=== PATIENT | female | born 2000 | race Caucasian/White ===

== ENCOUNTER 2018-01-02 18:19 | Emergency (ER) | payer MEDICAID, SELFPAY ==
[2018-01-02 18:53] VITALS: BP 123/78; PULSE 80; RESP 18; TEMP 37; O2SAT 98
--- NOTE | 2018-01-02 19:33 | ED.GENADUL ---
Disposition Clinical Impression: Depression, Passive suicidal ideations Disposition: HOME Condition: Good Instructions: Depression (ED), Suicide Prevention for Adults (ED) Additional Instructions: Return immediately for any new or significant worsening of your symptoms these may include further thoughts of harming herself or other concerns. Otherwise follow the safety plan as established by mental health worker. Referrals: Bobby Estrada MD [Primary Care Provider] - (As needed for reassessment) Medical Decision Making - Medical Decision Making Patient presenting to the emergency department for chief complaint of worsening depression with increasing suicidal thoughts. She denies any current self-harm but does have history in the past of overdose and that is what she is thinking about currently doing to harm herself. There is situational changes with recent separation from significant other and loss of job. Patient has no medical complaints at this time and given history and situation along with patient's ongoing depression with multiple admissions and very well-known to [facility] and mental health services I do not feel that labs are needed or warranted at this time. Of notation is patient is presenting with friend and she is laughing and giggling and smiling and appropriately interactive with friend. Again given this interaction I do not feel that there are any endocrine or medical sources for patient's complaint and this is mostly psychiatric in nature so acute mental health band saw marker was contacted for evaluation. After acute mental health evaluation patient reported that she would prefer to go home and was able to contract for safety. Reviewed safety plan with patient and she remains also agreeable to me to contract for safety and to contact mental services as needed or return to the emergency department for new or worsening symptoms otherwise she does state that she is excited to go home and spend time with her niece this weekend. Given patient's overall well appearance and even pleasant interactions with her friend who brought her to the emergency department and patient jaime for safety I feel that this is an appropriate plan the patient does not need admission at this time. Patient clearly states understanding that she may return to the emergency department at any point in time for any worsening suicidal thoughts or depression for reevaluation. After discussion of diagnosis and plan of care with patient patient agreed and stated no further needs, questions, or concerns at this time. History of Present Illness - General Chief complaint: PsychEval Stated complaint: EVAL Time Seen by Provider: 01/02/18 18:33 Source: patient, RN notes reviewed Mode of arrival: ambulatory Limitations: no limitations - History of Present Illness Initial comments: Patient reports 1 month ago her relationship with her significant other began to start to have problems. Then 2 weeks ago she broke off the relationship. Since then the patient has complained of worsening depression. Then she lost her job which worsened her depression now causing increasing thoughts of suicidal ideation. Patient states her plan is to overdose like she is done in the past. Patient denies any self-harm but that she has started having increasing feeling so she is presenting for evaluation and seeking help. She does report some superficial cutting that occurred 2 weeks ago but nothing recent. Patient denies any chest pain, palpitations, syncope, difficulty breathing, fever or chills Patient denies any pain or discomfort at this time Onset/Timin -: month(s) Associated Symptoms: denies other symptoms Treatments Prior to Arrival: none - Related Data Albuterol Sulfate 2.5 mg IH Q4H PRN #1 box 07/20/14 Mupirocin [MUPIROCIN 2%] 1 isa TP TID #22 gm 01/07/17 Triamcinolone 0.1% Lotion [Kenalog 0.1% Lotion] 1 isa TP BID #60 ml 01/07/17 Prazosin HCl 2 mg PO HS #30 tab-cap 05/22/17 [place] Carbonate [[place] Carbonate ER] 300 mg PO BID #60 tab-cap 05/30/17 HydrOXYzine HCL [Atarax] 25 mg PO TID PRN 07/15/17 PARoxetine [Paxil] 10 mg PO DAILY 01/02/18 Allergies Allergy/AdvReac Type Severity Reaction Status Date / Time No Known Allergies Allergy Unverified 01/02/18 18:59 Review of Systems Constitutional: denies: chills, fever ENT: denies: throat pain Respiratory: no symptoms reported Cardiovascular: denies: chest pain, palpitations, syncope Endocrine: no symptoms reported Gastrointestinal: denies: abdominal pain Psychiatric: depression, suicidal thoughts. denies: auditory hallucinations, visual hallucinations, homicidal thoughts Past Medical History - Past Medical History Medical history: no medical history. denies: diabetes eczema Surgical history: non-contributory Psychiatric history: depression - Social History Smoking status: current everyday smoker Alcohol use: none Drug use: none General Exam - General Limitations: no limitations General appearance: alert, in no apparent distress - Head Head exam: Present: atraumatic - Eye Eye exam: Present: normal apperance, PERRL, EOMI. Absent: scleral icterus, conjunctival injection, nystagmus Pupils: Present: normal accommodation - ENT ENT exam: Present: mucous membranes moist - Respiratory Respiratory exam: Present: normal lung sounds bilaterally. Absent: respiratory distress, wheezes, rales, rhonchi, stridor - Cardiovascular Cardiovascular Exam: Present: regular rate, normal rhythm, normal heart sounds. Absent: tachycardia, systolic murmur, diastolic murmur, rubs, clicks - Extremities Exam Extremities exam: Present: normal capillary refill - Neurological Exam Neurological exam: Present: alert, oriented X3. Absent: altered - Psychiatric Psychiatric exam: Present: depressed, suicidal ideation (With plan to overdose on pills), other (Patient giggling and laughing with friend in the room patient is not tearful and appropriately interactive.). Absent: agitated, anxious, flat affect, manic, homicidal ideation - Skin Skin exam: Present: warm, dry. Absent: cyanosis, diaphoretic, pallor, mottled Course Vital Signs - 24 hr 01/02/18 18:53 Temperature 37 C Pulse 80 Respiratory 18 Rate Blood Pressure 123/78 Pulse Oximetry 98
--- NOTE | 2018-01-02 20:58 | PDOC.MHCN ---
Presenting Issue: *How did they arrive here at ER and why did they come: Client arrived at ER today with Suicidal Ideation. Client stated that she had been maintaining well over the past few weeks following a Breakup and Loosing her job, but was now feeling that she could no longer maintain. [employer] Manual Machinist evaluated the client and found that the client could return home with a safety plan, which the client agreed to. Precipitating Factors: *Assessment of Safety SI/HI (address delusions if pertaining to the SI/HI) Yes to S/I, but client has agreed to stay safe over the weekend Disposition: *Behavior: Sarcastic, uplifted *Eye Contact: Poor at beginning of evaluation, however, improved by end of eval to normal *Mood: Docile, but improving/ overwhelmed *Affect: Polite, friendly, pleasant *Appetite: Low *Sleep (trouble falling/staying asleep): Interupted Plan: Client will return home with a safely plan and await contact from her porter sample case on Friday01/05/18 Safety Plan For Ivan Cole agree to return home this night, 01/02/18 to my home where I will remain safe from myself and others until 01/05/18. Upon the arrival of Friday I will have used my coping skills to get me through my events of depression and thoughts of self-harm. I will make every attempt to not cut myself and treat my medications with respect and maturity and take them only as directed by my prescriber. My Safety plan will include the thorough and unwavering care for my Niece Luma, who will undoubtedly keep my hands full and busy so I will not have time to self-harm. I will also be so incredibly tired by the time Luma goes to sleep that I will need a great deal of rest myself. I understand that during the weekend I have the option to call the after-hours emergency/crisis line at [phone] if I need to speak with someone for extra support to get me through the weekend. I also understand that my porter sample case Nanci Heard, will follow up with me on Friday so that I can further discuss the option of Hospitalization or alternative resources.
== END 2018-01-02 21:15 | disposition home or self-care (01) ==
PROVIDERS: Emergency Provider Student in an Organized Health Care Education/Training Program; PCP Pediatrics
DX: F33.8 Other recurrent depressive disorders (principal); R45.851 Suicidal ideations; Z63.9 Problem related to primary support group, unspecified; Z91.5 Personal history of self-harm
CPT/HCPCS: 99281

== ENCOUNTER 2018-01-16 20:27 | Emergency (ER) | payer MEDICAID, SELFPAY ==
[2018-01-16] VITALS (23 sets, daily range): BP systolic 104–139; BP diastolic 56–90; PULSE 54–78; RESP 14–26; TEMP 36.8; O2SAT 95–98
[2018-01-16] MEDS: Normal Saline 1,000 ML 1000 ML IV (21:05)
[2018-01-16 21:08] LABS: Abs Immature Grans 0.03 k/cumm (0.0-0.09); Absolute Basophil Count 0.05 k/cumm (0.0-0.2); Absolute Eosinophil Count 0.21 k/cumm (0.0-0.7); Absolute Lymphocyte Count 1.89 k/cumm (1.2-3.4); Absolute Monocyte Count 0.54 k/cumm (0.11-0.7); Basophils % 0.4; Eosinophils % 1.7; HCT 39.3 % (36.0-46.0); HGB 13.4 g/dL (12.0-15.5); Immature Grans % 0.2; Lymphocytes % 15.6; Mean Corp. HGB Concentration 34.1 g/dL (32.0-36.0); Mean Corpuscular Hemoglobin 28.2 pg (27.0-33.0); Mean Corpuscular Volume 82.7 fL (80-95); Mean Platelet Volume 9.6 fL (8.0-11.0); Monocytes % 4.5; Neutrophils % 77.6; Platelet Count 366 x1000/uL (130-400); RBC 4.75 m/cumm (4.00-5.20); RBC Distribution Width 12.8 % (11.7-14.6); White Blood Cell Count 12.11 k/cumm (4.4-10.8)
--- NOTE | 2018-01-16 21:11 | ED.GENADUL ---
Disposition Clinical Impression: Overdose, Depression, Suicidal behavior Disposition: [facility][NOTE 3] Condition: Good Instructions: Depression (ED) Medical Decision Making - Lab Data Laboratory Tests 01/16/18 21:00 WBC 12.11 H RBC 4.75 Hgb 13.4 Hct 39.3 MCV 82.7 MCH 28.2 MCHC 34.1 RDW 12.8 Plt Count 366 MPV 9.6 Immature Gran % 0.2 Neutrophils % 77.6 Lymphocytes % 15.6 Monocytes % 4.5 Eosinophils % 1.7 Basophils % 0.4 Absolute Neutrophils 9.40 H Absolute Lymphocytes 1.89 Absolute Monocytes 0.54 Absolute Eosinophils 0.21 Absolute Basophils 0.05 - Medical Decision Making This is a 17-year-old female with a past medical history of depression and multiple overdoses who presents for overdose. She took 10 pills of 300 mg lithium and 20 pills of 75 mg Effexor. She vomited roughly 30 minutes after her initial ingestion and noted a significant amount of pills in there. She classically attempts suicidal attempts through this mechanism. Currently she is hemodynamically stable, she has no pain or abnormality or focal neurologic deficit on exam. Affect is slightly flat. I do feel that she would benefit from admission again secondary to her notable attempt to attempt to harm herself. We will have psychiatric services come and evaluate the patient. EKG 20: 36 Rate 63, sinus rhythm, intervals are normal with a QRS of 86, QTC of 420. OR is 150. No ST elevations or depressions. Appropriately inverted T-wave in V1. Duy level is slightly elevated at 1.73. We are giving her her second liter of normal saline. We did discuss the case with poison control, they have no additional recommendations aside for continued monitoring. Renal function is normal at this time. Shows no signs or symptoms consistent with serotonin syndrome or mental status changes secondary to elevated lithium levels. Mental health has been called and will evaluate the patient. 1: [facility] they have agreed to accept the patient. The patient will be transferred via the personal fitness manager to the facility. Repeat lithium levels show that the levels have gone to normal limits. Salicylate and acetaminophen levels are normal. Laboratory electrolytes are normal. Patient does have a very minimal white count which I think is noncontributory and reactive. I feel the patient is safe for transport. History of Present Illness - General Chief complaint: OD/Poison Stated complaint: OVERDOSE/EVAL Time Seen by Provider: 01/16/18 20:31 - History of Present Illness Initial comments: This is a 17-year-old female who presents for suicidal overdose. Patient states that she took 10 pills of 300 mg lithium and 20 pills of 75 mg Effexor at 630, which is roughly 2 hours prior to arrival. The patient was recently seen by myself over a week ago, and was admitted to [facility] for a similar overdose scenario. She was just discharged 1 week ago from there, was actually here last night for suicidal event with her sister. She states that this evening she has been undergoing a lot of family stress, feeling a significant amount of pressure, so she overdosed. She did not tell anyone the medications that she took until she is at [facility] where she went and vomited roughly 30 minutes after her initial ingestion. She does state that there are multiple pills in her vomitus. She then came to the ER for evaluation. Patient states that she does want to kill herself and take her life. She does not regret her decision at this point. She denies any other types of plans for suicide. She denies any other substances that she is taking. Patient denies any chest pain abdominal pain headache vision changes shortness of breath numbness tingling or weakness. She denies any IV illicit drug use. She has no other complaints at this time. She denies any recent past surgical history, pertinent family history, or any other significant medical problems or complaints at this time. - Related Data Albuterol Sulfate 2.5 mg IH Q4H PRN #1 box 07/20/14 Mupirocin [MUPIROCIN 2%] 1 isa TP TID #22 gm 01/07/17 Triamcinolone 0.1% Lotion [Kenalog 0.1% Lotion] 1 isa TP BID #60 ml 01/07/17 Prazosin HCl 2 mg PO HS #30 tab-cap 05/22/17 [place] Carbonate [[place] Carbonate ER] 300 mg PO BID #60 tab-cap 05/30/17 HydrOXYzine HCL [Atarax] 25 mg PO TID PRN 07/15/17 Venlafaxine [Effexor] 75 mg PO DAILY 01/16/18 Allergies Allergy/AdvReac Type Severity Reaction Status Date / Time No Known Allergies Allergy Unverified 01/16/18 20:35 Review of Systems Other: 10 point review of systems was performed, pertinent positives and negatives are noted in the history of present illness. Past Medical History - Past Medical History Medical history: no medical history. denies: diabetes eczema Surgical history: non-contributory - Social History Alcohol use: none Drug use: none General Exam - Other Other exam information: 1.Const: Well-nourished, Well-developed, appearing stated age 2.Eyes: PERRL, no conjunctival injection, and symmetrical lids. 3.ENT: Atraumatic external nose and ears. Moist MM. Neck: Symmetric, trachea midline, No thyromegaly. 4.CVS: +S1/S2, No murmurs or gallops. Peripheral pulses 2+ and equal in all extremities. Brisk capillary refill in all extremities. 5.RESP: Unlabored respiratory effort. Clear to auscultation bilaterally. No wheezes rales or rhonchi 6.GI: Soft, Nontender/Nondistended, No hepatosplenomegaly. No guarding or rebound. 7.MSK: Normocephalic/Atraumatic, Extremities w/o deformity or ttp No cyanosis or clubbing, Normal movement of all extremities 8.Skin: Warm, Dry. No rashes or lesions. 9.Neuro: tablet machine operator II-XII grossly intact. Sensation grossly intact, no focal neurologic deficits. No hyperreflexia. No evidence of serotonin syndrome. No cogwheel rigidity, leadpipe rigidity, 10.Psych: (AAO) x3. Appropriate mood and affect Course Vital Signs - 24 hr 01/16/18 01/16/18 20:34 20:37 Temperature 36.8 C Pulse 66 Respiratory 25 H 16 Rate Blood Pressure 125/77 Pulse Oximetry 96
[2018-01-16 21:24] LABS: PTT Activated 28.4 sec (21.0-31.4); Prothrombin Time 9.6 sec (9.3-10.8)
[2018-01-16 21:29] LABS: Ammonia 25 umol/L (11-32)
--- NOTE | 2018-01-16 21:29 | PDOC.ERCMPRO ---
Care Management Progress Note 01/16/18- Pt reports she took some of her pych meds as she was feeling sad and wanted to . She went to [facility] with her Mom, Dad and siblings and did not report this to them until she had to go outside and vomit.While pt is reporting to she is smiling. explained that a safety plan would be put into place for her as she needs to be medically cleared and Dr. Andersen will be calling in to evaluate. She states she is familiar with the process. This is a holding care plan only. This Care Plan will remain in effect until Care Management comes in for a huddle and distributes a new plan of care. Renejuan j Joe Emergent Care Plan 01/16/2018 1. Suicide Precautions 2. Patient to be in paper clothing 3. No personal belongings in room 4. Finger foods only with metal spoon. Nurse accounted for. 5. No telephone 6. No visitors 7. Supervised Bathroom Privileges 8. Patient to have one on one, licensed sitter, VIVEK, CLOTH COLORER, coin rolling machine operator. 9. May have crayons, paper, and activities (if appropriate) from the Mental Health Activity Cart in ED
--- NOTE | 2018-01-16 21:34 | CMPROGNOTE_ITS ---
Care Management Progress Note 01/16/18- Pt reports she took some of her pych meds as she was feeling sad and wanted to . She went to [facility] with her Mom, Dad and siblings and did not report this to them until she had to go outside and vomit.While pt is reporting to she is smiling. explained that a safety plan would be put into place for her as she needs to be medically cleared and Dr. Andersen will be calling in to evaluate. She states she is familiar with the process. This is a holding care plan only. This Care Plan will remain in effect until Care Management comes in for a huddle and distributes a new plan of care. Renejuan j Joe Emergent Care Plan 01/16/2018 1. Suicide Precautions 2. Patient to be in paper clothing 3. No personal belongings in room 4. Finger foods only with metal spoon. Nurse accounted for. 5. No telephone 6. No visitors 7. Supervised Bathroom Privileges 8. Patient to have one on one, licensed sitter, VIVEK, OR DIRECTOR, sample taker operator. 9. May have crayons, paper, and activities (if appropriate) from the Mental Health Activity Cart in ED
[2018-01-16 21:35] LABS: ALT 20 U/L (12-78); AST 18 U/L (15-37); Albumin 4.2 g/dL (3.4-5.0); Alkaline Phosphatase 111 U/L (46-116); Anion Gap 10.6 mmol/L (3-11); BUN 12 mg/dL (7-18); Bilirubin, Total 0.3 mg/dL (0.2-1.0); CO2 26.4 mmol/L (21.0-32.0); Calcium 9.4 mg/dL (8.5-10.1); Chloride 103 mmol/L (98-107); Glucose 93 mg/dL (70-100); Potassium 3.7 mmol/L (3.5-5.1); Sodium 140 mmol/L (136-145); Total Protein 8.6 g/dL (6.4-8.2)
[2018-01-16 21:41] LABS: TSH 2.46 uIU/mL (0.516-4.13)
[2018-01-16 21:49] LABS: ETHANOL BLOOD < 3.0 mg/dL (<3); Troponin I < 0.02 ng/mL (0.00-0.06)
[2018-01-16 21:55] LABS: Salicylate < 2.8 mg/dL (2.8-20.0)
[2018-01-16 21:57] LABS: Lithium 1.73 mmol/L (0.60-1.20)
[2018-01-16 22:10] LABS: HCG Qual (Serum) Negative
--- NOTE | 2018-01-16 23:42 | ERMH_ITS ---
Presenting issue: [Patient was brought to [facility] ED by family after overdosing on her medications.] *How did they arrive here at ER and why did they come: [Family drover her to the hospital] Precipitating Factors: [Patient was recently discharged from [facility] 01/09/2018 after overdosing on her medications.] *Assessment of Safety SI / HI- (Address delusions if pertaining to the SI/ HI) [Patient lives with her parents and siblings in a very chaotic,stressful environment. She recently lost her cat and her sister recently overdosed and was hospitalized. Patient reports she still has strong S/I and would not be safe if returned to her home.] Disposition: [] *Behavior: [ Patient is polite and cooperative.] *Eye Contact: [Appropriate] *Mood: [Unremarkable] *Affect: [Unremarkable] *Appetite: [Normal] *Sleep (trouble falling/staying asleep): [None.] Plan: (please elaborate and include that physician is consulted with plan and/ or placement): [Patient is seeking and has agreed to voluntary hospitalization. ] Provisional Diagnosis:(only if required by physician): [] AXIS 5 Case Handover: Done with ED nurse (name): [Dr. Andersen] Date & Time [2017 2 am.] Huddle: done with ED staff (for boarding clients): [x] Yes [] No Date/Time [] Referral for Case management: Has phone call for introduction been made [] Yes [] No Referral in EMR: Done and sent? [] Yes [] NO Clinicians Name and title and Signature: [Mauricio Chang [facility]] Make sure that you are photocopying and submitting this to [facility] records dept.to be scanned into chart
[2018-01-17] MEDS: Normal Saline 1,000 ML 1000 ML IV (00:04)
[2018-01-17 01:17] LABS: ALT 17 U/L (12-78); AST 15 U/L (15-37); Albumin 3.5 g/dL (3.4-5.0); Alkaline Phosphatase 90 U/L (46-116); BUN 8 mg/dL (7-18); Bilirubin, Total 0.3 mg/dL (0.2-1.0); Calcium 8.4 mg/dL (8.5-10.1); Chloride 106 mmol/L (98-107); Glucose 81 mg/dL (70-100); Potassium 3.7 mmol/L (3.5-5.1); Sodium 142 mmol/L (136-145); Total Protein 7.3 g/dL (6.4-8.2)
[2018-01-17 01:21] LABS: Bilirubin Negative (Negative); Blood Negative (Negative); Clarity Clear; Glucose Negative (Negative); Ketones Negative (Negative); Leukocyte Esterase Negative (Negative); Nitrite Negative (Negative); Specific Gravity 1.015 (1.005-1.025); Urobilinogen 0.2 EU/dL (Up TO 0.2); pH 7.5 (5-8)
[2018-01-17 01:32] LABS: *AMPHETAMINES SCREEN URINE Negative (Negative); *BARBITURATES SCREEN URINE Negative (Negative); *BENZODIAZEPINES SCREEN URINE Negative (Negative); Cannabinoids THC Negative (Negative); Cocaine Screen,Urine Negative (Negative); METHADONE URINE SCREEN Negative (Negative); OPIATES URINE SCREEN Negative (Negative)
[2018-01-17 01:33] LABS: Tricyclic Antidepressants Negative (Negative)
[2018-01-17 01:45] LABS: Lithium 1.02 mmol/L (0.60-1.20)
[2018-01-17 01:49] LABS: Salicylate < 2.8 mg/dL (2.8-20.0)
[2018-01-17 01:51] LABS: Acetaminophen < 2 ug/mL (10-30)
[2018-01-17 06:38] VITALS: BP 110/56; PULSE 54; RESP 18; TEMP 36.8; O2SAT 95
== END 2018-01-17 07:16 | disposition short-term general hospital (02) ==
PROVIDERS: Emergency Provider Student in an Organized Health Care Education/Training Program; PCP Pediatrics
DX: T43.211A Poisoning by selective serotonin and norepinephrine reuptake inhibitors, accidental (unintentional), initial encounter (principal); T43.592A Poisoning by other antipsychotics and neuroleptics, intentional self-harm, initial encounter; F32.9 Major depressive disorder, single episode, unspecified; T14.91XA Suicide attempt, initial encounter
CPT/HCPCS: 36415; 80053; 80307; 93005; 96360; 96361; 99285; 80178; 80320; 80329; 81003; 82140; 84443; 84484; 84703; 85025; 85610; 85730; 93010; 99284

== ENCOUNTER 2018-02-27 09:33 | Outpatient (CLI) | payer MEDICAID, SELFPAY ==
[2018-02-27 10:31] LABS: Abs Immature Grans 0.01 k/cumm (0.0-0.09); Absolute Basophil Count 0.05 k/cumm (0.0-0.2); Absolute Eosinophil Count 0.34 k/cumm (0.0-0.7); Absolute Lymphocyte Count 1.58 k/cumm (1.2-3.4); Absolute Monocyte Count 0.62 k/cumm (0.11-0.7); Absolute Neutrophil Count 5.61 k/cumm (1.2-6.7); Basophils % 0.6; Eosinophils % 4.1; HCT 38.5 % (36.0-46.0); HGB 13.1 g/dL (12.0-15.5); Immature Grans % 0.1; Lymphocytes % 19.2; Mean Corpuscular Hemoglobin 28.5 pg (27.0-33.0); Mean Corpuscular Volume 83.9 fL (80-95); Mean Platelet Volume 9.8 fL (8.0-11.0); Monocytes % 7.6; Neutrophils % 68.4; Platelet Count 274 x1000/uL (130-400); RBC 4.59 m/cumm (4.00-5.20); RBC Distribution Width 12.6 % (11.7-14.6); White Blood Cell Count 8.21 k/cumm (4.4-10.8)
[2018-02-27 11:35] LABS: Lithium 0.62 mmol/L (0.60-1.20)
[2018-02-27 11:38] LABS: ALT 19 U/L (12-78); AST 17 U/L (15-37); Albumin 4.1 g/dL (3.4-5.0); Alkaline Phosphatase 110 U/L (46-116); Anion Gap 8.2 mmol/L (3-11); BUN 6 mg/dL (7-18); Bilirubin, Total 0.5 mg/dL (0.2-1.0); CO2 26.8 mmol/L (21.0-32.0); Calcium 9.1 mg/dL (8.5-10.1); Chloride 103 mmol/L (98-107); Glucose 90 mg/dL (70-100); Potassium 3.9 mmol/L (3.5-5.1); Sodium 138 mmol/L (136-145); TSH (W/Ref FT4) 3.54 uIU/mL (0.516-4.13); Total Protein 7.5 g/dL (6.4-8.2)
== END 2018-02-27 09:53 ==
PROVIDERS: PCP Pediatrics; Visit Provider Nurse Practitioner Psychiatric/Mental Health
DX: F33.1 Major depressive disorder, recurrent, moderate (principal); Z51.81 Encounter for therapeutic drug level monitoring; Z79.899 Other long term (current) drug therapy
CPT/HCPCS: 36415; 80053; 80178; 84443; 85025

== ENCOUNTER 2018-05-15 20:41 | Emergency (ER) | payer MEDICAID, SELFPAY ==
[2018-05-15] VITALS (14 sets, daily range): BP systolic 107–136; BP diastolic 55–84; PULSE 80–112; RESP 16; TEMP 36.9; O2SAT 97–99
--- NOTE | 2018-05-15 20:24 | W.ED.GENAD ---
Discharge Plan Disposition Patient Disposition: [facility] Condition: Stable Discharge Details Chief Complaint: Suicide-Atempt Clinical Impression: Depression Reason For Visit: VALERY Primary Care Provider: Bobby Estrada ED Provider: Mauricio Prince Home Meds and New Rx's Prescriptions: No Action albuterol sulfate 2.5 MG/3 ML solution for nebulization 2.5 mg Inhalation Q4H PRN Qty: 1 RF: 1 mupirocin 22 GM ointment 1 isa Topical TID Qty: 22 RF: 0 triamcinolone acetonide 60 ML lotion 1 isa Topical BID Qty: 60 RF: 2 prazosin 2 MG capsule 2 mg PO HS Qty: 30 RF: 1 lithium carbonate 300 MG tablet extended release 300 mg PO BID Qty: 60 RF: 1 venlafaxine 75 mg capsule,extended release 24hr 75 mg PO DAILY Qty: 30 RF: 0 venlafaxine 37.5 mg capsule,extended release 24hr 37.5 mg PO DAILY Qty: 30 RF: 0 ranitidine HCl 150 mg capsule 150 mg PO BID Qty: 120 RF: 2 hydroxyzine HCl 25 MG tablet 25 mg PO TID PRN (Reason: Anxiety) RF: 0 Medical Decision Making 17-year-old female presents from home via EMS after revealing to her friend that she had ingested 10 300 mg lithium tablets and 22 mg terazosin tablets at approximately 7 PM. She vomited x1. She states to me that her mood has been personally worse since recent discharge from the [facility]. She is living in her apartment and has a local counseling case manager. She states to nursing staff that she is undergoing gender transformation from female to male and would like to be addressed by the name Ivan. I discussed the patient with care management and interim safety plan was initiated. Patient underwent medical screening examination including laboratory analysis with both acetaminophen, aspirin, lithium levels. Case discussed with poison control. Patient will require monitoring until peak lithium level (2-4hrs): Initial level negative and repeat ordered at 4 hr interval. Liberally hydrated with 2 L fluid bolus. Observed for tremor, nystagmus. No evidence of hyperreflexia. Medically stable for further evaluation by mental health and given unremarkable 4 hr lithium level, stable for transport to inpatient facility.Patient accepted in transfer to [facility], who request ambulance transport secondary to intentional ingestion. Lab Data Lab results reviewed: Yes I reviewed the patient's lab results. Laboratory Results - last 24 hr 05/15/18 05/15/18 05/15/18 20:38 20:38 20:38 WBC 8.71 RBC 4.49 Hgb 12.9 Hct 37.7 MCV 84.0 MCH 28.7 MCHC 34.2 RDW 12.6 Plt Count 301 MPV 9.6 Immature Gran % 0.0 Neutrophils % 68.0 Lymphocytes % 23.2 Monocytes % 6.5 Eosinophils % 1.7 Basophils % 0.6 Absolute Neutrophils 5.92 Absolute Lymphocytes 2.02 Absolute Monocytes 0.57 Absolute Eosinophils 0.15 Absolute Basophils 0.05 Sodium 139 Potassium 3.5 Chloride 103 Carbon Dioxide 25.9 Anion Gap 10.1 BUN 10 Creatinine 0.66 Estimated GFR/1.73 m2 >= 60.00 Glucose 121 H POC Glucose Calcium 9.2 Total Bilirubin 0.2 AST 15 ALT 21 Alkaline Phosphatase 95 Total Protein 7.8 Albumin 4.0 TSH 2.32 Urine Color Urine Clarity Urine pH Ur Specific [place] Urine Protein Urine Ketones Urine Blood Urine Nitrite Urine Bilirubin Urine Urobilinogen Ur Leukocyte Esterase Urine Glucose Salicylates < 2.8 L Acetaminophen < 2 L [place] Ethyl Alcohol < 3.0 05/15/18 05/15/18 05/15/18 20:38 20:41 21:45 WBC RBC Hgb Hct MCV MCH MCHC RDW Plt Count MPV Immature Gran % Neutrophils % Lymphocytes % Monocytes % Eosinophils % Basophils % Absolute Neutrophils Absolute Lymphocytes Absolute Monocytes Absolute Eosinophils Absolute Basophils Sodium Potassium Chloride Carbon Dioxide Anion Gap BUN Creatinine Estimated GFR/1.73 m2 Glucose POC Glucose Cancelled Calcium Total Bilirubin AST ALT Alkaline Phosphatase Total Protein Albumin TSH Urine Color Yellow Urine Clarity Clear Urine pH 7.0 Ur Specific [place] 1.015 Urine Protein Negative Urine Ketones Negative Urine Blood Negative Urine Nitrite Negative Urine Bilirubin Negative Urine Urobilinogen 0.2 Ur Leukocyte Esterase Negative Urine Glucose Negative Salicylates Acetaminophen [place] 1.01 Ethyl Alcohol ECG Data Attestation: I personally reviewed and interpreted this ECG (s) as follows: Prior ECG tracings: available for review Interpretation: Sinus tachycardia, rate 90, QRS is narrow, no ST changes HPI General Mode of arrival: EMS. Date/Time Provider Initiated Documentation: 05/15/18 20:45. Limitations to Documentation: no limitations. Information obtained by: patient and EMS. History of Present Illness described as similar to prior episodes, Patient started experiencing this hour(s) No relieving factors improve symptom(s), No exacerbating factors reported . Patient notes nausea/vomiting. HPI Narrative: Report of speaking on phone to friend and reporting ingestion of 300 mg lithium pills x10, 2 mg terazosin pills x20 at approximately 1900 hrs. vomited x1 Related Data Home Medications Medication Instructions Recorded Confirmed albuterol sulfate 2.5 mg INHALATION Q4H PRN #1 box 07/20/14 04/09/18 mupirocin 1 isa TOPICAL TID #22 gm 01/07/17 04/09/18 triamcinolone acetonide 1 isa TOPICAL BID #60 ml 01/07/17 04/09/18 prazosin 2 mg PO HS #30 tab-cap 05/22/17 04/09/18 lithium carbonate 300 mg PO BID #60 tab-cap 05/30/17 04/09/18 hydroxyzine HCl 25 mg PO TID PRN 07/15/17 04/09/18 venlafaxine ER 37.5 mg 37.5 mg PO DAILY #30 cap 02/04/18 04/09/18 capsule,extended release 24 hr venlafaxine ER 75 mg 75 mg PO DAILY #30 cap 02/04/18 04/09/18 capsule,extended release 24 hr ranitidine 150 mg capsule 150 mg PO BID #120 cap 05/12/18 Previous Rx's Medication Instructions Recorded prazosin 2 mg PO HS #30 tab-cap 05/22/17 lithium carbonate 300 mg PO BID #60 tab-cap 05/30/17 venlafaxine ER 37.5 mg 37.5 mg PO DAILY #30 cap 02/04/18 capsule,extended release 24 hr venlafaxine ER 75 mg 75 mg PO DAILY #30 cap 02/04/18 capsule,extended release 24 hr ranitidine 150 mg capsule 150 mg PO BID #120 cap 05/12/18 Allergies Allergy/AdvReac Type Severity Reaction Status Date / Time No Known Allergies Allergy Unverified 04/09/18 13:38 Review of Systems Review of Systems 6 systems reviewed and otherwise neg [facility] Medical History Depression Eczema Wears glasses Family History Mother Depression Father No problems noted. sibling Depression Grandparent Depression Social History adopted: No Smoking/Tobacco Use Status: Current every day Exam Narrative Exam Narrative: GEN: awake, alert, oriented 3. Pleasant, well groomed, interactive. HEAD: Normocephalic, atraumatic ENT: Mucous membranes moist, oropharynx unremarkable, External ear exam unremarkable EYES: PERRL, EOMI NECK: Full ROM, no SHABBIR, no menigismus CHEST/RESP: Nontender, clear to auscultation bilateral, no wheeze/rhonchi/rales CARDIOVASCULAR: Regular, borderline tachycardia, no murmur, rub charli. 2+ Rad pulse bilateral ABDOMEN: Soft, nontender, no mass. +Bowel sounds EXT: Full ROM, no edema, no rash Neuro: Grossly normal neurologic exam, conversant, interactive. Psych: Speech fluent, thoughts congruent, affect flat
--- NOTE | 2018-05-15 20:42 | NUR.NOTE ---
glucose 118 mg/dL Nursing Note:
[2018-05-15 20:47] LABS: Absolute Basophil Count 0.05 k/cumm (0.0-0.2); Absolute Eosinophil Count 0.15 k/cumm (0.0-0.7); Absolute Lymphocyte Count 2.02 k/cumm (1.2-3.4); Absolute Monocyte Count 0.57 k/cumm (0.11-0.7); Absolute Neutrophil Count 5.92 k/cumm (1.2-6.7); Basophils % 0.6; Eosinophils % 1.7; HCT 37.7 % (36.0-46.0); HGB 12.9 g/dL (12.0-15.5); Lymphocytes % 23.2; Mean Corp. HGB Concentration 34.2 g/dL (32.0-36.0); Mean Corpuscular Hemoglobin 28.7 pg (27.0-33.0); Mean Platelet Volume 9.6 fL (8.0-11.0); Monocytes % 6.5; Platelet Count 301 x1000/uL (130-400); RBC 4.49 m/cumm (4.00-5.20); RBC Distribution Width 12.6 % (11.7-14.6); White Blood Cell Count 8.71 k/cumm (4.4-10.8)
[2018-05-15] MEDS: Normal Saline 1,000 ML 2000 ML IV (20:58)
[2018-05-15 21:12] LABS: ALT 21 U/L (12-78); AST 15 U/L (15-37); Alkaline Phosphatase 95 U/L (46-116); Anion Gap 10.1 mmol/L (3-11); BUN 10 mg/dL (7-18); Bilirubin, Total 0.2 mg/dL (0.2-1.0); CO2 25.9 mmol/L (21.0-32.0); CREATININE 0.66 mg/dL (0.55-1.02); Calcium 9.2 mg/dL (8.5-10.1); Chloride 103 mmol/L (98-107); Glucose 121 mg/dL (70-100); Potassium 3.5 mmol/L (3.5-5.1); Sodium 139 mmol/L (136-145); TSH 2.32 uIU/mL (0.516-4.13); Total Protein 7.8 g/dL (6.4-8.2)
[2018-05-15 21:13] LABS: ETHANOL BLOOD < 3.0 mg/dL (<3)
--- NOTE | 2018-05-15 21:15 | NUR.NOTE ---
pt is happily discussing there favorite TV shows with nurse and seems happy and pleasant. pt also states that they have no plans of harm
[2018-05-15 21:16] LABS: Salicylate < 2.8 mg/dL (2.8-20.0)
[2018-05-15 21:17] LABS: Acetaminophen < 2 ug/mL (10-30)
[2018-05-15 21:30] LABS: Lithium 1.01 mmol/L (0.60-1.20)
[2018-05-15 22:00] LABS: Bilirubin Negative (Negative); Blood Negative (Negative); Clarity Clear; Glucose Negative (Negative); Ketones Negative (Negative); Leukocyte Esterase Negative (Negative); Nitrite Negative (Negative); Specific Gravity 1.015 (1.005-1.025); Urobilinogen 0.2 EU/dL (Up TO 0.2)
[2018-05-15 22:23] LABS: *AMPHETAMINES SCREEN URINE Negative (Negative); *BARBITURATES SCREEN URINE Negative (Negative); *BENZODIAZEPINES SCREEN URINE Negative (Negative); Cannabinoids THC Negative (Negative); Cocaine Screen,Urine Negative (Negative); METHADONE URINE SCREEN Negative (Negative); OPIATES URINE SCREEN Negative (Negative)
[2018-05-15 22:32] LABS: Tricyclic Antidepressants Negative (Negative)
--- NOTE | 2018-05-15 22:52 | NUR.NOTE ---
pt under continuos 1 to 1 patient observation. pt is sitting up in bed continuously attempting to make conversation with observer about TV shows they are watching Nursing Note:
[2018-05-16] MEDS: Normal Saline 1,000 ML 2000 ML IV (00:02)
[2018-05-16 00:26] LABS: Lithium 0.72 mmol/L (0.60-1.20)
[2018-05-16 00:32] LABS: Acetaminophen < 2 ug/mL (10-30)
[2018-05-16 00:47] VITALS: RESP 14
[2018-05-16] MEDS: Normal Saline 1,000 ML 150 ML IV (00:59)
--- NOTE | 2018-05-16 01:36 | NUR.NOTE ---
Nursing Note: [facility] has called and accepted patient. Unable to obtain EMS transport (per [place] request) until 0700, [facility] crew. Bed is secure and not in jeopardy of being given away.
[2018-05-16 06:15] VITALS: BP 121/70; PULSE 71; RESP 14; TEMP 37; O2SAT 97
[2018-05-16 07:00] VITALS: BP 121/70; PULSE 71; RESP 14; TEMP 37; O2SAT 97
== END 2018-05-16 07:11 | disposition short-term general hospital (02) ==
PROVIDERS: Emergency Provider Emergency Medicine; PCP Pediatrics
DX: T56.892A Toxic effect of other metals, intentional self-harm, initial encounter (principal); F32.9 Major depressive disorder, single episode, unspecified; R45.851 Suicidal ideations
CPT/HCPCS: 36415; 80053; 80307; 82947; 93005; 96360; 96361; 99285; 80178; 80320; 80329; 81003; 84443; 85025; 93010; 99284

== ENCOUNTER 2018-09-06 18:56 | Emergency (ER) | payer MEDICAID, SELFPAY ==
--- NOTE | 2018-09-06 19:58 | W.ED.GENAD ---
Discharge Plan Disposition Patient Disposition: HOME Condition: Good Discharge Details Chief Complaint: PsychEval Clinical Impression: Major depression Primary Care Provider: Sudha Jacob ED Provider: Meryl Sanchez Home Meds and New Rx's Prescriptions: No Action venlafaxine 150 mg capsule,extended release 24hr 150 mg PO DAILY RF: 0 albuterol sulfate 2.5 MG/3 ML solution for nebulization 2.5 mg Inhalation Q4H PRN Qty: 1 RF: 1 mupirocin 22 GM ointment 1 isa Topical TID Qty: 22 RF: 0 triamcinolone acetonide 60 ML lotion 1 isa Topical BID Qty: 60 RF: 2 prazosin 2 MG capsule 2 mg PO HS Qty: 30 RF: 1 ranitidine HCl 150 mg capsule 150 mg PO BID Qty: 120 RF: 2 testosterone cypionate 200 mg/mL Kit 100 mg IM ONCE RF: 0 hydroxyzine HCl 25 MG tablet 25 mg PO TID PRN (Reason: Anxiety) RF: 0 Discharge Instructions Additional Instructions: If you have any thoughts of self-harm, please contact your mental health resources or 1 return immediately. If you notice any worsening of your symptoms, or any new symptoms such as vomiting, diarrhea, fever, chills, shortness of breath, chest pain, numbness, weakness, or fainting , please return immediately to the emergency department for reevaluation. Please follow up with your primary care provider as soon as possible for reassessment and reevaluation. As always, it was a pleasure participating in your medical care today. Referrals: Sudha Jacob [Primary Care Provider] - Discharge Data Discharge Date/Time-TO BE ENTERED AT DEPARTURE: 09/06/18 23:57 Medical Decision Making <Meryl Sanchez DO - Last Filed: 09/08/18 09:14> 17-year-old female with history of anxiety and depression who presents for feeling depressed and suicidal for the past few days. She has a previous history of suicide attempts with medication overdose. Her plan at this time would be to cut herself. Vitals within normal limits. Patient appears nontoxic. No acute findings on exam. Patient had initially told other staff members that she had been feeling suicidal at times but not currently suicidal. Patient admits to me that she is currently suicidal. She is medically cleared. Will call behavioral health. 2100 -- discussed with mental health - patient is a [employer] client. Will attempt to reach [employer]ELOPER to evaluate patient. 2139 -- discuss with Valeria from [employer] - she will not be able to come in until 11 PM tonight. 2199 -- case endorsed to Dr. Andersen to follow up with [employer] and final disposition. Medical Records Medical records reviewed: Yes I reviewed the patient's medical records. Lab Data Lab results reviewed: Yes I reviewed the patient's lab results. Laboratory Tests Range/Units 09/06/18 09/06/18 09/06/18 20:09 20:09 20:21 WBC (4.4-10.8) k/cumm 7.67 RBC (4.00-5.20) m/cumm 4.84 Hgb (12.0-15.5) g/dL 13.8 Hct (36.0-46.0) % 40.2 MCV (80-95) fL 83.1 MCH (27.0-33.0) pg 28.5 MCHC (32.0-36.0) g/dL 34.3 RDW (11.7-14.6) % 13.5 Plt Count (130-400) x1000/uL 314 MPV (8.0-11.0) fL 9.1 Immature Gran % 0.1 Neutrophils % 64.2 Lymphocytes % 27.4 Monocytes % 6.4 Eosinophils % 1.4 Basophils % 0.5 Absolute Neutrophils (1.2-6.7) k/cumm 4.92 Absolute Lymphocytes (1.2-3.4) k/cumm 2.10 Absolute Monocytes (0.11-0.7) k/cumm 0.49 Absolute Eosinophils (0.0-0.7) k/cumm 0.11 Absolute Basophils (0.0-0.2) k/cumm 0.04 Sodium (136-145) mmol/L 139 Potassium (3.5-5.1) mmol/L 3.9 Chloride (98-107) mmol/L 102 Carbon Dioxide (21.0-32.0) mmol/L 26.6 Anion Gap (3-11) mmol/L 10.4 BUN (7-18) mg/dL 8 Creatinine (0.55-1.02) mg/dL 0.64 Estimated GFR/1.73 m2 (mL/min/1.73m2) >= 60.00 Glucose (70-100) mg/dL 102 H Calcium (8.5-10.1) mg/dL 9.2 Urine Opiates Screen (Negative) Negative Urine Methadone Screen (Negative) Negative Ur Barbiturates Screen (Negative) Negative Ur Tricyclics Screen (Negative) Negative Ur Amphetamines Screen (Negative) Negative U Benzodiazepines Scrn (Negative) Negative Urine Cocaine Screen (Negative) Negative Ur THC Screen (Negative) Negative Ethyl Alcohol (<3) mg/dL < 3.0 <Bobby Andersen, - Last Filed: 09/06/18 23:52> The case was signed out to me by my colleague Dr. Sanchez for mental health evaluation. Mental health has evaluated the patient and at this time the patient is laughing, giggling, denies any homicidal or suicidal thoughts or plans. She feels safe to go home. Mental health agrees with this, and would like to discharge the patient home. The patient is medically clear. Relying on the plan for mental health I feel that this is appropriate at this time. Patient will be discharged home. She has numerous resources at home for this. I have extensively reviewed the treatment plan and discharge instructions with the patient. I have addressed all patient concerns at this time. The patient was made aware of what symptoms to monitor for that would warrant a return to the emergency department. Discussed the plan with the patient, they demonstrate verbal understanding and agreement with our assessment and plan at this time. HPI <Meryl Sanchez, - Last Filed: 09/08/18 09:14> General Mode of arrival: ambulatory. Date/Time Provider Initiated Documentation: 09/06/18 19:56. Limitations to Documentation: no limitations. Information obtained by: patient. HPI Narrative: Patient is a 17-year-old female with a history of anxiety and depression and 5 previous suicide attempts who presents with feeling depressed and suicidal for the past few days. She has previously overdosed on lithium, most recently in May 2018. She states she does not have that medication anymore and states her plan at this time would be to cut herself with attempt to kill herself. She denies any homicidal ideation. She denies any alcohol or drug use. She denies any auditory or visual hallucinations. Related Data Home Medications Medication Instructions Recorded Confirmed albuterol sulfate 2.5 mg INHALATION Q4H PRN #1 box 07/20/14 09/06/18 mupirocin 1 isa TOPICAL TID #22 gm 01/07/17 09/06/18 triamcinolone acetonide 1 isa TOPICAL BID #60 ml 01/07/17 09/06/18 prazosin 2 mg PO HS #30 tab-cap 05/22/17 09/06/18 hydroxyzine HCl 25 mg PO TID PRN 07/15/17 09/06/18 ranitidine 150 mg capsule 150 mg PO BID #120 cap 05/12/18 09/06/18 venlafaxine ER 150 mg 150 mg PO DAILY 05/28/18 09/06/18 capsule,extended release 24 hr testosterone cypionate 100 mg IM ONCE 09/06/18 09/06/18 Previous Rx's Medication Instructions Recorded prazosin 2 mg PO HS #30 tab-cap 05/22/17 ranitidine 150 mg capsule 150 mg PO BID #120 cap 05/12/18 Allergies Allergy/AdvReac Type Severity Reaction Status Date / Time No Known Allergies Allergy Unverified 09/06/18 20:09 General COLBY: 2 Review of Systems <Meryl Sanchez DO - Last Filed: 09/08/18 09:14> Review of Systems All systems reviewed & are unremarkable except as noted in HPI and below Constitutional Reports as per HPI, Denies chills and Denies fever(s) Eyes Denies blurry vision ENT Denies dizziness, Denies sore throat and Denies throat swelling Cardiovascular Denies chest pain and Denies dyspnea Respiratory Denies cough and Denies dyspnea Gastrointestinal Denies abdominal pain, Denies diarrhea and Denies vomiting Genitourinary Denies hematuria and Denies dysuria Musculoskeletal Denies back pain and Denies numbness Integumentary/Breasts Denies lesions and Denies rash Neurologic Denies dizziness, Denies focal weakness and Denies numbness Psychiatric Denies homicidal ideation and Reports suicidal ideation Allergic/Immunologic Denies throat swelling PFSH <Meryl Sanchez DO - Last Filed: 09/08/18 09:14> Medical History Anxiety (Chronic) Depression Eczema Wears glasses Surgical History No significant past surgical history (Acute) Family History Mother Depression Father No problems noted. sibling Depression Grandparent Depression Social History Smoking/Tobacco Use Status: Current every day Tobacco Type: cigarettes Alcohol Intake: never Drug use: Never Substance use type: does not use Adopted: No Do you feel safe at home: Yes Do you feel safe in your relationship?: Yes Exam <Meryl Sanchez DO - Last Filed: 09/08/18 09:14> Const General: cooperative, healthy appearing and no acute distress HENMT Head: normal to inspection Ears: hearing grossly normal bilaterally and external ears normal General nose exam: external nose normal Face and sinus: normal facial exam Mouth: oral mucosae normal Eyes General: appearance normal, both eyes and all related structures Pupils: PERRL EOM: EOM intact bilaterally Neck Neck: normal visual inspection and No submandibular swelling Lymphatic: no lymphadenopathy noted Chest Chest: normal inspection of the chest and no tenderness Resp Effort & Inspection: normal respiratory effort and able to speak in complete sentences Auscultation: clear to auscultation bilaterally Cardio Rate: regular rate Rhythm: regular rhythm GI Inspection: normal to inspection Palpation: soft, not firm, not rigid and nontender Auscultation: normal bowel sounds Skin General skin exam: no rashes or lesions noted Neuro General: alert, awake and oriented x3 Cognition: normal cognition Speech: speech normal Motor: muscle tone normal throughout Sensory Exam: no sensory deficits noted Extrem General: normal to inspection, full ROM and no edema Psych Appearance: grossly normal Mental Status: mental status grossly normal Speech and Movement: speech and movement normal Affect: normal affect
--- NOTE | 2018-09-06 20:06 | NUR.NOTE ---
pt states that she has been having some family troubles and i have thought about suicide once or twice pt denies currently having a plan and states that she does not want to harm herself at the moment
[2018-09-06 20:07] VITALS: BP 130/82; PULSE 82; RESP 16; TEMP 36.7; O2SAT 98
[2018-09-06 20:16] LABS: Abs Immature Grans 0.01 k/cumm (0.0-0.09); Absolute Basophil Count 0.04 k/cumm (0.0-0.2); Absolute Eosinophil Count 0.11 k/cumm (0.0-0.7); Absolute Monocyte Count 0.49 k/cumm (0.11-0.7); Absolute Neutrophil Count 4.92 k/cumm (1.2-6.7); Basophils % 0.5; Eosinophils % 1.4; HCT 40.2 % (36.0-46.0); HGB 13.8 g/dL (12.0-15.5); Immature Grans % 0.1; Lymphocytes % 27.4; Mean Corp. HGB Concentration 34.3 g/dL (32.0-36.0); Mean Corpuscular Hemoglobin 28.5 pg (27.0-33.0); Mean Corpuscular Volume 83.1 fL (80-95); Mean Platelet Volume 9.1 fL (8.0-11.0); Monocytes % 6.4; Neutrophils % 64.2; Platelet Count 314 x1000/uL (130-400); RBC 4.84 m/cumm (4.00-5.20); RBC Distribution Width 13.5 % (11.7-14.6); White Blood Cell Count 7.67 k/cumm (4.4-10.8)
[2018-09-06 20:31] LABS: Anion Gap 10.4 mmol/L (3-11); BUN 8 mg/dL (7-18); CO2 26.6 mmol/L (21.0-32.0); CREATININE 0.64 mg/dL (0.55-1.02); Calcium 9.2 mg/dL (8.5-10.1); Chloride 102 mmol/L (98-107); Glucose 102 mg/dL (70-100); Potassium 3.9 mmol/L (3.5-5.1); Sodium 139 mmol/L (136-145)
[2018-09-06 20:52] LABS: ETHANOL BLOOD < 3.0 mg/dL (<3)
[2018-09-06 21:05] LABS: *AMPHETAMINES SCREEN URINE Negative (Negative); *BARBITURATES SCREEN URINE Negative (Negative); *BENZODIAZEPINES SCREEN URINE Negative (Negative); Cannabinoids THC Negative (Negative); Cocaine Screen,Urine Negative (Negative); METHADONE URINE SCREEN Negative (Negative); OPIATES URINE SCREEN Negative (Negative); Tricyclic Antidepressants Negative (Negative)
--- NOTE | 2018-09-07 11:46 | PDOC.MHCN ---
Date of service: 09/06/18 Time of Service: 12:03 Mental Health Crisis Note Presenting Issue How did you arrive at the ED and why did you come: Patient's friend drives her to the ER due to depression and intermittent suicidal ideation. Precipitating Factors Patient reports having had vague thoughts of suicide earlier but denies intent or plan. She is upset with her mom and this was a precipitant to the suicidal thoughts. Patient states she is no longer suicidal, is tired and would like to go home and go to bed. She does have a history of engaging in cutting behaviors but reports having last cut approximately two months ago. Disposition BEHAVIOR: Cooperative. EYE CONTACT: Good. MOOD: Described as depressed and frustrated with the on-going difficulties with her parents. AFFECT: Normal. APPETITE: Good. SLEEP(trouble falling/staying asleep: Good. Plan Patient is returning home on a safety plan. She will follow-up with her case finishing machine adjuster in the morning. She knows how to contact [facility] emergency services and agrees to call as needed. Signature Clinician's Name/Title: Valeria Palacios BA, [facility] [employer]
--- NOTE | 2018-09-07 11:57 | PDOC.MHCN_ITS ---
Date of service: 09/06/18 Time of Service: 12:03 Mental Health Crisis Note Presenting Issue How did you arrive at the ED and why did you come: Patient's friend drives her to the ER due to depression and intermittent suicidal ideation. Precipitating Factors Patient reports having had vague thoughts of suicide earlier but denies intent or plan. She is upset with her mom and this was a precipitant to the suicidal thoughts. Patient states she is no longer suicidal, is tired and would like to go home and go to bed. She does have a history of engaging in cutting behaviors but reports having last cut approximately two months ago. Disposition BEHAVIOR: Cooperative. EYE CONTACT: Good. MOOD: Described as depressed and frustrated with the on-going difficulties with her parents. AFFECT: Normal. APPETITE: Good. SLEEP(trouble falling/staying asleep: Good. Plan Patient is returning home on a safety plan. She will follow-up with her casework specialist in the morning. She knows how to contact [facility] emergency services and agrees to call as needed. Signature Clinician's Name/Title: Valeria Palacios BA, [facility] [employer] Teacher
== END 2018-09-06 23:57 | disposition home or self-care (01) ==
PROVIDERS: Emergency Provider Physician Assistant; PCP Nurse Practitioner Family
DX: F41.8 Other specified anxiety disorders (principal); R45.851 Suicidal ideations
CPT/HCPCS: 36415; 80048; 80307; 99285; 80320; 85025; 99284

== ENCOUNTER 2019-11-02 20:29 | Observation (INO) | payer MEDICAID, SELFPAY ==
[2019-11-02 20:34] VITALS: BP 136/76; PULSE 104; RESP 16; TEMP 37; O2SAT 97
--- NOTE | 2019-11-02 20:54 | W.ED.GENAD ---
Discharge Plan Disposition Patient Disposition: OTHER Condition: Serious Discharge Details Chief Complaint: PsychEval Clinical Impression: Depression with suicidal ideation Primary Care Provider: Sudha Jacob ED Provider: Luis Adams Home Meds and New Rx's Prescriptions: No Action venlafaxine 150 mg capsule,extended release 24hr 150 mg PO DAILY RF: 0 albuterol sulfate 2.5 MG/3 ML solution for nebulization 2.5 mg Inhalation Q4H PRN Qty: 1 RF: 1 mupirocin 22 GM ointment 1 isa Topical TID Qty: 22 RF: 0 triamcinolone acetonide 60 ML lotion 1 isa Topical BID Qty: 60 RF: 2 prazosin 2 MG capsule 2 mg PO HS Qty: 30 RF: 1 ranitidine HCl 150 mg capsule 150 mg PO BID Qty: 120 RF: 2 testosterone cypionate 200 mg/mL Kit 100 mg IM ONCE RF: 0 hydroxyzine HCl 25 MG tablet 25 mg PO TID PRN (Reason: Anxiety) RF: 0 Medical Decision Making 18-year-old transgender female who identifies as a male presents with increasing suicidal ideation and depression. Patient is medically cleared by me. Will obtain routine laboratory values for likely psychiatric placement. Call has been placed to [facility] human services and to our care management team. CPSO initiated as well. Safety plan initiated. I spoke with mental health who then subsequently evaluated the patient. Plan is to find a voluntary placement for the patient. Given placement will not happen this late in the evening, will obtain COVID swab now and attempt to admit to our facility for observation and placement. I spoke with Dr. Mueller, who was agreeable with admission. Medical Records Medical records reviewed: Yes I reviewed the patient's medical records. Lab Data Lab results reviewed: Yes I reviewed the patient's lab results. Lab results narrative: Laboratory Tests Range/Units 11/02/19 11/02/19 11/02/19 21:00 21:00 21:00 WBC (4.4-10.8) k/cumm 9.60 RBC (4.00-5.20) m/cumm 5.62 H Hgb (12.0-15.5) g/dL 16.5 H Hct (36.0-46.0) % 46.4 H MCV (80-95) fL 82.6 MCH (27.0-33.0) pg 29.4 MCHC (32.0-36.0) g/dL 35.6 RDW (11.7-14.6) % 13.0 Plt Count (130-400) x1000/uL 332 MPV (8.0-11.0) fL 9.5 Immature Gran % % 0.2 Neutrophils % 67.9 Lymphocytes % 23.0 Monocytes % 7.8 Eosinophils % 0.8 Basophils % 0.3 Absolute Neutrophils (1.2-6.7) k/cumm 6.51 Absolute Lymphocytes (1.2-3.4) k/cumm 2.21 Absolute Monocytes (0.11-0.7) k/cumm 0.75 H Absolute Eosinophils (0.0-0.7) k/cumm 0.08 Absolute Basophils (0.0-0.2) k/cumm 0.03 Sodium (136-145) mmol/L 139 Potassium (3.5-5.1) mmol/L 3.6 Chloride (98-107) mmol/L 105 Carbon Dioxide (21.0-32.0) mmol/L 25.5 Anion Gap (3-11) mmol/L 8.5 BUN (7-18) mg/dL 8 Creatinine (0.55-1.02) mg/dL 1.10 H Estimated GFR/1.73 m2 (mL/min/1.73m2) >= 60.00 Glucose (74-106) mg/dL 117 H Calcium (8.5-10.1) mg/dL 9.1 Total Bilirubin (0.2-1.0) mg/dL 0.6 AST (15-37) U/L 17 ALT (14-59) U/L 27 Alkaline Phosphatase (46-116) U/L 97 Total Protein (6.4-8.2) g/dL 7.6 Albumin (3.4-5.0) g/dL 4.0 TSH (0.36-3.74) uIU/mL 1.79 Ethyl Alcohol (<3) mg/dL < 3.0 HPI General Mode of arrival: ambulatory. Date/Time Provider Initiated Documentation: 11/02/19 20:33. Limitations to Documentation: no limitations. Information obtained by: patient. HPI Narrative: This is a 18-year-old transgender female who identifies as a male. Patient has a history of depression, suicidal ideation, anxiety. Patient reports that he is having a difficult time establishing routine and taking medications in the time of COVID. Patient reports that family is not very supportive which makes life much more challenging. This is been very difficult and in turn causes more stress, anxiety, depression. Patient is now feeling suicidal with a plan to cut wrists or overdose on medications. Patient did do self cutting today to the left wrist. Patient denies recent illness or trauma. Denies alcohol or drug use. Patient believes that he requires inpatient hospitalization Related Data Home Medications Medication Instructions Recorded Confirmed albuterol sulfate 2.5 mg INHALATION Q4H PRN #1 box 07/20/14 11/02/19 mupirocin 1 isa TOPICAL TID #22 gm 01/07/17 11/02/19 triamcinolone acetonide 1 isa TOPICAL BID #60 ml 01/07/17 11/02/19 prazosin 2 mg PO HS #30 tab-cap 05/22/17 11/02/19 hydroxyzine HCl 25 mg PO TID PRN 07/15/17 11/02/19 ranitidine HCl 150 mg capsule 150 mg PO BID #120 cap 05/12/18 11/02/19 venlafaxine 150 mg 150 mg PO DAILY 05/28/18 11/02/19 capsule,extended release 24 hr testosterone cypionate 100 mg IM ONCE 09/06/18 11/02/19 Previous Rx's Medication Instructions Recorded prazosin 2 mg PO HS #30 tab-cap 05/22/17 ranitidine HCl 150 mg capsule 150 mg PO BID #120 cap 05/12/18 Allergies Allergy/AdvReac Type Severity Reaction Status Date / Time No Known Allergies Allergy Unverified 11/02/19 20:38 General Stated Complaint: PsychEval COLBY: 2 Review of Systems Constitutional Constitutional: Denies fatigue, Denies fever(s) and Denies headache(s) Eyes Eyes: Denies change in vision ENT Ears, Nose, Mouth, and Throat: Denies headache(s) and Denies sore throat Cardiovascular Cardiovascular: Denies chest pain and Denies dyspnea Respiratory Respiratory: Denies cough and Denies dyspnea Gastrointestinal Gastrointestinal: Denies abdominal pain, Denies nausea and Denies vomiting Genitourinary Genitourinary: Denies dysuria Musculoskeletal Musculoskeletal: Denies back pain Integumentary/Breasts Skin/Breast: Denies rash Neurologic Neurologic: Denies headache(s) Psychiatric Psychiatric: Reports anxiety, Reports depression and Reports suicidal ideation Endocrine Endocrine: Denies fatigue [facility] Medical History Anxiety (Chronic) Depression Eczema Wears glasses Surgical History No significant past surgical history (Acute) Family History Mother Depression Father No problems noted. sibling Depression Grandparent Depression Social History Smoking/Tobacco Use Status: Current every day Tobacco Type: cigarettes Alcohol Intake: current Alcohol Intake frequency: a few times a month Drug use: Occasionally Substance use type: marijuana Adopted: No Do you feel safe at home: Yes Do you feel safe in your relationship?: Yes Exam Const General: cooperative, healthy appearing, comfortable and no acute distress Orientation: alert, awake and oriented x3 HENMT Head: normal to inspection, normocephalic and atraumatic Mouth: moist mucous membranes Eyes Conjunctivae: conjunctivae normal Neck Neck: normal visual inspection, trachea midline and supple Resp Effort & Inspection: normal respiratory effort and able to speak in complete sentences Auscultation: clear to auscultation bilaterally Cardio Rate: regular rate Rhythm: regular rhythm GI Palpation: soft and nontender Back/Spine/Pelvis Back: No back tenderness Skin General skin exam: no rashes or lesions noted Trauma: abrasion (Left volar wrist, superficial) Neuro General: patient alert, patient awake, patient oriented x3, moves all extremities and no focal motor deficits Cranial Nerves: CN's II-XI intact bilaterally Cognition: normal cognition Speech: speech normal Gait: normal gait Motor: muscle tone normal throughout Sensory Exam: no sensory deficits noted Extrem General: normal to inspection (Abrasion noted as above otherwise unremarkable), full ROM and capillary refill normal Psych Appearance: grossly normal Mental Status: mental status grossly normal Course Vital Signs Vital signs: Vital Signs Temperature 37.0 C 11/02/19 20:34 Pulse 104 H 11/02/19 20:34 Respiratory Rate 16 11/02/19 20:34 Blood Pressure 136/76 11/02/19 20:34 Pulse Oximetry 97 11/02/19 20:34 Temperature 37.0 C 11/02/19 20:34 Temperature Source Skin 11/02/19 20:34 Pulse 104 H 11/02/19 20:34 Respiratory Rate 16 11/02/19 20:34 Respiratory Effort Non-Labored 11/02/19 20:39 Blood Pressure 136/76 11/02/19 20:34 Blood Pressure Position Sitting 11/02/19 20:34 Pulse Oximetry 97 11/02/19 20:34 Oxygen Delivery Method Room Air 11/02/19 20:34 Oxygen Flow Rate 0 11/02/19 20:34 Pain Level 0 11/02/19 20:34
[2019-11-02 21:13] LABS: Abs Immature Grans 0.02 k/cumm (0.0-0.09); Absolute Basophil Count 0.03 k/cumm (0.0-0.2); Absolute Eosinophil Count 0.08 k/cumm (0.0-0.7); Absolute Lymphocyte Count 2.21 k/cumm (1.2-3.4); Absolute Monocyte Count 0.75 k/cumm (0.11-0.7); Absolute Neutrophil Count 6.51 k/cumm (1.2-6.7); Basophils % 0.3; Eosinophils % 0.8; HCT 46.4 % (36.0-46.0); HGB 16.5 g/dL (12.0-15.5); Immature Grans % 0.2 %; Mean Corp. HGB Concentration 35.6 g/dL (32.0-36.0); Mean Corpuscular Hemoglobin 29.4 pg (27.0-33.0); Mean Corpuscular Volume 82.6 fL (80-95); Mean Platelet Volume 9.5 fL (8.0-11.0); Monocytes % 7.8; Neutrophils % 67.9; Platelet Count 332 x1000/uL (130-400); RBC 5.62 m/cumm (4.00-5.20)
--- NOTE | 2019-11-02 21:20 | PDOC.CMSAFED ---
- If Service Date Differs Date of service: 11/02/19 Time of Service: 21:21 Care Management Safety Plan Chief Complaint: Hellen, a 18 year old transgender female who identifies as male, presents in the ED for increased suicidal thoughts with plan to cut wrists or overdose on medications. A review of ED provider's note reveals Hellen has been struggling with establishing a routine and taking medication during the pandemic. Hellen has a significant psychiatric history with multiple voluntary hospitalizations for mood stabilization. Hellen receives services through the EFFICIENCY [facility]NALYST program at [facility]. CM will respond to ED to assess patient after patient has been medically cleared and assessed by screener. If screener deems patient meets criteria for psychiatric stabilization, CM will facilitate interdepartmental huddle with [facility] screener for safety planning considerations and meet with patient to review [facility] policy and safety plan, establish individual wishes for treatment and maintain patient rights. IN THE INTERIM, please note safety plan below to guide patient care while awaiting further assessment in the ED. SAFETY PLAN: 1. Will remain on suicide precautions and in paper clothes. 2. Will remain in room under direct supervision of one-on-one staff at all times provided by CPSO, VIVEK, FISCAL ACCOUNTING CLERK rib trim separator. 3. May have paper cups, plates, finger foods as well as a cardboard spoon with which to eat meals. 4. Follow [facility] Management of the Admitted Behavioral Health Patient policy. 5. Comfort bath system only while in the ED. If moved to Med/Surg, patient will be allowed to shower with supervision and at nursing discretion. 6. No personal belongings. 7. No visitors. 8. Activities: None while in the ED. If moved to Med/Surg, patient will be allowed to have television, soft tip markers, paper, and other activities at nursing discretion. 8. No telephone privileges at this time. 9. Due to VOLUNTARY status, if patient wishes to leave [facility], the [facility] trolley worker must be contacted to evaluate patient prior to patient exiting the building. If deemed appropriate for inpatient psychiatric care, safety plan will be established with patient, and care team, to adhere to patient goals, identify restrictions based on behavioral status, address nutrition, and determine allowed personal belongings, tools for hygiene and personal care. As well plan will determine level of activity including ambulation, level of supervision, visitors, and determine privileges based on level of acuity, behaviors and level of engagement by patient.
[2019-11-02 21:30] LABS: ALT 27 U/L (14-59); AST 17 U/L (15-37); Alkaline Phosphatase 97 U/L (46-116); Anion Gap 8.5 mmol/L (3-11); BUN 8 mg/dL (7-18); Bilirubin, Total 0.6 mg/dL (0.2-1.0); CO2 25.5 mmol/L (21.0-32.0); Calcium 9.1 mg/dL (8.5-10.1); Chloride 105 mmol/L (98-107); Glucose 117 mg/dL (74-106); Potassium 3.6 mmol/L (3.5-5.1); Sodium 139 mmol/L (136-145); TSH 1.79 uIU/mL (0.36-3.74); Total Protein 7.6 g/dL (6.4-8.2)
[2019-11-02 21:32] LABS: ETHANOL BLOOD < 3.0 mg/dL (<3)
--- NOTE | 2019-11-02 22:13 | PDOC.MHCN_ITS ---
Date of service: 11/02/19 Time of Service: 22:14 Mental Health Crisis Note Presenting Issue How did you arrive at the ED and why did you come: Patient arrived at the ED via a ride from his brother. Precipitating Factors Patient is a transgendered male (he/him pronouns--chosen name: Ivan). Patient reports feeling suicidal. Patient said he had cut his wrist as an emotional release. He got into an argument with his mother about being transgendered today. He said it has been very difficult to cope at his apartment alone during this pandemic. He is not currently working (laid off due to pandemic) and is struggling to keep himself occupied. Mother is not supportive and a major trigger. Patient spoke to his Assembly Machine Operator at [facility] earlier today about his need to resume his medication regimen. He has been falling behind in his consistency. In order to get support around this, a plan was put into place for daily medication deliveries and a [facility] admission potentially next week. He shared this plan with his mother and that is when they started arguing. His sibling is currently at the CARE Bed and the mother was accusing him of being jealous. The patient does not feel he would be safe at home and would not commit to a discharge safety plan. When asked what his self-harm plan would be, he said his plan would be to overdose on the medication that he has at home. Disposition BEHAVIOR: Appropriate EYE CONTACT: N/A (ZOOM video screening) MOOD: Depressed AFFECT: Flat APPETITE: Reports inconsistency with eating SLEEP(trouble falling/staying asleep: Reports inconsistency with sleeping Plan The patient is voluntary and the plan is to find a psychiatric hospital placement. Hospitals were called. [facility] would like us to send a referral. [facility] may have a bed available tomorrow morning. This screener spoke to DILIA Barton and she agreed [facility]. A COVID-19 test is required. Signature Clinician's Name/Title: Nanci Donato BA ([place]) [facility] [address]
[2019-11-02 22:23] LABS: Bilirubin Negative (Negative); Blood Negative (Negative); Clarity Clear (Clear); Glucose Negative (Negative); Ketones Negative (Negative); Leukocyte Esterase Small (Negative); Nitrite Negative (Negative); Specific Gravity 1.025 (1.005-1.025)
[2019-11-02 22:26] VITALS: BP 126/81; PULSE 72; RESP 16; TEMP 37; O2SAT 100
--- NOTE | 2019-11-02 22:29 | W.PM.HP.N ---
Date of service: 11/02/19 Time of Service: 22:29 Assessment and Plan Assessment and plan (1) Depression with suicidal ideation: Start date: 11/02/19 Status: Acute Assessment and plan: This is a 18-year-old transgender female who prefers to be identified as a male. He has had increased suicidal ideation with superficial cutting of the left wrist but more importantly thoughts of overdosing on medications. He will be admitted for observation and suicide precaution overnight with voluntary inpatient placement for psychiatric care in the morning. I did encourage him to increase oral hydration but no IV fluids will be given and no follow-up labs are indicated for the morning. I offered him nicotine supplement since he smokes daily but this was declined. Urine drug screen was positive for THC only. (2) Pyuria: Start date: 11/02/19 Status: Acute Assessment and plan: Patient has no urinary symptoms but urinalysis was positive for leukocytes and increased WBCs with urine culture performed. This should be followed with treatment only if positive and this may have to be reported to the admitting facility if follow-up needed. History of Present Illness History of Present Illness Chief Complaint: Suicidal ideation Narrative: This is a 18-year-old transgender female who prefers to be identified at the [facility] who reported to the ED with suicidal ideation wanting to overdose on meds. He has had difficulty recently being on a routine with his medications because of the COVID-19 pandemic and increased anxiety with poor family support. He has been a cutter when he was a teenager and had not cut for a year but did use scissors to do several superficial linear abrasions over his left volar wrist which were not bleeding and required no special care. He was evaluated by the ED physician and cleared medically to be placed for voluntary inpatient psychiatric care, the patient feels he needs to be inpatient at this time. Mental health has evaluated him and agrees with voluntary inpatient care. COVID-19 screening was performed and screening labs were essentially normal in the ED except for slightly elevated hematocrit and hemoglobin along with slightly elevated creatinine indicating that he has not been hydrating well. Placement is planned within the next day. He will be on suicide precautions with a sitter evaluating every 15 minutes through the night. Mental health has been consulted in the ED will see him again in the morning. Review of Systems Narrative: 13 point review of systems otherwise unrevealing or stable. The patient is overweight. He is on testosterone and had his weekly dose today. [facility] Medical History Anxiety (Chronic) Depression Eczema Wears glasses Surgical History No significant past surgical history (Acute) Family History Mother Depression Father No problems noted. sibling Depression Grandparent Depression Social History Smoking/Tobacco Use Status: Current every day Tobacco Type: cigarettes Alcohol Intake: current Alcohol Intake frequency: a few times a month Drug use: Occasionally Substance use type: marijuana Adopted: No Do you feel safe at home: Yes Do you feel safe in your relationship?: Yes Meds Home Medications and Allergies Home Medications Medication Instructions Recorded Confirmed Type albuterol sulfate 2.5 mg INHALATION Q4H PRN #1 box 07/20/14 11/02/19 History mupirocin 1 isa TOPICAL TID #22 gm 01/07/17 11/02/19 History triamcinolone acetonide 1 isa TOPICAL BID #60 ml 01/07/17 11/02/19 History prazosin 2 mg PO HS #30 tab-cap 05/22/17 11/02/19 Rx hydroxyzine HCl 25 mg PO TID PRN 07/15/17 11/02/19 History ranitidine HCl 150 mg capsule 150 mg PO BID #120 cap 05/12/18 11/02/19 Rx venlafaxine 150 mg 150 mg PO DAILY 05/28/18 11/02/19 History capsule,extended release 24 hr testosterone cypionate 100 mg IM ONCE 09/06/18 11/02/19 History Allergies Allergy/AdvReac Type Severity Reaction Status Date / Time No Known Allergies Allergy Unverified 11/02/19 20:38 Exam Narrative Exam Narrative: General: Patient appears appropriate for age, moderately obese with flattened affect with good eye contact. He has slowed speech with monotonous tone. He has alert and oriented x3. HEENT: Normocephalic, eyes with pupils fully dilated but equal and reactive to light symmetrically, extraocular movement tachycardia sclera anicteric. Oropharynx with fair dentition and moist oral mucosa. External ears normal. Nose is normal without discharge. Neck: Supple without JVD. Back: Stooped posture with no severe tenderness. Breast: Exam deferred. Lungs: Clear to auscultation percussion without adventitious sounds. Normal inspiratory to expiratory phase ratio. Heart: Regular rate and rhythm with no murmurs or gallops. Abdomen: Obese contour, soft and nontender to palpation with no palpable hepatosplenomegaly. Bowel sounds positive in all quadrants. Genitalia/rectal: Exam deferred. Extremities: No pitting edema with edematous appearing ankles, peripheral pulses intact with good capillary refill. No clubbing or cyanosis. Joints have fair range of motion. Skin: [place], warm and dry. No rashes. There is a superficial linear abrasions over the left volar wrist. No bleeding with these abrasions and no erythema. Neuro: Cranial nerves II through XII grossly intact, no focal other motor deficits. Psych: Flat affect with depressed mood. Remote and recent memory intact. No abnormal thought processes presently. Results Labs Result diagrams: 11/02/19 21:00 11/02/19 21:00 Labs: Laboratory Results - last 24 hr 11/02/19 11/02/19 11/02/19 21:00 21:00 21:00 WBC 9.60 RBC 5.62 H Hgb 16.5 H Hct 46.4 H MCV 82.6 MCH 29.4 MCHC 35.6 RDW 13.0 Plt Count 332 MPV 9.5 Immature Gran % 0.2 Neutrophils % 67.9 Lymphocytes % 23.0 Monocytes % 7.8 Eosinophils % 0.8 Basophils % 0.3 Absolute Neutrophils 6.51 Absolute Lymphocytes 2.21 Absolute Monocytes 0.75 H Absolute Eosinophils 0.08 Absolute Basophils 0.03 Sodium 139 Potassium 3.6 Chloride 105 Carbon Dioxide 25.5 Anion Gap 8.5 BUN 8 Creatinine 1.10 H Estimated GFR/1.73 m2 >= 60.00 Glucose 117 H Calcium 9.1 Total Bilirubin 0.6 AST 17 ALT 27 Alkaline Phosphatase 97 Total Protein 7.6 Albumin 4.0 TSH 1.79 Urine Color Urine Clarity Urine pH Ur Specific [place] Urine Protein Urine Ketones Urine Blood Urine Nitrite Urine Bilirubin Urine Urobilinogen Ur Leukocyte Esterase Urine Glucose Ethyl Alcohol < 3.0 11/02/19 22:07 WBC RBC Hgb Hct MCV MCH MCHC RDW Plt Count MPV Immature Gran % Neutrophils % Lymphocytes % Monocytes % Eosinophils % Basophils % Absolute Neutrophils Absolute Lymphocytes Absolute Monocytes Absolute Eosinophils Absolute Basophils Sodium Potassium Chloride Carbon Dioxide Anion Gap BUN Creatinine Estimated GFR/1.73 m2 Glucose Calcium Total Bilirubin AST ALT Alkaline Phosphatase Total Protein Albumin TSH Urine Color Yellow Urine Clarity Clear Urine pH 7.0 Ur Specific [place] 1.025 Urine Protein Trace H Urine Ketones Negative Urine Blood Negative Urine Nitrite Negative Urine Bilirubin Negative Urine Urobilinogen 1.0 H Ur Leukocyte Esterase Small H Urine Glucose Negative Ethyl Alcohol Last Vital Signs Temp 37.0 C 11/02/19 22:26 Pulse 72 11/02/19 22:26 Resp 16 11/02/19 22:26 BP 126/81 11/02/19 22:26 Pulse Ox 100 11/02/19 22:26 COVID-19 Screening In the past 14 days, have you traveled outside of [place] or [place]?: NO Had IN PERSON contact w/suspected or confirmed C-19 person: No
[2019-11-02 22:34] LABS: Bacteria Few HPF (Negative); C & S Indicated? Yes; Casts Negative LPF (Negative); Crystals Negative HPF (Negative); Epithelial Cells Few HPF (Negative); Mucus Negative (Negative); RBC 0-2 HPF (0-2); WBC 20-50 HPF (0-5)
[2019-11-02 23:03] LABS: *AMPHETAMINES SCREEN URINE Negative (Negative); *BARBITURATES SCREEN URINE Negative (Negative); *BENZODIAZEPINES SCREEN URINE Negative (Negative); Cannabinoids THC POSITIVE (Negative); Cocaine Screen,Urine Negative (Negative); METHADONE URINE SCREEN Negative (Negative); OPIATES URINE SCREEN Negative (Negative)
[2019-11-02 23:05] LABS: Tricyclic Antidepressants Negative (Negative)
[2019-11-02 23:15] VITALS: BP 131/80; PULSE 73; RESP 18; TEMP 37.3; O2SAT 98
[2019-11-02 23:30] VITALS: BP 131/80; PULSE 71; RESP 18; TEMP 37.3; O2SAT 98
--- NOTE | 2019-11-03 00:42 | NUR.NOTE ---
patient labs, Md note and mental health note faxed to [facility]. Nursing Note:
[2019-11-03 07:44] VITALS: BP 143/81; PULSE 64; RESP 16; TEMP 37.4; O2SAT 99
[2019-11-03] MEDS: Venlafaxine 150 MG CAPCR PO (07:54)
--- NOTE | 2019-11-03 07:57 | PHACLINREV_ITS ---
Pharmacy Admission Review - Admission Clinical Review (Last Reviewed 11/02/19 @ 22:29 by Tonny Tabor) Pyuria (Acute) Depression with suicidal ideation (Acute) No Known Allergies Allergy (Unverified 11/02/19 20:38) Height 5 ft 2 in Weight 88.451 kg - Renal Dosing Renal Dosing: BUN 8 mg/dL (7-18) 11/02/19 21:00 Creatinine 1.10 mg/dL (0.55-1.02) H 11/02/19 21:00 Medications needing adjustments: Reviewed (est CrCl~64.5 mL/min Meds-OK) - Anticoagulation Anticoagulation: Hgb 16.5 g/dL (12.0-15.5) H 11/02/19 21:00 Hct 46.4 % (36.0-46.0) H 11/02/19 21:00 Plt Count 332 x1000/uL (130-400) 11/02/19 21:00 Creatinine 1.10 mg/dL (0.55-1.02) H 11/02/19 21:00 DVT Prohphylaxis: Reviewed (young person, ambulatory) Therapeutic Anticoagulation: N/A - Opiate Usage Evaluate Pain Scale/Pains Meds: N/A Scheduled Bowel Reg ordered if on Opiates?: No - Relevant Labs Sodium 139 mmol/L (136-145) 11/02/19 21:00 Potassium 3.6 mmol/L (3.5-5.1) 11/02/19 21:00 Chloride 105 mmol/L (98-107) 11/02/19 21:00 - DM Control DM Control: Glucose 117 mg/dL (74-106) H 11/02/19 21:00 Insulin Dosing: N/A - Heart Failure/MD EF%, ANA's, B-Blockers, Diuretics: N/A - BP Control BP Control: Blood Pressure 143/81 Blood Pressure 131/80 Blood Pressure 131/80 Blood Pressure 126/81 Blood Pressure 136/76 If elevated: Reviewed (Prazosin) - Qtc Review If Elevated: N/A - IV to PO Switch IV Medications: N/A - Home Meds Home Med List reviewed: Reviewed ([place] not orderde, Bactroban) - Current meds Current Medication Order Review: Reviewed (PPepcid subst, by for Ranitidine)
--- NOTE | 2019-11-03 09:37 | PDOC.CMSAFED ---
Care Management Safety Plan Chief Complaint: Hellen, a 18 year old transgender female who identifies as male, and uses the name Ivan. Presented in the ED with increased suicidal thoughts with plan to cut wrists or overdose on medications. A review of ED provider's note reveals Ivan has been struggling with establishing a routine and taking medications as advised during the pandemic. Ivan has a significant psychiatric history with multiple voluntary hospitalizations for mood stabilization. He receives services through the [facility]ER program at [facility]. VOLUNTARY FOR INPATIENT PSYCHIATRIC STABILIZATION. Patient is appropriate in all interactions since arriving at [facility]; Pt has demonstrated appropriate coping and communication skills, has articulated his or her needs and concerns and is fully engaged during staff interactions. Safety plan has been established with patient, and care team, to adhere to patient goals, identify restrictions based on behavioral status, address nutrition, and determine allowed personal belongings, tools for hygiene and personal care. Determine level of activity including ambulation, level of supervision, visitors, and determine privileges based on behaviors and level of engagement by pt. SAFETY PLAN: 1. Will remain on suicide precautions and in paper clothes. 2. Will remain in room under direct supervision of one-on-one staff at all times provided by CPSO, COMMUNICATIONS INTERN, RESIDENTIAL DESIGNER synthetic department supervisor. 3. May have paper cups, plates, finger foods as well as a cardboard spoon with which to eat meals. 4. Follow [facility] Management of the Admitted Behavioral Health Patient policy. 5. Shower permitted at RN discretion. 6. No personal belongings. 7. No visitors at this time due to CV-19 policy. 8. Activities: Permitted soft items and CART items per RN discretion. 8. Phone contact permitted with [facility] staff facilitation of cordless phone. 9. Due to VOLUNTARY status, if patient wishes to leave [facility], the [facility] chip loft worker must be contacted to evaluate patient prior to patient exiting the building. If deemed appropriate for inpatient psychiatric care, safety plan will be established with patient, and care team, to adhere to patient goals, identify restrictions based on behavioral status, address nutrition, and determine allowed personal belongings, tools for hygiene and personal care. As well plan will determine level of activity including ambulation, level of supervision, visitors, and determine privileges based on level of acuity, behaviors and level of engagement by patient.
--- NOTE | 2019-11-03 10:18 | CMPROGNOTE_ITS ---
Care Management Progress Note 0930 DERRELL spoke with [facility] Smalltalk Developer, RACHEL re: case review for Ivan and efforts on placement thus far. Screening coordinated for 1045. 0945 DERRELL spoke with Billie [place] to inquire as to referral status. Admissions reported referral was recieved at 0300 and was in the pile to be reviewed. Anticipate return call. 1015 CM checked in with CPSOs: who reported Ivan has been appropriate thus far, ate a little food and is currently sleeping. CM advised of screening timing and likely increase in activity options with continued stability. 1100 Screening with RACHEL of [facility], [facility]. RACHEL reports Ivan is still meeting criteria for psychiatric stabilization and is having SI. Awaiting bed placement. DERRELL notified RACHEL that [facility] admissions had transferred this technical writer and editor to a phone that just rang without option to leave a message. Awaiting updates on bed availability. 1130 CPSO Jerilyn came to CM dept to retrieve coloring pages, crayons and bradley. Added to care plan. 1350 rec'd notification from M/S that Billie was moving forward with RN- RN contact. DERRELL notified of possible need for transport. 1445 [facility] reported transport would be available for 1530. DERRELL spoke with Billie who accepted patient and will complete RN-RN after patient has discharged. Accepting MD is Dr. Nba Knox. CM notified Clerk JACKIE and asked for RN notification for RN-RN to happen after transport.
--- NOTE | 2019-11-03 11:38 | PDOC.CMSAFE ---
- If Service Date Differs Date of service: 11/03/19 Time of Service: 15:38 Care Management Safety Plan Chief Complaint: Hellen, a 18 year old transgender female who identifies as male, and uses the name Ivan. Presented in the ED with increased suicidal thoughts with plan to cut wrists or overdose on medications. A review of ED provider's note reveals Ivan has been struggling with establishing a routine and taking medications as advised during the pandemic. Ivan has a significant psychiatric history with multiple voluntary hospitalizations for mood stabilization. He receives services through the [employer] MANAGER program at [facility]. VOLUNTARY FOR INPATIENT PSYCHIATRIC STABILIZATION. Patient is appropriate in all interactions since arriving at [facility]; Pt has demonstrated appropriate coping and communication skills, has articulated his or her needs and concerns and is fully engaged during staff interactions. Safety plan has been established with patient, and care team, to adhere to patient goals, identify restrictions based on behavioral status, address nutrition, and determine allowed personal belongings, tools for hygiene and personal care. Determine level of activity including ambulation, level of supervision, visitors, and determine privileges based on behaviors and level of engagement by pt. SAFETY PLAN: 1. Will remain on suicide precautions and in paper clothes. 2. Will remain in room under direct supervision of one-on-one staff at all times provided by CPSO, METAL EXTRUSION SUPERVISOR, SAFETY LEADER airport operations duty manager. 3. May have paper cups, plates, finger foods as well as a cardboard spoon with which to eat meals. 4. Follow [facility] Management of the Admitted Behavioral Health Patient policy. 5. Shower permitted at RN discretion. 6. No personal belongings. 7. No visitors at this time due to CV-19 policy. 8. Activities: Permitted soft items and CART items per RN discretion. 8. Phone contact permitted with [facility] staff facilitation of cordless phone. 9. Due to VOLUNTARY status, if patient wishes to leave [facility], the [facility] template worker must be contacted to evaluate patient prior to patient exiting the building. If deemed appropriate for inpatient psychiatric care, safety plan will be established with patient, and care team, to adhere to patient goals, identify restrictions based on behavioral status, address nutrition, and determine allowed personal belongings, tools for hygiene and personal care. As well plan will determine level of activity including ambulation, level of supervision, visitors, and determine privileges based on level of acuity, behaviors and level of engagement by patient.
--- NOTE | 2019-11-03 12:07 | PDOC.MHCN ---
Date of service: 11/03/19 Time of Service: 12:00 Mental Health Crisis Note Presenting Issue How did you arrive at the ED and why did you come: Patient arrived at the ED via ride from his brother. Precipitating Factors Patient's status remains the same--suicidal ideation. It was reported that the patient has been cooperative and appropriate. Patient was admitted inpatient last night?suicidal ideation with a plan to overdose?hasn?t been taking medications consistently. Came up with a plan yesterday for daily med drops and a potential CARE Bed admission next week. The client shared the plan with the mother and the mother accused Ivan of being jealous that his sibling was currently at the (which isn?t the case at all?he genuinely wants to take medications consistently). Then mom started to use being transgender as the reason he is so unhappy?they argued and then the client became suicidal. Disposition BEHAVIOR: Appropriate EYE CONTACT: Good MOOD: Depressed AFFECT: Flat APPETITE: Little appetite SLEEP(trouble falling/staying asleep: Patient reported not sleeping well last night. Plan Patient will remain inpatient while awaiting psychiatric placement. Client is voluntary. Billie is reviewing referral today. The only other possibility is [facility] but they haven?t been responsive. Signature Clinician's Name/Title: Robert Donato BA (Ana) [facility]
[2019-11-03 12:57] LABS: COVID-19 RT-PCR UVMMC Result Negative (Negative)
[2019-11-03] MEDS: Calcium Carbonate *TUMS* 500 MG CHEW PO (12:57)
--- NOTE | 2019-11-03 13:48 | W.PM.DS.N ---
Date of service: 11/03/19 Time of Service: 13:49 DS: Diagnosis Discharge Diagnosis (1) Depression with suicidal ideation: Status: Acute (2) Pyuria: Status: Acute Discharge Plan Disposition Patient Disposition: [facility] Condition: Serious Discharge Details Chief Complaint: PsychEval Clinical Impression: Depression with suicidal ideation Reason For Visit: SUICIDAL IDEATION Admit Date/Time: 11/02/19 22:19 Admit Provider: Tonny Tabor Attending Provider: Tonny Tabor Primary Care Provider: Sudha Jacob ED Provider: Luis Adams Hospital Course Hospital Course: This is a 18-year-old transgender female who prefers to be identified at the male who reported to the ED with suicidal ideation wanting to overdose on medication. He has had difficulty with being on a routine with his medications because of the COVID-19 pandemic and has increased anxiety with poor family support. He has been a cutter when he was a teenager and had not cut for a year but did use scissors to do several superficial linear abrasions over his left volar wrist which were not bleeding and required no special care. He was evaluated by the ED physician and cleared medically to be placed for voluntary inpatient psychiatric care, he is agreeable to inpatient care. Mental health evaluation is in agreement with voluntary inpatient care. COVID-19 screening was performed and negative and screening labs were essentially normal in the ED except for slightly elevated hematocrit and hemoglobin along with slightly elevated creatinine indicating that he has not been hydrating well. Also to have pyuria but no symptoms of infection, a culture is still pending. no antibiotics indicated at this time, will wait for culture report. He was maintained on suicide precautions and has been cooperative. He is eating and drinking and bowels and bladder functioning. Hemodynamically stable with no fevers or c/o. Case management has been following and a bed has been secured at [facility]. he is being transported by [facility] for inpatient psychiatric care. Home Meds and New Rx's Prescriptions: No Action venlafaxine 150 mg capsule,extended release 24hr 150 mg PO DAILY RF: 0 albuterol sulfate 2.5 MG/3 ML solution for nebulization 2.5 mg Inhalation Q4H PRN Qty: 1 RF: 1 mupirocin 22 GM ointment 1 isa Topical TID Qty: 22 RF: 0 triamcinolone acetonide 60 ML lotion 1 isa Topical BID Qty: 60 RF: 2 prazosin 2 MG capsule 2 mg PO HS Qty: 30 RF: 1 ranitidine HCl 150 mg capsule 150 mg PO BID Qty: 120 RF: 2 testosterone cypionate 200 mg/mL Kit 100 mg IM ONCE RF: 0 hydroxyzine HCl 25 MG tablet 25 mg PO TID PRN (Reason: Anxiety) RF: 0 Discharge Instructions Instructions: Depression (DC), Suicide Prevention (DC) Stand Alone Forms: Nursing Discharge Form Referrals: Sudha Jacob [Primary Care Provider] - (on discharge) Activity:: Activity as Tolerated Equipment/Supplies:: No Equipment Needed Diet:: As Tolerated Discharge Orders Discharge Orders: Discharge Order (Routine); Ordered 11/03/19 Ordered By: Tessa Gómez DS: Summary Status at Discharge Functional status at discharge: independent ambulation Overall status at discharge: patient is not back to baseline Mental Status: mental status grossly normal Speech and Movement: speech and movement normal Mood: congruent mood Affect: blunted Exam Const General: cooperative, comfortable, no acute distress and well developed Nutritional Appearance: overweight Orientation: alert, awake and oriented x3 HENMT Head: normal to inspection, normocephalic and atraumatic Mouth: oral mucosae normal Resp Effort & Inspection: normal respiratory effort Cardio Rate: regular rate Rhythm: regular rhythm GI Inspection: normal to inspection Palpation: soft Auscultation: normal bowel sounds Skin Lesions: lesion noted (superficial linear abrasions over the left volar wrist. No bleeding.) Rashes: no rashes Neuro General: patient alert, patient awake and patient oriented x3 Cranial Nerves: CN's II-XI intact bilaterally Extrem General: normal to inspection and full ROM Psych Appearance: grossly normal Mental Status: mental status grossly normal Speech and Movement: speech and movement normal Mood: congruent mood Affect: blunted Attitude: cooperative Thought Process: normal Thought Content: normal Insight: limited Judgment: limited DS: Data Vitals/I&O Vitals and I&O: Vital Signs Temperature 37.4 C 11/03/19 07:44 Temperature Source Tympanic 11/03/19 07:44 Pulse 64 11/03/19 07:44 Pulse Rhythm Regular 11/03/19 04:44 Respiratory Rate 16 11/03/19 07:44 Respiratory Effort 11/03/19 08:19 Respiratory Depth Normal 11/03/19 08:19 Respiratory Pattern Normal 11/03/19 08:19 Blood Pressure 143/81 H 11/03/19 07:44 Blood Pressure Position Sitting 11/02/19 20:34 Pulse Oximetry 99 11/03/19 07:44 Oxygen Delivery Method Room Air 11/03/19 07:44 Oxygen Flow Rate 0 11/03/19 07:44 Pain Level 0 11/03/19 07:44 Intake & Output 11/02/19 11/03/19 11/03/19 23:59 11:59 23:59 Intake Total 850 / 1090 240 / 1090 Balance 850 / 1090 240 / 1090 Weight 88.451 kg Intake: Oral 850 / 1090 240 / 1090 Other: Urine Color Yellow Urine Appearance Clear Clear Comment pt reports voiding in BR, no burning on urination Voiding Methods Toilet Data Completed and Pending Labs on day of discharge: Labs from last 24 hours 11/02/19 11/02/19 11/02/19 22:15 22:07 22:07 WBC RBC Hgb Hct MCV MCH MCHC RDW Plt Count MPV Immature Gran % Neutrophils % Lymphocytes % Monocytes % Eosinophils % Basophils % Absolute Neutrophils Absolute Lymphocytes Absolute Monocytes Absolute Eosinophils Absolute Basophils Sodium Potassium Chloride Carbon Dioxide Anion Gap BUN Creatinine Estimated GFR/1.73 m2 Glucose Calcium Total Bilirubin AST ALT Alkaline Phosphatase Total Protein Albumin TSH Urine Color Yellow Urine Clarity Clear Urine pH 7.0 Ur Specific [place] 1.025 Urine Protein Trace H Urine Ketones Negative Urine Blood Negative Urine Nitrite Negative Urine Bilirubin Negative Urine Urobilinogen 1.0 H Ur Leukocyte Esterase Small H Urine RBC 0-2 Urine WBC 20-50 H Ur Epithelial Cells Few Urine Crystals Negative Urine Bacteria Few Urine Casts Negative Urine Mucus Negative Ur Culture Indicated? Yes Urine Glucose Negative Urine Opiates Screen Negative Urine Methadone Screen Negative Ur Barbiturates Screen Negative Ur Tricyclics Screen Negative Ur Amphetamines Screen Negative U Benzodiazepines Scrn Negative Urine Cocaine Screen Negative Ur THC Screen Positive A Ethyl Alcohol COVID-19 PCR Negative Nasopharyn COVID-19 PCR Not Applicable Ref Test Perform Site [place] [facility] lab 11/02/19 11/02/19 11/02/19 21:00 21:00 21:00 WBC 9.60 RBC 5.62 H Hgb 16.5 H Hct 46.4 H MCV 82.6 MCH 29.4 MCHC 35.6 RDW 13.0 Plt Count 332 MPV 9.5 Immature Gran % 0.2 Neutrophils % 67.9 Lymphocytes % 23.0 Monocytes % 7.8 Eosinophils % 0.8 Basophils % 0.3 Absolute Neutrophils 6.51 Absolute Lymphocytes 2.21 Absolute Monocytes 0.75 H Absolute Eosinophils 0.08 Absolute Basophils 0.03 Sodium 139 Potassium 3.6 Chloride 105 Carbon Dioxide 25.5 Anion Gap 8.5 BUN 8 Creatinine 1.10 H Estimated GFR/1.73 m2 >= 60.00 Glucose 117 H Calcium 9.1 Total Bilirubin 0.6 AST 17 ALT 27 Alkaline Phosphatase 97 Total Protein 7.6 Albumin 4.0 TSH 1.79 Urine Color Urine Clarity Urine pH Ur Specific [place] Urine Protein Urine Ketones Urine Blood Urine Nitrite Urine Bilirubin Urine Urobilinogen Ur Leukocyte Esterase Urine RBC Urine WBC Ur Epithelial Cells Urine Crystals Urine Bacteria Urine Casts Urine Mucus Ur Culture Indicated? Urine Glucose Urine Opiates Screen Urine Methadone Screen Ur Barbiturates Screen Ur Tricyclics Screen Ur Amphetamines Screen U Benzodiazepines Scrn Urine Cocaine Screen Ur THC Screen Ethyl Alcohol < 3.0 COVID-19 PCR Nasopharyn COVID-19 PCR Ref Test Perform Site 11/02/19 22:07 Urine - Reflex from Urine Culture - Pending Preliminary micro results at discharge 11/02/19 22:07 Urine Culture - Pending Urine - Reflex from [facility] Medical History Anxiety (Chronic) Depression Eczema Wears glasses Surgical History No significant past surgical history (Acute) Family History Mother Depression Father No problems noted. sibling Depression Grandparent Depression Social History Smoking/Tobacco Use Status: Current every day Tobacco Type: cigarettes Alcohol Intake: current Alcohol Intake frequency: a few times a month Drug use: Occasionally Substance use type: marijuana Adopted: No Do you feel safe at home: Yes Do you feel safe in your relationship?: Yes
== END 2019-11-03 15:23 | disposition short-term general hospital (02) ==
LOC: ER 23:02 → MS 23:11
PROVIDERS: Emergency Medicine; Admitting Provider Family Medicine; Emergency Provider Physician Assistant; PCP Nurse Practitioner Family; Visit Provider Family Medicine
DX: F32.9 Major depressive disorder, single episode, unspecified (principal); R45.851 Suicidal ideations; R82.81 Pyuria; F64.8 Other gender identity disorders; F41.8 Other specified anxiety disorders
CPT/HCPCS: 36415; 80053; 80307; 81025; 99217; 99219; 99285; U0003; 80320; 81003; 81015; 84443; 85025; 87086; 99284; G0378

== ENCOUNTER 2019-12-26 19:50 | Emergency (ER) | payer MEDICAID, SELFPAY ==
[2019-12-26 19:55] VITALS: BP 158/90; PULSE 89; RESP 16; TEMP 37.1; O2SAT 96
--- NOTE | 2019-12-26 20:07 | ED.GENADUL_ITS ---
Discharge Plan Disposition Patient Disposition: HOME Condition: Stable Discharge Details Chief Complaint: Cellulitis Clinical Impression: Mass of left upper extremity Primary Care Provider: Sudha Jacob ED Provider: Rk Son Home Meds and New Rx's Prescriptions: New amoxicillin-pot clavulanate [Augmentin] 875-125 mg tablet 1 tab PO BID Qty: 14 RF: 0 Continued venlafaxine 150 mg capsule,extended release 24hr 150 mg PO DAILY RF: 0 albuterol sulfate 2.5 MG/3 ML solution for nebulization 2.5 mg Inhalation Q4H PRN Qty: 1 RF: 1 mupirocin 22 GM ointment 1 isa Topical TID Qty: 22 RF: 0 triamcinolone acetonide 60 ML lotion 1 isa Topical BID Qty: 60 RF: 2 prazosin 2 MG capsule 2 mg PO HS Qty: 30 RF: 1 ranitidine HCl 150 mg capsule 150 mg PO BID Qty: 120 RF: 2 testosterone cypionate 200 mg/mL Kit 100 mg IM ONCE RF: 0 hydroxyzine HCl 25 MG tablet 25 mg PO TID PRN (Reason: Anxiety) RF: 0 Discharge Instructions Additional Instructions: you should be contacted with an appointment for an ultrasound if you have severe worsening pain significant increase in swelling or redness return to the emergency department Medical Decision Making 19 yo female who gets testoterone injections in the deltoids had one this past and noticed some discomfort and swelling in the area since then so came here. No fevers or severe pain and has full rom of the shoulder and no swelling diffusely of the arm and normal sensation and pulses. HAs a hard 1x2cm mass in left deltoid no fluctuance and no significant warmth or tendeness but has very mild erythema. Exam seems consistent with lipomas, not consistent with abscess, nec fasc or septic joint. Given mild redness will start abx and have her return for u/s, return precautions given Differential Diagnosis Differential Diagnosis: lipomas cellulitis abscess HPI General Mode of arrival: ambulatory . Date/Time Provider Initiated Documentation: 12/26/19 20:00 . Limitations to Documentation: no limitations . Information obtained by: patient . History of Present Illness 19 year old F presents to the emergency department with the chief complaint of left arm swelling, described as moderate, and it has been constant. No relieving factors improve symptom(s), No exacerbating factors reported . Patient did receive the following treatments prior to arrival, none Related Data Home Medications Medication Instructions Recorded Confirmed albuterol sulfate 2.5 mg INHALATION Q4H PRN #1 box 07/20/14 12/26/19 mupirocin 1 isa TOPICAL TID #22 gm 01/07/17 12/26/19 triamcinolone acetonide 1 isa TOPICAL BID #60 ml 01/07/17 12/26/19 prazosin 2 mg PO HS #30 tab-cap 05/22/17 12/26/19 hydroxyzine HCl 25 mg PO TID PRN 07/15/17 12/26/19 ranitidine HCl 150 mg capsule 150 mg PO BID #120 cap 05/12/18 12/26/19 venlafaxine 150 mg 150 mg PO DAILY 05/28/18 12/26/19 capsule,extended release 24 hr testosterone cypionate 100 mg IM ONCE 09/06/18 12/26/19 amoxicillin-pot clavulanate 1 tab PO BID #14 tab 12/26/19 [Augmentin] Previous Rx's Medication Instructions Recorded prazosin 2 mg PO HS #30 tab-cap 05/22/17 ranitidine HCl 150 mg capsule 150 mg PO BID #120 cap 05/12/18 amoxicillin-pot clavulanate 1 tab PO BID #14 tab 12/26/19 [Augmentin] Allergies Allergy/AdvReac Type Severity Reaction Status Date / Time No Known Allergies Allergy Unverified 12/26/19 19:58 General Stated Complaint: Cellulitis COLBY: 4 Review of Systems All systems reviewed & are unremarkable except as noted in HPI and below Constitutional Constitutional: Denies chills, Denies fever(s) and Denies weakness Cardiovascular Cardiovascular: Denies chest pain and Denies dyspnea Respiratory Respiratory: Denies cough and Denies dyspnea Gastrointestinal Gastrointestinal: Denies abdominal pain, Denies nausea and Denies vomiting Musculoskeletal Musculoskeletal: Denies joint swelling Neurologic Neurologic: Denies weakness Psychiatric Psychiatric: Denies depression [facility] Social History Smoking/Tobacco Use Status: Current every day Tobacco Type: cigarettes Alcohol Intake: current Alcohol Intake frequency: a few times a month Drug use: Occasionally Substance use type: marijuana Adopted: No Do you feel safe at home: Yes Do you feel safe in your relationship?: Yes Exam Const General: no acute distress Orientation: alert HENMT Head: normal to inspection Ears: external ears normal General nose exam: external nose normal Mouth: moist mucous membranes Eyes General: appearance normal, both eyes and all related structures Neck Neck: normal visual inspection Resp Effort & Inspection: normal respiratory effort and able to speak in complete sentences Cardio Rate: regular rate Skin General skin exam: elasticity normal Neuro General: patient alert and patient oriented x3 Extrem General: capillary refill normal Psych Mental Status: mental status grossly normal Course Vital Signs Vital signs: Vital Signs Temperature 37.1 C 12/26/19 19:55 Pulse 89 12/26/19 19:55 Respiratory Rate 16 12/26/19 19:55 Blood Pressure 158/90 H 12/26/19 19:55 Pulse Oximetry 96 12/26/19 19:55 Temperature 37.1 C 12/26/19 19:55 Temperature Source Oral 12/26/19 19:55 Pulse 89 12/26/19 19:55 Respiratory Rate 16 12/26/19 19:55 Respiratory Effort Short of Breath 12/26/19 19:58 Blood Pressure 158/90 H 12/26/19 19:55 Pulse Oximetry 96 12/26/19 19:55 Pain Level 3 12/26/19 19:55
[2019-12-26] MEDS: Amoxicillin 875/Clav. 125 TAB PO (20:21)
== END 2019-12-26 20:15 | disposition home or self-care (01) ==
PROVIDERS: Emergency Provider Emergency Medicine; PCP Nurse Practitioner Family
DX: R22.32 Localized swelling, mass and lump, left upper limb (principal); T38.7X5A Adverse effect of androgens and anabolic congeners, initial encounter; Y84.8 Other medical procedures as the cause of abnormal reaction of the patient, or of later complication, without mention of misadventure at the time of the procedure
CPT/HCPCS: 99283

== ENCOUNTER 2020-03-01 00:35 | Observation (INO) | payer MEDICAID, SELFPAY ==
[2020-03-01 00:39] VITALS: BP 116/94; PULSE 122; RESP 18; TEMP 36.9; O2SAT 96
[2020-03-01 01:01] LABS: Abs Immature Grans 0.02 10^3/uL (0.0-0.06); Absolute Basophil Count 0.06 10^3/uL (0.0-0.2); Absolute Eosinophil Count 0.04 10^3/uL (0.0-0.7); Absolute Monocyte Count 0.36 10^3/uL (0.1-0.8); Absolute Neutrophil Count 4.82 10^3/uL (1.2-6.7); Basophils % 0.9; Eosinophils % 0.6; HCT 45.8 % (36.0-46.0); HGB 15.6 g/dL (11.2-15.7); Immature Grans % 0.3; Lymphocytes % 22.1; MCH 29.3 pg (27.0-33.0); MCHC 34.1 % (32.0-36.0); MCV 85.9 fL (80-95); MPV 9.5 fL (8.0-11.0); Monocytes % 5.3; Neutrophils % 70.8; Nucleated RBC 0 %; Platelet Count 297 10^3/uL (130-400); RBC 5.33 10^6/uL (3.93-5.22); RDW 12.3 % (11.7-14.6); RDW-SD 38.5 fL
--- NOTE | 2020-03-01 01:16 | W.ED.GENAD ---
Discharge Plan Disposition Patient Disposition: [facility] INPATIENT Condition: Good Discharge Details Chief Complaint: Suicide-Atempt Clinical Impression: Depression, Suicidal ideation Primary Care Provider: Sudha Jacob ED Provider: Jose Wilhelm Home Meds and New Rx's Prescriptions: No Action venlafaxine 150 mg capsule,extended release 24hr 150 mg PO DAILY RF: 0 albuterol sulfate 2.5 MG/3 ML solution for nebulization 2.5 mg Inhalation Q4H PRN Qty: 1 RF: 1 mupirocin 22 GM ointment 1 isa Topical TID Qty: 22 RF: 0 triamcinolone acetonide 60 ML lotion 1 isa Topical BID Qty: 60 RF: 2 prazosin 2 MG capsule 2 mg PO HS Qty: 30 RF: 1 ranitidine HCl 150 mg capsule 150 mg PO BID Qty: 120 RF: 2 testosterone cypionate 200 mg/mL Kit 100 mg IM ONCE RF: 0 amoxicillin-pot clavulanate [Augmentin] 875-125 mg tablet 1 tab PO BID Qty: 14 RF: 0 hydroxyzine HCl 25 MG tablet 25 mg PO TID PRN (Reason: Anxiety) RF: 0 Medical Decision Making Patient here after intentional overdose of control pills. Denies any other ingestion. Laboratory studies obtained. Patient without physical complaint. Did speak briefly with poison control and no risk from control as long as no iron in the pills. It is straight medroxyprogesterone. Patient does have CPSO present. Mental health to evaluate. Laboratory studies unremarkable. Tylenol, aspirin, alcohol all negative. Urine and urine drug screen pending. Patient screened by mental health. Mental health worker guadalupe and received email from case planner this afternoon. There was consideration for voluntary admission at that time. If any events transpired overnight recommendation was to keep for voluntary admission. Patient agreeable for admission. Case discussed with hospitalist. Patient will be admitted to the transition unit until psychiatric bed available. Lab Data Lab results reviewed: Yes I reviewed the patient's lab results. HPI General Mode of arrival: EMS. Date/Time Provider Initiated Documentation: 03/01/20 00:51. Limitations to Documentation: no limitations. Information obtained by: patient, RN notes reviewed and old records reviewed. HPI Narrative: Patient presents to ED by ambulance after intentionally overdosing on her control pills. Patient reports that she has just been feeling overwhelmed and depressed more so than usual. She reports not taking her antidepressant medications for the last month to month and a half. She did actually speak with her counselor. She was seen by case management social worker in the evening who took all of her leftover medications, had a safety plan in place, was to meet again with the patient in the morning. Later in the evening she was feeling more depressed, unsafe, suicidal and took a bunch of her control pills which are 5 mg tablets of medroxyprogesterone. Denies cutting herself which she has history of. Denies any other ingestion. No drug or alcohol use. Related Data Home Medications Medication Instructions Recorded Confirmed albuterol sulfate 2.5 mg INHALATION Q4H PRN #1 box 07/20/14 12/26/19 mupirocin 1 isa TOPICAL TID #22 gm 01/07/17 12/26/19 triamcinolone acetonide 1 isa TOPICAL BID #60 ml 01/07/17 12/26/19 prazosin 2 mg PO HS #30 tab-cap 05/22/17 12/26/19 hydroxyzine HCl 25 mg PO TID PRN 07/15/17 12/26/19 ranitidine HCl 150 mg capsule 150 mg PO BID #120 cap 05/12/18 12/26/19 venlafaxine 150 mg 150 mg PO DAILY 05/28/18 12/26/19 capsule,extended release 24 hr testosterone cypionate 100 mg IM ONCE 09/06/18 12/26/19 amoxicillin-pot clavulanate 1 tab PO BID #14 tab 12/26/19 [Augmentin] Previous Rx's Medication Instructions Recorded prazosin 2 mg PO HS #30 tab-cap 05/22/17 ranitidine HCl 150 mg capsule 150 mg PO BID #120 cap 05/12/18 amoxicillin-pot clavulanate 1 tab PO BID #14 tab 12/26/19 [Augmentin] Allergies Allergy/AdvReac Type Severity Reaction Status Date / Time No Known Allergies Allergy Unverified 12/26/19 19:58 General Stated Complaint: Suicide-Atempt COLBY: 2 Review of Systems Narrative: As documented in HPI otherwise negative as below. Const: no fever, chills, weakness Resp: no cough, SOB, pleuritic pain CV: no CP, diaphoresis, edema, syncope GI: no abdominal pain, nausea, vomiting, diarrhea Neuro: no headache, numbness, focal weakness, confusion PFSH Medical History Anxiety Depression Eczema Surgical History No significant past surgical history Family History Mother Depression Father No problems noted. sibling Depression Grandparent Depression Social History Smoking/Tobacco Use Status: Current every day Tobacco Type: cigarettes Alcohol Intake: current Alcohol Intake frequency: a few times a month Drug use: Occasionally Substance use type: marijuana Adopted: No Do you feel safe at home: Yes Do you feel safe in your relationship?: Yes Exam Narrative Exam Narrative: Vitals: Afebrile. Mild tachycardia related to anxiety. Normal room air pulse ox. Const: WDWN female in NAD. HEENT: NC/AT. Normal facial exam. Eyes: Normal conjunctiva and sclera. Neck: Supple. Trachea midline. Lungs: Normal respiratory effort. Cor: Good radial pulses. GI: Soft. NT/ND. No guarding or rebound. Neuro: A+O x 3. Normal speech, mentation, gait. Cranial nerves II - XII grossly intact. No gross motor or sensory deficit. Ext: No C/C/E. Skin: Warm and dry without rash. Psych: Good eye contact. Normal speech and mental status. Still expresses some SI. Feels depressed. Course Vital Signs Vital signs: Vital Signs Temperature 98.4 F 03/01/20 00:39 Pulse 122 H 03/01/20 00:39 Respiratory Rate 18 03/01/20 00:39 Blood Pressure 116/94 H 03/01/20 00:39 Pulse Oximetry 96 03/01/20 00:39 Temperature 98.4 F 03/01/20 00:39 Temperature Source Temporal Artery Scan 03/01/20 00:39 Pulse 122 H 03/01/20 00:39 Respiratory Rate 18 03/01/20 00:39 Blood Pressure 116/94 H 03/01/20 00:39 Blood Pressure Position Sitting 03/01/20 00:39 Pulse Oximetry 96 03/01/20 00:39 Oxygen Delivery Method Room Air 03/01/20 00:39 Oxygen Flow Rate 0 03/01/20 00:39 Lab/Test Results Lab/Test Results: Laboratory Tests Range/Units 03/01/20 03/01/20 03/01/20 00:45 00:46 03:46 WBC (4.4-10.8) 10^3/uL 6.80 RBC (3.93-5.22) 10^6/uL 5.33 H Hgb (11.2-15.7) g/dL 15.6 Hct (36.0-46.0) % 45.8 MCV (80-95) fL 85.9 MCH (27.0-33.0) pg 29.3 MCHC (32.0-36.0) % 34.1 RDW (11.7-14.6) % 12.3 Plt Count (130-400) 10^3/uL 297 MPV (8.0-11.0) fL 9.5 Immature Gran % 0.3 Neutrophils % 70.8 Lymphocytes % 22.1 Monocytes % 5.3 Eosinophils % 0.6 Basophils % 0.9 Nucleated RBC % % 0 Absolute Neutrophils (1.2-6.7) 10^3/uL 4.82 Absolute Lymphocytes (1.2-3.4) 10^3/uL 1.50 Absolute Monocytes (0.1-0.8) 10^3/uL 0.36 Absolute Eosinophils (0.0-0.7) 10^3/uL 0.04 Absolute Basophils (0.0-0.2) 10^3/uL 0.06 Troponin I Cancelled Cancelled
[2020-03-01 01:23] LABS: ALT 22 U/L (14-59); AST 14 U/L (15-37); Albumin 4.2 g/dL (3.4-5.0); Alkaline Phosphatase 92 U/L (46-116); BUN 8 mg/dL (7-18); Bilirubin, Total 0.6 mg/dL (0.2-1.0); CREATININE 1.07 mg/dL (0.55-1.02); Calcium 9.2 mg/dL (8.5-10.1); Chloride 102 mmol/L (98-107); Glucose 160 mg/dL (74-106); Potassium 3.1 mmol/L (3.5-5.1); Sodium 138 mmol/L (136-145); Total Protein 7.8 g/dL (6.4-8.2)
[2020-03-01 01:37] LABS: ETHANOL BLOOD < 3.0 mg/dL (<3)
[2020-03-01 01:56] LABS: Salicylate < 2.8 mg/dL (2.8-20.0)
[2020-03-01 01:59] LABS: Acetaminophen < 2 ug/mL (10-30)
[2020-03-01] MEDS: Potassium Chloride 20 MEQ TABCR PO ×2 (02:29→09:37)
--- NOTE | 2020-03-01 02:41 | CMSP_ITS ---
- If Service Date Differs Date of service: 03/01/20 Time of Service: 02:41 Care Management Safety Plan chief complaint: Hellen is a 19 year old female being admitted at [facility] for SI with attempt. Per chart review, Hellen identifies as a male and prefers to be called Ivan. Ivan presents to the ED after ingesting multiple control pills. Pt has been medically cleared by provider and has been screened by [facility] crisis. Ivan will remain at [facility] voluntarily for placement in a psychiatric facility. VOLUNTARY FOR INPATIENT PSYCHIATRIC STABILIZATION. Pt is appropriate in all interactions since arriving at [facility]. Pt has demonstrated appropriate coping and communication skills, has articulated his or her needs and concerns, and is engaged during staff interactions. Safety plan has been established with pt and care team to adhere to pt goal, identify restrictions based on behavioral status, address nutrition, and determine personal belongings, tools for hygiene and personal care. Determine level of activity including ambulation, level of supervision, visitors, and determine privileges based on behaviors and level of engagement by pt. SAFETY PLAN: 1. Will remain on suicide precautions in paper clothes. 2. Will remain in room under supervision of one on one staff at all times provi ded by CPSO, RN, ALKYLATION OPERATOR or ENGINEERING OFFICER. 3. 3. May have paper cups, plates, finger foods as well as a cardboard spoon with which to eat meals. 4. Follow [facility] Management of the Admitted Behavioral Health Patient policy. 5. Shower permitted at RN discretion. 6. No personal belongings. 7. No visitors at this time due to -19 policy. 8. Activities: Permitted soft items and CART items per RN discretion. 8. Phone contact permitted with [facility] staff facilitation of cordless phone. 9. Due to VOLUNTARY status, if patient wishes to leave [facility], the [facility] parks and recreation worker must be contacted to evaluate patient prior to patient exiting the building. If deemed appropriate for inpatient psychiatric care, safety plan will be established with patient, and care team, to adhere to patient goals, identify restrictions based on behavioral status, address nutrition, and determine allowed personal belongings, tools for hygiene and personal care. As well plan will determine level of activity including ambulation, level of supervision, visitors, and determine privileges based on level of acuity, behaviors and level of engagement by patient.
[2020-03-01 02:50] VITALS: BP 101/65; PULSE 60; RESP 14; TEMP 36.8; O2SAT 96
[2020-03-01 03:29] VITALS: BP 110/65; PULSE 71; RESP 18; TEMP 35.9; O2SAT 96
[2020-03-01 04:00] LABS: *AMPHETAMINES SCREEN URINE Negative (Negative); *BARBITURATES SCREEN URINE Negative (Negative); *BENZODIAZEPINES SCREEN URINE Negative (Negative); Cannabinoids THC POSITIVE (Negative); Cocaine Screen,Urine Negative (Negative); METHADONE URINE SCREEN Negative (Negative); OPIATES URINE SCREEN Negative (Negative)
[2020-03-01 04:02] LABS: Tricyclic Antidepressants Negative (Negative)
--- NOTE | 2020-03-01 05:35 | HPE_ITS ---
Date of service: 03/01/20 Time of Service: 05:35 Assessment and Plan Assessment and plan (1) Suicide attempt: Start date: 03/01/20 Status: Acute Assessment and plan: This is a 19-year-old transgender male with chronic depression and suicidal thoughts who took a whole bottle of medroxyprogesterone with no significant side effects but requiring observation overnight with placement for inpatient psychiatric care and mental health consultation in place. He will remain on observation with one-on-one monitoring. Patient has hypokalemia and will be given oral potassium supplement while in the hospital. Follow-up labs should be performed. (2) Depression with suicidal ideation: Status: Chronic Assessment and plan: This is a chronic problem with poor control with medical therapy possibly associated with high suicide risk with transgender population. Continue mental health support and plan inpatient psychiatric evaluation and adjustment of treatment with ongoing outpatient support and counseling. History of Present Illness History of Present Illness Chief Complaint: Suicide attempt with overdose of hormone pills Narrative: This is a 19-year-old transgender male who has chronic depression being a cutter when he was younger with no recent lacerations monitored by outpatient psychiatry with a plan for inpatient admission as an outpatient on the day of admission. The patient had all of his medication removed from his home on the day admission except for his hormone pills of which he took the entire bottle. Poison control stated that this was not medically dangerous but may cause symptoms of nausea. The patient denies any significant nausea or vomiting or bulimia but did have a low potassium with evaluation in the ED. Otherwise the patient was medically cleared for inpatient psychiatric care and will be on observation pending placement which will be voluntary. The patient had a recent hospitalization for similar suicidal ideation and modification of the medications did take place with continued depression and suicidal ideation. This appears to be a chronic, recurring event. Review of Systems Narrative: 13 point review of systems otherwise unrevealing or stable. Patient is overweight. [facility] Medical History Anxiety Depression Eczema Surgical History No significant past surgical history Family History Mother Depression Father No problems noted. sibling Depression Grandparent Depression Social History Smoking/Tobacco Use Status: Current every day Tobacco Type: cigarettes Alcohol Intake: current Alcohol Intake frequency: a few times a month Drug use: Occasionally Substance use type: marijuana Adopted: No Do you feel safe at home: Yes Do you feel safe in your relationship?: Yes Meds Home Medications and Allergies Home Medications Medication Instructions Recorded Confirmed Type albuterol sulfate 2.5 mg INHALATION Q4H PRN #1 box 07/20/14 12/26/19 History mupirocin 1 isa TOPICAL TID #22 gm 01/07/17 12/26/19 History triamcinolone acetonide 1 isa TOPICAL BID #60 ml 01/07/17 12/26/19 History prazosin 2 mg PO HS #30 tab-cap 05/22/17 03/01/20 Rx hydroxyzine HCl 25 mg PO TID PRN 07/15/17 12/26/19 History ranitidine HCl 150 mg capsule 150 mg PO BID #120 cap 05/12/18 12/26/19 Rx venlafaxine 150 mg 150 mg PO DAILY 05/28/18 03/01/20 History capsule,extended release 24 hr testosterone cypionate 100 mg IM ONCE 09/06/18 03/01/20 History amoxicillin-pot clavulanate 1 tab PO BID #14 tab 12/26/19 Rx [Augmentin] medroxyprogesterone 5 mg PO DAILY 03/01/20 03/01/20 History trazodone 03/01/20 03/01/20 History Allergies Allergy/AdvReac Type Severity Reaction Status Date / Time No Known Allergies Allergy Unverified 12/26/19 19:58 Exam Narrative Exam Narrative: General: Patient appears appropriate for age, moderately obese with flattened affect and good eye contact. He has slowed speech with monotonous tone. He is alert and oriented x3. HEENT: Normocephalic, eyes equal and reactive to light symmetrically, extraocular movement tachycardia sclera anicteric. Oropharynx with fair dentition and moist oral mucosa. External ears normal. Nose is normal without discharge. Neck: Supple without JVD. Back: Stooped posture with no CVA tenderness. Breast: Exam deferred. Lungs: Clear to auscultation percussion without adventitious sounds. Normal inspiratory to expiratory phase ratio. Heart: Regular rate and rhythm with no murmurs or gallops. Abdomen: Obese contour, soft and nontender to palpation with no palpable hepatosplenomegaly. Bowel sounds positive in all quadrants. Genitalia/rectal: Exam deferred. Extremities: No pitting edema with edematous appearing ankles, peripheral pulses intact with good capillary refill. No clubbing or cyanosis. Joints have fair range of motion. Skin: [place], warm and dry. No rashes. There are superficial, linear scars from previous abrasions over the left volar wrist. No bleeding with these abrasions and no erythema. Neuro: Cranial nerves II through XII grossly intact, no focal motor deficits. Psych: Flat affect with depressed mood. Remote and recent memory intact. No abnormal thought processes. Results Labs Result diagrams: 03/01/20 00:45 03/01/20 00:45 Labs: Laboratory Results - last 24 hr 03/01/20 03/01/20 03/01/20 00:00 00:45 00:45 WBC 6.80 RBC 5.33 H Hgb 15.6 Hct 45.8 MCV 85.9 MCH 29.3 MCHC 34.1 RDW 12.3 Plt Count 297 MPV 9.5 Immature Gran % 0.3 Neutrophils % 70.8 Lymphocytes % 22.1 Monocytes % 5.3 Eosinophils % 0.6 Basophils % 0.9 Nucleated RBC % 0 Absolute Neutrophils 4.82 Absolute Lymphocytes 1.50 Absolute Monocytes 0.36 Absolute Eosinophils 0.04 Absolute Basophils 0.06 Sodium 138 Potassium 3.1 L Chloride 102 Carbon Dioxide 24.0 Anion Gap 12.0 H BUN 8 Creatinine 1.07 H Estimated GFR/1.73 m2 >= 60.00 Glucose 160 H Calcium 9.2 Magnesium 2.0 Total Bilirubin 0.6 AST 14 L ALT 22 Alkaline Phosphatase 92 Troponin I Total Protein 7.8 Albumin 4.2 Salicylates < 2.8 Urine Opiates Screen Urine Methadone Screen Acetaminophen < 2 Ur Barbiturates Screen Ur Tricyclics Screen Ur Amphetamines Screen U Benzodiazepines Scrn Urine Cocaine Screen Ur THC Screen Ethyl Alcohol < 3.0 03/01/20 03/01/20 03/01/20 00:46 02:41 03:46 WBC RBC Hgb Hct MCV MCH MCHC RDW Plt Count MPV Immature Gran % Neutrophils % Lymphocytes % Monocytes % Eosinophils % Basophils % Nucleated RBC % Absolute Neutrophils Absolute Lymphocytes Absolute Monocytes Absolute Eosinophils Absolute Basophils Sodium Potassium Chloride Carbon Dioxide Anion Gap BUN Creatinine Estimated GFR/1.73 m2 Glucose Calcium Magnesium Total Bilirubin AST ALT Alkaline Phosphatase Troponin I Cancelled Cancelled Total Protein Albumin Salicylates Urine Opiates Screen Negative Urine Methadone Screen Negative Acetaminophen Ur Barbiturates Screen Negative Ur Tricyclics Screen Negative Ur Amphetamines Screen Negative U Benzodiazepines Scrn Negative Urine Cocaine Screen Negative Ur THC Screen Positive A Ethyl Alcohol Last Vital Signs Temp 35.9 C L 03/01/20 03:29 Pulse 71 03/01/20 03:29 Resp 18 03/01/20 03:29 BP 110/65 03/01/20 03:29 Pulse Ox 96 03/01/20 03:29 COVID-19 Screening Have you,or household,traveled outside [place] in last 14 days?: No Had IN PERSON contact w/suspected or confirmed C-19 person: No
[2020-03-01] MEDS: Venlafaxine 150 MG CAPCR PO (09:36)
[2020-03-01 09:42] VITALS: BP 120/73; PULSE 95; RESP 12; TEMP 36; O2SAT 96
--- NOTE | 2020-03-01 10:41 | PDOC.MHCN ---
Date of service: 03/01/20 Time of Service: 10:41 Mental Health Crisis Note Presenting Issue How did you arrive at the ED and why did you come: Client called a suicide prevention hotline early this morning after taking between 30-40 control pills. The suicide prevention tax compliance representative the client was speaking with called 911 on his behalf. Client arrived via ambulance to [facility]. Precipitating Factors Client denies HI. Client reported he had been with friends last night and then went home. He started feeling suicidal and was struggling with thoughts of suicide. Client continues to report pervasive suicidal ideation. He said he would not be safe if he were to discharge home. He could not specify a plan for suicide but would find a way. Disposition BEHAVIOR: Client's behavior was appropriate. EYE CONTACT: Good eye contact. MOOD: Pleasant and cooperative--visibly exhausted. AFFECT: Animated APPETITE: Client reports low appetite--eating one meal a day. SLEEP(trouble falling/staying asleep: Client reports he is overtired, hasn't been sleeping well--dreamt about committing suicide last night. Plan The plan is to seek hospital placement for the client. This screener will follow up with Billie Mendeseat about the referral that was sent early this morning. This screener will contact Anna Puri CM with any updates. Signature Clinician's Name/Title: Robert Donato BA (Ana) INVESTIGATIONS CHIEF Motor Room Controller [facility]
[2020-03-01 12:44] LABS: Anion Gap 8.4 mmol/L (3-11); BUN 7 mg/dL (7-18); CO2 26.6 mmol/L (21.0-32.0); CREATININE 0.84 mg/dL (0.55-1.02); Calcium 9.5 mg/dL (8.5-10.1); Chloride 104 mmol/L (98-107); Glucose 95 mg/dL (74-106); Potassium 4.2 mmol/L (3.5-5.1); Sodium 139 mmol/L (136-145)
--- NOTE | 2020-03-01 14:41 | PGE_ITS ---
Date of Service Date of service: 03/01/20 Time of Service: 14:41 Assessment and Plan Assessment and plan (1) Suicide attempt: Status: Acute Assessment and plan: This is a 19-year-old transgender male with chronic depression and suicidal thoughts who took a whole bottle of medroxyprogesterone with no significant side effects but requiring observation overnight with placement for inpatient psychiatric care and mental health consultation in place. He will remain on observation with one-on-one monitoring. Patient had hypokalemia which resolved with oral potassium supplement. (2) Depression with suicidal ideation: Status: Chronic Assessment and plan: This is a chronic problem with poor control with medical therapy possibly associated with high suicide risk with transgender population. Continue mental health support and plan inpatient psychiatric evaluation and adjustment of treatment with ongoing outpatient support and counseling. (3) Hypokalemia: Status: Resolved Assessment and plan: has been repleted and now normalized. discussed with DR Abdi who is in agreement Subjective Subjective Patient reports: nausea and afebrile Exam Narrative Exam Narrative: General: Patient appears older than stated age, moderately obese, somewhat disheveled with flattened affect and good eye contact. He has slowed speech with monotonous tone. He is alert and oriented x3. HEENT: Normocephalic, eyes equal and reactive to light symmetrically, extraocular movement intact, sclera anicteric. Oropharynx with poor dentition missing teeth, and moist oral mucosa. External ears normal. Nose is normal without discharge. Neck: Supple Back: normal appearance. Lungs: Clear, respirations even and unlabored. Heart: Regular rate and rhythm Abdomen: soft and nontender Bowel sounds positive in all quadrants. Extremities: moves all extremities, no edema Skin: [place], warm and dry. No rashes. There are superficial, linear scars from previous abrasions over the left volar wrist. No bleeding with these abrasions and no erythema. Neuro: awake and oriented no focal motor deficits. Psych: Flat affect with depressed mood. Remote and recent memory intact. No abnormal thought processes. Objective Last Vital Signs Temp 36 C L 03/01/20 09:42 Pulse 95 H 03/01/20 09:42 Resp 12 03/01/20 09:42 BP 120/73 03/01/20 09:42 Pulse Ox 96 03/01/20 09:42 Laboratory Results - last 24 hr 03/01/20 03/01/20 03/01/20 00:00 00:45 00:45 WBC 6.80 RBC 5.33 H Hgb 15.6 Hct 45.8 MCV 85.9 MCH 29.3 MCHC 34.1 RDW 12.3 Plt Count 297 MPV 9.5 Immature Gran % 0.3 Neutrophils % 70.8 Lymphocytes % 22.1 Monocytes % 5.3 Eosinophils % 0.6 Basophils % 0.9 Nucleated RBC % 0 Absolute Neutrophils 4.82 Absolute Lymphocytes 1.50 Absolute Monocytes 0.36 Absolute Eosinophils 0.04 Absolute Basophils 0.06 Sodium 138 Potassium 3.1 L Chloride 102 Carbon Dioxide 24.0 Anion Gap 12.0 H BUN 8 Creatinine 1.07 H Estimated GFR/1.73 m2 >= 60.00 Glucose 160 H Calcium 9.2 Magnesium 2.0 Total Bilirubin 0.6 AST 14 L ALT 22 Alkaline Phosphatase 92 Troponin I Total Protein 7.8 Albumin 4.2 Salicylates < 2.8 Urine Opiates Screen Urine Methadone Screen Acetaminophen < 2 Ur Barbiturates Screen Ur Tricyclics Screen Ur Amphetamines Screen U Benzodiazepines Scrn Urine Cocaine Screen Ur THC Screen Ethyl Alcohol < 3.0 03/01/20 03/01/20 03/01/20 00:46 02:41 03:46 WBC RBC Hgb Hct MCV MCH MCHC RDW Plt Count MPV Immature Gran % Neutrophils % Lymphocytes % Monocytes % Eosinophils % Basophils % Nucleated RBC % Absolute Neutrophils Absolute Lymphocytes Absolute Monocytes Absolute Eosinophils Absolute Basophils Sodium Potassium Chloride Carbon Dioxide Anion Gap BUN Creatinine Estimated GFR/1.73 m2 Glucose Calcium Magnesium Total Bilirubin AST ALT Alkaline Phosphatase Troponin I Cancelled Cancelled Total Protein Albumin Salicylates Urine Opiates Screen Negative Urine Methadone Screen Negative Acetaminophen Ur Barbiturates Screen Negative Ur Tricyclics Screen Negative Ur Amphetamines Screen Negative U Benzodiazepines Scrn Negative Urine Cocaine Screen Negative Ur THC Screen Positive A Ethyl Alcohol 03/01/20 12:07 WBC RBC Hgb Hct MCV MCH MCHC RDW Plt Count MPV Immature Gran % Neutrophils % Lymphocytes % Monocytes % Eosinophils % Basophils % Nucleated RBC % Absolute Neutrophils Absolute Lymphocytes Absolute Monocytes Absolute Eosinophils Absolute Basophils Sodium 139 Potassium 4.2 D Chloride 104 Carbon Dioxide 26.6 Anion Gap 8.4 BUN 7 Creatinine 0.84 Estimated GFR/1.73 m2 >= 60.00 Glucose 95 D Calcium 9.5 Magnesium Total Bilirubin AST ALT Alkaline Phosphatase Troponin I Total Protein Albumin Salicylates Urine Opiates Screen Urine Methadone Screen Acetaminophen Ur Barbiturates Screen Ur Tricyclics Screen Ur Amphetamines Screen U Benzodiazepines Scrn Urine Cocaine Screen Ur THC Screen Ethyl Alcohol
[2020-03-01 15:03] LABS: COVID-19 RT-PCR UVMMC Result Negative (Negative)
--- NOTE | 2020-03-01 16:33 | PDOC.CMPRO ---
- If Service Date Differs Date of service: 03/01/20 Time of Service: 16:33 Care Management Progress Note S/O: Ivan was sleeping when CM visited, but was easily awoken. CM apologized for waking him, but Robert from [facility] was awaiting a zoom meeting to check in. Ivan stated that he still felt that he is unsafe to be home, as he continues to have SI. He denies HI. He stated that he didn't know exactly how he would act on his thoughts, but that he would find a way, potentially ingesting medication. He stated that he wanted to make a couple phone calls- to find someone to look after his dog, and also to call his work. CM checked in later, and the CPSO stated that he had made some calls. He was sleeping again, and CM did not wake him. CM called [facility], who requested additional information/labs, but stated that a bed would not be available today. They are considering him for admission tomorrow. CM will continue to follow. A: Ivan is a 19 year old female (identifies as male) who was admitted to [facility] on 03/01/20 with SI. P: [facility] is currently reviewing Ivan's referral, and has stated that there is no bed available today. He is currently seeking help voluntarily and awaiting placement at a psychiatric facility. CM will coordinate transportation via [employer] when a bed becomes available. CM will continue to follow and support pt and staff with discharge planning consideration.
--- NOTE | 2020-03-01 16:40 | PDOC.CMSAFE ---
- If Service Date Differs Date of service: 03/01/20 Time of Service: 16:40 Care Management Safety Plan VOLUNTARY FOR INPATIENT PSYCHIATRIC STABILIZATION. Pt is appropriate in all interactions since arriving at [facility]. Pt has demonstrated appropriate coping and communication skills, has articulated his or her needs and concerns, and is engaged during staff interactions. Safety plan has been established with pt and care team to adhere to pt goal, identify restrictions based on behavioral status, address nutrition, and determine personal belongings, tools for hygiene and personal care. Determine level of activity including ambulation, level of supervision, visitors, and determine privileges based on behaviors and level of engagement by pt. SAFETY PLAN: 1. Will remain on suicide precautions in paper clothes. 2. Will remain in room under supervision of one on one staff at all times provided by CPSO, RN, VIVEK or BODY BUILDER APPRENTICE. 3. May have paper cups, plates, finger foods as well as a cardboard spoon with which to eat meals. 4. Follow [facility] Management of the Admitted Behavioral Health Patient policy. 5. Shower permitted at RN discretion. 6. No personal belongings. 7. No visitors at this time due to CV-19 policy. 8. Activities: Permitted soft items and CART items per RN discretion. 8. Phone contact permitted with [facility] staff facilitation of cordless phone. 9. Due to VOLUNTARY status, if patient wishes to leave [facility], the [facility] drag out worker must be contacted to evaluate patient prior to patient exiting the building. If deemed appropriate for inpatient psychiatric care, safety plan will be established with patient, and care team, to adhere to patient goals, identify restrictions based on behavioral status, address nutrition, and determine allowed personal belongings, tools for hygiene and personal care. As well plan will determine level of activity including ambulation, level of supervision, visitors, and determine privileges based on level of acuity, behaviors and level of engagement by patient.
[2020-03-01 17:32] VITALS: BP 117/72; PULSE 90; RESP 13; TEMP 36.7; O2SAT 96
[2020-03-01] MEDS: Prazosin 1 MG CAP 2 MG PO (21:35)
[2020-03-02] MEDS: Venlafaxine 150 MG CAPCR PO (08:28)
[2020-03-02 08:58] VITALS: BP 128/75; PULSE 67; RESP 17; TEMP 37; O2SAT 98
--- NOTE | 2020-03-02 11:52 | PDOC.MHCN ---
Date of service: 03/02/20 Time of Service: 11:30 Mental Health Crisis Note Presenting Issue How did you arrive at the ED and why did you come: Client called a suicide prevention hotline early this morning after taking between 30-40 control pills. The suicide prevention client support representative the client was speaking with called 911 on his behalf. Client arrived via ambulance to [facility]. Precipitating Factors Client denies HI. Client is continuing to struggle with thoughts of suicide. He does not think he can be safe at home and is wanting hospitalization. When asked on a scale of 1-10 how bad his suicidal thoughts were he answered an 8. Client said he has been thinking about plans of overdose or jumping off a bridge. Though he was hesitant to contact his mother, he spoke to her twice yesterday. He reports that the conversations were amiable. His dog Kelsea is being taken care of at his mother's house--his siblings are going to take turns caring for his cat at his apartment. He also reported he called his boss at work. His boss is willing to put him on medical leave until he is ready to return to work. Disposition BEHAVIOR: Appropriate EYE CONTACT: Good MOOD: Pleasant and cooperative AFFECT: Animated APPETITE: Screener did not ask SLEEP(trouble falling/staying asleep: Client reports sleeping a lot since being at [facility] Plan Continue to seek hospitalization at [facility]. This screener spoke with elizabeth Garibay (sp?) in admissions at and she said they did not have a bed today--tomorrow they will pending the client continues to meet level of care. This screener also spoke with Anna Puri CM and will update with any new information about hospitalization. Signature Clinician's Name/Title: Robert Donato BA (Ana) [employer] [facility]
--- NOTE | 2020-03-02 12:01 | NUR.NOTE ---
Nursing Note: RN to RN report given to DILIA Durham @ [facility]. No further questions.
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
--- NOTE | 2020-03-02 12:55 | W.NUTRFU ---
Date of service: 03/02/20 Time of Service: 12:55 Nutritional Follow up NOTE: 19 year old transgender female admitted s/p suicide attempt. Following regular meal plan with adequate intake to meet nutrient and fluid needs. BMI indicates class 1 obesity. Not at nutritional risk at this time. will continue to follow. Time Spent in Nutritional Counseling and Treatment: 0 time spent face to face
--- NOTE | 2020-03-02 13:40 | PDOC.MHCN ---
Date of service: 03/01/20 Time of Service: 01:46 Mental Health Crisis Note Presenting Issue How did you arrive at the ED and why did you come: Patient arrived at the ED due to overdose on control Precipitating Factors Patient shared that he has been having thoughts of overdosing the past 3 weeks. Client shared that his cyanide case hardener came and picked up all medications as part of safety plan that was created last night. Patient shared that he tried spending time with friends and that worked for a while but when he got home thoughts of si increased and he felt even more upset and took all of his control. Patient shared that he does not feel safe at home and does not have any friends or family that he would be comfortable shareing this with or staying with. Disposition BEHAVIOR: cooperative EYE CONTACT: good MOOD: calm, depressed AFFECT: flat APPETITE: no motavation to eat SLEEP(trouble falling/staying asleep: not sleeping well, most sleep happens during the day Plan Patient is looking for hospitalization to manage his depression and Si urges. Patient will remain at [facility] awaiting [facility] to review his referral. Signature Clinician's Name/Title: Petr Vidal
--- NOTE | 2020-03-02 14:29 | CMDISCH_ITS ---
- If Service Date Differs Date of service: 03/02/20 Time of Service: 14:29 LACE Index Scoring Tool - Questions: Length of Stay (in days): 2 Acuity (Admit via E.D.?): Yes E.D. Visits: 3 - Answers: Total Score: 8 Risk of Readmission: Low Risk Care Management Discharge Reason for Hospitalization: Suicidal Ideation, Overdose Attempt, Depression Discharge Plan: Ivan Macedo transferred to [facility] today, coordinated by [facility] and [facility]. He was transported by [facility], coordinated by [facility]. He will follow up with [facility] and his discharge plan of care. He has been calm and appropriate in all interactions, has been seeking help and is agreeable to go to . Patient/Family Education Needs: Review discharge instructions with pt and staff at [facility], discussion of self care needs including ask me three. Services Needed at Discharge: Transportation ([facility]) - MH Services (Omit if N/A) Current MH Services: Psychiatric Inp ([facility])
== END 2020-03-02 13:56 | disposition short-term general hospital (02) ==
LOC: ER 02:31 → MS 03:29
PROVIDERS: Admitting Provider Family Medicine; Emergency Provider Emergency Medicine; PCP Nurse Practitioner Family; Visit Provider Family Medicine
DX: T38.5X2A Poisoning by other estrogens and progestogens, intentional self-harm, initial encounter (principal); F32.9 Major depressive disorder, single episode, unspecified; E87.6 Hypokalemia; Z11.59 Encounter for screening for other viral diseases; F41.9 Anxiety disorder, unspecified
CPT/HCPCS: 36415; 80048; 80053; 80307; 81025; 99219; 99225; 99239; 99285; U0003; 80320; 80329; 83735; 84484; 85025; 99217; 99284; G0378

== ENCOUNTER 2020-04-09 16:46 | Inpatient (IN) | payer MEDICAID, SELFPAY ==
[2020-04-09 16:51] VITALS: BP 120/81; PULSE 90; RESP 18; TEMP 36.9; O2SAT 96
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
[2020-04-09 17:12] LABS: Bilirubin Negative (Negative); Blood Negative (Negative); Clarity Clear (Clear); Glucose Negative (Negative); Ketones Negative (Negative); Leukocyte Esterase Trace (Negative); Nitrite Negative (Negative); Specific Gravity 1.015 (1.005-1.025); Urobilinogen 0.2 EU/dL (Up TO 0.2)
[2020-04-09 17:37] LABS: Bacteria Negative HPF (Negative); C & S Indicated? Yes; Casts Negative LPF (Negative); Crystals Negative HPF (Negative); Epithelial Cells Negative HPF (Negative); Mucus Negative (Negative); Other Cells Negative (Negative); RBC Negative HPF (0-2)
[2020-04-09 17:44] LABS: *AMPHETAMINES SCREEN URINE Negative (Negative); *BARBITURATES SCREEN URINE Negative (Negative); *BENZODIAZEPINES SCREEN URINE Negative (Negative); Cannabinoids THC Negative (Negative); Cocaine Screen,Urine Negative (Negative); METHADONE URINE SCREEN Negative (Negative); OPIATES URINE SCREEN Negative (Negative)
[2020-04-09 17:47] LABS: Abs Immature Grans 0.02 10^3/uL (0.0-0.06); Absolute Basophil Count 0.05 10^3/uL (0.0-0.2); Absolute Eosinophil Count 0.22 10^3/uL (0.0-0.7); Absolute Monocyte Count 0.52 10^3/uL (0.1-0.8); Absolute Neutrophil Count 5.87 10^3/uL (1.2-6.7); Basophils % 0.6; Eosinophils % 2.7; HCT 44.7 % (36.0-46.0); HGB 15.5 g/dL (11.2-15.7); Immature Grans % 0.2; Lymphocytes % 18.3; MCH 29.7 pg (27.0-33.0); MCHC 34.7 % (32.0-36.0); MCV 85.6 fL (80-95); MPV 9.7 fL (8.0-11.0); Monocytes % 6.4; Neutrophils % 71.8; Nucleated RBC 0 %; Platelet Count 269 10^3/uL (130-400); RBC 5.22 10^6/uL (3.93-5.22); RDW 11.8 % (11.7-14.6); RDW-SD 36.6 fL; WBC 8.18 10^3/uL (4.4-10.8)
[2020-04-09 17:53] LABS: Tricyclic Antidepressants Negative (Negative)
[2020-04-09 18:21] LABS: ALT 17 U/L (14-59); AST 14 U/L (15-37); Albumin 4.1 g/dL (3.4-5.0); Alkaline Phosphatase 94 U/L (46-116); Anion Gap 3.1 mmol/L (3-11); BUN 6 mg/dL (7-18); Bilirubin, Total 0.4 mg/dL (0.2-1.0); CO2 25.9 mmol/L (21.0-32.0); CREATININE 0.89 mg/dL (0.55-1.02); Calcium 8.8 mg/dL (8.5-10.1); Chloride 102 mmol/L (98-107); ETHANOL BLOOD 24.1 mg/dL (<3); Glucose 99 mg/dL (74-106); Potassium 3.2 mmol/L (3.5-5.1); Sodium 131 mmol/L (136-145); TSH 0.34 uIU/mL (0.36-3.74); Total Protein 7.7 g/dL (6.4-8.2)
[2020-04-09 18:24] LABS: Salicylate < 2.8 mg/dL (2.8-20.0)
[2020-04-09 18:26] LABS: Acetaminophen < 2 ug/mL (10-30)
[2020-04-09] MEDS: Potassium Chloride 20 MEQ TABCR 40 MEQ PO (18:42)
[2020-04-09 18:48] LABS: Magnesium 1.8 mg/dL (1.8-2.4)
--- NOTE | 2020-04-09 18:56 | CMSP_ITS ---
- If Service Date Differs Date of service: 04/09/20 Time of Service: 19:05 Care Management Safety Plan Ivan is a 19 year old transgender male well known to [facility] for ongoing mental illness. Participant in the BLANKING MACHINE OPERATOR program at [facility]; BLANKING MACHINE OPERATOR is responsible for wrap around services in the community including crisis response. Patient discharged from [facility] on 03/02/20 to [facility] for psychiatric stabilization. Chart review significant for increased risk central to prior suicide attempt, gender dysphoria, ACEs, depression, intentional drug overdose, anxiety, depression with SI. Medically cleared. Awaiting crisis screening. In the interim; please note safety plan below to guide patient care while awaiting further assessment in the ED. SAFETY PLAN: 1. Will remain on suicide precautions and in paper clothes. 2. Will remain in room under direct supervision of one-on-one staff at all times provided by VIVEK, DIET ASSISTANT weather anchor. 3. May have paper cups, plates, finger foods as well as a cardboard spoon with which to eat meals. 4. Follow [facility] Management of the Admitted Behavioral Health Patient policy. 5. Comfort bath system only. 6. No personal belongings 7. No visitors. 8. Phone contact limited to legal contact at this time. 9. Due to VOLUNTARY status, if patient wishes to leave [facility], the [facility] private household worker must be contacted to re-evaluate patient prior to patient exiting the building. If deemed appropriate for inpatient psychiatric care, safety plan will be established with patient, and care team, to adhere to patient goals, identify restrictions based on behavioral status, address nutrition, and determine allowed personal belongings, tools for hygiene and personal care. As well plan will determine level of activity including ambulation, level of supervision, visitors, and determine privileges based on level of acuity, behaviors and level of engagement by patient.
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
[2020-04-09] MEDS: Fosfomycin Tromethamine 3 GM PACKET PO (19:50)
[2020-04-09 21:00] VITALS: BP 135/83; PULSE 64; RESP 16; TEMP 36.7; O2SAT 99
--- NOTE | 2020-04-09 21:10 | CMSP_ITS ---
- If Service Date Differs Date of service: 04/09/20 Time of Service: 21:00 Care Management Safety Plan Ivan is a 19 year old transgender male well known to [facility] for ongoing mental illness. He has had no known prior behavioral issues when inpatient at [facility]. He is a participant in the SENIOR MEDIA BUYER program at [facility]; SENIOR MEDIA BUYER is responsible for wrap around services in the community including crisis response. Patient discharged from [facility] on 03/02/20 to [facility] for psychiatric stabilization. Chart review significant for increased risk central to prior suicide attempt, gender dysphoria, ACEs, depression, intentional drug overdose, anxiety, depression with SI. Mauricio SENIOR MEDIA BUYER clam bed worker evaluated Ivan and determined he met criteria for inpatient treatment. DERRELL was notified of need for safety plan by M/S Clinical Coordinator; Bing when patient was transferred upstairs. DERRELL did not have direct communication with Mauricio; refer to his note for further information. DERRELL spoke with Ivan over the phone. He reported his preferred gender pronouns are He/Him. He reported being at [facility] the month prior and discharging to for about a week. He stated that he found the stay quite helpful but didn't do what I needed to upon returning to the community. He was pleasant on the phone and shared no concerns. In regard to safety plan he requested outgoing phone calls to his friend Adriane, and his boss (to notify of unavailability), but did not wish to call them until tomorrow morning. Ivan reported he was in paper clothes and felt comfortable at [facility]. He stated he enjoys coloring when inpatient as well. DILIA Irvin reported that Ivan appeared tired and had expressed wanting to rest and watch television. She reported anticipating that Ivan would likely just relax for tonight and that a shower option could be added to the care plan tomorrow, if requested. CM reviewed soft cart items, RN discretion and location as needed. Safety Plan discussed with Brandee Love; Bing DOBBS; ANA, Juaquin CHOUDHURY. Changes noted below. SAFETY PLAN: 1. Will remain on suicide precautions and in paper clothes. 2. Will remain in room under direct supervision of one-on-one staff at all times provided by AUBREE DOYLE floating labor gang supervisor. 3. May have paper cups, plates, finger foods as well as a cardboard spoon with which to eat meals. 4. Follow [facility] Management of the Admitted Behavioral Health Patient policy. 5. Comfort bath system only, bathroom available in room without limitation. 6. Television, remote and soft cart items available at RN discretion; no sharps. 7. No visitors. 8. Phone contact limited to outgoing phone calls to Ivan's boss and friend Adriane tomorrow (04/10/20), Ivan will use [facility] cordless phone. 9. Due to VOLUNTARY status, if patient wishes to leave [facility], the [facility] cardroom worker must be contacted to re-evaluate patient prior to patient exiting the building. Safety plan will be established with patient, and care team, to adhere to patient goals, identify restrictions based on behavioral status, address nutrition, and determine allowed personal belongings, tools for hygiene and personal care. As well plan will determine level of activity including ambulation, level of supervision, visitors, and determine privileges based on level of acuity, behaviors and level of engagement by patient. Patient is currently voluntarily at [facility] and seeking inpatient admission when a bed becomes available. [facility] Frontline Awake Overnight Monitor will continue seeking placement. Please contact the Call Person Equip Maint Eng ([phone]) and [facility] Awake Overnight Monitor ([phone]) for any needed changes in the Safety Plan. Safety plan has been provided to interdepartmental care team.
[2020-04-09] MEDS: Potassium Chloride 20 MEQ TABCR PO (22:38)
[2020-04-09] MEDS: clonazePAM 0.5 MG TAB PO (22:44)
[2020-04-09 23:14] VITALS: BP 135/83; PULSE 64; RESP 16; TEMP 36.7; O2SAT 99
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
[2020-04-10 07:09] LABS: Anion Gap 9.3 mmol/L (3-11); BUN 11 mg/dL (7-18); CO2 27.7 mmol/L (21.0-32.0); CREATININE 0.97 mg/dL (0.55-1.02); Chloride 104 mmol/L (98-107); Glucose 90 mg/dL (74-106); Potassium 3.9 mmol/L (3.5-5.1); Sodium 141 mmol/L (136-145)
[2020-04-10 08:12] VITALS: BP 123/84; PULSE 75; RESP 18; TEMP 37; O2SAT 98
--- NOTE | 2020-04-10 08:17 | CMPROGNOTE_ITS ---
- If Service Date Differs Date of service: 04/10/20 Time of Service: 08:17 Care Management Progress Note Ivan is a 19 year old transgender male well known to [facility] for ongoing mental illness. Participant in the TOOL DESIGNER APPRENTICE program at [facility]; TOOL DESIGNER APPRENTICE is responsible for wrap around services in the community including crisis response. Ivan is engaged during assessment he feels that his needs are being met has has been appropriate in interactions per the primary care team and this CM assessment, and interactio ns. Huddle: 04/10/2020 Saeed, primary RN, Teresa Tracy APRN, Laureano TOOL DESIGNER APPRENTICE [facility] Bed update referrals faxed to [place], [facility], [place], and [place]. COVID pending will not be transferred until results have been obtained. VOLUNTARY FOR INPATIENT PSYCHIATRIC STABILIZATION. Patient is appropriate in all interactions since arriving at [facility]; Pt has demonstrated appropriate coping and communication skills, has articulated his or her needs and concerns and is fully engaged during staff interactions. Safety plan has been established with patient, and care team, to adhere to patient goals, identify restrictions based on behavioral status, address nutrition, and determine allowed personal belongings, tools for hygiene and personal care. Determine level of activity including ambulation, level of supervision, visitors, and determine privileges based on behaviors and level of engagement by pt. SAFETY PLAN: 1. Will remain on suicide precautions. In Paper Clothes 2. Will remain in room under direct supervision of one-on-one staff at all times provided by [employer]; VIVEK, DISTRIBUTOR SALES MANAGER basin finish operator tig welder. 3. May have paper cups, plates, finger foods as well as a metal spoon to be accounted for after meal 4. Follow [facility] Management of the Admitted Behavioral Health Patient policy. 5. Comfort wipes, shower with appropriate supervision at the discretion of primary care team 6. no personal belongings at this time 7. Visitors-No visitors at this time per hospital policy 8. Activities: coloring, soft tip markers, reading material, journal, music pad, television with remote. 9. Phone at the discretion of primary care team 10. Due to VOLUNTARY status, if patient wishes to leave [facility], the [facility] gas systems worker must be contacted to re-evaluate patient prior to patient exiting the building. Patient is currently voluntarily at [facility] and seeking inpatient admission when a bed becomes available. [facility] Frontline Projector Booth Operator will continue seeking plac ement. Please contact the Grain Buyer Mechanic ([phone]) and [facility] Projector Booth Operator ([phone]) for any needed changes in the Safety Plan. Safety plan has been provided to interdepartmental care team.
--- NOTE | 2020-04-10 08:17 | PDOC.CMPRO ---
- If Service Date Differs Date of service: 04/10/20 Time of Service: 08:17 Care Management Progress Note Ivan is a 19 year old transgender male well known to [facility] for ongoing mental illness. Participant in the CIRCUIT BREAKER ASSEMBLER program at [facility]; CIRCUIT BREAKER ASSEMBLER is responsible for wrap around services in the community including crisis response. Ivan is engaged during assessment he feels that his needs are being met has has been appropriate in interactions per the primary care team and this CM assessment, and interactions. Huddle: 04/10/2020 Saeed, primary RN, Teresa Tracy APRN, Laureano CIRCUIT BREAKER ASSEMBLER [facility] Bed update referrals faxed to [place], [facility], , and [facility]. COVID pending will not be transferred until results have been obtained. VOLUNTARY FOR INPATIENT PSYCHIATRIC STABILIZATION. Patient is appropriate in all interactions since arriving at [facility]; Pt has demonstrated appropriate coping and communication skills, has articulated his or her needs and concerns and is fully engaged during staff interactions. Safety plan has been established with patient, and care team, to adhere to patient goals, identify restrictions based on behavioral status, address nutrition, and determine allowed personal belongings, tools for hygiene and personal care. Determine level of activity including ambulation, level of supervision, visitors, and determine privileges based on behaviors and level of engagement by pt. SAFETY PLAN: 1. Will remain on suicide precautions. In Paper Clothes 2. Will remain in room under direct supervision of one-on-one staff at all times provided by [employer]; VIVEK, WATCH SUPERVISOR director home health. 3. May have paper cups, plates, finger foods as well as a metal spoon to be accounted for after meal 4. Follow [facility] Management of the Admitted Behavioral Health Patient policy. 5. Comfort wipes, shower with appropriate supervision at the discretion of primary care team 6. no personal belongings at this time 7. Visitors-No visitors at this time per hospital policy 8. Activities: coloring, soft tip markers, reading material, journal, music pad, television with remote. 9. Phone at the discretion of primary care team 10. Due to VOLUNTARY status, if patient wishes to leave [facility], the [facility] family assessment worker must be contacted to re-evaluate patient prior to patient exiting the building. Patient is currently voluntarily at [facility] and seeking inpatient admission when a bed becomes available. [facility] Frontline Adult Family Home Program Manager will continue seeking placement. Please contact the Supervisor Liquid Yeast Farm Tractor Operator ([phone]) and [facility] Adult Family Home Program Manager ([phone]) for any needed changes in the Safety Plan. Safety plan has been provided to interdepartmental care team.
[2020-04-10] MEDS: Potassium Chloride 20 MEQ TABCR PO ×2 (10:17→17:41)
[2020-04-10] MEDS: clonazePAM 0.5 MG TAB PO ×2 (10:17→20:00)
[2020-04-10] MEDS: Venlafaxine 150 MG CAPCR PO (10:18)
[2020-04-10] MEDS: Venlafaxine 37.5 MG CAPCR 75 MG PO (10:18)
--- NOTE | 2020-04-10 14:27 | PDOC.MHCN_ITS ---
Date of service: 04/10/20 Time of Service: 15:02 Mental Health Crisis Note Presenting Issue How did you arrive at the ED and why did you come: Brother dropped off. Has been experiencing depression with suicidal thoughts. Precipitating Factors No thoughts--but has been sleeping most of the day. Disposition BEHAVIOR: [facility] staff reports client has been pleasant, approachable, and appropriate. EYE CONTACT: Good eye contact MOOD: Exhausted. Has been using TV to stay out of [his] mind. AFFECT: Congruent to mood. APPETITE: Normal. Ate breakfast and lunch. SLEEP(trouble falling/staying asleep: Sleeping throughout day. (Had been averaging 6 to 7 hours prior to hospital.) Plan Hopes to be accepted at either [facility] or [facility]. Does not feel it would be safe for her to return home at present time. Signature Clinician's Name/Title: Romario Holley, customer service cashier
[2020-04-10 21:15] VITALS: BP 106/65; PULSE 55; RESP 16; TEMP 37.1; O2SAT 98
[2020-04-10] MEDS: Prazosin 1 MG CAP 2 MG PO (21:39)
[2020-04-10 23:30] VITALS: BP 116/68; PULSE 52; RESP 16; TEMP 36.9; O2SAT 98
[2020-04-11 07:45] VITALS: BP 117/70; PULSE 62; RESP 14; TEMP 37; O2SAT 98
[2020-04-11] MEDS: clonazePAM 0.5 MG TAB PO ×2 (09:45→19:58)
[2020-04-11] MEDS: Venlafaxine 37.5 MG CAPCR 75 MG PO (10:03)
[2020-04-11] MEDS: Venlafaxine 150 MG CAPCR PO (10:04)
--- NOTE | 2020-04-11 13:03 | W.NUTRFU ---
Date of service: 04/11/20 Time of Service: 13:03 Nutritional Follow up NOTE: 19 year old transgender young adult admitted with hypokalemia, suicide attempt awaiting placement. Currently meeting nutrient and fluid needs by month. Will continue to follow. Time Spent in Nutritional Counseling and Treatment: 0
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
--- NOTE | 2020-04-11 15:28 | PDOC.CMSAFE ---
- If Service Date Differs Date of service: 04/11/20 Time of Service: 15:28 Care Management Safety Plan Ivan has been accepted at [facility] [place] awaiting for the COVID test results. Ivan is in agreement with the safety plan no changes at this time. Once his COVID has returned, CM will confirm with [facility] can still accept if not today then in the morning pending results. Ivan has been appropriate with nursing, CM did review the plan with his primary nurse, supervisor sample preparation is aware of the pending [facility] and [facility] reports [facility] has had a good day, sleeping frequently. VOLUNTARY FOR INPATIENT PSYCHIATRIC STABILIZATION. Patient is appropriate in all interactions since arriving at [facility]; Pt has demonstrated appropriate coping and communication skills, has articulated his or her needs and concerns and is fully engaged during staff interactions. Safety plan has been established with patient, and care team, to adhere to patient goals, identify restrictions based on behavioral status, address nutrition, and determine allowed personal belongings, tools for hygiene and personal care. Determine level of activity including ambulation, level of supervision, visitors, and determine privileges based on behaviors and level of engagement by pt. SAFETY PLAN: 1. Will remain on suicide precautions. In Paper Clothes 2. Will remain in room under direct supervision of one-on-one staff at all times provided by [employer]; VIVEK, CROP FARM WORKERS sodium methylate operator. 3. May have paper cups, plates, finger foods as well as a metal spoon to be accounted for after meal 4. Follow [facility] Management of the Admitted Behavioral Health Patient policy. 5. Comfort wipes, shower with appropriate supervision at the discretion of primary care team 6. no personal belongings at this time 7. Visitors-No visitors at this time per hospital policy 8. Activities: coloring, soft tip markers, reading material, journal, music pad, television with remote. 9. Phone at the discretion of primary care team 10. Due to VOLUNTARY status, if patient wishes to leave [facility], the [facility] frog or oyster farmworker must be contacted to re-evaluate patient prior to patient exiting the building. Patient is currently voluntarily at [facility] and seeking inpatient admission when a bed becomes available. [facility] Frontline Continuing Education Specialist will continue seeking placement. Please contact the Systems Tester On Awake Counselor ([phone]) and [facility] Continuing Education Specialist ([phone]) for any needed changes in the Safety Plan. Safety plan has been provided to interdepartmental care team.
--- NOTE | 2020-04-11 15:42 | W.PM.PROGNOT ---
Date of Service Date of service: 04/11/20 Time of Service: 15:43 Assessment and Plan Assessment and plan (1) Hypokalemia: Status: Resolved Assessment and plan: repleted and normalized (2) Depression with suicidal ideation: Status: Chronic Assessment and plan: awaiting inpatient psychiatric care. (3) Pyuria: Status: Acute Assessment and plan: asymptomatic, treated with fosfomycin in ED. culture was insignificant mixed growth. (4) Vaginal discharge: Status: Acute Assessment and plan: likely yeast infection secondary to recent antibiotics and consistent with similar history. will treat with diflucan (5) Discharge planning issues: Status: Acute Assessment and plan: case management following. plan for discharge to inpatient psychiatric facility pending covid results. is medically stable for discharge. discussed with DR Duff. Subjective Subjective Patient reports: tolerating liquids well, tolerating a regular diet, voiding w/o difficulty, bowel movement and afebrile Interval history since last seen: patient reports now having some whitish discharge consistent with a yeast infection, which she has had in the past. she was treated with fosfomycin for UTI and denies dyuria, frequency or urgency or hematuria. reports some itching. otherwise no c/o Exam Const General: cooperative and other (crew cut, blue hair.) Nutritional Appearance: overweight HENMT Head: normal to inspection, normocephalic and atraumatic Mouth: oral mucosae normal Resp Effort & Inspection: normal respiratory effort Auscultation: clear to auscultation bilaterally Cardio Rate: regular rate Rhythm: regular rhythm GI Inspection: normal to inspection Auscultation: normal bowel sounds Skin Lesions: lesion noted (left wrist,2nd degree consistent with cigarettes mitchell as reported) and other (all blisters intact) Neuro General: patient alert and patient awake Cognition: normal cognition Speech: speech normal Gait: normal gait Motor: muscle tone normal throughout Extrem General: normal to inspection and full ROM Psych Mental Status: mental status grossly normal and other (sad) Speech and Movement: speech and movement normal Mood: other (sad) Affect: blunted Attitude: cooperative Thought Content: suicidality Insight: poor Judgment: poor Objective Last Vital Signs Temp 37.0 C 04/11/20 07:45 Pulse 62 04/11/20 07:45 Resp 14 04/11/20 07:45 BP 117/70 04/11/20 07:45 Pulse Ox 98 04/11/20 07:45
[2020-04-11 19:33] VITALS: BP 123/77; PULSE 75; RESP 18; TEMP 36.8; O2SAT 98
[2020-04-11] MEDS: Fluconazole 150 MG TAB PO (19:59)
[2020-04-11] MEDS: Prazosin 1 MG CAP 2 MG PO (21:17)
[2020-04-12 08:50] LABS: SARS-CoV-2 RNA Not Detected (NotDetected)
[2020-04-12 08:51] LABS: SARS-CoV-2 RNA Source Nasal/Nares
[2020-04-12 10:01] VITALS: BP 117/70; PULSE 70; RESP 18; TEMP 36.9; O2SAT 97
[2020-04-12] MEDS: clonazePAM 0.5 MG TAB PO (11:29)
[2020-04-12] MEDS: Venlafaxine 150 MG CAPCR PO (11:29)
[2020-04-12] MEDS: Venlafaxine 37.5 MG CAPCR 75 MG PO (11:29)
--- NOTE | 2020-04-12 12:30 | PDOC.CMDIS ---
- If Service Date Differs Date of service: 04/12/20 Time of Service: 12:30 LACE Index Scoring Tool - Questions: Length of Stay (in days): 3 Acuity (Admit via E.D.?): Yes E.D. Visits: 6 - Answers: Total Score: 10 Risk of Readmission: High Risk Care Management Discharge Reason for Hospitalization: SI awaiting psychiatric facility placement Discharge Plan: Ivan, is being discharged to [facility] today. He is aware of the transfer and accepts the bed. He will be transfered to [facility] via engineer chief coordinated by CM. Patient/Family Education Needs: Discharge limitations and follow up plan of care including ask me three and expectation of transfer. Services Needed at Discharge: Transportation - MH Services (Omit if N/A) Current MH Services: Psychiatric Inp
== END 2020-04-12 11:34 | disposition short-term general hospital (02) | DRG 881 ==
LOC: ER 20:33 → MS 20:35
PROVIDERS: Admitting Provider Family Medicine; Emergency Provider Nurse Practitioner Acute Care; PCP Nurse Practitioner Family; Visit Provider Family Medicine
DX: F32.9 Major depressive disorder, single episode, unspecified (principal); R45.851 Suicidal ideations; E87.1 Hypo-osmolality and hyponatremia; F64.0 Transsexualism; E87.6 Hypokalemia; T23.072A Burn of unspecified degree of left wrist, initial encounter; X77.8XXA Intentional self-harm by other hot objects, initial encounter
CPT/HCPCS: 36415; 80048; 80053; 80307; 81025; 90471; 99221; 99233; 99239; 99285; U0003; 80320; 80329; 81003; 81015; 83735; 84443; 85025; 87086; 99284; J3490

== ENCOUNTER 2020-06-05 21:55 | Outpatient (REF) | payer MEDICAID, SELFPAY ==
[2020-06-07 19:28] LABS: COVID-19 RT-PCR UVMMC Result Negative (Negative)
== END 2020-06-05 22:15 ==
LOC: LBN 21:55
PROVIDERS: PCP Nurse Practitioner Family; Visit Provider Physician Assistant Medical
DX: R05 Cough (principal)
CPT/HCPCS: U0003

== ENCOUNTER 2020-07-25 17:26 | Observation (INO) | payer MEDICAID, SELFPAY ==
--- NOTE | 2020-07-25 17:31 | ED.GENADUL_ITS ---
Discharge Plan Disposition Patient Disposition: [facility] INPATIENT Condition: Stable Discharge Details Chief Complaint: PsychEval Clinical Impression: Suicidal ideation Admit Date/Time: 07/25/20 19:32 Admit Provider: Luis Vidales Attending Provider: Luis Vidales Primary Care Provider: Sudha Jacob ED Provider: Raisa Arnett Medical Decision Making Patient is a pleasant 19-year-old female who identifies as he/they who is presenting today with c/c of suicidal ideation. He reports that this has been worsening over the past few months. States that his pet . Financial stressors. Stressed that mother is not accepting of sexual orientation or sexual identity. He reports that 6 days ago he took a large dosing of his medication and attempt of self-harm. His caser up found out about this and is now bringing his scheduled medications to his house that overdose is no longer possible. However, he continues to have suicidal ideations is thinking about cutting. He expresses that I will cut my wrist and he is at home. Denies thoughts of harming others. No hallucinations. No alcohol or drug use. Has been taking his medications as prescribed. On exam patient appears nontoxic. Good eye contact. No wound noted. Good personal insight. Patient I discussed with physician. He would like inpatient admission as his suicidal ideations continue to worsen. Consulted with mental health who will be picking the patient. Particularly given the patient's recent overdose, plan for baseline labs. One-to-one monitoring is with the patient. Safety plan in place. Mental health spoke with the patient. I also feel that inpatient admission would be appropriate. Patient is voluntary. [place] is excepting patients and hopefully will be able to go there tomorrow. Labs reviewed. CBC and CMP without significant normality. TSH within normal limits. Salicylates and acetaminophen levels normal, alcohol normal. Covid testing pending. Consulted with hospitalist who will admit the patient for observation until patient may be placed into a psychiatric facility. Discussed this plan with the patient who is in agreement. HPI General Mode of arrival: ambulatory . Date/Time Provider Initiated Documentation: 07/25/20 17:30 . Limitations to Documentation: no limitations . Information obtained by: patient and RN notes reviewed . History of Present Illness 19 year old F presents to the emergency department with the chief complaint of suicidal ideation, described as severe and similar to prior episodes (was last hospitalized in April 2020), Patient started experiencing this month(s) (multiple new social stressors) and it has been constant. No relieving factors improve symptom(s), No exacerbating factors reported . Patient notes no other symptoms.. Patient did receive the following treatments prior to arrival, none Related Data Home Medications Medication Instructions Recorded Confirmed albuterol sulfate 2.5 mg INHALATION Q4H PRN #1 box 07/20/14 07/25/20 hydroxyzine HCl 25 mg PO TID PRN 07/15/17 07/25/20 venlafaxine 150 mg 150 mg PO DAILY 05/28/18 07/25/20 capsule,extended release 24 hr acetylcysteine [NAC] 1,200 mg PO BID 07/25/20 07/25/20 famotidine 20 mg PO BID 07/25/20 07/25/20 gabapentin 100 mg PO TID 07/25/20 07/25/20 prazosin 6 mg PO HS 07/25/20 07/25/20 testosterone TOPICAL DAILY 07/25/20 trazodone 50 mg PO .QHS 07/25/20 07/25/20 Allergies Allergy/AdvReac Type Severity Reaction Status Date / Time No Known Allergies Allergy Unverified 07/25/20 17:38 General COLBY: 2 Review of Systems Constitutional Constitutional: Reports as per HPI, Denies chills, Denies fatigue, Denies fever(s), Denies headache(s) and Denies weakness Eyes Eyes: Denies change in vision ENT Ears, Nose, Mouth, and Throat: Denies headache(s) Cardiovascular Cardiovascular: Reports as per HPI, Denies chest pain, Denies lightheadedness, Denies dyspnea and Denies dyspnea on exertion Respiratory Respiratory: Reports as per HPI, Denies cough, Denies dyspnea and Denies dyspnea on exertion Gastrointestinal Gastrointestinal: Reports as per HPI, Denies abdominal pain, Denies change in bowel habits, Denies nausea and Denies vomiting Musculoskeletal Musculoskeletal: Denies abnormal gait Integumentary/Breasts Skin/Breast: Reports as per HPI and Denies rash Neurologic Neurologic: Denies abnormal movements, Denies abnormal speech, Denies abnormal gait, Denies headache(s), Denies paresthesias and Denies weakness Psychiatric Psychiatric: Reports as per HPI, Denies change in appetite, Reports depression, Denies auditory hallucinations, Reports hopelessness, Denies visual hallucinations, Denies hallucinations, Reports homicidal ideation and Reports suicidal ideation Endocrine Endocrine: Denies fatigue PFSH Medical History Anxiety Depression Eczema Surgical History No significant past surgical history Family History Mother Depression Father No problems noted. sibling Depression Grandparent Depression Social History Smoking/Tobacco Use Status: Current every day Tobacco Type: cigarettes Smoking risk assessment performed?: Yes Alcohol Intake: current Alcohol Intake frequency: a few times a month Drug use: Occasionally Substance use type: marijuana Adopted: No Do you feel safe at home: Yes Do you feel safe in your relationship?: Yes Exam Const General: cooperative, healthy appearing, comfortable, no acute distress, well developed and well groomed Nutritional Appearance: well nourished and overweight Orientation: alert and awake Eyes General: appearance normal, both eyes and all related structures Resp Effort & Inspection: normal respiratory effort, able to speak in complete sentences and no respiratory distress Auscultation: clear to auscultation bilaterally, no rales, no rhonchi and no wheezes Cardio Rate: regular rate Rhythm: regular rhythm Heart Sounds: S1 normal and S2 normal Skin General skin exam: no rashes or lesions noted Trauma: no lacerations or abrasions Neuro General: patient alert and patient awake Cognition: normal cognition Speech: speech normal Gait: normal gait Psych Appearance: grossly normal and well kempt Mental Status: mental status grossly normal Speech and Movement: speech and movement normal Mood: congruent mood Affect: normal affect Attitude: cooperative Thought Process: normal Thought Content: suicidality Insight: fair Judgment: fair
[2020-07-25 17:32] VITALS: BP 128/77; PULSE 84; RESP 16; TEMP 36.6; O2SAT 94
--- NOTE | 2020-07-25 17:35 | PDOC.CMSAFED ---
- If Service Date Differs Date of service: 07/25/20 Time of Service: 17:35 Care Management Safety Plan Status: Voluntary Chief Complaint: Hellen, who identifies as he/they and prefers to be called Ivan, presents to the ED today due to worsening depression and suicidal thoughts. Ivan has been psychiatrically hospitalized on several occasions in the past due to suicide attempts by overdose. Ivan receives services through the [facility] program at [facility]. CM will respond to ED to assess patient after patient has been medically cleared and assessed by screener. If screener deems patient meets criteria for psychiatric stabilization CM will facilitate interdepartmental huddle with [facility] screener for safety planning considerations and meet with patient to review [facility] policy and safety plan, establish individual wishes for treatment and maintain patient rights. In the interim; please note safety plan below to guide patient care while awaiting further assessment in the ED. SAFETY PLAN: 1. Will remain on suicide precautions and in paper clothes. 2. Will remain in room under direct supervision of one-on-one staff at all times provided by [employer], PHYSICIAN OFFICE CLIN ASST, [employer]M [employer]TER director of market intelligence. 3. May have paper cups, plates, finger foods as well as a cardboard spoon with which to eat meals. 4. Follow [facility] Management of the Admitted Behavioral Health Patient policy. 5. Comfort bath system only while in the ED. 6. No personal belongings 7. No visitors per [facility] Covid policy. 8. Phone: Permitted phone use at RN discretion. 9. Due to VOLUNTARY status, if patient wishes to leave [facility], staff will contact [facility] Crisis Screener ([phone]) and On-Call Rubber Compounder Supervisor ([phone]) as soon as possible. In the event of elopement, notify [facility] Police ([phone]). If deemed appropriate for inpatient psychiatric care, safety plan will be established with patient, and care team, to adhere to patient goals, identify restrictions based on behavioral status, address nutrition, and determine allowed personal belongings, tools for hygiene and personal care. As well plan will determine level of activity including ambulation, level of supervision, visitors, and determine privileges based on level of acuity, behaviors and level of engagement by patient.
[2020-07-25 18:41] LABS: Abs Immature Grans 0.01 10^3/uL (0.0-0.06); Absolute Basophil Count 0.09 10^3/uL (0.0-0.2); Absolute Eosinophil Count 0.07 10^3/uL (0.0-0.7); Absolute Lymphocyte Count 1.76 10^3/uL (1.2-3.4); Absolute Monocyte Count 0.54 10^3/uL (0.1-0.8); Absolute Neutrophil Count 4.48 10^3/uL (1.2-6.7); Basophils % 1.3; HCT 42.3 % (36.0-46.0); Immature Grans % 0.1; Lymphocytes % 25.3; MCH 29.8 pg (27.0-33.0); MCHC 35.5 % (32.0-36.0); MCV 84.1 fL (80-95); MPV 9.4 fL (8.0-11.0); Monocytes % 7.8; Neutrophils % 64.5; Nucleated RBC 0 %; Platelet Count 263 10^3/uL (130-400); RBC 5.03 10^6/uL (3.93-5.22); RDW-SD 36.6 fL; WBC 6.95 10^3/uL (4.4-10.8)
[2020-07-25 19:01] LABS: ALT 27 U/L (14-59); AST 13 U/L (15-37); Albumin 4.1 g/dL (3.4-5.0); Alkaline Phosphatase 91 U/L (46-116); Anion Gap 9.2 mmol/L (3-11); BUN 9 mg/dL (7-18); Bilirubin, Total 0.3 mg/dL (0.2-1.0); CO2 26.8 mmol/L (21.0-32.0); CREATININE 0.8 mg/dL (0.55-1.02); Calcium 9.1 mg/dL (8.5-10.1); Chloride 103 mmol/L (98-107); Glucose 91 mg/dL (74-106); Potassium 3.7 mmol/L (3.5-5.1); Sodium 139 mmol/L (136-145); TSH 0.73 uIU/mL (0.36-3.74); Total Protein 7.8 g/dL (6.4-8.2)
[2020-07-25 19:20] LABS: ETHANOL BLOOD < 3.0 mg/dL (<3)
--- NOTE | 2020-07-25 19:26 | PDOC.MHCN ---
Date of service: 07/25/20 Time of Service: 18:30 Mental Health Crisis Note Presenting Issue How did you arrive at the ED and why did you come: Patient arrived at the ER due to increased SI with depression and anxiety. Precipitating Factors Patient stated that they are not feeling safe, increased depression with thoughts of Si, Patient plans on cutting or jumping off a bridge. Patient shared that they tried over dose on Friday07/18/20 and their critical care physician took all medications from the home and patient now receives medications brought to the home daily. Patient is asking for help and inpatient hospitalization for support and stabilization. Patient states they have not been taking medication regularly in the previous weeks. Disposition BEHAVIOR: cooperative EYE CONTACT: good MOOD: calm, depressed AFFECT: flat APPETITE: normal SLEEP(trouble falling/staying asleep: not well, struggles to fall asleep and stay asleep Plan Patient will remain at [facility] awaiting inpatient bed at Psych facility. [facility] Signature Clinician's Name/Title: Petr CONNOR
[2020-07-25 19:29] LABS: Salicylate < 2.8 mg/dL (<2.8)
[2020-07-25 19:33] LABS: Acetaminophen < 2 ug/mL (10-30)
[2020-07-25 19:55] VITALS: BP 115/85; PULSE 64; RESP 20; TEMP 36.2
[2020-07-25 20:01] LABS: Bilirubin Negative (Negative); Blood Negative (Negative); Clarity Clear (Clear); Glucose Negative (Negative); Ketones Negative (Negative); Leukocyte Esterase Small (Negative); Nitrite Negative (Negative); Urobilinogen 0.2 EU/dL (Up TO 0.2); pH 7.5 (5-8)
[2020-07-25 20:12] LABS: Tricyclic Antidepressants Negative (Negative)
[2020-07-25 20:14] LABS: Bacteria Negative HPF (Negative); C & S Indicated? Yes; Crystals Negative HPF (Negative); Epithelial Cells Few HPF (Negative); Mucus Negative (Negative); RBC 0-2 HPF (0-2)
[2020-07-25 20:15] LABS: Influenza A PCR Negative (Negative); Influenza B PCR Negative (Negative); RSV PCR Negative (Negative)
[2020-07-25 20:17] LABS: *AMPHETAMINES SCREEN URINE Negative (Negative); *BARBITURATES SCREEN URINE Negative (Negative); *BENZODIAZEPINES SCREEN URINE Negative (Negative); Cannabinoids THC POSITIVE (Negative); Cocaine Screen,Urine Negative (Negative); METHADONE URINE SCREEN Negative (Negative); OPIATES URINE SCREEN Negative (Negative)
[2020-07-25 20:19] LABS: COVID-19 PCR Negative (Negative)
[2020-07-25] MEDS: Famotidine 20 MG TAB PO (21:27)
--- NOTE | 2020-07-25 21:50 | HPE_ITS ---
Date of service: 07/25/20 Time of Service: 21:50 Assessment and Plan Assessment and plan (1) Suicidal ideation: Status: Acute Assessment and plan: Admitted to [facility] on observation status pending transfer to an inpatient psychiatric bed. Client remains voluntary admission. Please see care management safety plan for details. (2) Depression: Status: Chronic Assessment and plan: Continue current dose of Effexor. Further adjustment or change in antidepressants will be managed by inpatient psychiatric physician. Qualifiers: Depression Type: major depressive disorder Major depression recurrence: recurrent Active/Remission status: currently active Major depression episode severity: moderate Qualified Code(s): F33.1 - Major depressive disorder, recurrent, moderate History of Present Illness History of Present Illness Chief Complaint: suicidal thoughts, depression Narrative: 19-year-old genetic female who identifies as a male and is currently transitioning into his new sexual identity presented to the emergency department with suicidal ideation. He reports that over the last couple weeks he has become more depressed with thoughts of hurting himself including cutting himself or taking overdose of pills. But 6 days ago he took a large dose of his Effexor and his hydroxyzine. His counselor and home health care case manager found out about this and now dispenses his scheduled medications to prevent potential overdose. Patient has had a lot of stressors including financial stresses as well as disagreements with his parents over his transgender identification. He states his siblings have been supportive of his decision. He denies any alcohol drug abuse. He does smoke about a half a pack per day although recently has been smoking upwards of a pack per day. He also smokes marijuana about 1 pipe full per day. Denies abuse of other recreational drugs such as cocaine or heroin or methamphetamines. Denies visual or auditory hallucinations has had no homicidal ideation. He was brought to the emergency department by his brother. Case management and mental health worker have made referrals to inpatient psychiatric hospitals including [place] but no beds were available and therefore he is admitted overnight under voluntary status. Patient was evaluated emergency department by ALIZE López who did medical work-up including routine diagnostic labs including CMP, TSH, CBC, nasopharyngeal swab for SARS-CoV-2 which was negative, and urine drug screen. All the labs were unremarkable except the urine drug screen was positive for THC salicylate levels less than 2.8 and acetaminophen level less than 2 and blood alcohol less than 3. TSH was normal at 0.73 and CMP was unremarkable. CBC was normal. Review of Systems All systems reviewed & are unremarkable except as noted in HPI and below PFSH Medical History Anxiety Depression Eczema Surgical History No significant past surgical history Family History Mother Depression Father No problems noted. sibling Depression Grandparent Depression Social History (Updated 07/25/20 @ 22:45 by Luis Vidales) Smoking/Tobacco Use Status: Current every day Tobacco Type: cigarettes Smoking risk assessment performed?: Yes Alcohol Intake: current Alcohol Intake frequency: a few times a month Drug use: Daily Substance use type: marijuana Adopted: No Do you feel safe at home: Yes Do you feel safe in your relationship?: Yes Meds Home Medications and Allergies Home Medications Medication Instructions Recorded Confirmed Type albuterol sulfate 2.5 mg INHALATION Q4H PRN #1 box 07/20/14 07/25/20 History hydroxyzine HCl 25 mg PO TID PRN 07/15/17 07/25/20 History venlafaxine 150 mg 150 mg PO DAILY 05/28/18 07/25/20 History capsule,extended release 24 hr acetylcysteine [NAC] 1,200 mg PO BID 07/25/20 07/25/20 History famotidine 20 mg PO BID 07/25/20 07/25/20 History gabapentin 100 mg PO TID 07/25/20 07/25/20 History prazosin 6 mg PO HS 07/25/20 07/25/20 History testosterone TOPICAL DAILY 07/25/20 History trazodone 50 mg PO .QHS 07/25/20 07/25/20 History Allergies Allergy/AdvReac Type Severity Reaction Status Date / Time No Known Allergies Allergy Unverified 07/25/20 17:38 Exam Narrative Exam Narrative: Young female who is alert and oriented person place time circ umstance. HEENT is remarkable for poor dentition Neck is supple nontender no JVD no thyromegaly no cervical lymphadenopathy Lungs are clear to auscultation Heart regular rate and rhythm Breast exam deferred No axillary adenopathy Abdomen soft nontender NABS no palpable masses no bruits Lower extremities with hair over the legs normal pedal pulses no skin ulcerations no rashes. 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 Neuro exam grossly intact no focal deficits. Genitalia rectal exam deferred not clinically indicated Results Labs Result diagrams: 07/25/20 18:30 07/25/20 18:30 Labs: Laboratory Results - last 24 hr 07/25/20 07/25/20 07/25/20 18:30 18:30 18:30 WBC 6.95 RBC 5.03 Hgb 15.0 Hct 42.3 MCV 84.1 MCH 29.8 MCHC 35.5 RDW 12.0 Plt Count 263 MPV 9.4 Immature Gran % 0.1 Neutrophils % 64.5 Lymphocytes % 25.3 Monocytes % 7.8 Eosinophils % 1.0 Basophils % 1.3 Nucleated RBC % 0 Absolute Neutrophils 4.48 Absolute Lymphocytes 1.76 Absolute Monocytes 0.54 Absolute Eosinophils 0.07 Absolute Basophils 0.09 Sodium 139 Potassium 3.7 Chloride 103 Carbon Dioxide 26.8 Anion Gap 9.2 BUN 9 Creatinine 0.8 Estimated GFR/1.73 m2 >= 60.00 Glucose 91 Calcium 9.1 Total Bilirubin 0.3 AST 13 L ALT 27 Alkaline Phosphatase 91 Total Protein 7.8 Albumin 4.1 TSH 0.73 Urine Color Urine Clarity Urine pH Ur Specific E[place] Urine Protein Urine Ketones Urine Blood Urine Nitrite Urine Bilirubin Urine Urobilinogen Ur Leukocyte Esterase Urine RBC Urine WBC Ur Epithelial Cells Urine Crystals Urine Bacteria Urine Mucus Ur Culture Indicated? Urine Glucose Salicylates < 2.8 Urine Opiates Screen Urine Methadone Screen Acetaminophen < 2 Ur Barbiturates Screen Ur Tricyclics Screen Ur Amphetamines Screen U Benzodiazepines Scrn Urine Cocaine Screen Ur THC Screen Ethyl Alcohol < 3.0 COVID-19 Source SARS-CoV-2 (PCR) Influenza Type A (PCR) Influenza Type B (PCR) RSV (PCR) 07/25/20 07/25/20 07/25/20 19:18 19:25 19:25 WBC RBC Hgb Hct MCV MCH MCHC RDW Plt Count MPV Immature Gran % Neutrophils % Lymphocytes % Monocytes % Eosinophils % Basophils % Nucleated RBC % Absolute Neutrophils Absolute Lymphocytes Absolute Monocytes Absolute Eosinophils Absolute Basophils Sodium Potassium Chloride Carbon Dioxide Anion Gap BUN Creatinine Estimated GFR/1.73 m2 Glucose Calcium Total Bilirubin AST ALT Alkaline Phosphatase Total Protein Albumin TSH Urine Color Yellow Urine Clarity Clear Urine pH 7.5 Ur Specific Erie 1.020 Urine Protein Negative Urine Ketones Negative Urine Blood Negative Urine Nitrite Negative Urine Bilirubin Negative Urine Urobilinogen 0.2 Ur Leukocyte Esterase Small H Urine RBC 0-2 Urine WBC 3-5 Ur Epithelial Cells Few Urine Crystals Negative Urine Bacteria Negative Urine Mucus Negative Ur Culture Indicated? Yes Urine Glucose Negative Salicylates Urine Opiates Screen Negative Urine Methadone Screen Negative Acetaminophen Ur Barbiturates Screen Negative Ur Tricyclics Screen Negative Ur Amphetamines Screen Negative U Benzodiazepines Scrn Negative Urine Cocaine Screen Negative Ur THC Screen Positive A Ethyl Alcohol COVID-19 Source Nasopharyx SARS-CoV-2 (PCR) Negative Influenza Type A (PCR) Negative Influenza Type B (PCR) Negative RSV (PCR) Negative Last Vital Signs Temp 36.2 C L 07/25/20 19:55 Pulse 64 07/25/20 19:55 Resp 20 07/25/20 19:55 BP 115/85 07/25/20 19:55 Pulse Ox 94 07/25/20 17:32 COVID-19 Screening Have you, or household traveled for leisure in last 14 days?: No Had IN PERSON contact w/suspected or confirmed C-19 person: No
--- NOTE | 2020-07-26 00:27 | NUR.NOTE ---
spoke with [facility] on phone. Attempted to fax clinical paperwork to them but fax machine shows no answer. attempted twice and called the admission department. They reported that the light was flashing on their machine but nothing had come through yet.
[2020-07-26] MEDS: traZODone 50 MG TAB PO (01:50)
[2020-07-26] MEDS: Gabapentin 100 MG CAP PO ×3 (01:51→13:01)
[2020-07-26 06:25] VITALS: BP 123/89; PULSE 88; RESP 16; TEMP 36.6; O2SAT 97
[2020-07-26] MEDS: Famotidine 20 MG TAB PO (07:51)
[2020-07-26] MEDS: Venlafaxine 150 MG CAPCR PO (07:51)
--- NOTE | 2020-07-26 13:46 | MHPN_ITS ---
Date of service: 07/26/20 Time of Service: 13:46 Mental Health Crisis Note Presenting Issue How did you arrive at the ED and why did you come: Pt identifies as he/him and will be referred to with those pronouns in this assessment. Pt arrived last night of his own choosing. He was seeking a voluntary placement in a hospital setting. Precipitating Factors Pt reported that he is still having suicidal thoughts. He is not having HI. There are no observations of delusions. Disposition BEHAVIOR: Pt is cooperative and engaged in the interview. He stops and thinks about some answers that he wants to give but it does not look like he is glorifying anything. EYE CONTACT: Pt makes good eye contact. MOOD: Pt reports his mood as depressed and that the stressor was his mother not supporting his transition and this was difficult for him. AFFECT: Pt's has what appears to be an anxious smile and when he does he tends to look down but is able to come back to the assessment . APPETITE: Pt reported a good appetite. SLEEP(trouble falling/staying asleep: Pt reported poor sleep. Plan Pt reported that when he is in crisis he tends to not attend to his self care or chores, will stop taking his medications and he increases his isolation. He reported that his coping skills are to color or do anything relating to art, He likes to listen to music and when nice out will go for a walk. He identified his friends, sister and brother as his supports. Pt reported that his professional supports are his patient case manager, Rossy who is present during this zoom, his therapist, Heather Cruz, and psychiatrist, Dr. Varghese. He enjoys playing with his cat and dog and those are also his reason for living. There are no hospital beds available today and Pt has agreed to [facility] looking for possible crisis beds to spread our search. He is not able to contract for safety as he reported what I've been doing in the past 1-2 weeks to keep myself safe is not working. Signature Clinician's Name/Title: Mansi Vital MS, [facility] Emergency Services Clinician, [facility]
--- NOTE | 2020-07-26 13:46 | W.PM.DS.N ---
Date of service: 07/26/20 Time of Service: 13:47 DS: Diagnosis Discharge Diagnosis (1) Suicidal ideation: Start date: 07/26/20 Start time: 13:47 Status: Acute Asessment and Plan: Continues to have thoughts of harming herself. 1:1 observer present. CM working on placement Will increase trazodone dosing for better sleep (2) Depression: Status: Chronic Discharge Plan Disposition Condition: Stable Discharge Details Reason For Visit: SUICIDAL IDEATION Admit Date/Time: 07/25/20 19:32 Admit Provider: Luis Vidales Attending Provider: Luis Vidales Primary Care Provider: Sudha Jacob Home Meds and New Rx's Prescriptions: No Action venlafaxine 150 mg capsule,extended release 24hr 150 mg PO DAILY RF: 0 albuterol sulfate 2.5 MG/3 ML solution for nebulization 2.5 mg Inhalation Q4H PRN Qty: 1 RF: 1 prazosin 2 MG capsule 6 mg PO HS RF: 0 gabapentin 100 mg capsule 100 mg PO TID RF: 0 testosterone 10 mg/0.5 gram /actuation Gel In Metered-Dose Pump topical DAILY RF: 0 trazodone 50 mg tablet 50 mg PO .QHS RF: 0 famotidine 20 mg tablet 20 mg PO BID RF: 0 acetylcysteine [NAC] 600 mg capsule 1,200 mg PO BID RF: 0 hydroxyzine HCl 25 MG tablet 25 mg PO TID PRN (Reason: Anxiety) RF: 0 DS: Data Vitals/I&O Vitals and I&O: Vital Signs Temperature 36.6 C 07/26/20 06:25 Temperature Source Temporal Artery Scan 07/26/20 06:25 Pulse 88 07/26/20 06:25 Pulse Rhythm Regular 07/26/20 07:14 Respiratory Rate 16 07/26/20 06:25 Respiratory Effort Non-Labored 07/26/20 07:14 Respiratory Depth Normal 07/26/20 07:14 Respiratory Pattern Normal 07/26/20 07:14 Blood Pressure 123/89 07/26/20 06:25 Blood Pressure Mean 95 07/25/20 19:55 Blood Pressure Position Sitting 07/25/20 19:55 Pulse Oximetry 97 07/26/20 06:25 Oxygen Delivery Method Room Air 07/26/20 06:25 Oxygen Flow Rate 0 07/26/20 06:25 Pain Level 0 07/25/20 19:55 Intake & Output 07/25/20 07/26/20 07/26/20 23:59 11:59 23:59 Intake Total 300 / 300 480 / 720 240 / 720 Output Total 950 / 950 Balance 300 / 300 -470 / -230 240 / -230 Weight 86.3 kg Intake: Oral 300 / 300 480 / 720 240 / 720 Output: Urine 950 / 950 Other: Urine Color Yellow Urine Appearance Clear Urine Odor Normal Comment voided in commode voiding on commode Voiding Methods Bedside Commode Data Completed and Pending Labs on day of discharge: Labs from last 24 hours 07/25/20 07/25/20 07/25/20 19:25 19:25 19:18 WBC RBC Hgb Hct MCV MCH MCHC RDW Plt Count MPV Immature Gran % Neutrophils % Lymphocytes % Monocytes % Eosinophils % Basophils % Nucleated RBC % Absolute Neutrophils Absolute Lymphocytes Absolute Monocytes Absolute Eosinophils Absolute Basophils Sodium Potassium Chloride Carbon Dioxide Anion Gap BUN Creatinine Estimated GFR/1.73 m2 Glucose Calcium Total Bilirubin AST ALT Alkaline Phosphatase Total Protein Albumin TSH Urine Color Yellow Urine Clarity Clear Urine pH 7.5 Ur Specific [place] 1.020 Urine Protein Negative Urine Ketones Negative Urine Blood Negative Urine Nitrite Negative Urine Bilirubin Negative Urine Urobilinogen 0.2 Ur Leukocyte Esterase Small H Urine RBC 0-2 Urine WBC 3-5 Ur Epithelial Cells Few Urine Crystals Negative Urine Bacteria Negative Urine Mucus Negative Ur Culture Indicated? Yes Urine Glucose Negative Salicylates Urine Opiates Screen Negative Urine Methadone Screen Negative Acetaminophen Ur Barbiturates Screen Negative Ur Tricyclics Screen Negative Ur Amphetamines Screen Negative U Benzodiazepines Scrn Negative Urine Cocaine Screen Negative Ur THC Screen Positive A Ethyl Alcohol COVID-19 Source Nasopharyx SARS-CoV-2 (PCR) Negative Influenza Type A (PCR) Negative Influenza Type B (PCR) Negative RSV (PCR) Negative 07/25/20 07/25/20 07/25/20 18:30 18:30 18:30 WBC 6.95 RBC 5.03 Hgb 15.0 Hct 42.3 MCV 84.1 MCH 29.8 MCHC 35.5 RDW 12.0 Plt Count 263 MPV 9.4 Immature Gran % 0.1 Neutrophils % 64.5 Lymphocytes % 25.3 Monocytes % 7.8 Eosinophils % 1.0 Basophils % 1.3 Nucleated RBC % 0 Absolute Neutrophils 4.48 Absolute Lymphocytes 1.76 Absolute Monocytes 0.54 Absolute Eosinophils 0.07 Absolute Basophils 0.09 Sodium 139 Potassium 3.7 Chloride 103 Carbon Dioxide 26.8 Anion Gap 9.2 BUN 9 Creatinine 0.8 Estimated GFR/1.73 m2 >= 60.00 Glucose 91 Calcium 9.1 Total Bilirubin 0.3 AST 13 L ALT 27 Alkaline Phosphatase 91 Total Protein 7.8 Albumin 4.1 TSH 0.73 Urine Color Urine Clarity Urine pH Ur Specific [place] Urine Protein Urine Ketones Urine Blood Urine Nitrite Urine Bilirubin Urine Urobilinogen Ur Leukocyte Esterase Urine RBC Urine WBC Ur Epithelial Cells Urine Crystals Urine Bacteria Urine Mucus Ur Culture Indicated? Urine Glucose Salicylates < 2.8 Urine Opiates Screen Urine Methadone Screen Acetaminophen < 2 Ur Barbiturates Screen Ur Tricyclics Screen Ur Amphetamines Screen U Benzodiazepines Scrn Urine Cocaine Screen Ur THC Screen Ethyl Alcohol < 3.0 COVID-19 Source SARS-CoV-2 (PCR) Influenza Type A (PCR) Influenza Type B (PCR) RSV (PCR) Preliminary micro results at discharge 07/25/20 19:25 Urine Culture - Preliminary Urine - Reflex from Ua Gram Positive Parvin [facility] Medical History Anxiety Depression Eczema Surgical History No significant past surgical history Family History Mother Depression Father No problems noted. sibling Depression Grandparent Depression Social History (Updated 07/25/20 @ 22:45 by Luis Vidales) Smoking/Tobacco Use Status: Current every day Tobacco Type: cigarettes Smoking risk assessment performed?: Yes Alcohol Intake: current Alcohol Intake frequency: a few times a month Drug use: Daily Substance use type: marijuana Adopted: No Do you feel safe at home: Yes Do you feel safe in your relationship?: Yes
--- NOTE | 2020-07-26 13:54 | PGE_ITS ---
Date of Service Date of service: 07/26/20 Time of Service: 13:55 Assessment and Plan Assessment and plan (1) Suicidal ideation: Start date: 07/26/20 Start time: 13:57 Status: Acute Assessment and plan: continues to have thoughts of SI, 1:1 observer present. CM working on placement. Trouble sleeping will increase trazodone to 75 mg (2) Depression: Start date: 07/26/20 Start time: 13:57 Status: Chronic Assessment and plan: continue effexor, any change will be managed by inpatient psych physician above case discussed with Dr. Duff Qualifiers: Depression Type: major depressive disorder Major depression recurrence: recurrent Active/Remission status: currently active Major depression episode severity: moderate Qualified Code(s): F33.1 - Major depressive disorder, recurrent, moderate Subjective Subjective Patient reports: other Interval history since last seen: continues to have thoughts of SI. Calm in room. 1:1 observer Exam Narrative Exam Narrative: Exam Narrative: Young female who is alert and oriented person place time circumstance. HEENT is remarkable for poor dentition Neck is supple nontender no JVD no thyromegaly no cervical lymphadenopathy Lungs are clear to auscultation Heart regular rate and rhythm No axillary adenopathy Abdomen soft nontender NABS no palpable masses no bruits Lower extremities with hair over the legs normal pedal pulses no skin ulcerations no rashes. 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 Neuro exam grossly intact no focal deficits. Objective Last Vital Signs Temp 36.6 C 07/26/20 06:25 Pulse 88 07/26/20 06:25 Resp 16 07/26/20 06:25 BP 123/89 07/26/20 06:25 Pulse Ox 97 07/26/20 06:25 Laboratory Results - last 24 hr 07/25/20 07/25/20 07/25/20 18:30 18:30 18:30 WBC 6.95 RBC 5.03 Hgb 15.0 Hct 42.3 MCV 84.1 MCH 29.8 MCHC 35.5 RDW 12.0 Plt Count 263 MPV 9.4 Immature Gran % 0.1 Neutrophils % 64.5 Lymphocytes % 25.3 Monocytes % 7.8 Eosinophils % 1.0 Basophils % 1.3 Nucleated RBC % 0 Absolute Neutrophils 4.48 Absolute Lymphocytes 1.76 Absolute Monocytes 0.54 Absolute Eosinophils 0.07 Absolute Basophils 0.09 Sodium 139 Potassium 3.7 Chloride 103 Carbon Dioxide 26.8 Anion Gap 9.2 BUN 9 Creatinine 0.8 Estimated GFR/1.73 m2 >= 60.00 Glucose 91 Calcium 9.1 Total Bilirubin 0.3 AST 13 L ALT 27 Alkaline Phosphatase 91 Total Protein 7.8 Albumin 4.1 TSH 0.73 Urine Color Urine Clarity Urine pH Ur Specific [place] Urine Protein Urine Ketones Urine Blood Urine Nitrite Urine Bilirubin Urine Urobilinogen Ur Leukocyte Esterase Urine RBC Urine WBC Ur Epithelial Cells Urine Crystals Urine Bacteria Urine Mucus Ur Culture Indicated? Urine Glucose Salicylates < 2.8 Urine Opiates Screen Urine Methadone Screen Acetaminophen < 2 Ur Barbiturates Screen Ur Tricyclics Screen Ur Amphetamines Screen U Benzodiazepines Scrn Urine Cocaine Screen Ur THC Screen Ethyl Alcohol < 3.0 COVID-19 Source SARS-CoV-2 (PCR) Influenza Type A (PCR) Influenza Type B (PCR) RSV (PCR) 07/25/20 07/25/20 07/25/20 19:18 19:25 19:25 WBC RBC Hgb Hct MCV MCH MCHC RDW Plt Count MPV Immature Gran % Neutrophils % Lymphocytes % Monocytes % Eosinophils % Basophils % Nucleated RBC % Absolute Neutrophils Absolute Lymphocytes Absolute Monocytes Absolute Eosinophils Absolute Basophils Sodium Potassium Chloride Carbon Dioxide Anion Gap BUN Creatinine Estimated GFR/1.73 m2 Glucose Calcium Total Bilirubin AST ALT Alkaline Phosphatase Total Protein Albumin TSH Urine Color Yellow Urine Clarity Clear Urine pH 7.5 Ur Specific [place] 1.020 Urine Protein Negative Urine Ketones Negative Urine Blood Negative Urine Nitrite Negative Urine Bilirubin Negative Urine Urobilinogen 0.2 Ur Leukocyte Esterase Small H Urine RBC 0-2 Urine WBC 3-5 Ur Epithelial Cells Few Urine Crystals Negative Urine Bacteria Negative Urine Mucus Negative Ur Culture Indicated? Yes Urine Glucose Negative Salicylates Urine Opiates Screen Negative Urine Methadone Screen Negative Acetaminophen Ur Barbiturates Screen Negative Ur Tricyclics Screen Negative Ur Amphetamines Screen Negative U Benzodiazepines Scrn Negative Urine Cocaine Screen Negative Ur THC Screen Positive A Ethyl Alcohol COVID-19 Source Nasopharyx SARS-CoV-2 (PCR) Negative Influenza Type A (PCR) Negative Influenza Type B (PCR) Negative RSV (PCR) Negative
[2020-07-26 15:46] VITALS: BP 110/65; PULSE 55; RESP 20; TEMP 36.8
--- NOTE | 2020-07-26 16:25 | W.PM.DS.N ---
Date of service: 07/26/20 Time of Service: 16:25 DS: Diagnosis Discharge Diagnosis (1) Suicidal ideation: Start date: 07/26/20 Start time: 16:25 Status: Acute Asessment and Plan: has met with patient again and feels he can be discharged to the community in the care of [facility], they will place him in one of their care beds. There fore he is being discharged to [facility]. (2) Depression: Start date: 07/26/20 Start time: 16:27 Status: Chronic Asessment and Plan: Continue Effexor any changes will need to be made by or psychiatry. above case discussed with Dr. Duff Discharge Plan Disposition Patient Disposition: COMMUNITY CARE FACILITY Condition: Stable Discharge Details Reason For Visit: SUICIDAL IDEATION Admit Date/Time: 07/25/20 19:32 Admit Provider: Luis Vidales Attending Provider: Luis Vidales Primary Care Provider: Sudha Jacob Hospital Course Hospital Course: 19 y.o transgender female to male that prefers to be called marilynn admitted to [facility] for SI due to depression was admitted overnight due to thoughts of harming himself. He has become more depressed over the last couple of weeks with thoughts of cutting himself or overdosing on pills. 6 days ago he took a large dose of effexor and hydroxyzine. Both his counselor and human services case manager found about this and now dispense his medication to prevent potential overdose. He has had a lot of recent stressors including financial with lack of family support. He was made voluntary by and admitted overnight to / due to no bed availability. Today he is feeling slightly better, has met with him again and feels he can be discharged to the community in the care of [facility], they will place him in one of their care beds. There fore he is being discharged to [facility]. Home Meds and New Rx's Prescriptions: Continued venlafaxine 150 mg capsule,extended release 24hr 150 mg PO DAILY RF: 0 albuterol sulfate 2.5 MG/3 ML solution for nebulization 2.5 mg Inhalation Q4H PRN Qty: 1 RF: 1 prazosin 2 MG capsule 6 mg PO HS RF: 0 gabapentin 100 mg capsule 100 mg PO TID RF: 0 testosterone 10 mg/0.5 gram /actuation Gel In Metered-Dose Pump topical DAILY RF: 0 trazodone 50 mg tablet 50 mg PO .QHS RF: 0 famotidine 20 mg tablet 20 mg PO BID RF: 0 acetylcysteine [NAC] 600 mg capsule 1,200 mg PO BID RF: 0 hydroxyzine HCl 25 MG tablet 25 mg PO TID PRN (Reason: Anxiety) RF: 0 Discharge Instructions Instructions: Depression (DC), Suicide Prevention (DC) Additional Instructions: Discharge to the care of [facility] 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 Activity:: Activity as Tolerated Equipment/Supplies:: No Equipment Needed Diet:: As Tolerated Discharge Orders Discharge Orders: Discharge Order (Routine); Ordered 07/26/20 Ordered By: Teresa Trayc DS: Summary Time Spent with Patient providing and/or coordinating discharge services: Greater than 30 minutes (approx discharge time 35 mins) Status at Discharge Functional status at discharge: independent ambulation Overall status at discharge: patient is progressing back to baseline Mental Status: other Speech and Movement: speech and movement normal Mood: other Affect: other Exam Narrative Exam Narrative: Exam Narrative: Young female who is alert and oriented person place time circumstance. HEENT is remarkable for poor dentition Neck is supple nontender no JVD no thyromegaly no cervical lymphadenopathy Lungs are clear to auscultation Heart regular rate and rhythm No axillary adenopathy Abdomen soft nontender NABS no palpable masses no bruits Lower extremities with hair over the legs normal pedal pulses no skin ulcerations no rashes. Arms with couple of tattoos including the name of his niece, Lyn over the left forearm as well as a wreath tattoo which he informed me informed me is civil rights representative of transgender nature. Neuro exam grossly intact no focal deficits. Psych Mental Status: other Speech and Movement: speech and movement normal Mood: other Affect: other DS: Data Vitals/I&O Vitals and I&O: Vital Signs Temperature 36.8 C 07/26/20 15:46 Temperature Source Temporal Artery Scan 07/26/20 15:46 Pulse 55 L 07/26/20 15:46 Pulse Rhythm Regular 07/26/20 07:14 Respiratory Rate 20 07/26/20 15:46 Respiratory Effort Non-Labored 07/26/20 15:47 Respiratory Depth Normal 07/26/20 15:47 Respiratory Pattern Normal 07/26/20 15:47 Blood Pressure 110/65 07/26/20 15:46 Blood Pressure Mean 95 07/25/20 19:55 Blood Pressure Position Sitting 07/25/20 19:55 Pulse Oximetry 97 07/26/20 06:25 Oxygen Delivery Method Room Air 07/26/20 15:46 Oxygen Flow Rate 0 07/26/20 15:46 Pain Level 0 07/25/20 19:55 Intake & Output 07/25/20 07/26/20 07/26/20 23:59 11:59 23:59 Intake Total 300 / 300 480 / 720 240 / 720 Output Total 950 / 950 Balance 300 / 300 -470 / -230 240 / -230 Weight 86.3 kg Intake: Oral 300 / 300 480 / 720 240 / 720 Output: Urine 950 / 950 Other: Urine Color Yellow Urine Appearance Clear Urine Odor Normal Comment voided in commode voiding on commode Voiding Methods Bedside Commode Data Completed and Pending Labs on day of discharge: Labs from last 24 hours 07/25/20 07/25/20 07/25/20 19:25 19:25 19:18 WBC RBC Hgb Hct MCV MCH MCHC RDW Plt Count MPV Immature Gran % Neutrophils % Lymphocytes % Monocytes % Eosinophils % Basophils % Nucleated RBC % Absolute Neutrophils Absolute Lymphocytes Absolute Monocytes Absolute Eosinophils Absolute Basophils Sodium Potassium Chloride Carbon Dioxide Anion Gap BUN Creatinine Estimated GFR/1.73 m2 Glucose Calcium Total Bilirubin AST ALT Alkaline Phosphatase Total Protein Albumin TSH Urine Color Yellow Urine Clarity Clear Urine pH 7.5 Ur Specific [place] 1.020 Urine Protein Negative Urine Ketones Negative Urine Blood Negative Urine Nitrite Negative Urine Bilirubin Negative Urine Urobilinogen 0.2 Ur Leukocyte Esterase Small H Urine RBC 0-2 Urine WBC 3-5 Ur Epithelial Cells Few Urine Crystals Negative Urine Bacteria Negative Urine Mucus Negative Ur Culture Indicated? Yes Urine Glucose Negative Salicylates Urine Opiates Screen Negative Urine Methadone Screen Negative Acetaminophen Ur Barbiturates Screen Negative Ur Tricyclics Screen Negative Ur Amphetamines Screen Negative U Benzodiazepines Scrn Negative Urine Cocaine Screen Negative Ur THC Screen Positive A Ethyl Alcohol COVID-19 Source Nasopharyx SARS-CoV-2 (PCR) Negative Influenza Type A (PCR) Negative Influenza Type B (PCR) Negative RSV (PCR) Negative 07/25/20 07/25/20 07/25/20 18:30 18:30 18:30 WBC 6.95 RBC 5.03 Hgb 15.0 Hct 42.3 MCV 84.1 MCH 29.8 MCHC 35.5 RDW 12.0 Plt Count 263 MPV 9.4 Immature Gran % 0.1 Neutrophils % 64.5 Lymphocytes % 25.3 Monocytes % 7.8 Eosinophils % 1.0 Basophils % 1.3 Nucleated RBC % 0 Absolute Neutrophils 4.48 Absolute Lymphocytes 1.76 Absolute Monocytes 0.54 Absolute Eosinophils 0.07 Absolute Basophils 0.09 Sodium 139 Potassium 3.7 Chloride 103 Carbon Dioxide 26.8 Anion Gap 9.2 BUN 9 Creatinine 0.8 Estimated GFR/1.73 m2 >= 60.00 Glucose 91 Calcium 9.1 Total Bilirubin 0.3 AST 13 L ALT 27 Alkaline Phosphatase 91 Total Protein 7.8 Albumin 4.1 TSH 0.73 Urine Color Urine Clarity Urine pH Ur Specific [place] Urine Protein Urine Ketones Urine Blood Urine Nitrite Urine Bilirubin Urine Urobilinogen Ur Leukocyte Esterase Urine RBC Urine WBC Ur Epithelial Cells Urine Crystals Urine Bacteria Urine Mucus Ur Culture Indicated? Urine Glucose Salicylates < 2.8 Urine Opiates Screen Urine Methadone Screen Acetaminophen < 2 Ur Barbiturates Screen Ur Tricyclics Screen Ur Amphetamines Screen U Benzodiazepines Scrn Urine Cocaine Screen Ur THC Screen Ethyl Alcohol < 3.0 COVID-19 Source SARS-CoV-2 (PCR) Influenza Type A (PCR) Influenza Type B (PCR) RSV (PCR) Preliminary micro results at discharge 07/25/20 19:25 Urine Culture - Preliminary Urine - Reflex from Ua Gram Positive Parvin [facility] Medical History Anxiety Depression Eczema Surgical History No significant past surgical history Family History Mother Depression Father No problems noted. sibling Depression Grandparent Depression Social History Smoking/Tobacco Use Status: Current every day Tobacco Type: cigarettes Smoking risk assessment performed?: Yes Alcohol Intake: current Alcohol Intake frequency: a few times a month Drug use: Daily Substance use type: marijuana Adopted: No Do you feel safe at home: Yes Do you feel safe in your relationship?: Yes
--- NOTE | 2020-07-26 18:50 | CMDISCH_ITS ---
- If Service Date Differs Date of service: 07/26/20 Time of Service: 18:50 LACE Index Scoring Tool - Questions: Length of Stay (in days): 2 Acuity (Admit via E.D.?): Yes E.D. Visits: 5 - Answers: Total Score: 9 Risk of Readmission: Low Risk Care Management Discharge Reason for Hospitalization: SI Discharge Plan: CM facilitated a zoom with Ivan and MARICARMEN Nazario as well as TOR Blair piano case and bench assembler today. Ivan stated that his SI began when he cut his hair and his mother became very upset, as she is not accepting his transition from female to male. He reported that he had a plan to use medication to overdose in order to complete suicide, but he had not saved pills, although he has access to them. Ivan is closely followed by [facility], who has been doing daily med drops with witnessed administration of meds. Mansi and [facility] offered a crisis bed placement vs hospital placement, and he felt safe with a crisis bed placement. [facility] later contacted to report that there is a bed open in [facility] bed. [facility], had a zoom meeting with Ivan to complete intake paperwork, and offered the bed to Ivan. Ivan was then discharged from [facility] into the care of [facility], who coordinated his ride to the [facility] crisis bed. [facility] provided transportation. Ivan was happy to be going to the crisis bed, a therapuetic option in the community. Patient/Family Education Needs: Review discharge instructions and expectations of care bed, discussion of self care needs including ask me three. - MH Services (Omit if N/A) Current MH Services: [facility]
--- NOTE | 2020-07-27 11:09 | CMPROGNOTE_ITS ---
Care Management Progress Note DERRELL rec'd call from [facility] [employer] worker Krysta requesting this advertising copy writer fax DC summary to [facility] at F#[phone]. DERRELL faxed DC summary with confirmation of delivery 07/27/20@4429.
--- NOTE | 2020-07-27 11:09 | PDOC.CMPRO ---
Care Management Progress Note DERRELL rec'd call from [facility] ADVISOR worker Krysta requesting this manual writer fax DC summary to [facility] at F#[phone]. DERRELL faxed DC summary with confirmation of delivery 07/27/20@3608.
== END 2020-07-26 18:30 | disposition designated cancer center or children's hospital (05) ==
LOC: ER 17:31 → ICU 19:48
PROVIDERS: Admitting Provider Internal Medicine; Emergency Provider Physician Assistant; PCP Nurse Practitioner Family; Visit Provider Internal Medicine
DX: F33.1 Major depressive disorder, recurrent, moderate (principal); R45.851 Suicidal ideations; Z91.5 Personal history of self-harm; F41.9 Anxiety disorder, unspecified; L30.9 Dermatitis, unspecified; F64.0 Transsexualism; F17.210 Nicotine dependence, cigarettes, uncomplicated
CPT/HCPCS: 36415; 80053; 80307; 81025; 99217; 99219; 99226; 99285; 80320; 80329; 81003; 81015; 84443; 85025; 87086; 99284; G0378

== ENCOUNTER 2020-12-12 19:38 | Emergency (ER) | payer MEDICAID, SELFPAY ==
[2020-12-12 19:42] VITALS: BP 138/86; PULSE 81; RESP 17; TEMP 36.5; O2SAT 96
--- NOTE | 2020-12-12 20:10 | ED.GENADUL_ITS ---
Discharge Plan Disposition Patient Disposition: OTHER Condition: Stable Discharge Details Clinical Impression: Suicidal ideation, Major depression Primary Care Provider: Sudha Jacob ED Provider: Meryl Sanchez Home Meds and New Rx's Prescriptions: No Action venlafaxine 150 mg capsule,extended release 24hr 150 mg PO DAILY RF: 0 albuterol sulfate 2.5 MG/3 ML solution for nebulization 2.5 mg Inhalation Q4H PRN Qty: 1 RF: 1 prazosin 2 MG capsule 6 mg PO HS RF: 0 gabapentin 100 mg capsule 100 mg PO TID RF: 0 testosterone 10 mg/0.5 gram /actuation Gel In Metered-Dose Pump 2 pump topical DAILY RF: 0 trazodone 50 mg tablet 50 mg PO .QHS RF: 0 famotidine 20 mg tablet 20 mg PO BID RF: 0 acetylcysteine [NAC] 600 mg capsule 1,200 mg PO BID RF: 0 hydroxyzine HCl 25 MG tablet 25 mg PO TID PRN (Reason: Anxiety) RF: 0 Medical Decision Making <ALIZE López - Last Filed: 12/13/20 00:49> Patient is a pleasant 20-year-old biologically female, transgender male, identifies as Ivan, presenting today with chief complaint of depression and suicidality. He reports that he has had similar events historically. Over the recent weeks, his depression has increased. He reports that he did begin taking testosterone recently. Uses testosterone gel every morning. Reports that he has thought of cutting himself and suicide attempt. Has had attempts in the past requiring hospitalization. Is here seeking voluntary placement. He reports that he has had a recent shift in his job but he does like his new position. Sounds fairly distant from family and friends. Is having difficulty sleeping. No change in appetite. No recent change in medications. Sees therapist weekly. On exam, patient appears nontoxic. Appears anxious and sad. Normal cardiac exam, lungs are clear. Does not appear intoxicated, is clinically appropriate and sober. He denies any illicit drug or alcohol use. Does smoke cigarettes. Concern for the patient safety at home. Will have patient evaluated by mental health. Will obtain baseline labs. Will give patient transdermal nicotine. Patient declines any analgesics at this time. Patient has changed to blue scrubs, sitter is at bedside. Mental health evaluated the patient. They feel that inpatient admission for depression and suicidal ideation would be approprpiate. They will send referrals. Patient is seeking voluntary placement. Labs reviewed. No leukocytosis. Stable H&H. CMP without significant abnormalities. TSH within normal limits. Urinalysis shows trace site esterase. However, patient is not endorsing any urinary tract infectious symptoms at this time. We will hold off on treatment until culture has returned. Patient is positive for THC, UDS otherwise negative. Covid test At the end of my shift, care transitioned to Dr. Prince with placement into psychiatric facility pending. <Meryl Sanchez DO - Last Filed: 12/14/20 12:22> 12/13/20 0730 -- please see previous providers notes for initial presentation, exam, plan and course. Case endorsed to follow-up with mental health and animal care specialist regarding plan. Patient is voluntary and plan is for placement. No beds available upstairs so being held in the ED at this time while awaiting placement. 0930 -- RN RADIATION evaluated patient at bedside and does not feel patient meets criteria for hospitalization but patient is still endorsing thoughts of suicide and does not feel comfortable going home. RN RADIATION plans to place patient in a crisis bed once available. Will follow up once crisis bed available. 1100 -- discussed w/ care management -there may be a crisis bed available tomorrow at the [facility]. Discussed with nursing grinding and spraying supervisor and no beds yet available on the floor. If a bed becomes available, will transfer patient upstairs while awaiting placement. 1530 -- Case endorsed to Dr. Andersen to continue to monitor. If bed becomes available this evening, can transfer up to the floor while awaiting placement. 12/14/20 0800 -- pt cooperative overnight. 1000 -- [facility] called stating they had an available bed for pt. This was discussed with RN RADIATION who stated that patient would be better served at a crisis bed and they plan to pick her up at noon today to transport her to the [facility]. [facility] notified of this plan and bed cancelled. 12pm -- RN RADIATION here to take pt to [facility] crisis bed. Medical Records Medical records reviewed: Yes I reviewed the patient's medical records. HPI <ALIZE López - Last Filed: 12/13/20 00:49> General Mode of arrival: ambulatory . Date/Time Provider Initiated Documentation: 12/12/20 19:59 . Limitations to Documentation: no limitations . Information obtained by: patient and RN notes reviewed . History of Present Illness 20 year old F presents to the emergency department with the chief complaint of depression and suicidal ideation, described as severe and similar to prior episodes, Patient started experiencing this week(s) and it has been constant (progressively worsening). No relieving factors improve sym ptom(s), No exacerbating factors reported . Patient notes no other symptoms.. Patient did receive the following treatments prior to arrival, none Related Data Home Medications Medication Instructions Recorded Confirmed albuterol sulfate 2.5 mg INHALATION Q4H PRN #1 box 07/20/14 12/12/20 hydroxyzine HCl 25 mg PO TID PRN 07/15/17 12/12/20 venlafaxine 150 mg 150 mg PO DAILY 05/28/18 12/12/20 capsule,extended release 24 hr acetylcysteine [NAC] 1,200 mg PO BID 07/25/20 12/12/20 famotidine 20 mg PO BID 07/25/20 12/12/20 gabapentin 100 mg PO TID 07/25/20 12/12/20 prazosin 6 mg PO HS 07/25/20 12/12/20 testosterone 2 pump TOPICAL DAILY 07/25/20 trazodone 50 mg PO .QHS 07/25/20 12/12/20 Allergies Allergy/AdvReac Type Severity Reaction Status Date / Time No Known Allergies Allergy Unverified 07/25/20 17:38 General Stated Complaint: PsychEval COLBY: 2 Review of Systems <ALIZE López - Last Filed: 12/13/20 00:49> Constitutional Constitutional: Reports as per HPI, Denies chills, Denies fatigue, Denies fever(s), Denies headache(s) and Denies weakness Eyes Eyes: Denies change in vision ENT Ears, Nose, Mouth, and Throat: Denies headache(s) Cardiovascular Cardiovascular: Reports as per HPI, Denies chest pain, Denies lightheadedness, Denies dyspnea and Denies dyspnea on exertion Respiratory Respiratory: Reports as per HPI, Denies cough, Denies dyspnea and Denies dyspnea on exertion Gastrointestinal Gastrointestinal: Reports as per HPI, Denies abdominal pain, Denies change in bowel habits, Denies nausea and Denies vomiting Musculoskeletal Musculoskeletal: Denies abnormal gait Integumentary/Breasts Skin/Breast: Reports as per HPI and Denies rash Neurologic Neurologic: Denies abnormal movements, Denies abnormal speech, Denies abnormal gait, Denies headache(s), Denies paresthesias and Denies weakness Endocrine Endocrine: Denies fatigue PFSH <ALIZE López - Last Filed: 12/13/20 00:49> Medical History Anxiety Depression Eczema Surgical History No significant past surgical history Family History Mother Depression Father No problems noted. sibling Depression Grandparent Depression Social History Smoking/Tobacco Use Status: Current every day Tobacco Type: cigarettes Smoking risk assessment performed?: Yes Alcohol Intake: current Alcohol Intake frequency: holidays/special occasions only Drug use: Daily Substance use type: marijuana Adopted: No Do you feel safe at home: Yes Do you feel safe in your relationship?: Yes Exam <ALIZE López - Last Filed: 12/13/20 00:49> Const General: cooperative, healthy appearing, comfortable, no acute distress, well developed, well groomed and anxious Nutritional Appearance: well nourished and overweight Orientation: alert and awake Eyes General: appearance normal, both eyes and all related structures Resp Effort & Inspection: normal respiratory effort, able to speak in complete sentences and no respiratory distress Auscultation: clear to auscultation bilaterally, no rales, no rhonchi and no wheezes Cardio Rate: regular rate Rhythm: regular rhythm Heart Sounds: S1 normal and S2 normal Skin General skin exam: no rashes or lesions noted Trauma: no lacerations or abrasions Neuro General: patient alert and patient awake Cognition: normal cognition Speech: speech normal Gait: normal gait Psych Appearance: grossly normal and well kempt Mental Status: mental status grossly normal Speech and Movement: speech and movement normal Mood: congruent mood Affect: sad Attitude: cooperative Thought Process: normal Thought Content: suicidality Insight: fair Judgment: fair Course <ALIZE López - Last Filed: 12/13/20 00:49> Vital Signs Vital signs: Vital Signs Temperature 36.5 C 12/12/20 19:42 Pulse 81 12/12/20 19:42 Respiratory Rate 17 12/12/20 19:42 Blood Pressure 138/86 12/12/20 19:42 Pulse Oximetry 96 12/12/20 19:42 Temperature 36.5 C 12/12/20 19:42 Temperature Source Temporal Artery Scan 12/12/20 19:42 Pulse 81 12/12/20 19:42 Respiratory Rate 17 12/12/20 19:42 Respiratory Effort Non-Labored 12/12/20 19:48 Blood Pressure 138/86 12/12/20 19:42 Blood Pressure Position Sitting 12/12/20 19:42 Pulse Oximetry 96 12/12/20 19:42 Oxygen Delivery Method Room Air 12/12/20 19:42 Oxygen Flow Rate 0 12/12/20 19:42 Pain Level 0 12/12/20 19:42 Sign Out <ALIZE López - Last Filed: 12/13/20 00:49> Sign Out Data: Sign Out Comment: Patient is voluntary psychiatric admission for suicidal ideation with plan for cutting. Patient has been evaluated by mental health. Negative Covid. Pending psychiatric placement. Last updated by Raisa Arnett PA at 12/12/20 23:40 Sign Out Comment: voluntary psych, awaits placement Last updated by Mauricio Prince MD at 12/13/20 06:22 Sign Out Comment: Cooperative. Voluntary. Potential acceptance to crisis bed at [facility] tomorrow. Currently no beds available on the floor for admission while awaiting placement. Last updated by Meryl Sanchez DO at 12/13/20 14:51 Sign Out Comment: Preoperative, voluntary. Patient accepted for crisis bed at [facility] tomorrow to leave at noon specifically. Last updated by Bobby Andersen DO at 12/13/20 22:21 Sign Out Comment: Dispo to [facility] today Last updated by Mauricio Prince MD at 12/14/20 07:22
[2020-12-12 20:23] LABS: Abs Immature Grans 0.02 10^3/uL (0.0-0.06); Absolute Basophil Count 0.08 10^3/uL (0.0-0.2); Absolute Eosinophil Count 0.09 10^3/uL (0.0-0.7); Absolute Lymphocyte Count 1.89 10^3/uL (1.2-3.4); Absolute Monocyte Count 0.64 10^3/uL (0.1-0.8); Absolute Neutrophil Count 5.59 10^3/uL (1.2-6.7); Eosinophils % 1.1; HCT 43.2 % (36.0-46.0); HGB 15.1 g/dL (11.2-15.7); Immature Grans % 0.2; Lymphocytes % 22.7; MCH 29.7 pg (27.0-33.0); MPV 9.5 fL (8.0-11.0); Monocytes % 7.7; Neutrophils % 67.3; Nucleated RBC 0 %; Platelet Count 272 10^3/uL (130-400); RBC 5.08 10^6/uL (3.93-5.22); RDW 11.8 % (11.7-14.6); RDW-SD 36.6 fL; WBC 8.31 10^3/uL (4.4-10.8)
[2020-12-12 20:44] LABS: ALT 20 U/L (14-59); AST 9 U/L (15-37); Albumin 4.1 g/dL (3.4-5.0); Alkaline Phosphatase 87 U/L (46-116); Anion Gap 10.7 mmol/L (3-11); BUN 8 mg/dL (7-18); Bilirubin, Total 0.3 mg/dL (0.2-1.0); CO2 26.3 mmol/L (21.0-32.0); CREATININE 0.9 mg/dL (0.55-1.02); Chloride 105 mmol/L (98-107); Glucose 103 mg/dL (74-106); Potassium 3.7 mmol/L (3.5-5.1); Sodium 142 mmol/L (136-145); TSH (W/Ref FT4) 0.88 uIU/mL (0.36-3.74); Total Protein 7.7 g/dL (6.4-8.2)
[2020-12-12] MEDS: Nicotine 21 MG/24 HR PATCH TD (20:48)
[2020-12-12 21:03] LABS: ETHANOL BLOOD < 3.0 mg/dL (<3); Salicylate 3.3 mg/dL (<2.8)
--- NOTE | 2020-12-12 21:03 | NUR.NOTE ---
mental health in at bedside from [facility]:
[2020-12-12 21:08] LABS: Acetaminophen < 2 ug/mL (10-30)
[2020-12-12 21:26] LABS: Source Nasal/Nares
[2020-12-12 21:45] LABS: Bilirubin Negative (Negative); Blood Negative (Negative); Clarity Clear (Clear); Glucose Negative (Negative); Ketones Negative (Negative); Leukocyte Esterase Trace (Negative); Nitrite Negative (Negative); Specific Gravity 1.025 (1.005-1.025); Urobilinogen 0.2 EU/dL (Up TO 0.2)
[2020-12-12 21:54] LABS: Bacteria Few HPF (Negative); C & S Indicated? Yes; Casts Negative LPF (Negative); Crystals Negative HPF (Negative); Epithelial Cells Few HPF (Negative); Mucus Negative (Negative)
[2020-12-12 21:58] LABS: RBC Negative HPF (0-2)
[2020-12-12 21:59] LABS: *AMPHETAMINES SCREEN URINE Negative (Negative); *BARBITURATES SCREEN URINE Negative (Negative); *BENZODIAZEPINES SCREEN URINE Negative (Negative); Cannabinoids THC Positive (Negative); Cocaine Screen,Urine Negative (Negative); METHADONE URINE SCREEN Negative (Negative); OPIATES URINE SCREEN Negative (Negative)
[2020-12-12 22:00] LABS: Tricyclic Antidepressants Negative (Negative)
[2020-12-12 22:16] LABS: COVID-19 PCR Negative (Negative)
--- NOTE | 2020-12-12 22:33 | PDOC.MHCN_ITS ---
Date of service: 12/12/20 Time of Service: 20:55 Mental Health Crisis Note Presenting Issue How did you arrive at the ED and why did you come: The client presents to [facility] with chief complaint of worsening symptoms of depression and suicidal ideation. Current status is voluntary. Precipitating Factors The client presents lying down in standard-issue paper garment. He is fully alert and oriented to time, person, place, and global circumstance. No apparent memory issues. Behaviorally calm and appropriate throughout interaction with excellent eye contact. He is responsive to all questions is soft-spoken. Sleep dysregulation (1-2 weeks) and poor appetite. Mood reported as Feeling depressed and having suicidal thoughts with depressive affect that congruent to mood. No evidence or report of delusions, hallucinations, or psychotic thought process. He reports experiencing worsening depression for the past 2 weeks, described as moderate, accompanied by thoughts of self-harm that have increased in frequency for the past 2 days. No specific triggering circumstances, parents are reported to not be overly supportive, limited social contact / friendships. Relieving factors include interaction with pets and engaging in hobbies (crafts / coloring) working at new job part-time. He states I started to notice in general that I wasn't taking care of myself or my house as much. I haven't been as consistent with my medications. I spoke with my therapist and case technician and they suggested I come here. He reports several methods, including medication overdose and self-mutilation via cutting. No intent. Denies HI, intent or plan. He reports not feeling completely safe to discharge home due to frequency of self-harming thoughts. He is polite and pleasant throughout interaction and answered assessment tool questions below. Disposition BEHAVIOR: Pleasant, cooperative, appropriate EYE CONTACT: Excellent MOOD: Feeling depresed and having suicidal thoughts AFFECT: Congruent to state mood APPETITE: Poor SLEEP(trouble falling/staying asleep: Dysregulated (1-2 weeks) Plan The client will be referred to an in-patient psychiatric facility for treatment and has agreed to remain at [facility] until placement is secured. No additional services recommended at this time - client reports that her care management team and therapist attempted to refer for hospital-diversion and were not successful due to lack of capacity. In-patient recommended at this time due to increased frequency of SI, past history, and higher vulnerability demographic. Referral and labs faxed to: [facility]. No current capacity. Signature Clinician's Name/Title: Doni Jose [facility] clinician, [facility]
--- NOTE | 2020-12-13 04:28 | NUR.NOTE ---
pt resting comfortably through out the night. no s/sxs of distress noted. 1:1 observer at bedside:
--- NOTE | 2020-12-13 10:55 | PDOC.MHCN_ITS ---
Date of service: 12/13/20 Time of Service: 09:21 Mental Health Crisis Note Presenting Issue How did you arrive at the ED and why did you come: Transportation via family member due to increased symptoms of depression and increased frequency of SI Disposition BEHAVIOR: Calm and cooperative EYE CONTACT: Normal range MOOD: Depressed AFFECT: Depressed APPETITE: Normal but eating frequency decreased due to sleep disturbances SLEEP(trouble falling/staying asleep: Client reported sleep disturbances for the last two weeks Plan Referrals were made to crisis beds, currently waiting for availability and placement. Signature Clinician's Name/Title: Rossy Faye CRT Grinder Machine Knife Setter
--- NOTE | 2020-12-13 12:26 | CMSP_ITS ---
- If Service Date Differs Date of service: 12/13/20 Time of Service: 12:26 Care Management Safety Plan Status: Voluntary - Reason for Wait Reason for Wait: Other (Crisis Bed - [facility]) Chief Complaint: Ivan presents to the ED for worsening depression and suicidal ideation. Ivan has an extensive psychiatric history with multiple psychiatric hospitalizations for SI and suicide attempts by overdose and cutting. 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 He is pleasant and appropriate when CM meets with him. He accepts an adult coloring book, crayons, and the music tablet. Krysta from [facility] evaluated Ivan today and found him appropriate for a crisis bed placement. At Krysat's request, CM coordinates a referral to [facility] for review. Ivan is accepted for placement but until tomorrow (12/14). Krysta [facility], will be at [facility] at noon tomorrow to transport Ivan to [facility] in [place]. VOLUNTARY FOR INPATIENT PSYCHIATRIC STABILIZATION. Patient is appropriate in all interactions since arriving at [facility]; Pt has demonstrated appropriate coping and communication skills, has articulated his or her needs and concerns and is fully engaged during staff interactions. A huddle is done this afternoon with Dr. Sanchez, ED provider, Page, nursing art therapy certified supervisor, Marita, charge nurse, Jocelyn, RN, Wyatt, RN, and DERRELL Shaw. Safety plan has been established with patient, and care team, to adhere to patient goals, identify restrictions based on behavioral status, address nutrition, and determine allowed personal belongings, tools for hygiene and personal care. Determine level of activity including ambulation, level of supe rvision, visitors, and determine privileges based on behaviors and level of engagement by pt. SAFETY PLAN: 1. Will remain on suicide precautions. In Paper Clothes 2. Will remain in room under direct supervision of one-on-one staff at all times provided by CPSO, VIVEK, MERCURY PURIFIER plant operations worker. 3. May have paper cups, plates, finger foods as well as a cardboard spoon with which to eat meals. 4. Follow [facility] Management of the Admitted Behavioral Health Patient policy. 5. Shower permitted with supervision and at RN discretion. 6. No personal belongings. 7. Visitors: Per [facility] policy and at RN discretion. 8. Activities: Soft cart items, coloring books, crayons, music tablet, television and remote if available, and other activities at RN discretion. 9. Bathroom privileges with escort while in the ED. May use bathroom available in room without limitations on Med/Surg. 10. Phone: May use hospital phone for incoming and outgoing phone calls at RN discretion. 11. Due to VOLUNTARY status, if patient wishes to leave [facility], staff will contact [facility] Crisis Screener ([phone]) and On-Call Board Worker ([phone]) as soon as possible. In the event of elopement, notify [facility] Police ([phone]). Patient is currently voluntarily at [facility] and seeking inpatient admission when a bed becomes available. [facility] Frontline Manager Grocery will continue seeking placement. Please contact the Counter Stacker Board Worker ([phone]) and [facility] Manager Grocery ([phone]) for any needed changes in the Safety Plan. Safety plan has been provided to interdepartmental care team.
--- NOTE | 2020-12-13 12:26 | PDOC.CMSAFED ---
- If Service Date Differs Date of service: 12/13/20 Time of Service: 12:26 Care Management Safety Plan Status: Voluntary - Reason for Wait Reason for Wait: Other (Crisis Bed - [facility]) Chief Complaint: Ivan presents to the ED for worsening depression and suicidal ideation. Ivan has an extensive psychiatric history with multiple psychiatric hospitalizations for SI and suicide attempts by overdose and cutting. 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 He is pleasant and appropriate when CM meets with him. He accepts an adult coloring book, crayons, and the music tablet. Krysta from [facility] evaluated Ivan today and found him appropriate for a crisis bed placement. At Krysta's request, CM coordinates a referral to [facility] for review. Ivan is accepted for placement but until tomorrow (12/14). Krysta [facility], will be at [facility] at noon tomorrow to transport Ivan to [facility] in [place]. VOLUNTARY FOR INPATIENT PSYCHIATRIC STABILIZATION. Patient is appropriate in all interactions since arriving at [facility]; Pt has demonstrated appropriate coping and communication skills, has articulated his or her needs and concerns and is fully engaged during staff interactions. A huddle is done this afternoon with Dr. Sanchez, ED provider, Page, nursing jewelry department supervisor, Marita, charge nurse, Jocelyn, RN, Wyatt, RN, and DERRELL Shaw. Safety plan has been established with patient, and care team, to adhere to patient goals, identify restrictions based on behavioral status, address nutrition, and determine allowed personal belongings, tools for hygiene and personal care. Determine level of activity including ambulation, level of supervision, visitors, and determine privileges based on behaviors and level of engagement by pt. SAFETY PLAN: 1. Will remain on suicide precautions. In Paper Clothes 2. Will remain in room under direct supervision of one-on-one staff at all times provided by CPSO, VIVEK, MEDICAL NURSE disaster director. 3. May have paper cups, plates, finger foods as well as a cardboard spoon with which to eat meals. 4. Follow [facility] Management of the Admitted Behavioral Health Patient policy. 5. Shower permitted with supervision and at RN discretion. 6. No personal belongings. 7. Visitors: Per [facility] policy and at RN discretion. 8. Activities: Soft cart items, coloring books, crayons, music tablet, television and remote if available, and other activities at RN discretion. 9. Bathroom privileges with escort while in the ED. May use bathroom available in room without limitations on Med/Surg. 10. Phone: May use hospital phone for incoming and outgoing phone calls at RN discretion. 11. Due to VOLUNTARY status, if patient wishes to leave [facility], staff will contact [facility] Crisis Screener ([phone]) and On-Call Pile Fabric Knitter ([phone]) as soon as possible. In the event of elopement, notify [facility] Police ([phone]). Patient is currently voluntarily at [facility] and seeking inpatient admission when a bed becomes available. [facility] Frontline Spooler will continue seeking placement. Please contact the Steel Fabricating Supervisor Pile Fabric Knitter ([phone]) and [facility] Spooler ([phone]) for any needed changes in the Safety Plan. Safety plan has been provided to interdepartmental care team.
--- NOTE | 2020-12-13 16:04 | NUR.NOTE ---
Nursing Note: c/o frontal headache--Dr Andersen notified--Tylenol ordered.
[2020-12-13] MEDS: Acetaminophen 500 MG TAB 1000 MG PO (16:09)
[2020-12-13 21:07] VITALS: BP 126/88; PULSE 63; RESP 17; TEMP 36.7; O2SAT 99
[2020-12-14] MEDS: Acetaminophen 500 MG TAB 1000 MG PO (00:47)
--- NOTE | 2020-12-14 00:48 | NUR.NOTE ---
pt requesting medication for headache. order received for tylenol.
[2020-12-14] MEDS: Nicotine 21 MG/24 HR PATCH TD (01:16)
[2020-12-14 11:32] VITALS: BP 130/84; PULSE 61; TEMP 36.5; O2SAT 98
[2020-12-14 12:15] VITALS: BP 130/84; PULSE 61; RESP 17; TEMP 36.5; O2SAT 98
== END 2020-12-14 12:11 | disposition other institution (70) ==
PROVIDERS: Emergency Medicine; Physician Assistant; Emergency Provider Physician Assistant; PCP Nurse Practitioner Family
DX: F32.9 Major depressive disorder, single episode, unspecified (principal); R45.851 Suicidal ideations; Z75.1 Person awaiting admission to adequate facility elsewhere
CPT/HCPCS: 80053; 80307; 81025; 87635; 99285; 80320; 80329; 81003; 81015; 84443; 85025; 87086; 99284

== ENCOUNTER 2020-12-19 18:06 | Emergency (ER) | payer MEDICAID, SELFPAY ==
[2020-12-19 18:15] VITALS: BP 120/75; PULSE 82; RESP 16; TEMP 36.5; O2SAT 96
--- NOTE | 2020-12-19 18:17 | ED.GENADUL_ITS ---
Discharge Plan Disposition Patient Disposition: HOME Condition: Stable Discharge Details Clinical Impression: Medical clearance for psychiatric admission Primary Care Provider: Sudha Jacob ED Provider: Raisa Arnett Home Meds and New Rx's Prescriptions: Continued venlafaxine 150 mg capsule,extended release 24hr 150 mg PO DAILY RF: 0 albuterol sulfate 2.5 MG/3 ML solution for nebulization 2.5 mg Inhalation Q4H PRN Qty: 1 RF: 1 prazosin 2 MG capsule 6 mg PO HS RF: 0 gabapentin 100 mg capsule 100 mg PO TID RF: 0 testosterone 10 mg/0.5 gram /actuation Gel In Metered-Dose Pump 2 pump topical DAILY RF: 0 trazodone 50 mg tablet 50 mg PO .QHS RF: 0 famotidine 20 mg tablet 20 mg PO BID RF: 0 acetylcysteine [NAC] 600 mg capsule 1,200 mg PO BID RF: 0 hydroxyzine HCl 25 MG tablet 25 mg PO TID PRN (Reason: Anxiety) RF: 0 Discharge Instructions Additional Instructions: Plan is for you to go to the care bed tomorrow. Your Covid testing is pending, should have these results this evening. You may call later this evening for results or tomorrow morning. If you develop thoughts of self-harm, suicidal ideation, thoughts of harming others or other new/worsening symptoms please seek care urgently once again. Otherwise, please follow-up plan with mental health for care bed admission tomorrow. Please follow up with primary care in one week for reevaluation. Referrals: Sudha Jacob [Primary Care Provider] - Medical Decision Making Patient is a pleasant 20 year old biologically female, identifies as male, presenting today for medical clearance prior to going to care bed tomorrow. He reports that he was recently discharged from the hospital after having period Of suicidal ideation. There was some confusion about where he was to go afterwards. Mental health has been heavily involved. Plan is for him to go to care bed tomorrow. I did verify this with mental health. Patient is not actively suicidal or homicidal. They do feel safe going home this evening with the plan set in place tomorrow. Covid testing will be done so that he may be admitted tomorrow at psychiatric facility. Return precautions were discussed. All his questions and concerns were addressed and he is agreement of plan HPI General Mode of arrival: ambulatory . Date/Time Provider Initiated Documentation: 12/19/20 18:17 . Limitations to Documentation: no limitations . Information obtained by: patient, RN notes reviewed and old records reviewed . HPI Narrative: Patient is a pleasant 20-year-old male presenting today requesting medical clearance to be able to go to care bed as was the plan outlined by mental health after recent discharge. Patient denies any active suicidal ideation. Reports that she is supposed to go to care bed tomorrow. Related Data Home Medications Medication Instructions Recorded Confirmed albuterol sulfate 2.5 mg INHALATION Q4H PRN #1 box 07/20/14 12/12/20 hydroxyzine HCl 25 mg PO TID PRN 07/15/17 12/12/20 venlafaxine 150 mg 150 mg PO DAILY 05/28/18 12/12/20 capsule,extended release 24 hr acetylcysteine [NAC] 1,200 mg PO BID 07/25/20 12/12/20 famotidine 20 mg PO BID 07/25/20 12/12/20 gabapentin 100 mg PO TID 07/25/20 12/12/20 prazosin 6 mg PO HS 07/25/20 12/12/20 testosterone 2 pump TOPICAL DAILY 07/25/20 trazodone 50 mg PO .QHS 07/25/20 12/12/20 Allergies Allergy/AdvReac Type Severity Reaction Status Date / Time No Known Allergies Allergy Unverified 07/25/20 17:38 General COLBY: 2 Review of Systems Constitutional Constitutional: Reports as per HPI, Denies chills, Denies fatigue and Denies fever(s) Cardiovascular Cardiovascular: Reports as per HPI, Denies chest pain, Reports lightheadedness, Denies dyspnea and Denies dyspnea on exertion Respiratory Respiratory: Reports as per HPI, Denies cough, Denies dyspnea and Denies dyspnea on exertion Gastrointestinal Gastrointestinal: Reports as per HPI, Denies abdominal pain, Denies change in bowel habits, Denies nausea and Denies vomiting Integumentary/Breasts Skin/Breast: Reports as per HPI and Denies rash Psychiatric Psychiatric: Reports abnormal sleep pattern, Reports depression, Denies homicidal ideation and Denies suicidal ideation Endocrine Endocrine: Denies fatigue PFSH Medical History Anxiety Depression Eczema Surgical History No significant past surgical history Family History Mother Depression Father No problems noted. sibling Depression Grandparent Depression Social History Smoking/Tobacco Use Status: Current every day Tobacco Type: cigarettes Smoking risk assessment performed?: Yes Alcohol Intake: current Alcohol Intake frequency: holidays/special occasions on ly Drug use: Daily Substance use type: marijuana Adopted: No Do you feel safe at home: Yes Do you feel safe in your relationship?: Yes Exam Const General: cooperative, healthy appearing, comfortable, no acute distress, well developed and well groomed Nutritional Appearance: well nourished and overweight Orientation: alert and awake Resp Effort & Inspection: normal respiratory effort, able to speak in complete sentences and no respiratory distress Auscultation: clear to auscultation bilaterally, no rales, no rhonchi and no wheezes Cardio Rate: regular rate Rhythm: regular rhythm Heart Sounds: S1 normal and S2 normal Skin General skin exam: no rashes or lesions noted Trauma: no lacerations or abrasions Neuro General: patient alert and patient awake Cognition: normal cognition Speech: speech normal Gait: normal gait Psych Appearance: grossly normal and well kempt Mental Status: mental status grossly normal Speech and Movement: speech and movement normal Mood: congruent mood Affect: sad Attitude: cooperative Thought Process: normal Thought Content: normal Insight: insight good Judgment: judgment good
[2020-12-19 19:05] LABS: Source Nasal/Nares
[2020-12-19 19:56] LABS: COVID-19 PCR Negative (Negative)
== END 2020-12-19 19:16 | disposition home or self-care (01) ==
PROVIDERS: Emergency Provider Physician Assistant; PCP Nurse Practitioner Family
DX: Z04.89 Encounter for examination and observation for other specified reasons (principal); Z20.822 Contact with and (suspected) exposure to COVID-19; F32.9 Major depressive disorder, single episode, unspecified
CPT/HCPCS: 87635; 99283; 99282

== ENCOUNTER 2021-04-09 16:59 | Observation (INO) | payer MEDICARE, MEDICAID, SELFPAY ==
[2021-04-09 17:14] VITALS: BP 124/81; PULSE 72; RESP 18; TEMP 37.3; O2SAT 100
--- NOTE | 2021-04-09 17:25 | W.ED.GENAD ---
Discharge Plan Disposition Patient Disposition: [facility] INPATIENT Condition: Stable Discharge Details Clinical Impression: Major depression Admit Date/Time: 04/09/21 21:29 Admit Provider: Christian Son Attending Provider: Christian Son Primary Care Provider: Sudha Jacob ED Provider: Meryl Sanchez Medical Decision Making 20-year-old female who identifies as male with a history of anxiety and depression with previous history of suicide attempt presents with feelings of depression and thoughts of suicide for the past 2 weeks, worse over the past few days. Has a plan to hang himself. Has no acute medical complaints. Vitals within normal limits. No acute findings on exam. Will obtain screening labs, urine and Covid swab. Patient evaluated by Duy with mental health --plan is to seek inpatient psychiatric hospitalization. Patient is voluntary. Referrals are being sent to multiple facilities. Patient is medically cleared. Covid negative. Discussed with hospitalist who accepts patient for admission while awaiting placement. Pt remains voluntary and is cooperative. Medical Records Medical records reviewed: Yes I reviewed the patient's medical records. Lab Data Lab results reviewed: Yes I reviewed the patient's lab results. Labs: 04/09/21 18:55 Urine - Reflex from Ua Urine Culture - Pending Laboratory Tests Range/Units 04/09/21 04/09/21 04/09/21 18:37 18:37 18:37 WBC (4.4-10.8) 10^3/uL 8.24 RBC (3.93-5.22) 10^6/uL 4.98 Hgb (11.2-15.7) g/dL 14.6 Hct (36.0-46.0) % 43.1 MCV (80-95) fL 86.5 MCH (27.0-33.0) pg 29.3 MCHC (32.0-36.0) % 33.9 RDW (11.7-14.6) % 12.0 Plt Count (130-400) 10^3/uL 264 MPV (8.0-11.0) fL 9.4 Immature Gran % 0.2 Neutrophils % 70.1 Lymphocytes % 20.8 Monocytes % 6.1 Eosinophils % 1.7 Basophils % 1.1 Nucleated RBC % % 0 Absolute Neutrophils (1.2-6.7) 10^3/uL 5.78 Absolute Lymphocytes (1.2-3.4) 10^3/uL 1.71 Absolute Monocytes (0.1-0.8) 10^3/uL 0.50 Absolute Eosinophils (0.0-0.7) 10^3/uL 0.14 Absolute Basophils (0.0-0.2) 10^3/uL 0.09 Sodium (136-145) mmol/L 141 Potassium (3.5-5.1) mmol/L 3.8 Chloride (98-107) mmol/L 105 Carbon Dioxide (21.0-32.0) mmol/L 26.9 Anion Gap (3-11) mmol/L 9.1 BUN (7-18) mg/dL 8 Creatinine (0.55-1.02) mg/dL 0.9 Estimated GFR/1.73 m2 (mL/min/1.73m2) >= 60.00 Glucose (74-106) mg/dL 124 H Calcium (8.5-10.1) mg/dL 9.5 Total Bilirubin (0.2-1.0) mg/dL 0.3 AST (15-37) U/L 14 L ALT (14-59) U/L 21 Alkaline Phosphatase (46-116) U/L 82 Total Protein (6.4-8.2) g/dL 7.5 Albumin (3.4-5.0) g/dL 4.1 Urine Color (Yellow) Urine Clarity (Clear) Urine pH (5-8) Ur Specific [place] (1.005-1.025) Urine Protein (Negative) mg/dL Urine Ketones (Negative) mg/dL Urine Blood (Negative) Urine Nitrite (Negative) Urine Bilirubin (Negative) Urine Urobilinogen (Up TO 0.2) EU/dL Ur Leukocyte Esterase (Negative) Urine RBC (0-2) HPF Urine WBC (0-5) HPF Ur Epithelial Cells (Negative) HPF Urine Crystals (Negative) HPF Urine Bacteria (Negative) HPF Urine Casts (Negative) LPF Urine Mucus (Negative) Ur Culture Indicated? Urine Glucose (Negative) mg/dL Urine Opiates Screen (Negative) Urine Methadone Screen (Negative) Ur Barbiturates Screen (Negative) Ur Tricyclics Screen (Negative) Ur Amphetamines Screen (Negative) U Benzodiazepines Scrn (Negative) Urine Cocaine Screen (Negative) Ur THC Screen (Negative) Ethyl Alcohol (<10) mg/dL < 3.0 COVID-19 Source SARS-CoV-2 (PCR) (Negative) Range/Units 04/09/21 04/09/21 04/09/21 18:50 18:55 18:55 WBC (4.4-10.8) 10^3/uL RBC (3.93-5.22) 10^6/uL Hgb (11.2-15.7) g/dL Hct (36.0-46.0) % MCV (80-95) fL MCH (27.0-33.0) pg MCHC (32.0-36.0) % RDW (11.7-14.6) % Plt Count (130-400) 10^3/uL MPV (8.0-11.0) fL Immature Gran % Neutrophils % Lymphocytes % Monocytes % Eosinophils % Basophils % Nucleated RBC % % Absolute Neutrophils (1.2-6.7) 10^3/uL Absolute Lymphocytes (1.2-3.4) 10^3/uL Absolute Monocytes (0.1-0.8) 10^3/uL Absolute Eosinophils (0.0-0.7) 10^3/uL Absolute Basophils (0.0-0.2) 10^3/uL Sodium (136-145) mmol/L Potassium (3.5-5.1) mmol/L Chloride (98-107) mmol/L Carbon Dioxide (21.0-32.0) mmol/L Anion Gap (3-11) mmol/L BUN (7-18) mg/dL Creatinine (0.55-1.02) mg/dL Estimated GFR/1.73 m2 (mL/min/1.73m2) Glucose (74-106) mg/dL Calcium (8.5-10.1) mg/dL Total Bilirubin (0.2-1.0) mg/dL AST (15-37) U/L ALT (14-59) U/L Alkaline Phosphatase (46-116) U/L Total Protein (6.4-8.2) g/dL Albumin (3.4-5.0) g/dL Urine Color (Yellow) Yellow Urine Clarity (Clear) Clear Urine pH (5-8) 5.5 Ur Specific [place] (1.005-1.025) 1.020 Urine Protein (Negative) mg/dL Negative Urine Ketones (Negative) mg/dL Negative Urine Blood (Negative) Negative Urine Nitrite (Negative) Negative Urine Bilirubin (Negative) Negative Urine Urobilinogen (Up TO 0.2) EU/dL 0.2 Ur Leukocyte Esterase (Negative) Small H Urine RBC (0-2) HPF 0-2 Urine WBC (0-5) HPF 10-20 H Ur Epithelial Cells (Negative) HPF Few Urine Crystals (Negative) HPF Negative Urine Bacteria (Negative) HPF Moderate Urine Casts (Negative) LPF Negative Urine Mucus (Negative) Negative Ur Culture Indicated? Yes Urine Glucose (Negative) mg/dL Negative Urine Opiates Screen (Negative) Negative Urine Methadone Screen (Negative) Negative Ur Barbiturates Screen (Negative) Negative Ur Tricyclics Screen (Negative) Negative Ur Amphetamines Screen (Negative) Negative U Benzodiazepines Scrn (Negative) Negative Urine Cocaine Screen (Negative) Negative Ur THC Screen (Negative) Positive A Ethyl Alcohol (<10) mg/dL COVID-19 Source Nasal/Nares SARS-CoV-2 (PCR) (Negative) Negative HPI General Mode of arrival: ambulatory. Date/Time Provider Initiated Documentation: 04/09/21 17:25. Limitations to Documentation: no limitations. Information obtained by: patient. HPI Narrative: Patient is a 20-year-old female who identifies as male and goes by the name?presents for suicidal thoughts with a plan to hang himself. Patient states he has been feeling this way for the past few weeks, but worse over the past few days. He admits to stress with work and family. He has a previous history of suicide attempt with overdosing on pills 1 year ago. He denies any alcohol or drug use other than marijuana, auditory or visual hallucinations, fever, nausea, vomiting, headache or abdominal pain. He states he spoke with his helicopter repairer Rossy with [facility] who advised he to come to the ER for evaluation. Related Data Home Medications Medication Instructions Recorded Confirmed albuterol sulfate 2.5 mg INHALATION Q4H PRN #1 box 07/20/14 04/09/21 hydroxyzine HCl 25 mg PO TID PRN 07/15/17 04/09/21 venlafaxine 150 mg 150 mg PO DAILY 05/28/18 04/09/21 capsule,extended release 24 hr acetylcysteine [NAC] 1,200 mg PO BID 07/25/20 04/09/21 famotidine 20 mg PO BID 07/25/20 04/09/21 gabapentin 100 mg PO TID 07/25/20 04/09/21 prazosin 6 mg PO HS 07/25/20 04/09/21 testosterone 2 pump TOPICAL DAILY 07/25/20 04/09/21 trazodone 50 mg PO .QHS 07/25/20 04/09/21 Allergies Allergy/AdvReac Type Severity Reaction Status Date / Time No Known Allergies Allergy Unverified 04/09/21 17:18 General Stated Complaint: PsychEval COLBY: 2 Review of Systems All systems reviewed & are unremarkable except as noted in HPI and below Constitutional Constitutional: Reports as per HPI, Denies chills and Denies fever(s) Eyes Eyes: Denies blurry vision ENT Ears, Nose, Mouth, and Throat: Denies dizziness, Denies sore throat and Denies throat swelling Cardiovascular Cardiovascular: Denies chest pain and Denies dyspnea Respiratory Respiratory: Denies cough and Denies dyspnea Gastrointestinal Gastrointestinal: Denies abdominal pain, Denies diarrhea and Denies vomiting Genitourinary Genitourinary: Denies hematuria and Denies dysuria Musculoskeletal Musculoskeletal: Denies back pain and Denies numbness Integumentary/Breasts Skin/Breast: Denies lesions and Denies rash Neurologic Neurologic: Denies dizziness, Denies localized weakness and Denies numbness Psychiatric Psychiatric: Denies tactile hallucinations, Denies homicidal ideation and Reports suicidal ideation Allergic/Immunologic Allergic/Immunologic: Denies throat swelling PFSH Medical History Anxiety Depression Eczema Surgical History No significant past surgical history Family History Mother Depression Father No problems noted. sibling Depression Grandparent Depression Social History Smoking/Tobacco Use Status: Current every day Tobacco Type: cigarettes Smoking risk assessment performed?: Yes Alcohol Intake: current Alcohol Intake frequency: holidays/special occasions only Drug use: Daily Substance use type: marijuana Adopted: No Do you feel safe at home: Yes Do you feel safe in your relationship?: Yes Exam Const General: cooperative and no acute distress HENND Head: normal to inspection Ears: hearing grossly normal bilaterally and external ears normal Face and sinus: normal facial exam Mouth: oral mucosae normal Eyes General: appearance normal, both eyes and all related structures Pupils: PERRL EOM: EOM intact bilaterally Neck Neck: normal visual inspection and No submandibular swelling Lymphatic: no lymphadenopathy noted Chest Chest: normal inspection of the chest and no tenderness Resp Effort & Inspection: normal respiratory effort and able to speak in complete sentences Auscultation: clear to auscultation bilaterally Cardio Rate: regular rate Rhythm: regular rhythm GI Inspection: normal to inspection Palpation: soft, not firm, not rigid and nontender Auscultation: normal bowel sounds Skin General skin exam: no rashes or lesions noted Neuro General: patient alert, patient awake and patient oriented x3 Cognition: normal cognition Speech: speech normal Motor: muscle tone normal throughout Sensory Exam: no sensory deficits noted Extrem General: normal to inspection, full ROM, capillary refill normal, no calf tenderness bilaterally and no edema Psych Appearance: grossly normal Mental Status: mental status grossly normal Speech and Movement: speech and movement normal Affect: other (flat) Course Vital Signs Vital signs: Vital Signs Temperature 99.1 F 04/09/21 17:14 Pulse 72 04/09/21 17:14 Respiratory Rate 18 04/09/21 17:14 Blood Pressure 124/81 04/09/21 17:14 Pulse Oximetry 100 04/09/21 17:14 Temperature 99.1 F 04/09/21 17:14 Temperature Source Tympanic 04/09/21 17:14 Pulse 72 04/09/21 17:14 Respiratory Rate 18 04/09/21 17:14 Respiratory Effort 04/09/21 17:20 Blood Pressure 124/81 04/09/21 17:14 Pulse Oximetry 100 04/09/21 17:14 Oxygen Delivery Method Room Air 04/09/21 17:14 Oxygen Flow Rate 0 04/09/21 17:14 Pain Level 0 04/09/21 17:14
--- NOTE | 2021-04-09 17:33 | NUR.NOTE ---
Nursing Note:this person is sitting 1:1 with patient. Patient has changed into paper clothes and surrendered person items to staff. Patient is calmly and quietly sitting on bed with the lights on.
--- NOTE | 2021-04-09 17:33 | NUR.NOTE ---
belongings are stowed and patient is changed into paper scrub. Bridget DOYLE sitting 1:1 with patient. Nursing Note:
--- NOTE | 2021-04-09 17:46 | NUR.NOTE ---
Nursing Note: this person is sitting 1:1 with patient. Patient is calmly sitting on bed under a blanket. Water offered, food tray ordered by nurse.
--- NOTE | 2021-04-09 18:00 | SUR.INTRAOP ---
this person is sitting 1:1 with patient. Patient is sitting calmly on bed, eating provided meal tray, and meeting remotely with mental health.
[2021-04-09 18:44] LABS: Abs Immature Grans 0.02 10^3/uL (0.0-0.06); Absolute Basophil Count 0.09 10^3/uL (0.0-0.2); Absolute Eosinophil Count 0.14 10^3/uL (0.0-0.7); Absolute Lymphocyte Count 1.71 10^3/uL (1.2-3.4); Absolute Neutrophil Count 5.78 10^3/uL (1.2-6.7); Basophils % 1.1; Eosinophils % 1.7; HCT 43.1 % (36.0-46.0); HGB 14.6 g/dL (11.2-15.7); Immature Grans % 0.2; Lymphocytes % 20.8; MCH 29.3 pg (27.0-33.0); MCHC 33.9 % (32.0-36.0); MCV 86.5 fL (80-95); MPV 9.4 fL (8.0-11.0); Monocytes % 6.1; Neutrophils % 70.1; Nucleated RBC 0 %; Platelet Count 264 10^3/uL (130-400); RBC 4.98 10^6/uL (3.93-5.22); RDW-SD 38.3 fL; WBC 8.24 10^3/uL (4.4-10.8)
[2021-04-09 18:54] LABS: Source Nasal/Nares
[2021-04-09 18:57] LABS: ALT 21 U/L (14-59); AST 14 U/L (15-37); Albumin 4.1 g/dL (3.4-5.0); Alkaline Phosphatase 82 U/L (46-116); Anion Gap 9.1 mmol/L (3-11); BUN 8 mg/dL (7-18); Bilirubin, Total 0.3 mg/dL (0.2-1.0); CO2 26.9 mmol/L (21.0-32.0); CREATININE 0.9 mg/dL (0.55-1.02); Calcium 9.5 mg/dL (8.5-10.1); Chloride 105 mmol/L (98-107); Glucose 124 mg/dL (74-106); Potassium 3.8 mmol/L (3.5-5.1); Sodium 141 mmol/L (136-145); Total Protein 7.5 g/dL (6.4-8.2)
--- NOTE | 2021-04-09 19:04 | NUR.NOTE ---
Nursing Note: RN contacted lab to see if enough blood was collected for STAT ETOH, Alie expressed they had enough to run for ETOH level.
[2021-04-09 19:12] LABS: Bilirubin Negative (Negative); Blood Negative (Negative); Clarity Clear (Clear); Glucose Negative (Negative); Ketones Negative (Negative); Leukocyte Esterase Small (Negative); Nitrite Negative (Negative); Urobilinogen 0.2 EU/dL (Up TO 0.2); pH 5.5 (5-8)
[2021-04-09 19:20] LABS: Bacteria Moderate HPF (Negative); C & S Indicated? Yes; Casts Negative LPF (Negative); Crystals Negative HPF (Negative); Epithelial Cells Few HPF (Negative); Mucus Negative (Negative); RBC 0-2 HPF (0-2)
[2021-04-09 19:23] LABS: *AMPHETAMINES SCREEN URINE Negative (Negative); *BARBITURATES SCREEN URINE Negative (Negative); *BENZODIAZEPINES SCREEN URINE Negative (Negative); Cannabinoids THC Positive (Negative); Cocaine Screen,Urine Negative (Negative); METHADONE URINE SCREEN Negative (Negative); OPIATES URINE SCREEN Negative (Negative)
[2021-04-09 19:25] LABS: ETHANOL BLOOD < 3.0 mg/dL (<10)
[2021-04-09 19:51] LABS: Tricyclic Antidepressants Negative (Negative)
[2021-04-09 20:47] LABS: COVID-19 PCR Negative (Negative)
[2021-04-09 22:18] VITALS: BP 128/85; PULSE 56; RESP 14; TEMP 36.2; O2SAT 95
--- NOTE | 2021-04-10 07:17 | W.PM.HP.N ---
Date of service: 04/10/21 Time of Service: 07:17 Assessment and Plan Assessment and plan (1) Suicidal ideation: Status: Acute (2) Major depression: Status: Chronic (3) Medical clearance for psychiatric admission: Status: Acute Assessment and plan: Urine culture is pending. The urinalysis appears to show a urinary tract infection however there are no symptoms. Their psychiatric meds and testosterone will be resumed. A flu immunization is ordered. History of Present Illness History of Present Illness Chief Complaint: Suicidal ideation Narrative: This 20-year-old transgender male is here because of suicidal ideation. They has had multiple problems with depression and suicidal ideation in the past. They have had multiple admissions previously. They are followed by [facility][1] human services but they state that they have not seen the psychiatrist lately. Last appointment was rescheduled. There have been problems with work and relationship with their family. They live by themselves in [place] in the department. They relate to problems at work and been monitoring of overwork but did not seek other employment. He had not taken their medicines for the last week or so. They had thought of committing suicide by hanging for the last 2 weeks. They seek voluntary admission to a psychiatric unit. They smoke tobacco as well as marijuana regularly. Alcohol is rarely used. They have received a coronavirus vaccine but has not had a flu shot this year yet. He came to emergency department last night and was admitted after medical clearance. Mental health has been involved and is working on transfer to a psychiatric facility. They have no medical concerns at the present time. Review of Systems Constitutional Constitutional: Denies chills, Denies fatigue and Denies fever(s) Cardiovascular Cardiovascular: Denies chest pain and Denies dyspnea Respiratory Respiratory: Denies cough and Denies dyspnea Gastrointestinal Gastrointestinal: Denies abdominal pain, Denies heartburn, Denies diarrhea and Denies nausea Genitourinary Comments: no menstrual periods. Psychiatric Psychiatric: Reports anxiety, Reports hopelessness and Reports suicidal ideation Endocrine Endocrine: Denies fatigue [facility] Medical History Anxiety Depression Eczema Surgical History No significant past surgical history Family History Mother Depression Father No problems noted. sibling Depression Grandparent Depression Social History Smoking/Tobacco Use Status: Current every day Tobacco Type: cigarettes Smoking risk assessment performed?: Yes Alcohol Intake: current Alcohol Intake frequency: holidays/special occasions only Drug use: Daily Substance use type: marijuana Adopted: No Do you feel safe at home: Yes Do you feel safe in your relationship?: Yes Meds Allergies and Home Medications Allergies Allergy/AdvReac Type Severity Reaction Status Date / Time No Known Allergies Allergy Unverified 04/09/21 17:18 Home Medications Medication Instructions Recorded Confirmed Type albuterol sulfate 2.5 mg INHALATION Q4H PRN #1 box 07/20/14 04/09/21 History hydroxyzine HCl 25 mg PO TID PRN 07/15/17 04/09/21 History venlafaxine 150 mg 150 mg PO DAILY 05/28/18 04/09/21 History capsule,extended release 24 hr acetylcysteine [NAC] 1,200 mg PO BID 07/25/20 04/09/21 History famotidine 20 mg PO BID 07/25/20 04/09/21 History gabapentin 100 mg PO TID 07/25/20 04/09/21 History prazosin 6 mg PO HS 07/25/20 04/09/21 History testosterone 2 pump TOPICAL DAILY 07/25/20 04/09/21 History trazodone 50 mg PO .QHS 07/25/20 04/09/21 History Exam Const General: cooperative, no acute distress, not anxious and not ill appearing Nutritional Appearance: obese Orientation: alert and awake [facility] Head: normal to inspection Neck Neck: normal visual inspection and no lymphadenopathy Resp Effort & Inspection: normal respiratory effort Auscultation: no rales, no rhonchi and no wheezes Cardio Jugular venous pressure: no JVD Rate: regular rate Rhythm: regular rhythm Heart Sounds: S1 normal, S2 normal and no murmurs GI Palpation: soft and no hepatosplenomegaly Neuro General: patient alert, patient awake and patient oriented x3 Speech: speech normal Results Labs Result diagrams: 04/09/21 18:37 04/09/21 18:37 Labs: Laboratory Results - last 24 hr 04/09/21 04/09/21 04/09/21 18:37 18:37 18:37 WBC 8.24 RBC 4.98 Hgb 14.6 Hct 43.1 MCV 86.5 MCH 29.3 MCHC 33.9 RDW 12.0 Plt Count 264 MPV 9.4 Immature Gran % 0.2 Neutrophils % 70.1 Lymphocytes % 20.8 Monocytes % 6.1 Eosinophils % 1.7 Basophils % 1.1 Nucleated RBC % 0 Absolute Neutrophils 5.78 Absolute Lymphocytes 1.71 Absolute Monocytes 0.50 Absolute Eosinophils 0.14 Absolute Basophils 0.09 Sodium 141 Potassium 3.8 Chloride 105 Carbon Dioxide 26.9 Anion Gap 9.1 BUN 8 Creatinine 0.9 Estimated GFR/1.73 m2 >= 60.00 Glucose 124 H Calcium 9.5 Total Bilirubin 0.3 AST 14 L ALT 21 Alkaline Phosphatase 82 Total Protein 7.5 Albumin 4.1 Urine Color Urine Clarity Urine pH Ur Specific [place] Urine Protein Urine Ketones Urine Blood Urine Nitrite Urine Bilirubin Urine Urobilinogen Ur Leukocyte Esterase Urine RBC Urine WBC Ur Epithelial Cells Urine Crystals Urine Bacteria Urine Casts Urine Mucus Ur Culture Indicated? Urine Glucose Urine Opiates Screen Urine Methadone Screen Ur Barbiturates Screen Ur Tricyclics Screen Ur Amphetamines Screen U Benzodiazepines Scrn Urine Cocaine Screen Ur THC Screen Ethyl Alcohol < 3.0 COVID-19 Source SARS-CoV-2 (PCR) 04/09/21 04/09/21 04/09/21 18:50 18:55 18:55 WBC RBC Hgb Hct MCV MCH MCHC RDW Plt Count MPV Immature Gran % Neutrophils % Lymphocytes % Monocytes % Eosinophils % Basophils % Nucleated RBC % Absolute Neutrophils Absolute Lymphocytes Absolute Monocytes Absolute Eosinophils Absolute Basophils Sodium Potassium Chloride Carbon Dioxide Anion Gap BUN Creatinine Estimated GFR/1.73 m2 Glucose Calcium Total Bilirubin AST ALT Alkaline Phosphatase Total Protein Albumin Urine Color Yellow Urine Clarity Clear Urine pH 5.5 Ur Specific [place] 1.020 Urine Protein Negative Urine Ketones Negative Urine Blood Negative Urine Nitrite Negative Urine Bilirubin Negative Urine Urobilinogen 0.2 Ur Leukocyte Esterase Small H Urine RBC 0-2 Urine WBC 10-20 H Ur Epithelial Cells Few Urine Crystals Negative Urine Bacteria Moderate Urine Casts Negative Urine Mucus Negative Ur Culture Indicated? Yes Urine Glucose Negative Urine Opiates Screen Negative Urine Methadone Screen Negative Ur Barbiturates Screen Negative Ur Tricyclics Screen Negative Ur Amphetamines Screen Negative U Benzodiazepines Scrn Negative Urine Cocaine Screen Negative Ur THC Screen Positive A Ethyl Alcohol COVID-19 Source Nasal/Nares SARS-CoV-2 (PCR) Negative Last Vital Signs Temp 36.2 C L 04/09/21 22:18 Pulse 56 L 04/09/21 22:18 Resp 14 04/09/21 22:18 BP 128/85 04/09/21 22:18 Pulse Ox 95 04/09/21 22:18
[2021-04-10 07:44] VITALS: BP 123/71; PULSE 60; RESP 12; TEMP 36.7; O2SAT 97
--- NOTE | 2021-04-10 10:01 | PDOC.CMIN ---
- If Service Date Differs Date of service: 04/10/21 Time of Service: 10:01 Care Management Initial Assess REASON FOR HOSPITALIZATION:: Major depression, SI PAST MEDICAL HISTORY/PAST SURGICAL HISTORY:: Medical History . Anxiety. Depression. Eczema. Surgical History . No significant past surgical history
[2021-04-10] MEDS: Famotidine 20 MG TAB PO ×2 (10:05→20:10)
[2021-04-10] MEDS: Acetylcysteine 600 MG CAP 1200 MG PO ×2 (10:05→20:10)
--- NOTE | 2021-04-10 10:06 | CMSP_ITS ---
- If Service Date Differs Date of service: 04/10/21 Time of Service: 10:06 Care Management Safety Plan Status: Voluntary - Reason for Wait Reason for Wait: Inpatient Admission Chief Complaint: Ivan presents to the ED for worsening depression and suicidal ideation with a plan and admits to having access to rope at home. Ivan has an extensive psychiatric history with multiple psychiatric hospitalizations for SI and suicide attempts by overdose and cutting. 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 He is pleasant and appropriate when CM meets with him. Krysta from [facility] evaluated Ivan today and advised that he will remain at [facility] on a voluntary basis, while seeking placement to a psych facility, [facility] will send referrals. A huddle was done at 1130 today with Roxi/nursing carpentry supervisor, Belgica/RN, Yajaira/charge nurse, Haylee/DERRELL, RN and DERRELL Castillo. Safety plan has been established with patient, and care team, to adhere to patient goals, identify restrictions based on behavioral status, address nutrition, and determine allowed personal belongings, tools for hygiene and personal care. Determine level of activity including ambulation, level of supervision, visitors, and determine privileges based on behaviors and level of engagement by pt. VOLUNTARY FOR INPATIENT PSYCHIATRIC STABILIZATION. Patient is appropriate in all interactions since arriving at [facility]; Pt has demonstrated appropriate coping and communication skills, has articulated his or her needs and concerns and is fully engaged during staff interactions. SAFETY PLAN: 1. Will remain on suicide precautions. In Paper Clothes 2. Will remain in room under direct supervision of one-on-one staff at all times provided by CPSO, VIVEK, WEED CUTTER networking specialist. 3. May have paper cups, plates, finger foods as well as a cardboard spoon with which to eat meals. 4. Follow [facility] Management of the Admitted Behavioral Health Patient policy. 5. Shower permitted with supervision and at RN discretion. 6. No personal belongings. 7. Visitors: Per [facility] policy and at RN discretion. 8. Activities: Soft cart items, coloring books, crayons, music tablet, television and remote if available, and other activities at RN discretion. 9. Bathroom privileges: May use bathroom available in room without limitations on Med/Surg. If in the ID, will need to be accompanied by an escort. 10. Phone: May use hospital phone for incoming and outgoing phone calls at RN discretion. 11. Due to VOLUNTARY status, if patient wishes to leave [facility], staff will contact [facility] Crisis Screener ([phone]) and On-Call Salt Cutter ([phone]) as soon as possible. In the event of elopement, notify [facility] Police ([phone]). Patient is currently voluntarily at [facility] and seeking inpatient admission when a bed becomes available. [facility] Frontline In Store Marketer will continue seeking placement. Please contact the Collections Manager Salt Cutter ([phone]) and [facility] In Store Marketer ([phone]) for any needed changes in the Safety Plan. Safety plan has been provided to interdepartmental care team.
[2021-04-10] MEDS: Gabapentin 100 MG CAP 200 MG PO ×2 (12:29→20:10)
[2021-04-10] MEDS: Venlafaxine 150 MG CAPCR PO (12:29)
[2021-04-10 17:22] VITALS: BP 137/88; PULSE 59; RESP 16; TEMP 36.5; O2SAT 98
--- NOTE | 2021-04-10 19:00 | CMPROGNOTE_ITS ---
- If Service Date Differs Date of service: 04/10/21 Time of Service: 19:00 Care Management Progress Note S/O: Ivan is a 20 year old transgender male who presented to the ER last night for worsening depression and SI. 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 Ivan was cooperative and pleasant with all interactions today. He shared that he wants to remain inpatient at [facility] until he can receive inpatient psych treatment. Referrals are pending per Krysta at [facility]. O:20 year old transgender male admitted to [facility] on 04/09/21 for worsening depression and SI. P: Ivan will remain at [facility] and followed by [facility] while he awaits inpatient psych placement. CM will continue to support discharge planning needs. - MH Services (Omit if N/A) Current MH Services: FLASH OVEN OPERATOR
--- NOTE | 2021-04-10 19:00 | PDOC.CMPRO ---
- If Service Date Differs Date of service: 04/10/21 Time of Service: 19:00 Care Management Progress Note S/O: Ivan is a 20 year old transgender male who presented to the ER last night for worsening depression and SI. 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 Ivan was cooperative and pleasant with all interactions today. He shared that he wants to remain inpatient at [facility] until he can receive inpatient psych treatment. Referrals are pending per Krysta at [facility]. O:20 year old transgender male admitted to [facility] on 04/09/21 for worsening depression and SI. P: Ivan will remain at [facility] and followed by [facility] while he awaits inpatient psych placement. CM will continue to support discharge planning needs. - MH Services (Omit if N/A) Current MH Services: PACKING AND STAMPING MACHINE OPERATOR
[2021-04-10] MEDS: traZODone 50 MG TAB PO (21:28)
[2021-04-10] MEDS: Prazosin 1 MG CAP 6 MG PO (21:28)
[2021-04-11 07:37] VITALS: BP 119/69; PULSE 52; RESP 16; TEMP 36.7; O2SAT 97
--- NOTE | 2021-04-11 07:45 | RT.EKG_ITS ---
APPROVED REPORT Exam: Resting ECG Reason for Exam: Transfer to outside facility Patient Location: I HR:62 bpm ECG Measurements Heart Rate 62 AXIS MO 154 P 42 QRSd 78 QRS 50 QT 399 T 62 QTc 406 Conclusion Sinus rhythm...normal P axis, V-rate 60- 99
[2021-04-11] MEDS: Acetylcysteine 600 MG CAP 1200 MG PO (08:47)
[2021-04-11] MEDS: Venlafaxine 150 MG CAPCR PO (08:47)
[2021-04-11] MEDS: Famotidine 20 MG TAB PO (08:47)
[2021-04-11] MEDS: Gabapentin 100 MG CAP 200 MG PO (08:47)
--- NOTE | 2021-04-11 09:34 | NUR.NOTE ---
Nursing Note: 0917: Nurse to nurse report given to DILIA Jc from [place]. All questions answered at this time. Request of testerone be provided by family for patient at this time; this RN asks pt if anyone is available to bring medication. pt states I asked my mom but she really doesn't want to come here. Doc to Doc with occur; MAURICE Hayden will be calling hospitalist soon.
--- NOTE | 2021-04-11 10:17 | W.PM.DS.N ---
Date of service: 04/11/21 Time of Service: 10:43 DS: Diagnosis Discharge Diagnosis (1) Suicidal ideation: Status: Acute (2) Major depression: Status: Chronic (3) Medical clearance for psychiatric admission: Status: Acute Discharge Plan Disposition Patient Disposition: [facility] Condition: Stable Discharge Details Reason For Visit: Major Depression,Suicidal Thoughts Admit Date/Time: 04/09/21 21:29 Admit Provider: Christian Son Attending Provider: Christian Son Primary Care Provider: Sudha Jacob Hospital Course Hospital Course: This 20-year-old transgender male is here because of suicidal ideation. Medical screening in the ED rules out an acute medical condition. Mental health has been involved and is working on transfer to a psychiatric facility. There are no beds available so admitted here overnight under voluntary status. Ivan remains medically stable with no behavioral issues. Bed has become available at [facility] and is transported by [facility] manager business intelligence department. report of patient given to Jackelyn Vidal APRN. discharge discussed with DR [place] Meds and New Rx's Prescriptions: Continued venlafaxine 150 mg capsule,extended release 24hr 150 mg PO DAILY RF: 0 prazosin 2 MG capsule 6 mg PO HS RF: 0 gabapentin 100 mg capsule 200 mg PO TID RF: 0 testosterone 10 mg/0.5 gram /actuation Gel In Metered-Dose Pump 2 pump topical DAILY RF: 0 trazodone 50 mg tablet 50 mg PO .QHS RF: 0 famotidine 20 mg tablet 20 mg PO BID RF: 0 acetylcysteine [NAC] 600 mg capsule 1,200 mg PO BID RF: 0 Discharge Instructions Instructions: Depression (DC), Suicide Prevention (DC) Stand Alone Forms: Nursing Discharge Form Referrals: Sudha Jacob [Primary Care Provider] - Activity:: Activity as Tolerated Equipment/Supplies:: No Equipment Needed Diet:: As Tolerated Discharge Orders Discharge Orders: Discharge Order (Routine); Ordered 04/11/21 Ordered By: Tessa Gómez Discharge Data Discharge Date/Time-TO BE ENTERED AT DEPARTURE: 04/11/21 12:02 DS: Summary Time Spent with Patient providing and/or coordinating discharge services: Less than 30 minutes Status at Discharge Functional status at discharge: independent ambulation Overall status at discharge: patient is not back to baseline Mental Status: mental status grossly normal Speech and Movement: speech and movement normal Mood: congruent mood Affect: normal affect Exam Const General: cooperative, no acute distress, not anxious and not ill appearing Nutritional Appearance: obese Orientation: alert and awake HEN[facility] Head: normal to inspection Neck Neck: normal visual inspection and no lymphadenopathy Resp Effort & Inspection: normal respiratory effort Auscultation: no rales, no rhonchi and no wheezes Cardio Jugular venous pressure: no JVD Rate: regular rate Rhythm: regular rhythm Heart Sounds: S1 normal, S2 normal and no murmurs GI Palpation: soft and no hepatosplenomegaly Neuro General: patient alert, patient awake and patient oriented x3 Speech: speech normal Psych Mental Status: mental status grossly normal Speech and Movement: speech and movement normal Mood: congruent mood Affect: normal affect DS: Data Vitals/I&O Vitals and I&O: Vital Signs Temperature 36.7 C 04/11/21 07:37 Temperature Source Temporal Artery Scan 04/11/21 07:37 Pulse 52 L 04/11/21 07:37 Pulse Rhythm Regular 04/11/21 09:30 Respiratory Rate 16 04/11/21 07:37 Respiratory Effort Non-Labored 04/11/21 09:30 Respiratory Depth Normal 04/11/21 09:30 Respiratory Pattern Normal 04/11/21 09:30 Blood Pressure 119/69 04/11/21 07:37 Pulse Oximetry 97 04/11/21 07:37 Oxygen Delivery Method Room Air 04/11/21 07:37 Oxygen Flow Rate 0 04/11/21 07:37 Pain Level 0 04/11/21 07:37 Comment 04/10/21 17:10 Intake & Output 04/10/21 04/10/21 04/11/21 11:59 23:59 11:59 Intake Total 720 / 1200 480 / 1200 Balance 720 / 1200 480 / 1200 Intake: Oral 720 / 1200 480 / 1200 Other: Urine Color Yellow Urine Appearance Clear Clear Comment pt used toilet. Output amount is unknown pt used bathroom Voiding Methods Toilet Toilet Urinal Data Completed and Pending Labs on day of discharge: Preliminary micro results at discharge 04/09/21 18:55 Urine Culture - Preliminary Urine - Reflex from [facility] Medical History Anxiety Depression Eczema Surgical History No significant past surgical history Family History Mother Depression Father No problems noted. sibling Depression Grandparent Depression Social History Smoking/Tobacco Use Status: Current every day Tobacco Type: cigarettes Smoking risk assessment performed?: Yes Alcohol Intake: current Alcohol Intake frequency: holidays/special occasions only Drug use: Daily Substance use type: marijuana Adopted: No Do you feel safe at home: Yes Do you feel safe in your relationship?: Yes
--- NOTE | 2021-04-11 10:21 | PDOC.CMSAFE ---
- If Service Date Differs Date of service: 04/11/21 Time of Service: 10:21 Care Management Safety Plan Status: Voluntary - Reason for Wait Reason for Wait: Inpatient Admission Chief Complaint: Ivan presents to the ED for worsening depression and suicidal ideation with a plan and admits to having access to rope at home. Ivan has an extensive psychiatric history with multiple psychiatric hospitalizations for SI and suicide attempts by overdose and cutting. Ivan receives services at [facility] BLIND HANGER Program. He is pleasant and appropriate when CM meets with him. Ivan has accepted a bed today at the [facility] and will be leaving around noon today. Safety plan has been established with patient, and care team, to adhere to patient goals, identify restrictions based on behavioral status, address nutrition, and determine allowed personal belongings, tools for hygiene and personal care. Determine level of activity including ambulation, level of supervision, visitors, and determine privileges based on behaviors and level of engagement by pt. VOLUNTARY FOR INPATIENT PSYCHIATRIC STABILIZATION. Patient is appropriate in all interactions since arriving at [facility]; Pt has demonstrated appropriate coping and communication skills, has articulated his or her needs and concerns and is fully engaged during staff interactions. SAFETY PLAN: 1. Will remain on suicide precautions. In Paper Clothes 2. Will remain in room under direct supervision of one-on-one staff at all times provided by CPSO, GROUND CREW LINESMAN, FATBACK TRIMMER network development coordinator. 3. May have paper cups, plates, finger foods as well as a cardboard spoon with which to eat meals. 4. Follow [facility] Management of the Admitted Behavioral Health Patient policy. 5. Shower permitted with supervision and at RN discretion. 6. No personal belongings. 7. Visitors: Per [facility] policy and at RN discretion. 8. Activities: Soft cart items, coloring books, crayons, music tablet, television and remote if available, and other activities at RN discretion. 9. Bathroom privileges: May use bathroom available in room without limitations on Med/Surg. If in the ID, will need to be accompanied by an escort. 10. Phone: May use hospital phone for incoming and outgoing phone calls at RN discretion. 11. Due to VOLUNTARY status, if patient wishes to leave [facility], staff will contact [facility] Crisis Screener ([phone]) and On-Call Global Marketing Specialist ([phone]) as soon as possible. In the event of elopement, notify [facility] Police ([phone]). Patient is currently voluntarily at [facility] and seeking inpatient admission when a bed becomes available. [facility] Frontline Model Builder Display will continue seeking placement. Please contact the Business Development Executive Global Marketing Specialist ([phone]) and [facility] Model Builder Display ([phone]) for any needed changes in the Safety Plan. Safety plan has been provided to interdepartmental care team.
--- NOTE | 2021-04-11 11:23 | PDOC.CMDIS ---
- If Service Date Differs Date of service: 04/11/21 Time of Service: 11:23 LACE Index Scoring Tool - Questions: Length of Stay (in days): 2 Acuity (Admit via E.D.?): Yes E.D. Visits: 5 - Answers: Total Score: 9 Risk of Readmission: Low Risk Care Management Discharge Reason for Hospitalization: Major Depression, SI Discharge Plan: Ivan is being discharged to [facility] today. He is aware of the transfer and accepts the bed. He will transfer to [facility] via [facility] coordinated by CM. Patient/Family Education Needs: Discharge instructions, limitations and follow up plan of care. ask me three. Services Needed at Discharge: Transportation ([facility]'s Department, continuous pickling line pickler helper at 12pm) - MH Services (Omit if N/A) Current MH Services: Psychiatric Inp ([facility]) Referred to Internal [facility] (ED embedded) continuous pillowcase cutter?: Yes - Disposition Disposition: [facility]
== END 2021-04-11 12:02 | disposition short-term general hospital (02) ==
LOC: ER 21:34 → MS 22:10
PROVIDERS: Admitting Provider Family Medicine; Emergency Provider Physician Assistant; PCP Nurse Practitioner Family; Visit Provider Family Medicine
DX: F32.9 Major depressive disorder, single episode, unspecified (principal); R45.851 Suicidal ideations; Z20.822 Contact with and (suspected) exposure to COVID-19; F64.0 Transsexualism; Z23 Encounter for immunization; F41.9 Anxiety disorder, unspecified; F17.210 Nicotine dependence, cigarettes, uncomplicated; Z79.899 Other long term (current) drug therapy
CPT/HCPCS: 80053; 80307; 81025; 87635; 90686; 99285; 80320; 81003; 81015; 85025; 87086; 93005; 93010; 99217; 99219; 99222; G0378

== ENCOUNTER 2021-05-11 19:16 | Outpatient (REF) | payer MEDICARE, MEDICAID, SELFPAY ==
[2021-05-11 19:29] LABS: Calculated LDL 209 mg/dL (<100); Cholesterol 279 mg/dL (<200); HDL Cholesterol 46 mg/dL (40-60); Triglyceride 123 mg/dL (<150)
== END 2021-05-11 19:17 | disposition home or self-care (01) ==
LOC: LBN 19:16
PROVIDERS: PCP Nurse Practitioner Family; Visit Provider Family Medicine
DX: Z00.00 Encounter for general adult medical examination without abnormal findings (principal)
CPT/HCPCS: 80061; 83036

== ENCOUNTER 2021-05-12 14:19 | Outpatient (REF) | payer MEDICARE, MEDICAID, SELFPAY ==
[2021-05-14 14:03] LABS: COVID-19 RT-PCR UVMMC Result Negative (Negative)
== END 2021-05-12 14:20 | disposition home or self-care (01) ==
LOC: LBN 14:19
PROVIDERS: PCP Nurse Practitioner Family; Visit Provider Nurse Practitioner Family
DX: Z20.822 Contact with and (suspected) exposure to COVID-19 (principal); J06.9 Acute upper respiratory infection, unspecified
CPT/HCPCS: U0003

== ENCOUNTER 2021-09-22 20:47 | Emergency (ER) | payer MEDICARE, MEDICAID, SELFPAY ==
[2021-09-22 20:53] VITALS: BP 130/79; PULSE 82; RESP 18; TEMP 37.1; O2SAT 100
[2021-09-22] MEDS: Ondansetron 4 MG/2 ML VIAL IVP (21:31)
[2021-09-22 21:33] LABS: Abs Immature Grans 0.05 10^3/uL (0.0-0.06); Absolute Basophil Count 0.07 10^3/uL (0.0-0.2); Absolute Eosinophil Count 0.05 10^3/uL (0.0-0.7); Absolute Lymphocyte Count 2.27 10^3/uL (1.2-3.4); Absolute Monocyte Count 0.81 10^3/uL (0.1-0.8); Absolute Neutrophil Count 10.08 10^3/uL (1.2-6.7); Basophils % 0.5; Eosinophils % 0.4; HCT 44.5 % (36.0-46.0); Immature Grans % 0.4; MCH 28.9 pg (27.0-33.0); MCHC 33.7 % (32.0-36.0); MCV 85.7 fL (80-95); MPV 9.3 fL (8.0-11.0); Monocytes % 6.1; Neutrophils % 75.6; Platelet Count 322 10^3/uL (130-400); RBC 5.19 10^6/uL (3.93-5.22); RDW 11.9 % (11.7-14.6); RDW-SD 37.1 fL; WBC 13.33 10^3/uL (4.4-10.8)
--- NOTE | 2021-09-22 21:46 | ED.GENADUL_ITS ---
Discharge Plan Disposition Patient Disposition: HOME Condition: Improving Discharge Details Clinical Impression: Nausea & vomiting, Abdominal pain Primary Care Provider: Sudha Jacob ED Provider: Luis Adams Home Meds and New Rx's Prescriptions: New ondansetron 4 mg tablet,disintegrating 4 mg PO TID PRN3 Days Qty: 9 0RF Continued venlafaxine 150 mg capsule,extended release 24hr 150 mg PO DAILY 0RF prazosin 2 MG capsule 6 mg PO HS 0RF Label Comments: Pt now taking 3 cap at bedtime (6mg) gabapentin 100 mg capsule 200 mg PO TID 0RF Label Comments: Take 1 capsule by mouth once a day as needed testosterone 10 mg/0.5 gram /actuation Gel In Metered-Dose Pump 2 pump topical DAILY 0RF trazodone 50 mg tablet 50 mg PO .QHS 0RF Label Comments: Take 1 tablet at bedtime take one tablet at bedtime if needed for sleep famotidine 20 mg tablet 20 mg PO BID 0RF Label Comments: TAKE ONE TABLET BY MOUTH TWICE A DAY acetylcysteine [NAC] 600 mg capsule 1,200 mg PO BID 0RF Label Comments: Take 2 capsule by mouth twice a day as directed Discharge Instructions Instructions: Abdominal Pain (ED), Acute Nausea and Vomiting (ED) Additional Instructions: Zofran as directed. Clear liquid diet, advance as tolerated. Please watch for new or worsening symptoms and return to the ER for any concerns. Lastly, contact your primary care provider on Friday to discuss her ER visit need for outpatient reevaluation Medical Decision Making 20-year-old female presents for intermittent abdominal pain, nausea, vomiting, mild dysuria over the past 24 hours. Seen at the urgent care today, reports had a full pelvic exam with cultures, cultures pending. She also had a urine test but did not get the results, wonders if she has a UTI or if they did not call her with negative results. Otherwise feels well. Clinically she appears well, nontoxic, hemodynamically stable, abdomen soft, nontender, nonsurgical. Plan to obtain IV access, give IV Zofran, obtain routine screening laboratory values as well as a urinalysis. Patient comfortable with this plan and has no additional questions or concerns. Laboratory values reveal mild nonspecific leukocytosis of 13.33. Potassium of 3.2. Urinalysis 40 ketones, negative nitrate, negative leuk esterase, negative white cells. Abdomen is soft, nontender, no clear indication for emergent imaging. Overall replace potassium with 40 p.o. Will provide 1 L IV fluid. No obvious UTI. Vaginal cultures pending from urgent care earlier today. Denies any vaginal bleeding or discharge. Clinically patient appears well, nontoxic, hemodynamically stable. Reports improvement of symptoms with IV Zofran, remains hemodynamically stable. Plan is to treat symptoms and follow-up closely as an outpatient through her PCP or return to the ER for new or worsening symptoms. She is comfortable with plan and has no additional questions or concerns. Standard discharge and return precautions were provided. This documentation was generated using [employer] system, please disregard any oddities of phrase or misspellings. Medical Records Medical records reviewed: Yes I reviewed the patient's medical records. Lab Data Lab results reviewed: Yes I reviewed the patient's lab results. Labs: Laboratory Tests Range/Units 09/22/21 09/22/21 09/22/21 21:30 21:30 21:30 WBC (4.4-10.8) 10^3/uL 13.33 H RBC (3.93-5.22) 10^6/uL 5.19 Hgb (11.2-15.7) g/dL 15.0 Hct (36.0-46.0) % 44.5 MCV (80-95) fL 85.7 MCH (27.0-33.0) pg 28.9 MCHC (32.0-36.0) % 33.7 RDW (11.7-14.6) % 11.9 Plt Count (130-400) 10^3/uL 322 MPV (8.0-11.0) fL 9.3 Immature Gran % 0.4 Neutrophils % 75.6 Lymphocytes % 17.0 Monocytes % 6.1 Eosinophils % 0.4 Basophils % 0.5 Nucleated RBC % (0.0-0.3) % 0.0 Absolute Neutrophils (1.2-6.7) 10^3/uL 10.08 H Absolute Lymphocytes (1.2-3.4) 10^3/uL 2.27 Absolute Monocytes (0.1-0.8) 10^3/uL 0.81 H Absolute Eosinophils (0.0-0.7) 10^3/uL 0.05 Absolute Basophils (0.0-0.2) 10^3/uL 0.07 Sodium (136-145) mmol/L 140 Potassium (3.5-5.1) mmol/L 3.2 L Chloride (98-107) mmol/L 102 Carbon Dioxide (21.0-32.0) mmol/L 27.9 Anion Gap (3-11) mmol/L 10.1 BUN (7-18) mg/dL 8 Creatinine (0.55-1.02) mg/dL 0.8 Estimated GFR/1.73 m2 (mL/min/1.73m2) >= 60.00 Glucose (74-106) mg/dL 90 Calcium (8.5-10.1) mg/dL 9.7 Total Bilirubin (0.2-1.0) mg/dL 0.7 AST (15-37) U/L 15 ALT (14-59) U/L 23 Alkaline Phosphatase (46-116) U/L 99 Total Protein (6.4-8.2) g/dL 8.6 H Albumin (3.4-5.0) g/dL 4.6 Lipase (73-393) U/L 103 Urine Color (Yellow) Yellow Urine Clarity (Clear) Clear Urine pH (5-8) 6.5 Ur Specific Bowler (1.005-1.025) >= 1.030 H Urine Protein (Negative) mg/dL Negative Urine Ketones (Negative) mg/dL 40 H Urine Blood (Negative) Moderate H Urine Nitrite (Negative) Negative Urine Bilirubin (Negative) Negative Urine Urobilinogen (Up TO 0.2) EU/dL 0.2 Ur Leukocyte Esterase (Negative) Negative Urine RBC (0-2) HPF 3-5 H Urine WBC (0-5) HPF Negative Ur Epithelial Cells (Negative) HPF Rare Urine Crystals (Negative) HPF Negative Urine Bacteria (Negative) HPF Negative Urine Mucus (Negative) Trace Ur Culture Indicated? No Urine Glucose (Negative) mg/dL Negative HPI General Mode of arrival: ambulatory . Date/Time Provider Initiated Documentation: 09/22/21 20:58 . Limitations to Documentation: no limitations . Information obtained by: patient . History of Present Illness 20 year old F presents to the emergency department with the chief complaint of N/V, described as mild, with intensity rated at 2. Quality is described as aching (cramping), and is localized to the abdomen. Patient reports no radiation. Patient started experiencing this day(s) (1) and it has been intermittent. improves with No relieving factors improve symptom(s), No exacerbating factors reported . Patient notes nausea/vomiting and other (mild dysuria); denies chest pain, fever/chills and headaches. Patient did receive the following treatments prior to arrival, none Related Data Home Medications Medication Instructions Recorded Confirmed venlafaxine 150 mg 150 mg PO DAILY 05/28/18 04/09/21 capsule,extended release 24 hr acetylcysteine 600 mg capsule (NAC) 1,200 mg PO BID 07/25/20 04/09/21 famotidine 20 mg tablet 20 mg PO BID 07/25/20 04/09/21 gabapentin 100 mg capsule 200 mg PO TID 07/25/20 04/10/21 prazosin 2 mg capsule 6 mg PO HS 07/25/20 04/09/21 testosterone 2 pump TOPICAL DAILY 07/25/20 04/09/21 trazodone 50 mg tablet 50 mg PO .QHS 07/25/20 04/09/21 ondansetron 4 mg disintegrating 4 mg PO TID PRN 3 Days #9 tab 09/22/21 tablet Previous Rx's Medication Instructions Recorded ondansetron 4 mg disintegrating 4 mg PO TID PRN 3 Days #9 tab 09/22/21 tablet Allergies Allergy/AdvReac Type Severity Reaction Status Date / Time No Known Allergies Allergy Unverified 09/22/21 20:58 General Stated Complaint: Nausea/Vomit/Diar COLBY: 4 Review of Systems Constitutional Constitutional: Denies fever(s) and Denies weakness Cardiovascular Cardiovascular: Denies chest pain and Denies dyspnea Respiratory Respiratory: Denies cough and Denies dyspnea Gastrointestinal Gastrointestinal: Reports abdominal pain (mild), Denies constipation, Denies diarrhea, Reports nausea and Reports vomiting Genitourinary Genitourinary: Denies abnormal vaginal bleeding, Denies hematuria, Reports dysuria (mild), Denies pelvic pain and Denies vaginal discharge Musculoskeletal Musculoskeletal: Denies back pain and Denies myalgias Integumentary/Breasts Skin/Breast: Denies rash Neurologic Neurologic: Denies weakness PFSH All Active Problems (Updated 09/22/21 @ 22:30 by ALIZE Roberts) Nausea & vomiting (Acute) Abdominal pain (Acute) Suicidal ideation (Acute) Major depression (Chronic) Medical clearance for psychiatric admission (Acute) Major depression (Chronic) Discharge planning issues (Acute) Vaginal discharge (Acute) Suicide attempt (Acute) Pyuria (Acute) Depression with suicidal ideation (Chronic) Anxiety (Acute 05/01/15) Childhood onset emotional disorder (Acute 05/15/12) Dental caries (Acute 08/16/16) Depression (Chronic 05/01/15) Admit to [facility] 02/16 (fluoxetine overdose, cutting), repeat admission x 2 , [facility] [place] admission 05/18, [facility] 07/20, 01/17, [place] 01/17, 05/19 Eczema (Acute 08/27/11) Lactose intolerance (Acute 09/20/14) SUSPECTED Body mass index (BMI) of 5th to 84th percentile for age in childhood (Acute 10/04/14) Routine sports examination for healthy child or adolescent (Acute 03/31/12) Short stature disorder (Acute) endo eval 06/2004-followed by endo-growth hormone started 08/2012 Depression (Acute) Suicidal ideation (Acute) Intentional drug overdose (Acute) Medical History Anxiety Depression Eczema Surgical History No significant past surgical history Family History Mother Depression Father No problems noted. sibling Depression Grandparent Depression Social History Smoking/Tobacco Use Status: Current every day Tobacco Type: cigarettes Smoking risk assessment performed?: Yes Alcohol Intake: current Alcohol Intake frequency: holidays/special occasions only Drug use: Daily Substance use type: marijuana Adopted: No Do you feel safe at home: Yes Do you feel safe in your relationship?: Yes Exam Const General: cooperative, healthy appearing, comfortable and no acute distress Orientation: alert, awake and oriented x3 HENMT Head: normal to inspection, normocephalic and atraumatic Face and sinus: normal facial exam Mouth: moist mucous membranes Throat: posterior oropharynx normal Eyes General: appearance normal, both eyes and all related structures Conjunctivae: conjunctivae normal Neck Neck: normal visual inspection, full ROM, trachea midline and supple Resp Effort & Inspection: normal respiratory effort and able to speak in complete sentences Auscultation: clear to auscultation bilaterally Cardio Rate: regular rate Rhythm: regular rhythm GI Inspection: normal to inspection Palpation: soft, not firm, no guarding, no pulsatile masses and nontender Auscultation: normal bowel sounds Back/Spine/Pelvis Back: No back tenderness Skin General skin exam: no rashes or lesions noted Neuro General: patient alert, patient awake, moves all extremities and no focal motor deficits Cognition: normal cognition Speech: speech normal Gait: normal gait Sensory Exam: no sensory deficits noted Psych Appearance: grossly normal Mental Status: mental status grossly normal Course Vital Signs Vital signs: Vital Signs Temperature 37.1 C 09/22/21 20:53 Pulse 82 09/22/21 20:53 Respiratory Rate 18 09/22/21 20:53 Blood Pressure 130/79 09/22/21 20:53 Pulse Oximetry 100 09/22/21 20:53 Temperature 37.1 C 09/22/21 20:53 Temperature Source Oral 09/22/21 20:53 Pulse 82 09/22/21 20:53 Respiratory Rate 18 09/22/21 20:53 Respiratory Effort 09/22/21 20:56 Blood Pressure 130/79 09/22/21 20:53 Blood Pressure Position Sitting 09/22/21 20:53 Pulse Oximetry 100 09/22/21 20:53 Oxygen Delivery Method Room Air 09/22/21 20:53 Oxygen Flow Rate 0 09/22/21 20:53 Pain Level 6 09/22/21 20:53 Lab/Test Results Lab/Test Results: Laboratory Tests Range/Units 09/22/21 21:30 WBC (4.4-10.8) 10^3/uL 13.33 H RBC (3.93-5.22) 10^6/uL 5.19 Hgb (11.2-15.7) g/dL 15.0 Hct (36.0-46.0) % 44.5 MCV (80-95) fL 85.7 MCH (27.0-33.0) pg 28.9 MCHC (32.0-36.0) % 33.7 RDW (11.7-14.6) % 11.9 Plt Count (130-400) 10^3/uL 322 MPV (8.0-11.0) fL 9.3 Immature Gran % 0.4 Neutrophils % 75.6 Lymphocytes % 17.0 Monocytes % 6.1 Eosinophils % 0.4 Basophils % 0.5 Nucleated RBC % (0.0-0.3) % 0.0 Absolute Neutrophils (1.2-6.7) 10^3/uL 10.08 H Absolute Lymphocytes (1.2-3.4) 10^3/uL 2.27 Absolute Monocytes (0.1-0.8) 10^3/uL 0.81 H Absolute Eosinophils (0.0-0.7) 10^3/uL 0.05 Absolute Basophils (0.0-0.2) 10^3/uL 0.07 POC- Test(urine) Negative
[2021-09-22 21:47] LABS: ALT 23 U/L (14-59); AST 15 U/L (15-37); Albumin 4.6 g/dL (3.4-5.0); Alkaline Phosphatase 99 U/L (46-116); Anion Gap 10.1 mmol/L (3-11); BUN 8 mg/dL (7-18); Bilirubin, Total 0.7 mg/dL (0.2-1.0); CO2 27.9 mmol/L (21.0-32.0); CREATININE 0.8 mg/dL (0.55-1.02); Calcium 9.7 mg/dL (8.5-10.1); Chloride 102 mmol/L (98-107); Glucose 90 mg/dL (74-106); Lipase 103 U/L (73-393); Potassium 3.2 mmol/L (3.5-5.1); Sodium 140 mmol/L (136-145); Total Protein 8.6 g/dL (6.4-8.2)
[2021-09-22 21:50] LABS: Bilirubin Negative (Negative); Blood Moderate (Negative); Clarity Clear (Clear); Glucose Negative (Negative); Ketones 40 mg/dL (Negative); Leukocyte Esterase Negative (Negative); Nitrite Negative (Negative); Specific Gravity >= 1.030 (1.005-1.025); Urobilinogen 0.2 EU/dL (Up TO 0.2); pH 6.5 (5-8)
[2021-09-22] MEDS: Potassium Chloride 20 MEQ TABCR 40 MEQ PO (22:03)
[2021-09-22] MEDS: Normal Saline 1,000 ML 1000 ML IV (22:03)
[2021-09-22 22:16] LABS: Bacteria Negative HPF (Negative); C & S Indicated? No; Crystals Negative HPF (Negative); Epithelial Cells Rare HPF (Negative); Mucus Trace (Negative); WBC Negative HPF (0-5)
[2021-09-22] MEDS: Ondansetron O.D.T. 4 MG TABEF, 3 TABS/BTL PO (22:40)
== END 2021-09-22 22:41 | disposition home or self-care (01) ==
PROVIDERS: Emergency Provider Physician Assistant; PCP Nurse Practitioner Family
DX: R11.2 Nausea with vomiting, unspecified (principal); R10.9 Unspecified abdominal pain; E87.6 Hypokalemia
CPT/HCPCS: 36415; 80053; 81025; 83690; 96361; 96374; 99284; 81003; 81015; 85025; J2405

== ENCOUNTER 2021-09-22 23:07 | Outpatient (REF) | payer MEDICARE, MEDICAID, SELFPAY ==
--- NOTE | 2021-09-22 10:15 | PAPFT_PTH ---
PATIENT: Hellen Diaz LOC: [facility] U#:[id number] AGE/SX: 20/F ROOM: RE09/22/[address]: Suad Sanford : 2000 BED: DIS: 09/22/2021 SPEC #: [id number] RECD: 09/24/21 13:08 STATUS: ANGY REAmmon #: [id number] TE: 09/22/21 10:[address]: Suad Sanford DEPT: [facility] Cytology RECD BY: Elsa Newman ENTERED: 09/24/21 13:08 SP TYPE: PAPFT OTHR DR: Sudha Jacob Tissues: 1 - CX/ENDOCX FOR PAP SMEARS Procedures: PAP THIN PREP/[facility] Screening Comments: [id number] (CHLAMYDIA/GC)
[2021-09-25 15:04] LABS: Chlamydia Result Negative (Negative); GC Result Negative (Negative)
== END 2021-09-22 23:08 | disposition home or self-care (01) ==
LOC: LBN 23:07
PROVIDERS: PCP Nurse Practitioner Family; Visit Provider Physician Assistant Medical
DX: R30.9 Painful micturition, unspecified (principal); Z12.4 Encounter for screening for malignant neoplasm of cervix; Z11.3 Encounter for screening for infections with a predominantly sexual mode of transmission; N89.8 Other specified noninflammatory disorders of vagina; R87.610 Atypical squamous cells of undetermined significance on cytologic smear of cervix (ASC-US)
CPT/HCPCS: 87491; 87591; 88142; 87086; 87480; 87510; 87660

== ENCOUNTER 2021-09-23 16:37 | Emergency (ER) | payer MEDICARE, MEDICAID, SELFPAY ==
[2021-09-23 16:46] VITALS: BP 133/87; PULSE 76; RESP 18; TEMP 36.3; O2SAT 100
--- NOTE | 2021-09-23 17:47 | ED.GENADUL_ITS ---
Discharge Plan Disposition Patient Disposition: HOME Condition: Stable Discharge Details Clinical Impression: Laceration of labia majora, Vulvovaginal candidiasis, Dysmenorrhea Primary Care Provider: Sudha Jacob ED Provider: Elsa Holland Home Meds and New Rx's Prescriptions: New promethazine 25 mg tablet 25 mg PO TID PRNQty: 6 0RF phenazopyridine [Pyridium] 200 mg tablet 200 mg PO TID PRNQty: 4 0RF Continued venlafaxine 150 mg capsule,extended release 24hr 150 mg PO DAILY 0RF prazosin 2 MG capsule 6 mg PO HS 0RF Label Comments: Pt now taking 3 cap at bedtime (6mg) gabapentin 100 mg capsule 200 mg PO TID 0RF Label Comments: Take 1 capsule by mouth once a day as needed testosterone 10 mg/0.5 gram /actuation Gel In Metered-Dose Pump 2 pump topical DAILY 0RF Hold Instructions: not currently taking (x ~2 mos) trazodone 50 mg tablet 50 mg PO .QHS 0RF Label Comments: Take 1 tablet at bedtime take one tablet at bedtime if needed for sleep famotidine 20 mg tablet 20 mg PO BID 0RF Label Comments: TAKE ONE TABLET BY MOUTH TWICE A DAY acetylcysteine [NAC] 600 mg capsule 1,200 mg PO BID 0RF Label Comments: Take 2 capsule by mouth twice a day as directed ondansetron 4 mg tablet,disintegrating 4 mg PO TID PRN3 Days Qty: 9 0RF Discharge Instructions Additional Instructions: Take Phenergan as needed for nausea and vomiting Take Pyridium as needed for urinary symptoms, specifically burning with urination You received a dose of Diflucan to treat a yeast infection Follow-up with the [facility] TECHNICIAN doctor listed below and return earlier should you have new or worsening complaints Clear liquid diet as tolerated, followed by solids as tolerated tomorrow, bland diet recommended Referrals: Rosaline Auguste MD [ [facility] STAFF PHYSICIAN] - Sudha Jacob [Primary Care Provider] - Discharge Data Discharge Date/Time-TO BE ENTERED AT DEPARTURE: 09/23/21 19:31 Medical Decision Making Patient feels safe at home Alert and oriented Able to tolerate p.o. at time of discharge for Phenergan prescription for home Labs reassuring Given prescription for Diflucan to treat [place] [facility] chlamydia pending per patient but low risk for STD per patient Given prescription for Pyridium which helps with discomfort Reviewed urine culture which does not show evidence of urinary tract infection Blood in urine noted, this is likely menses related [employer]INEER[employer] TECHNICIAN referral Phenergan prescription for home Return precautions discussed and patient expressed understanding, discharged home in stable condition with stable vital HPI General Date/Time Provider Initiated Documentation: 09/23/21 16:40 . HPI Narrative: This 20-year-old female transitioning to male presents with report of dysuria, nausea, vomiting. States that he has been on testosterone for the past 3 years but has not had a menstrual period 4 days ago. He discontinued using testosterone 2 months ago reportedly. He denies any known chance of . He states he has been evaluated 3 times for this similar presentation. He had pelvic exam and swabs performed 2 days prior to arrival. He was evaluated in this emergency department yesterday and did take Zofran and was feeling sym ptomatically improved at time of discharge home. Secondary persistent vomiting for the course of today he presents for reassessment. He does smoke marijuana. He has not smoked for the past 3 days reportedly. She denies any abdominal tenderness or flank pain. No history of chest pain or shortness of breath. Denies any diarrhea. Denies any blood in vomitus. Does not drink alcohol on a regular basis. Actually active and monogamous with partner of several years reportedly. Denies risk sexually transmitted disease. Related Data Home Medications Medication Instructions Recorded Confirmed venlafaxine 150 mg 150 mg PO DAILY 05/28/18 09/23/21 capsule,extended release 24 hr acetylcysteine 600 mg capsule (NAC) 1,200 mg PO BID 07/25/20 09/23/21 famotidine 20 mg tablet 20 mg PO BID 07/25/20 09/23/21 gabapentin 100 mg capsule 200 mg PO TID 07/25/20 09/23/21 prazosin 2 mg capsule 6 mg PO HS 07/25/20 09/23/21 testosterone 2 pump TOPICAL DAILY 07/25/20 04/09/21 trazodone 50 mg tablet 50 mg PO .QHS 07/25/20 09/23/21 ondansetron 4 mg disintegrating 4 mg PO TID PRN 3 Days #9 tab 09/22/21 09/23/21 tablet phenazopyridine 200 mg tablet 200 mg PO TID PRN #4 tab 09/23/21 (Pyridium) promethazine 25 mg tablet 25 mg PO TID PRN #6 tab 09/23/21 Previous Rx's Medication Instructions Recorded ondansetron 4 mg disintegrating 4 mg PO TID PRN 3 Days #9 tab 09/22/21 tablet phenazopyridine 200 mg tablet 200 mg PO TID PRN #4 tab 09/23/21 (Pyridium) promethazine 25 mg tablet 25 mg PO TID PRN #6 tab 09/23/21 Allergies Allergy/AdvReac Type Severity Reaction Status Date / Time No Known Allergies Allergy Unverified 09/22/21 20:58 General Stated Complaint: Urinary COLBY: 3 Review of Systems All systems reviewed & are unremarkable except as noted in HPI and below PFSH All Active Problems (Updated 09/23/21 @ 19:18 by ALIZE Calloway) Nausea & vomiting (Acute) Abdominal pain (Acute) Laceration of labia majora (Acute) Vulvovaginal candidiasis (Acute) Dysmenorrhea (Acute) Suicidal ideation (Acute) Major depression (Chronic) Medical clearance for psychiatric admission (Acute) Major depression (Chronic) Discharge planning issues (Acute) Vaginal discharge (Acute) Suicide attempt (Acute) Pyuria (Acute) Depression with suicidal ideation (Chronic) Anxiety (Acute 05/01/15) Childhood onset emotional disorder (Acute 05/15/12) Dental caries (Acute 08/16/16) Depression (Chronic 05/01/15) Admit to [facility] 02/16 (fluoxetine overdose, cutting), repeat admission x 2 , [facility] admission 05/18, [facility] 07/20, 01/17, [place] 01/17, 05/19 Eczema (Acute 08/27/11) Lactose intolerance (Acute 09/20/14) SUSPECTED Body mass index (BMI) of 5th to 84th percentile for age in childhood (Acute 10/04/14) Routine sports examination for healthy child or adolescent (Acute 03/31/12) Short stature disorder (Acute) endo eval 06/2004-followed by endo-growth hormone started 08/2012 Depression (Acute) Suicidal ideation (Acute) Intentional drug overdose (Acute) Medical History Anxiety Depression Eczema Surgical History No significant past surgical history Family History Mother Depression Father No problems noted. sibling Depression Grandparent Depression Social History Smoking/Tobacco Use Status: Current every day Tobacco Type: cigarettes Smoking risk assessment performed?: Yes Alcohol Intake: current Alcohol Intake frequency: holidays/special occasions only Drug use: Daily Substance use type: marijuana Adopted: No Do you feel safe at home: Yes Do you feel safe in your relationship?: Yes Exam Const General: cooperative, comfortable and no acute distress Orientation: alert and oriented x3 HENMT Mouth: oral mucosae normal Eyes Sclera: sclerae normal Pupils: PERRL Resp Effort & Inspection: normal respiratory effort Cardio Rate: regular rate GI Inspection: normal to inspection Other: no abdominal tenderness Female genitals images: 1. 3 mm laceration noted labia majora Course Vital Signs Vital signs: Vital Signs Temperature 36.3 C L 09/23/21 16:46 Pulse 76 09/23/21 16:46 Respiratory Rate 18 09/23/21 16:46 Blood Pressure 133/87 09/23/21 16:46 Pulse Oximetry 100 09/23/21 16:46 Temperature 36.3 C L 09/23/21 16:46 Temperature Source Temporal Artery Scan 09/23/21 16:46 Pulse 76 09/23/21 16:46 Respiratory Rate 18 09/23/21 16:46 Respiratory Effort 09/23/21 17:01 Blood Pressure 133/87 09/23/21 16:46 Blood Pressure Position Sitting 09/23/21 16:46 Pulse Oximetry 100 09/23/21 16:46 Oxygen Delivery Method Room Air 09/23/21 16:46 Oxygen Flow Rate 0 09/23/21 16:46 Pain Level 7 09/23/21 16:46 PAWSS Have you Been Recently Intoxicated or Drunk Within the Last 30 days?: No Have you Ever Experienced Previous Episodes of Alcohol Withdrawal?: No Have you ever Experienced Withdrawal Seizures?: No Have you ever Experienced Delirium Tremens(DT)s?: No Have you ever undergone Alcohol Rehabilitation Treatment (i.e, inpt ot outpatient treatment programs)?: No Have you ever Experienced Blackouts?: No Have you ever Combined Alcohol with other Downers within the last 90 days?: No Have you ever Combined Alcohol with any other Substance of Abuse during the last 90 days?: No Positive Blood Alcohol level on Presentation? [PCS.BAL]: Unable to Obtain Evidence of Increased Autonomic Activity (i.e. HR>120, tremor, sweating, agitation, nausea)?: Yes Result: 1
[2021-09-23] MEDS: Lactated Ringers 1,000 ML 1000 ML IV (18:02)
[2021-09-23] MEDS: Phenazopyridine 200 MG TAB PO (18:03)
[2021-09-23 18:06] LABS: Abs Immature Grans 0.03 10^3/uL (0.0-0.06); Absolute Basophil Count 0.07 10^3/uL (0.0-0.2); Absolute Monocyte Count 0.78 10^3/uL (0.1-0.8); Basophils % 0.6; Eosinophils % 0.3; HCT 43.5 % (36.0-46.0); HGB 14.9 g/dL (11.2-15.7); Immature Grans % 0.3; Lymphocytes % 14.1; MCH 29.4 pg (27.0-33.0); MCHC 34.3 % (32.0-36.0); MPV 9.3 fL (8.0-11.0); Monocytes % 6.8; Neutrophils % 77.9; Platelet Count 326 10^3/uL (130-400); RBC 5.06 10^6/uL (3.93-5.22); RDW 11.9 % (11.7-14.6); RDW-SD 37.3 fL; WBC 11.53 10^3/uL (4.4-10.8)
[2021-09-23 18:11] LABS: Absolute Eosinophil Count 0.03 10^3/uL (0.0-0.7); Absolute Lymphocyte Count 1.63 10^3/uL (1.2-3.4); Absolute Neutrophil Count 8.98 10^3/uL (1.2-6.7)
[2021-09-23 18:16] LABS: Anion Gap 10.1 mmol/L (3-11); BUN 8 mg/dL (7-18); CO2 27.9 mmol/L (21.0-32.0); CREATININE 0.8 mg/dL (0.55-1.02); Calcium 9.6 mg/dL (8.5-10.1); Chloride 103 mmol/L (98-107); Glucose 84 mg/dL (74-106); Magnesium 2.1 mg/dL (1.8-2.4); Potassium 3.8 mmol/L (3.5-5.1); Sodium 141 mmol/L (136-145)
[2021-09-23 18:51] LABS: HCG Qual (Serum) Negative
== END 2021-09-23 19:31 | disposition home or self-care (01) ==
PROVIDERS: Emergency Provider Physician Assistant; PCP Nurse Practitioner Family
DX: S31.41XA Laceration without foreign body of vagina and vulva, initial encounter (principal); X58.XXXA Exposure to other specified factors, initial encounter; B37.3 Candidiasis of vulva and vagina; N94.6 Dysmenorrhea, unspecified
CPT/HCPCS: 36415; 80048; 96361; 96365; 99284; 83735; 84703; 85025; 99283

== ENCOUNTER 2021-12-12 19:54 | Inpatient (IN) | payer MEDICARE, MEDICAID, SELFPAY ==
[2021-12-12 20:18] VITALS: BP 125/86; PULSE 106; RESP 20; TEMP 35.9; O2SAT 100
--- NOTE | 2021-12-12 21:46 | ED.GENADUL_ITS ---
Discharge Plan Disposition Patient Disposition: STILL A PATIENT Condition: Stable Discharge Details Clinical Impression: Depression with suicidal ideation Primary Care Provider: Sudha Jacob ED Provider: Luis Adams Home Meds and New Rx's Prescriptions: No Action venlafaxine 150 mg capsule,extended release 24hr 150 mg PO DAILY prazosin 2 MG capsule 6 mg PO HS Label Comments: Pt now taking 3 cap at bedtime (6mg) gabapentin 100 mg capsule 200 mg PO TID Label Comments: Take 1 capsule by mouth once a day as needed testosterone 10 mg/0.5 gram /actuation Gel In Metered-Dose Pump 2 pump topical DAILY Hold Instructions: not currently taking (x ~2 mos) trazodone 50 mg tablet 50 mg PO .QHS Label Comments: Take 1 tablet at bedtime take one tablet at bedtime if needed for sleep famotidine 20 mg tablet 20 mg PO BID Label Comments: TAKE ONE TABLET BY MOUTH TWICE A DAY acetylcysteine [NAC] 600 mg capsule 1,200 mg PO BID Label Comments: Take 2 capsule by mouth twice a day as directed promethazine 25 mg tablet 25 mg PO TID PRNQty: 6 0RF phenazopyridine [Pyridium] 200 mg tablet 200 mg PO TID PRNQty: 4 0RF Medical Decision Making 21-year-old female presents for worsening depression and SI, noncompliant for the past 1-2 months with any of her medications, requesting psychiatric hospitalization. Denies any self-harm. Will obtain routine screening laboratory values, initiate a care plan, CPSO, and requesting mental health evaluation. At this time patient has been noncompliant with any of her medications over the past 1-2 months and therefore will not reinstate them emergently. Laboratory values that I have back thus far are unremarkable for any obvious emergent process and we are awaiting the mental health evaluation. Patient has been calm and cooperative thus far. Medical Records Medical records reviewed: Yes I reviewed the patient's medical records. Lab Data Lab results reviewed: Yes I reviewed the patient's lab results. Labs: 12/12/21 21:50 Urine - Reflex from Ua Urine Culture - Pending Laboratory Tests Range/Units 12/12/21 12/12/21 12/12/21 21:50 21:50 21:50 WBC (4.4-10.8) 10^3/uL 9.99 RBC (3.93-5.22) 10^6/uL 5.55 H Hgb (11.2-15.7) g/dL 16.5 H Hct (36.0-46.0) % 47.1 H MCV (80-95) fL 85 MCH (27.0-33.0) pg 29.7 MCHC (32.0-36.0) % 35.0 RDW (11.7-14.6) % 11.9 Plt Count (130-400) 10^3/uL 287 MPV (8.0-11.0) fL 10.0 Immature Gran % 0.3 Neutrophils % 73.9 Lymphocytes % 17.5 Monocytes % 6.2 Eosinophils % 1.1 Basophils % 1.0 Nucleated RBC % (0.0-0.3) % 0.0 Absolute Neutrophils (1.2-6.7) 10^3/uL 7.38 H Absolute Lymphocytes (1.2-3.4) 10^3/uL 1.75 Absolute Monocytes (0.1-0.8) 10^3/uL 0.62 Absolute Eosinophils (0.0-0.7) 10^3/uL 0.11 Absolute Basophils (0.0-0.2) 10^3/uL 0.10 Sodium (136-145) mmol/L 140 Potassium (3.5-5.1) mmol/L 3.9 Chloride (98-107) mmol/L 104 Carbon Dioxide (21.0-32.0) mmol/L 26.3 Anion Gap (3-11) mmol/L 9.7 BUN (7-18) mg/dL 15 Creatinine (0.55-1.02) mg/dL 0.9 Estimated GFR/1.73 m2 (mL/min/1.73m2) >= 60.00 Glucose (74-106) mg/dL 86 Calcium (8.5-10.1) mg/dL 9.5 Total Bilirubin (0.2-1.0) mg/dL 0.6 AST (15-37) U/L 15 ALT (14-59) U/L 22 Alkaline Phosphatase (46-116) U/L 75 Total Protein (6.4-8.2) g/dL 7.8 Albumin (3.4-5.0) g/dL 4.2 TSH (0.36-3.74) uIU/mL 0.90 Urine Color (Yellow) Urine Clarity (Clear) Urine pH (5-8) Ur Specific [place] (1.005-1.025) Urine Protein (Negative) mg/dL Urine Ketones (Negative) mg/dL Urine Blood (Negative) Urine Nitrite (Negative) Urine Bilirubin (Negative) Urine Urobilinogen (Up TO 0.2) EU/dL Ur Leukocyte Esterase (Negative) Urine RBC (0-2) HPF Urine WBC (0-5) HPF Ur Epithelial Cells (Negative) HPF Urine Crystals (Negative) HPF Urine Bacteria (Negative) HPF Urine Mucus (Negative) Ur Culture Indicated? Urine Glucose (Negative) mg/dL Urine Opiates Screen (Negative) Negative Urine Methadone Screen (Negative) Negative Ur Barbiturates Screen (Negative) Negative Ur Tricyclics Screen (Negative) Negative Ur Amphetamines Screen (Negative) Negative U Benzodiazepines Scrn (Negative) Negative Urine Cocaine Screen (Negative) Negative Ur THC Screen (Negative) Positive A COVID-19 Source Range/Units 12/12/21 12/12/21 21:50 21:55 WBC (4.4-10.8) 10^3/uL RBC (3.93-5.22) 10^6/uL Hgb (11.2-15.7) g/dL Hct (36.0-46.0) % MCV (80-95) fL MCH (27.0-33.0) pg MCHC (32.0-36.0) % RDW (11.7-14.6) % Plt Count (130-400) 10^3/uL MPV (8.0-11.0) fL Immature Gran % Neutrophils % Lymphocytes % Monocytes % Eosinophils % Basophils % Nucleated RBC % (0.0-0.3) % Absolute Neutrophils (1.2-6.7) 10^3/uL Absolute Lymphocytes (1.2-3.4) 10^3/uL Absolute Monocytes (0.1-0.8) 10^3/uL Absolute Eosinophils (0.0-0.7) 10^3/uL Absolute Basophils (0.0-0.2) 10^3/uL Sodium (136-145) mmol/L Potassium (3.5-5.1) mmol/L Chloride (98-107) mmol/L Carbon Dioxide (21.0-32.0) mmol/L Anion Gap (3-11) mmol/L BUN (7-18) mg/dL Creatinine (0.55-1.02) mg/dL Estimated GFR/1.73 m2 (mL/min/1.73m2) Glucose (74-106) mg/dL Calcium (8.5-10.1) mg/dL Total Bilirubin (0.2-1.0) mg/dL AST (15-37) U/L ALT (14-59) U/L Alkaline Phosphatase (46-116) U/L Total Protein (6.4-8.2) g/dL Albumin (3.4-5.0) g/dL TSH (0.36-3.74) uIU/mL Urine Color (Yellow) Yellow Urine Clarity (Clear) Clear Urine pH (5-8) 7.5 Ur Specific [place] (1.005-1.025) 1.025 Urine Protein (Negative) mg/dL Negative Urine Ketones (Negative) mg/dL Negative Urine Blood (Negative) Negative Urine Nitrite (Negative) Negative Urine Bilirubin (Negative) Negative Urine Urobilinogen (Up TO 0.2) EU/dL 0.2 Ur Leukocyte Esterase (Negative) Trace H Urine RBC (0-2) HPF 0-2 Urine WBC (0-5) HPF 3-5 Ur Epithelial Cells (Negative) HPF Negative Urine Crystals (Negative) HPF Negative Urine Bacteria (Negative) HPF Negative Urine Mucus (Negative) Moderate Ur Culture Indicated? Yes Urine Glucose (Negative) mg/dL Negative Urine Opiates Screen (Negative) Urine Methadone Screen (Negative) Ur Barbiturates Screen (Negative) Ur Tricyclics Screen (Negative) Ur Amphetamines Screen (Negative) U Benzodiazepines Scrn (Negative) Urine Cocaine Screen (Negative) Ur THC Screen (Negative) COVID-19 Source Nasal/Nares HPI General Mode of arrival: ambulatory . Date/Time Provider Initiated Documentation: 12/12/21 20:33 . Limitations to Documentation: no limitations . Information obtained by: patient . HPI Narrative: This is a 21-year-old female, past medical history of anxiety, depression, requesting hospitalization for worsening depression and SI over the past week after finding out her grandfather is very ill. She states that she has not been taking any of her medications for at least 1-2 months. She denies any attempt today to harm herself but her plan of self-harm would be overdosing on her medications. She admits to smoking but denies any alcohol or drug use. Denies recent illness or trauma. At this time has no additional questions or concerns. Related Data Home Medications Medication Instructions Recorded Confirmed venlafaxine 150 mg 150 mg PO DAILY 05/28/18 12/12/21 capsule,extended release 24 hr acetylcysteine 600 mg capsule (NAC) 1,200 mg PO BID 07/25/20 12/12/21 famotidine 20 mg tablet 20 mg PO BID 07/25/20 12/12/21 gabapentin 100 mg capsule 200 mg PO TID 07/25/20 12/12/21 prazosin 2 mg capsule 6 mg PO HS 07/25/20 12/12/21 testosterone 10 mg/0.5 2 pump topical DAILY 07/25/20 12/12/21 gram/actuation transdermal gel pump trazodone 50 mg tablet 50 mg PO .QHS 07/25/20 12/12/21 phenazopyridine 200 mg tablet 200 mg PO TID PRN 6 doses #4 tabs 09/23/21 (Pyridium) promethazine 25 mg tablet 25 mg PO TID PRN #6 tabs 09/23/21 12/12/21 Previous Rx's Medication Instructions Recorded phenazopyridine 200 mg tablet 200 mg PO TID PRN 6 doses #4 tabs 09/23/21 (Pyridium) promethazine 25 mg tablet 25 mg PO TID PRN #6 tabs 09/23/21 Allergies Allergy/AdvReac Type Severity Reaction Status Date / Time No Known Allergies Allergy Unverified 09/22/21 20:58 General Stated Complaint: Suicide-Atempt COLBY: 2 Review of Systems Constitutional Constitutional: Denies fever(s) and Denies weakness Cardiovascular Cardiovascular: Denies chest pain and Denies dyspnea Respiratory Respiratory: Denies cough and Denies dyspnea Gastrointestinal Gastrointestinal: Denies abdominal pain, Denies nausea and Denies vomiting Genitourinary Genitourinary: Denies dysuria Musculoskeletal Musculoskeletal: Denies back pain Integumentary/Breasts Skin/Breast: Denies rash Neurologic Neurologic: Denies weakness Psychiatric Psychiatric: Reports anxiety, Reports depression, Denies homicidal ideation and Reports suicidal ideation Hematologic/Lymphatic Hematologic/Lymphatic: Denies easy bleeding and Denies easy bruising PFSH All Active Problems (Updated 12/12/21 @ 22:53 by ALIZE Roberts) Suicidal ideation (Acute) Major depression (Chronic) Medical clearance for psychiatric admission (Acute) Major depression (Chronic) Discharge planning issues (Acute) Vaginal discharge (Acute) Suicide attempt (Acute) Pyuria (Acute) Depression with suicidal ideation (Chronic) Anxiety (Acute 05/01/15) Childhood onset emotional disorder (Acute 05/15/12) Dental caries (Acute 08/16/16) Depression (Chronic 05/01/15) Admit to [facility] 02/16 (fluoxetine overdose, cutting), repeat admission x 2 , [facility] admission 05/18, [facility] 07/20, 01/17, [facility] 01/17, 05/19 Eczema (Acute 08/27/11) Lactose intolerance (Acute 09/20/14) SUSPECTED Body mass index (BMI) of 5th to 84th percentile for age in childhood (Acute 10/04/14) Routine sports examination for healthy child or adolescent (Acute 03/31/12) Short stature disorder (Acute) endo eval 06/2004-followed by endo-growth hormone started 08/2012 Depression (Acute) Suicidal ideation (Acute) Intentional drug overdose (Acute) Medical History Anxiety Depression Eczema Surgical History No significant past surgical history Family History Mother Depression Father No problems noted. sibling Depression Grandparent Depression Social History Smoking/Tobacco Use Status: Current every day Tobacco Type: cigarettes Smoking risk assessment performed?: Yes Alcohol Intake: current Alcohol Intake frequency: holidays/special occasions only Drug use: Daily Substance use type: marijuana Adopted: No Do you feel safe at home: Yes Do you feel safe in your relationship?: Yes Exam Const General: cooperative, healthy appearing, comfortable and no acute distress Orientation: alert, awake and oriented x3 HENMT Head: normal to inspection, normocephalic and atraumatic Face and sinus: normal facial exam Mouth: moist mucous membranes Eyes General: appearance normal, both eyes and all related structures Conjunctivae: conjunctivae normal Neck Neck: normal visual inspection, full ROM, no meningeal signs, trachea midline, supple and nontender Resp Effort & Inspection: normal respiratory effort and able to speak in complete sentences Auscultation: clear to auscultation bilaterally Cardio Rate: regular rate Rhythm: regular rhythm GI Palpation: soft and nontender Back/Spine/Pelvis Back: No back tenderness Skin General skin exam: no rashes or lesions noted Neuro General: patient alert, patient awake, patient oriented x3, moves all extremities and no focal motor deficits Cognition: normal cognition Speech: speech normal Gait: normal gait Motor: muscle tone normal throughout Sensory Exam: no sensory deficits noted Extrem General: normal to inspection, full ROM and capillary refill normal Psych Appearance: grossly normal Mental Status: mental status grossly normal Speech and Movement: speech and movement normal Mood: dysthymic mood Affect: sad Attitude: cooperative Thought Process: normal Thought Content: suicidality Insight: fair Judgment: fair Course Vital Signs Vital signs: Vital Signs Temperature 35.9 C L 12/12/21 20:18 Pulse 106 H 12/12/21 20:18 Respiratory Rate 20 12/12/21 20:18 Blood Pressure 125/86 12/12/21 20:18 Pulse Oximetry 100 12/12/21 20:18 Temperature 35.9 C L 12/12/21 20:18 Temperature Source Skin 12/12/21 20:18 Pulse 106 H 12/12/21 20:18 Respiratory Rate 20 12/12/21 20:18 Blood Pressure 125/86 12/12/21 20:18 Pulse Oximetry 100 12/12/21 20:18 Oxygen Delivery Method Room Air 12/12/21 20:18 Oxygen Flow Rate 0 12/12/21 20:18 Pain Level 0 12/12/21 20:18
[2021-12-12 22:07] LABS: Source Nasal/Nares
[2021-12-12 22:09] LABS: Abs Immature Grans 0.03 10^3/uL (0.0-0.06); Absolute Eosinophil Count 0.11 10^3/uL (0.0-0.7); Absolute Lymphocyte Count 1.75 10^3/uL (1.2-3.4); Absolute Monocyte Count 0.62 10^3/uL (0.1-0.8); Absolute Neutrophil Count 7.38 10^3/uL (1.2-6.7); Eosinophils % 1.1; HCT 47.1 % (36.0-46.0); HGB 16.5 g/dL (11.2-15.7); Immature Grans % 0.3; Lymphocytes % 17.5; MCH 29.7 pg (27.0-33.0); MCV 85 fL (80-95); Monocytes % 6.2; Neutrophils % 73.9; Platelet Count 287 10^3/uL (130-400); RBC 5.55 10^6/uL (3.93-5.22); RDW 11.9 % (11.7-14.6); RDW-SD 36.5 fL; WBC 9.99 10^3/uL (4.4-10.8)
[2021-12-12 22:16] LABS: Bilirubin Negative (Negative); Blood Negative (Negative); Clarity Clear (Clear); Glucose Negative (Negative); Ketones Negative (Negative); Leukocyte Esterase Trace (Negative); Nitrite Negative (Negative); Specific Gravity 1.025 (1.005-1.025); Urobilinogen 0.2 EU/dL (Up TO 0.2); pH 7.5 (5-8)
[2021-12-12 22:28] LABS: Bacteria Negative HPF (Negative); C & S Indicated? Yes; Crystals Negative HPF (Negative); Epithelial Cells Negative HPF (Negative); Mucus Moderate (Negative); RBC 0-2 HPF (0-2)
[2021-12-12 22:35] LABS: ALT 22 U/L (14-59); AST 15 U/L (15-37); Albumin 4.2 g/dL (3.4-5.0); Alkaline Phosphatase 75 U/L (46-116); Anion Gap 9.7 mmol/L (3-11); BUN 15 mg/dL (7-18); Bilirubin, Total 0.6 mg/dL (0.2-1.0); CO2 26.3 mmol/L (21.0-32.0); CREATININE 0.9 mg/dL (0.55-1.02); Calcium 9.5 mg/dL (8.5-10.1); Chloride 104 mmol/L (98-107); Glucose 86 mg/dL (74-106); Potassium 3.9 mmol/L (3.5-5.1); Sodium 140 mmol/L (136-145); Total Protein 7.8 g/dL (6.4-8.2)
[2021-12-12 22:47] LABS: *AMPHETAMINES SCREEN URINE Negative (Negative); *BARBITURATES SCREEN URINE Negative (Negative); *BENZODIAZEPINES SCREEN URINE Negative (Negative); Cannabinoids THC Positive (Negative); Cocaine Screen,Urine Negative (Negative); METHADONE URINE SCREEN Negative (Negative); OPIATES URINE SCREEN Negative (Negative)
[2021-12-12 22:51] LABS: Tricyclic Antidepressants Negative (Negative)
[2021-12-12 22:54] LABS: ETHANOL BLOOD < 3.0 mg/dL (<10)
[2021-12-12 22:58] LABS: COVID-19 PCR Negative (Negative)
[2021-12-12 23:05] LABS: Acetaminophen < 2 ug/mL (10-30); Salicylate 3.5 mg/dL (<2.8)
[2021-12-13 00:12] VITALS: BP 146/89; PULSE 88; RESP 20; TEMP 36.9; O2SAT 100
[2021-12-13 00:57] VITALS: BP 122/85; PULSE 87; RESP 18; TEMP 36.2; O2SAT 98
--- NOTE | 2021-12-13 03:27 | PDOC.MHCN ---
Date of service: 12/12/21 Time of Service: 22:40 Mental Health Crisis Note Presenting Issue How did you arrive at the ED and why did you come: Client presented to [facility] ED with SI Intent & Plan and NSSIB Precipitating Factors Client Endorsing SI, and NSSIB by cutting thighs Disposition BEHAVIOR: Depressed EYE CONTACT: Great MOOD: Sad AFFECT: Congruent with Mood APPETITE: Normal SLEEP(trouble falling/staying asleep: Client states they have trouble sleeping at night Plan Client will remain at [facility] and await for inpatient Voluntary Hospitalization. [facility], [facility]- Referrals Faxed Signature Clinician's Name/Title: Mini Serra [facility] Enhanced Crisis Receiving Inspector
--- NOTE | 2021-12-13 05:09 | HPE_ITS ---
Date of service: 12/13/21 Time of Service: 05:10 Assessment and Plan Assessment and plan (1) Suicidal ideation: Status: Acute Assessment and plan: No specific plan endorsed. Voluntary admission. Cont current psychiatric medications. Mental health evaluation and discussion of inpatient vs community-based tx. (2) Major depression: Status: Chronic Assessment and plan: As above. (3) 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 therapy: Status: Acute Assessment and plan: Cont testosterone treatment. History of Present Illness History of Present Illness Chief Complaint: Depression with suicidal ideations. Narrative: This is a 21 yo transgender male with a PMH of depression with SI, suicide attempt, anxiety. He presented to the ED for a voluntary admission d/t worse marni depression and SI. He did endorse medication noncompliance for the last 1- 2 months. ED evaluation was unremarkable. UDS was negative other than for THC. Denies recent self-harm. Mental health crisis plan established. Pt endorses desire for inpatient treatment (mentions [facility] or [facility]). Review of Systems All systems reviewed & are unremarkable except as noted in HPI and below PFSH All Active Problems (Updated 12/13/21 @ 05:28 by Tobias Duff MD) 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 therapy (Acute) Suicidal ideation (Acute) Major depression (Chronic) Medical clearance for psychiatric admission (Acute) Major depression (Chronic) Discharge planning issues (Acute) Vaginal discharge (Acute) Suicide attempt (Acute) Pyuria (Acute) Depression with suicidal ideation (Chronic) Anxiety (Acute 05/01/15) Childhood onset emotional disorder (Acute 05/15/12) Dental caries (Acute 08/16/16) Depression (Chronic 05/01/15) [facility] ([facility] overdose, cutting), repeat admission x 2 , [facility] [place] 05/18, [facility] 07/20, 01/17, [facility] 01/17, 05/19 Eczema (Acute 08/27/11) Lactose intolerance (Acute 09/20/14) SUSPECTED Body mass index (BMI) of 5th to 84th percentile for age in childhood (Acute 10/04/14) Routine sports examination for healthy child or adolescent (Acute 03/31/12) Short stature disorder (Acute) endo eval 06/2004-followed by endo-growth hormone started 08/2012 Depression (Acute) Suicidal ideation (Acute) Intentional drug overdose (Acute) Medical History Anxiety Depression Eczema Surgical History No significant past surgical history Family History Mother Depression Father No problems noted. sibling Depression Grandparent Depression Social History Smoking/Tobacco Use Status: Current every day Tobacco Type: cigarettes Smoking risk assessment performed?: Yes Alcohol Intake: current Alcohol Intake frequency: holidays/special occasions only Drug use: Daily Substance use type: marijuana Adopted: No Do you feel safe at home: Yes Do you feel safe in your relationship?: Yes Meds Allergies and Home Medications Allergies Allergy/AdvReac Type Severity Reaction Status Date / Time No Known Allergies Allergy Unverified 09/22/21 20:58 Home Medications Medication Instructions Recorded Confirmed Type venlafaxine 150 mg 150 mg PO DAILY 05/28/18 12/12/21 History capsule,extended release 24 hr acetylcysteine 600 mg capsule (NAC) 1,200 mg PO BID 07/25/20 12/12/21 History famotidine 20 mg tablet 20 mg PO BID 07/25/20 12/12/21 History gabapentin 100 mg capsule 200 mg PO TID 07/25/20 12/12/21 History prazosin 2 mg capsule 6 mg PO HS 07/25/20 12/12/21 History testosterone 10 mg/0.5 2 pump topical DAILY 07/25/20 12/12/21 History gram/actuation transdermal gel pump trazodone 50 mg tablet 50 mg PO .QHS 07/25/20 12/12/21 History phenazopyridine 200 mg tablet 200 mg PO TID PRN 6 doses #4 tabs 09/23/21 Rx (Pyridium) promethazine 25 mg tablet 25 mg PO TID PRN #6 tabs 09/23/21 12/12/21 Rx Exam Narrative Exam Narrative: Lying in bed. Wakens readily to verbal commands Const General: cooperative and no acute distress Nutritional Appearance: overweight Orientation: oriented x3 Resp Effort & Inspection: normal respiratory effort Auscultation: clear to auscultation bilaterally Cardio Rate: regular rate Rhythm: regular rhythm Heart Sounds: S1 normal and S2 normal GI Palpation: soft and nontender Extrem General: no pedal edema and no calf tenderness Psych Appearance: grossly normal Speech and Movement: speech clear Affect: sad Results Labs Result diagrams: 12/12/21 21:50 12/12/21 21:50 Labs: Laboratory Results - last 24 hr 12/12/21 12/12/21 12/12/21 21:50 21:50 21:50 WBC 9.99 RBC 5.55 H Hgb 16.5 H Hct 47.1 H MCV 85 MCH 29.7 MCHC 35.0 RDW 11.9 Plt Count 287 MPV 10.0 Immature Gran % 0.3 Neutrophils % 73.9 Lymphocytes % 17.5 Monocytes % 6.2 Eosinophils % 1.1 Basophils % 1.0 Nucleated RBC % 0.0 Absolute Neutrophils 7.38 H Absolute Lymphocytes 1.75 Absolute Monocytes 0.62 Absolute Eosinophils 0.11 Absolute Basophils 0.10 Sodium 140 Potassium 3.9 Chloride 104 Carbon Dioxide 26.3 Anion Gap 9.7 BUN 15 Creatinine 0.9 Estimated GFR/1.73 m2 >= 60.00 Glucose 86 Calcium 9.5 Total Bilirubin 0.6 AST 15 ALT 22 Alkaline Phosphatase 75 Total Protein 7.8 Albumin 4.2 TSH 0.90 Urine Color Urine Clarity Urine pH Ur Specific [place] Urine Protein Urine Ketones Urine Blood Urine Nitrite Urine Bilirubin Urine Urobilinogen Ur Leukocyte Esterase Urine RBC Urine WBC Ur Epithelial Cells Urine Crystals Urine Bacteria Urine Mucus Ur Culture Indicated? Urine Glucose Salicylates 3.5 Urine Opiates Screen Urine Methadone Screen Acetaminophen < 2 Ur Barbiturates Screen Ur Tricyclics Screen Ur Amphetamines Screen U Benzodiazepines Scrn Urine Cocaine Screen Ur THC Screen Ethyl Alcohol < 3.0 COVID-19 Source SARS-CoV-2 (PCR) 12/12/21 12/12/21 12/12/21 21:50 21:50 21:55 WBC RBC Hgb Hct MCV MCH MCHC RDW Plt Count MPV Immature Gran % Neutrophils % Lymphocytes % Monocytes % Eosinophils % Basophils % Nucleated RBC % Absolute Neutrophils Absolute Lymphocytes Absolute Monocytes Absolute Eosinophils Absolute Basophils Sodium Potassium Chloride Carbon Dioxide Anion Gap BUN Creatinine Estimated GFR/1.73 m2 Glucose Calcium Total Bilirubin AST ALT Alkaline Phosphatase Total Protein Albumin TSH Urine Color Yellow Urine Clarity Clear Urine pH 7.5 Ur Specific [place] 1.025 Urine Protein Negative Urine Ketones Negative Urine Blood Negative Urine Nitrite Negative Urine Bilirubin Negative Urine Urobilinogen 0.2 Ur Leukocyte Esterase Trace H Urine RBC 0-2 Urine WBC 3-5 Ur Epithelial Cells Negative Urine Crystals Negative Urine Bacteria Negative Urine Mucus Moderate Ur Culture Indicated? Yes Urine Glucose Negative Salicylates Urine Opiates Screen Negative Urine Methadone Screen Negative Acetaminophen Ur Barbiturates Screen Negative Ur Tricyclics Screen Negative Ur Amphetamines Screen Negative U Benzodiazepines Scrn Negative Urine Cocaine Screen Negative Ur THC Screen Positive A Ethyl Alcohol COVID-19 Source Nasal/Nares SARS-CoV-2 (PCR) Negative Last Vital Signs Temp 36.2 C L 12/13/21 00:57 Pulse 87 12/13/21 00:57 Resp 18 12/13/21 00:57 BP 122/85 12/13/21 00:57 Pulse Ox 98 12/13/21 00:57
[2021-12-13 08:22] VITALS: BP 115/81; PULSE 68; RESP 17; TEMP 35.8; O2SAT 98
[2021-12-13] MEDS: Famotidine 20 MG TAB PO (08:57)
[2021-12-13] MEDS: Gabapentin 100 MG CAP 200 MG PO (08:57)
[2021-12-13] MEDS: Venlafaxine 150 MG CAPCR PO (08:57)
--- NOTE | 2021-12-13 09:03 | NUR.NOTE ---
Nursing Note:Patient states that he has been taking testosterone every Friday. He used to use the gel, but recently switched to injection. He states that he has not been able to picker his testosterone for about 3 weeks. Care management notified to coordinate with [facility] to get this prescription picked up and brought to the hospital for patient to have.
[2021-12-13] MEDS: Acetylcysteine 600 MG CAP 1200 MG PO (10:41)
[2021-12-13] MEDS: ARIPiprazole 2 MG TAB PO (10:42)
--- NOTE | 2021-12-13 10:53 | NUR.NOTE ---
Nursing Note:Phone call received from DILIA Rascon at [facility] at 1050 on 12/13/21. Updates regarding patient provided.Doctor will be calling later on for doctor to doctor report.
--- NOTE | 2021-12-13 11:01 | NUR.NOTE ---
Nursing Note: Patient currently on the phone speaking with [facility].
--- NOTE | 2021-12-13 11:05 | CMSP_ITS ---
- If Service Date Differs Date of service: 12/13/21 Time of Service: 11:05 Care Management Safety Plan Status: Voluntary - Reason for Wait Reason for Wait: Inpatient Admission Chief Complaint: Ivan presents to the ED for worsening depression and suicidal ideation. Ivan has an extensive psychiatric history with multiple psychiatric hospitalizations for SI and suicide attempts by overdose and cutting. Ivan receives services at [facility]. He is pleasant and appropriate when CM meets with him. Ivan has accepted a bed today at the [facility], CM coordinating transport. Safety plan has been established with patient, and care team, to adhere to patient goals, identify restrictions based on behavioral status, address nutrition, and determine allowed personal belongings, tools for hygiene and personal care. Determine level of activity including ambulation, level of supervision, visitors, and determine privileges based on behaviors and level of engagement by pt. VOLUNTARY FOR INPATIENT PSYCHIATRIC STABILIZATION. Patient is appropriate in all interactions since arriving at [facility]; Pt has demonstrated appropriate coping and communication skills, has articulated his or her needs and concerns and is fully engaged during staff interactions. SAFETY PLAN: 1. Will remain on suicide precautions. In Paper Clothes 2. Will remain in room under direct supervision of one-on-one staff at all times provided by CPSO, PIPELINE CONSTRUCTION INSPECTOR, SUPPLY CHAIN SPECIALIST advertisement compositor. 3. May have paper cups, plates, finger foods as well as a cardboard spoon with which to eat meals. 4. Follow [facility] Management of the Admitted Behavioral Health Patient policy. 5. Shower permitted with supervision and at RN discretion. 6. No personal belongings. 7. Visitors: Per [facility] policy and at RN discretion. 8. Activities: Soft cart items, coloring books, crayons, music tablet, television and remote if available, and other activities at RN discretion. 9. Bathroom privileges: May use bathroom available in room without limitations on Med/Surg. If in the ID, will need to be accompanied by an escort. 10. Phone: May use hospital phone for incoming and outgoing phone calls at RN discretion. 11. Due to VOLUNTARY status, if patient wishes to leave [facility], staff will contact [facility] Crisis Screener ([phone]) and On-Call Material Flow Analyst ([phone]) as soon as possible. In the event of elopement, notify [facility] Police ([phone]). Patient is currently voluntarily at [facility] and seeking inpatient admission when a bed becomes available. [facility] Frontline Conference Services Coordinator will continue seeking placement. Please contact the Cabin Cleaning Supervisor Material Flow Analyst ([phone]) and [facility] Conference Services Coordinator ([phone]) for any needed changes in the Safety Plan. Safety plan has been provided to interdepartmental care team.
--- NOTE | 2021-12-13 11:57 | W.PM.DS.N ---
Date of service: 12/13/21 Time of Service: 11:57 DS: Diagnosis Discharge Diagnosis (1) Suicidal ideation: Status: Acute (2) Major depression: Status: Chronic (3) 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 therapy: Status: Acute Discharge Plan Disposition Patient Disposition: [facility] Condition: Stable Discharge Details Reason For Visit: Depression with SI Admit Date/Time: 12/12/21 23:17 Admit Provider: Tobias Duff Attending Provider: Tobias Duff Primary Care Provider: Sudha Jacob Hospital Course Hospital Course: 21-year-old transgender male (Goes by He, He prefers to be called Ivan), with past medical history of anxiety and depression, presents to [facility] Emergency Department 12/12/2021 with the complaint of worsening depression and SI. He endorses noncompliance of his medication for the past 1-2 months, and has recently found out his grandfather is ill, contributing to his depression and SI ideation. The patient denies any self-harm.? Denies alcohol and drugs, does use tobacco. UDC negative except for THC. He was seen by mental health in the Emergency Department and felt to require further psychiatric hospitalization on voluntary basis. He was medically cleared. He was observed on medical surgical floor pending a psychiatric bed availability. He is awake, alert, communicative and pleasant, sitting on the bed. Jackelyn TAVERAS accepted the patient for admission at [facility]. The patient's vital signs per nursing report are normal; lab values are unremarkable. After lunch today he did complain of some nausea, vomited x 1 - was given Zofran ODT with good relief. Discussed with Dr Abdi Direct care of patient and documentation took 45 min Home Meds and New Rx's Prescriptions: Continued venlafaxine 150 mg capsule,extended release 24hr 150 mg PO DAILY prazosin 2 MG capsule 2 mg PO HS gabapentin 100 mg capsule 100 mg PO TID trazodone 50 mg tablet 50 mg PO HS PRN PRN (Reason: Sleep) Label Comments: Take 1 tablet at bedtime take one tablet at bedtime if needed for sleep famotidine 20 mg tablet 20 mg PO BID Label Comments: TAKE ONE TABLET BY MOUTH TWICE A DAY acetylcysteine [NAC] 600 mg capsule 1,200 mg PO BID Label Comments: Take 2 capsule by mouth twice a day as directed promethazine 25 mg tablet 25 mg PO TID PRNQty: 6 0RF testosterone cypionate 200 mg/mL Oil 100 mg IM Q7D aripiprazole [Abilify] 2 mg Tablet 2 mg PO QAM doxepin 25 mg Capsule 25 mg PO HS (DME) needle (disp) 23 gauge 23 gauge x 1 Needle MISCELLANEOUS Rx Instructions: for use with weekly Testosterone injections (DME) Syringe without Needle Syringe MISCELLANEOUS Rx Instructions: for use to administer Testosterone inj. Discharge Instructions Instructions: Depression (DC) Stand Alone Forms: Nursing Discharge Form Activity:: Activity as Tolerated Equipment/Supplies:: No Equipment Needed Diet:: As Tolerated Discharge Orders Discharge Orders: Discharge Order (Routine); Ordered 12/13/21 Ordered By: Shaila Villa Discharge Data Discharge Date/Time-TO BE ENTERED AT DEPARTURE: 12/13/21 15:24 DS: Summary Time Spent with Patient providing and/or coordinating discharge services: Less than 30 minutes Status at Discharge Functional status at discharge: independent ambulation Overall status at discharge: patient is progressing back to baseline Mental Status: mental status grossly normal Speech and Movement: speech clear Mood: congruent mood Affect: sad Exam Narrative Exam Narrative: Sitting on the bed, awake, alert, comfortable. Const General: cooperative, no acute distress, well developed, not anxious and disheveled Nutritional Appearance: overweight Orientation: oriented x3 Resp Effort & Inspection: normal respiratory effort Auscultation: clear to auscultation bilaterally Cardio Rate: regular rate Rhythm: regular rhythm Heart Sounds: S1 normal and S2 normal GI Palpation: soft and nontender Extrem General: no pedal edema and no calf tenderness Psych Appearance: grossly normal Mental Status: mental status grossly normal Speech and Movement: speech clear Mood: congruent mood Affect: sad DS: Data Vitals/I&O Vitals and I&O: Vital Signs Temperature 35.8 C L 12/13/21 08:22 Temperature Source Tympanic 12/13/21 08:22 Pulse 68 12/13/21 08:22 Pulse Rhythm Regular 12/13/21 08:30 Respiratory Rate 17 12/13/21 08:22 Respiratory Effort 12/13/21 08:30 Respiratory Depth Normal 12/13/21 08:30 Respiratory Pattern Normal 12/13/21 08:30 Blood Pressure 115/81 12/13/21 08:22 Pulse Oximetry 98 12/13/21 08:22 Oxygen Delivery Method Room Air 12/13/21 08:22 Oxygen Flow Rate 0 12/13/21 08:22 Pain Level 0 12/13/21 11:46 Intake & Output 12/12/21 12/12/21 12/13/21 11:59 23:59 11:59 Intake Total 680 / 680 Output Total Balance 679 / 679 Weight 81.647 kg 81.647 kg Intake: Oral 680 / 680 Output: Urine Other: Urine Color Yellow Urine Appearance Clear Voiding Methods Toilet Data Completed and Pending Labs on day of discharge: Labs from last 24 hours 12/13/21 12/12/21 12/12/21 11:48 21:55 21:50 WBC RBC Hgb Hct MCV MCH MCHC RDW Plt Count MPV Immature Gran % Neutrophils % Lymphocytes % Monocytes % Eosinophils % Basophils % Nucleated RBC % Absolute Neutrophils Absolute Lymphocytes Absolute Monocytes Absolute Eosinophils Absolute Basophils Sodium Potassium Chloride Carbon Dioxide Anion Gap BUN Creatinine Estimated GFR/1.73 m2 Glucose Calcium Total Bilirubin AST ALT Alkaline Phosphatase Total Protein Albumin TSH Urine Color Yellow Urine Clarity Clear Urine pH 7.5 Ur Specific [place] 1.025 Urine Protein Negative Urine Ketones Negative Urine Blood Negative Urine Nitrite Negative Urine Bilirubin Negative Urine Urobilinogen 0.2 Ur Leukocyte Esterase Trace H Urine RBC 0-2 Urine WBC 3-5 Ur Epithelial Cells Negative Urine Crystals Negative Urine Bacteria Negative Urine Mucus Moderate Ur Culture Indicated? Yes Urine Glucose Negative Urine HCG, Qual Pending Salicylates Urine Opiates Screen Urine Methadone Screen Acetaminophen Ur Barbiturates Screen Ur Tricyclics Screen Ur Amphetamines Screen U Benzodiazepines Scrn Urine Cocaine Screen Ur THC Screen Ethyl Alcohol COVID-19 Source Nasal/Nares SARS-CoV-2 (PCR) Negative 12/12/21 12/12/21 12/12/21 21:50 21:50 21:50 WBC 9.99 RBC 5.55 H Hgb 16.5 H Hct 47.1 H MCV 85 MCH 29.7 MCHC 35.0 RDW 11.9 Plt Count 287 MPV 10.0 Immature Gran % 0.3 Neutrophils % 73.9 Lymphocytes % 17.5 Monocytes % 6.2 Eosinophils % 1.1 Basophils % 1.0 Nucleated RBC % 0.0 Absolute Neutrophils 7.38 H Absolute Lymphocytes 1.75 Absolute Monocytes 0.62 Absolute Eosinophils 0.11 Absolute Basophils 0.10 Sodium Potassium Chloride Carbon Dioxide Anion Gap BUN Creatinine Estimated GFR/1.73 m2 Glucose Calcium Total Bilirubin AST ALT Alkaline Phosphatase Total Protein Albumin TSH Urine Color Urine Clarity Urine pH Ur Specific [place] Urine Protein Urine Ketones Urine Blood Urine Nitrite Urine Bilirubin Urine Urobilinogen Ur Leukocyte Esterase Urine RBC Urine WBC Ur Epithelial Cells Urine Crystals Urine Bacteria Urine Mucus Ur Culture Indicated? Urine Glucose Urine HCG, Qual Salicylates 3.5 Urine Opiates Screen Negative Urine Methadone Screen Negative Acetaminophen < 2 Ur Barbiturates Screen Negative Ur Tricyclics Screen Negative Ur Amphetamines Screen Negative U Benzodiazepines Scrn Negative Urine Cocaine Screen Negative Ur THC Screen Positive A Ethyl Alcohol COVID-19 Source SARS-CoV-2 (PCR) 12/12/21 21:50 WBC RBC Hgb Hct MCV MCH MCHC RDW Plt Count MPV Immature Gran % Neutrophils % Lymphocytes % Monocytes % Eosinophils % Basophils % Nucleated RBC % Absolute Neutrophils Absolute Lymphocytes Absolute Monocytes Absolute Eosinophils Absolute Basophils Sodium 140 Potassium 3.9 Chloride 104 Carbon Dioxide 26.3 Anion Gap 9.7 BUN 15 Creatinine 0.9 Estimated GFR/1.73 m2 >= 60.00 Glucose 86 Calcium 9.5 Total Bilirubin 0.6 AST 15 ALT 22 Alkaline Phosphatase 75 Total Protein 7.8 Albumin 4.2 TSH 0.90 Urine Color Urine Clarity Urine pH Ur Specific [place] Urine Protein Urine Ketones Urine Blood Urine Nitrite Urine Bilirubin Urine Urobilinogen Ur Leukocyte Esterase Urine RBC Urine WBC Ur Epithelial Cells Urine Crystals Urine Bacteria Urine Mucus Ur Culture Indicated? Urine Glucose Urine HCG, Qual Salicylates Urine Opiates Screen Urine Methadone Screen Acetaminophen Ur Barbiturates Screen Ur Tricyclics Screen Ur Amphetamines Screen U Benzodiazepines Scrn Urine Cocaine Screen Ur THC Screen Ethyl Alcohol < 3.0 COVID-19 Source SARS-CoV-2 (PCR) 12/12/21 21:50 Urine - Reflex from [facility] Urine Culture - Pending Preliminary micro results at discharge 12/12/21 21:50 Urine Culture - Pending Urine - Reflex from [facility] All Active Problems (Updated 12/14/21 @ 00:06 by MIRTA GUTIERREZ) 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 therapy (Acute) Suicidal ideation (Acute) Major depression (Chronic) Medical clearance for psychiatric admission (Acute) Major depression (Chronic) Discharge planning issues (Acute) Vaginal discharge (Acute) Suicide attempt (Acute) Pyuria (Acute) Anxiety (Acute 05/01/15) Childhood onset emotional disorder (Acute 05/15/12) Dental caries (Acute 08/16/16) Depression (Chronic 05/01/15) Ad[facility] to [facility] 02[facility] (fluoxetine overdose, cutting), repeat admission x 2 , [facility] [place] admission 05/18, [place] 07/20, 01/17, [place] 01/17, 05/19 Eczema (Acute 08/27/11) Lactose intolerance (Acute 09/20/14) SUSPECTED Body mass index (BMI) of 5th to 84th percentile for age in childhood (Acute 10/04/14) Routine sports examination for healthy child or adolescent (Acute 03/31/12) Short stature disorder (Acute) endo eval 06/2004-followed by endo-growth hormone started 08/2012 Depression (Acute) Suicidal ideation (Acute) Intentional drug overdose (Acute) Medical History Anxiety Depression Eczema Surgical History No significant past surgical history Family History Mother Depression Father No problems noted. sibling Depression Grandparent Depression Social History Smoking/Tobacco Use Status: Current every day Tobacco Type: cigarettes Smoking risk assessment performed?: Yes Alcohol Intake: current Alcohol Intake frequency: holidays/special occasions only Drug use: Daily Substance use type: marijuana Adopted: No Do you feel safe at home: Yes Do you feel safe in your relationship?: Yes
--- NOTE | 2021-12-13 13:46 | NUR.NOTE ---
Nursing Note:Nurse to nurse with [facility] to DILIA Rascon. Questions answered and updates provided.
[2021-12-13] MEDS: Ondansetron O.D.T. 4 MG TABEF PO (13:52)
[2021-12-13] MEDS: Gabapentin 100 MG CAP PO (13:52)
[2021-12-13 13:58] VITALS: BP 147/92; PULSE 64; RESP 18; TEMP 36.6; O2SAT 95
[2021-12-13 15:37] LABS: HCG Qual (Urine) Negative
--- NOTE | 2021-12-13 17:09 | PDOC.CMDIS ---
- If Service Date Differs Date of service: 12/13/21 Time of Service: 17:09 LACE Index Scoring Tool - Questions: Length of Stay (in days): 1 Acuity (Admit via E.D.?): Yes E.D. Visits: 5 - Answers: Total Score: 8 Risk of Readmission: Low Risk Care Management Discharge Reason for Hospitalization: depression with SI Discharge Plan: Ivan transferred to [facility] for inpatient psychiatric treatment. He transported via EMS, coordinated by CM. He will follow up with [facility], his PCP, and his discharge plan of care. He is happy to be going for treatment. Patient/Family Education Needs: Review discharge instructions and limitations, discussion of self care needs including ask me three. Services Needed at Discharge: Psychiatric Facility ([facility]), Transportation ([facility]) - MH Services (Omit if N/A) Current MH Services: [facility] - Disposition Disposition: [facility]
== END 2021-12-13 15:24 | disposition short-term general hospital (02) | DRG 881 ==
LOC: ER 12-13 00:07 → MS 12-13 00:21
PROVIDERS: Nurse Practitioner Family; Admitting Provider Family Medicine; Emergency Provider Physician Assistant; PCP Nurse Practitioner Family; Visit Provider Family Medicine
DX: F32.9 Major depressive disorder, single episode, unspecified (principal); R45.851 Suicidal ideations; F64.0 Transsexualism; Z79.899 Other long term (current) drug therapy; F41.9 Anxiety disorder, unspecified; Z91.14 Patient's other noncompliance with medication regimen; F17.210 Nicotine dependence, cigarettes, uncomplicated; Z91.51 Personal history of suicidal behavior; F12.90 Cannabis use, unspecified, uncomplicated; Z79.890 Hormone replacement therapy
CPT/HCPCS: 80053; 80307; 87635; 99285; 80320; 80329; 81003; 81015; 81025; 84443; 85025; 87086; 99222

== ENCOUNTER 2022-01-04 16:26 | Emergency (ER) | payer MEDICARE, MEDICAID, SELFPAY ==
[2022-01-04 16:31] VITALS: BP 129/81; PULSE 70; RESP 18; TEMP 32.7; O2SAT 100
--- NOTE | 2022-01-04 16:50 | ED.GENADUL_ITS ---
Discharge Plan Disposition Patient Disposition: HOME Condition: Improving Discharge Details Clinical Impression: Nausea Primary Care Provider: Sudha Jacob ED Provider: Tobias Powers Home Meds and New Rx's Prescriptions: New ondansetron 4 mg tablet,disintegrating 4 mg PO BID PRN (Reason: nausea and vomiting) Qty: 10 0RF No Action venlafaxine 150 mg capsule,extended release 24hr 150 mg PO DAILY prazosin 2 MG capsule 2 mg PO HS gabapentin 100 mg capsule 100 mg PO TID trazodone 50 mg tablet 50 mg PO HS PRN PRN (Reason: Sleep) Label Comments: Take 1 tablet at bedtime take one tablet at bedtime if needed for sleep famotidine 20 mg tablet 20 mg PO BID Label Comments: TAKE ONE TABLET BY MOUTH TWICE A DAY acetylcysteine [NAC] 600 mg capsule 1,200 mg PO BID Label Comments: Take 2 capsule by mouth twice a day as directed promethazine 25 mg tablet 25 mg PO TID PRNQty: 6 0RF testosterone cypionate 200 mg/mL Oil 100 mg IM Q7D aripiprazole [Abilify] 2 mg Tablet 2 mg PO QAM doxepin 25 mg Capsule 25 mg PO HS (DME) needle (disp) 23 gauge 23 gauge x 1 Needle MISCELLANEOUS Rx Instructions: for use with weekly Testosterone injections (DME) Syringe without Needle Syringe MISCELLANEOUS Rx Instructions: for use to administer Testosterone inj. Discharge Instructions Instructions: Acute Nausea and Vomiting (ED) Additional Instructions: Please follow-up with your primary care physician. Please return to the emergency department he develop any worsening symptoms Stand Alone Forms: Work Release Medical Decision Making 21-year-old transgender male on hormonal supplementation no surgical history presents with nausea and vomiting for the past 2 days decreased p.o. intake. Afebrile nontoxic abdomen soft nontender nondistended. Denies abdominal pain or diarrhea. No fevers. Of note patient and partner took an edible marijuana gummy yesterday. Patient is resting comfortably appears well-hydrated nontoxic. Consider gastritis versus enteritis versus less likely colitis versus less likely biliary colic or cholecystitis. Low suspicion for UTI. Screening labs to assess electrolytes and kidney function as well as LFTs and bilirubin. Trial of GI cocktail fluids and antiemetics. Likely home with close follow-up 18: 17 resting comfortably no acute distress. No vomiting in department. Labs unremarkable. HPI General Date/Time Provider Initiated Documentation: 01/04/22 16:26 . HPI Narrative: 21-year-old transgender male on hormone replacement presents with nausea and vomiting over the past 2 days, decreased p.o. intake, denies abdominal pain fevers chills or diarrhea. No sick contacts. Of note patient and partner did eat an edible marijuana gummy yesterday. Denies urinary symptoms. Denies vag inal bleeding. Denies history of abdominal surgery Related Data Home Medications Medication Instructions Recorded Confirmed venlafaxine 150 mg 150 mg PO DAILY 05/28/18 01/04/22 capsule,extended release 24 hr acetylcysteine 600 mg capsule (NAC) 1,200 mg PO BID 07/25/20 01/04/22 famotidine 20 mg tablet 20 mg PO BID 07/25/20 01/04/22 gabapentin 100 mg capsule 100 mg PO TID 07/25/20 01/04/22 prazosin 2 mg capsule 2 mg PO HS 07/25/20 01/04/22 trazodone 50 mg tablet 50 mg PO HS PRN PRN Sleep 07/25/20 01/04/22 promethazine 25 mg tablet 25 mg PO TID PRN #6 tabs 09/23/21 12/12/21 aripiprazole 2 mg tablet (Abilify) 2 mg PO QAM 12/13/21 01/04/22 doxepin 25 mg capsule 25 mg PO HS 12/13/21 01/04/22 needle (disp) 23 gauge 23 gauge x 12/13/21 12/13/21 1 syringe (disposable) (Syringe 12/13/21 12/13/21 without Needle) testosterone cypionate 200 mg/mL 100 mg IM Q7D 12/13/21 01/04/22 intramuscular oil ondansetron 4 mg disintegrating 4 mg PO BID PRN nausea and 01/04/22 tablet vomiting #10 tabs Previous Rx's Medication Instructions Recorded promethazine 25 mg tablet 25 mg PO TID PRN #6 tabs 09/23/21 ondansetron 4 mg disintegrating 4 mg PO BID PRN nausea and 01/04/22 tablet vomiting #10 tabs Allergies Allergy/AdvReac Type Severity Reaction Status Date / Time No Known Allergies Allergy Unverified 09/22/21 20:58 General Stated Complaint: Abd Prob COLBY: 3 Review of Systems Narrative: Review of Systems Constitutional: negative Eyes: negative ENT: negative Cardiovascular: negative Respiratory: negative Gastrointestinal: Nausea, vomiting : negative Musculoskeletal: negative Skin: negative Neurologic: negative Psych: negative PFSH All Active Problems (Updated 01/04/22 @ 18:17 by Tobias Powers MD) Nausea (Acute) 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 therapy (Acute) Suicidal ideation (Acute) Major depression (Chronic) Medical clearance for psychiatric admission (Acute) Major depression (Chronic) Discharge planning issues (Acute) Vaginal discharge (Acute) Suicide attempt (Acute) Pyuria (Acute) Anxiety (Acute 05/01/15) Childhood onset emotional disorder (Acute 05/15/12) Dental caries (Acute 08/16/16) Depression (Chronic 05/01/15) Admit to [place] 02/16 (fluoxetine overdose, cutting), repeat admission x 2 , [facility] [place] admission 05/18, [place] 07/20, 01/17, [place] 01/17, 05/19 Eczema (Acute 08/27/11) Lactose intolerance (Acute 09/20/14) SUSPECTED Body mass index (BMI) of 5th to 84th percentile for age in childhood (Acute 10/04/14) Routine sports examination for healthy child or adolescent (Acute 03/31/12) Short stature disorder (Acute) endo eval 06/2004-followed by endo-growth hormone started 08/2012 Depression (Acute) Suicidal ideation (Acute) Intentional drug overdose (Acute) Medical History Anxiety Depression Eczema Surgical History No significant past surgical history Family History Mother Depression Father No problems noted. sibling Depression Grandparent Depression Social History Smoking/Tobacco Use Status: Current every day Tobacco Type: cigarettes Smoking risk assessment performed?: Yes Alcohol Intake: current Alcohol Intake frequency: holidays/special occasions only Drug use: Daily Substance use type: marijuana Adopted: No Do you feel safe at home: Yes Do you feel safe in your relationship?: Yes Exam Narrative Exam Narrative: Physical Examination General: alert, awake, cooperative, resting comfortably, no acute distress HEENT: normocephalic, atraumatic; PERRL, EOM intact, conjunctiva normal; no nasal discharge; moist mucous membranes, oral and pharyngeal mucosa normal, tolerating secretions Neck: supple, trachea midline; full ROM Chest: normal to inspection Respiratory: normal respiratory effort, speaking in full sentences, clear to auscultation, no wheezing, rales or rhonchi Cardiac: regular rate, regular rhythm, S1S2 intact, no murmurs rubs or gallops GI: abdomen soft, non-tender, non-distended; no palpable mass or hepatosplenomegaly Skin: no lesions, rashes or trauma appreciated Neuro: AAOx3, normal speech, moving all extremities Psych: Appropriate mood and affect Course Vital Signs Vital signs: Vital Signs Temperature 32.7 C L 01/04/22 16:31 Pulse 70 01/04/22 16:31 Respiratory Rate 18 01/04/22 16:31 Blood Pressure 129/81 01/04/22 16:31 Pulse Oximetry 100 01/04/22 16:31 Temperature 32.7 C L 01/04/22 16:31 Temperature Source Temporal Artery Scan 01/04/22 16:31 Pulse 70 01/04/22 16:31 Respiratory Rate 18 01/04/22 16:31 Respiratory Effort Non-Labored 01/04/22 16:35 Blood Pressure 129/81 01/04/22 16:31 Blood Pressure Position Sitting 01/04/22 16:31 Pulse Oximetry 100 01/04/22 16:31 Oxygen Delivery Method Room Air 01/04/22 16:31 Oxygen Flow Rate 0 01/04/22 16:31 PAWSS Have you Been Recently Intoxicated or Drunk Within the Last 30 days?: No Have you Ever Experienced Previous Episodes of Alcohol Withdrawal?: No Have you ever Experienced Withdrawal Seizures?: No Have you ever Experienced Delirium Tremens(DT)s?: No Have you ever undergone Alcohol Rehabilitation Treatment (i.e, inpt ot outpatient treatment programs)?: No Have you ever Experienced Blackouts?: No Have you ever Combined Alcohol with other Downers within the last 90 days?: No Have you ever Combined Alcohol with any other Substance of Abuse during the last 90 days?: No Positive Blood Alcohol level on Presentation? [PCS.BAL]: No Evidence of Increased Autonomic Activity (i.e. HR>120, tremor, sweating, agitation, nausea)?: No Result: 0
--- NOTE | 2022-01-04 17:01 | PDOC.ERCMPRO ---
- If Service Date Differs Date of service: 01/04/22 Time of Service: 17:01 Care Management Progress Note SBIRT screen: positive for dailycannabis and nicotine. Pt declines any intervention for cannabis or nicotine use at this time.
[2022-01-04 17:07] LABS: Abs Immature Grans 0.01 10^3/uL (0.0-0.06); Absolute Basophil Count 0.06 10^3/uL (0.0-0.2); Absolute Eosinophil Count 0.12 10^3/uL (0.0-0.7); Absolute Lymphocyte Count 1.56 10^3/uL (1.2-3.4); Absolute Monocyte Count 0.72 10^3/uL (0.1-0.8); Absolute Neutrophil Count 4.42 10^3/uL (1.2-6.7); Basophils % 0.9; Eosinophils % 1.7; HCT 43.9 % (36.0-46.0); HGB 15.5 g/dL (11.2-15.7); Immature Grans % 0.1; Lymphocytes % 22.6; MCH 29.7 pg (27.0-33.0); MCHC 35.3 % (32.0-36.0); MCV 84 fL (80-95); MPV 9.7 fL (8.0-11.0); Monocytes % 10.4; Neutrophils % 64.3; Platelet Count 293 10^3/uL (130-400); RBC 5.22 10^6/uL (3.93-5.22); RDW-SD 36.5 fL; WBC 6.89 10^3/uL (4.4-10.8)
[2022-01-04 17:13] LABS: Bilirubin Negative (Negative); Blood Negative (Negative); Clarity Clear (Clear); Glucose Negative (Negative); Ketones Negative (Negative); Leukocyte Esterase Negative (Negative); Nitrite Negative (Negative); Specific Gravity 1.025 (1.005-1.025); Urobilinogen 0.2 EU/dL (Up TO 0.2); pH 6.5 (5-8)
[2022-01-04] MEDS: Lidocaine 2% Viscous 15 ML CUP PO (17:14)
[2022-01-04] MEDS: Famotidine 20 MG/2 ML VIAL IVP (17:14)
[2022-01-04] MEDS: Mylanta Suspension 30 ML CUP PO (17:15)
[2022-01-04] MEDS: Normal Saline 1,000 ML 1000 ML IV (17:15)
[2022-01-04] MEDS: Ondansetron 4 MG/2 ML VIAL IVP (17:15)
[2022-01-04 17:28] LABS: ALT 18 U/L (14-59); AST 17 U/L (15-37); Albumin 4.2 g/dL (3.4-5.0); Alkaline Phosphatase 80 U/L (46-116); Anion Gap -0.6 mmol/L (3-11); BUN 7 mg/dL (7-18); Bilirubin, Total 0.3 mg/dL (0.2-1.0); CO2 29.6 mmol/L (21.0-32.0); CREATININE 0.8 mg/dL (0.55-1.02); Calcium 9.5 mg/dL (8.5-10.1); Chloride 103 mmol/L (98-107); Glucose 92 mg/dL (74-106); Lipase 42 U/L (73-393); Potassium 3.1 mmol/L (3.5-5.1); Sodium 132 mmol/L (136-145); Total Protein 7.8 g/dL (6.4-8.2)
[2022-01-04 17:32] LABS: *AMPHETAMINES SCREEN URINE Negative (Negative); *BARBITURATES SCREEN URINE Negative (Negative); *BENZODIAZEPINES SCREEN URINE Negative (Negative); Cannabinoids THC Positive (Negative); Cocaine Screen,Urine Negative (Negative); METHADONE URINE SCREEN Negative (Negative); OPIATES URINE SCREEN Negative (Negative); Tricyclic Antidepressants Negative (Negative)
[2022-01-04 18:36] VITALS: BP 126/74; PULSE 46; TEMP 32.5; O2SAT 97
--- NOTE | 2022-01-05 14:38 | NUR.NOTE ---
Nursing Note: CAlled in prescription to [facility]
--- NOTE | 2022-01-05 14:48 | NUR.NOTE ---
Nursing Note: Patient called stating their pharmacy was closed and could we resend it to [facility]. Per Dr. Aguilar the odansetron prescription was called in to [place] ([facility].
== END 2022-01-04 18:35 | disposition home or self-care (01) ==
PROVIDERS: Emergency Provider Emergency Medicine; PCP Nurse Practitioner Family
DX: R11.2 Nausea with vomiting, unspecified (principal); F17.210 Nicotine dependence, cigarettes, uncomplicated
CPT/HCPCS: 36415; 80053; 80307; 81025; 83690; 96361; 96374; 96375; 99284; 81003; 85025; J2405

== ENCOUNTER 2022-01-31 10:54 | Emergency (ER) | payer MEDICARE, MEDICAID, SELFPAY | END 2022-01-31 11:42 | disposition LWBS | LOC: ER 11:35 | PROVIDERS: PCP Nurse Practitioner Family | DX: Z53.21 Procedure and treatment not carried out due to patient leaving prior to being seen by health care provider (principal) ==

== ENCOUNTER 2022-02-14 17:10 | Outpatient (REF) | payer MEDICARE, MEDICAID, SELFPAY ==
[2022-02-16 11:58] LABS: COVID-19 RT-PCR UVMMC Result Positive (Negative)
== END 2022-02-14 17:11 | disposition home or self-care (01) ==
LOC: LBN 17:10
PROVIDERS: PCP Nurse Practitioner Family; Visit Provider Nurse Practitioner Family
DX: U07.1 COVID-19 (principal)
CPT/HCPCS: U0003

== ENCOUNTER 2022-05-06 18:00 | Observation (INO) | payer MEDICARE, MEDICAID, SELFPAY ==
[2022-05-06 18:03] VITALS: BP 120/73; PULSE 71; RESP 16; TEMP 36.5; O2SAT 100
--- NOTE | 2022-05-06 19:09 | ED.GENADUL_ITS ---
Discharge Plan Disposition Patient Disposition: Admit to [facility] Condition: Stable Discharge Details Chief Complaint: PsychEval Clinical Impression: Depression, Suicidal ideation Primary Care Provider: Sudha Jacob ED Provider: Luis Adams Home Meds and New Rx's Prescriptions: No Action venlafaxine 150 mg capsule,extended release 24hr 150 mg PO DAILY trazodone 50 mg tablet 50 mg PO HS PRN PRN (Reason: Sleep) Label Comments: Take 1 tablet at bedtime take one tablet at bedtime if needed for sleep famotidine 20 mg tablet 20 mg PO BID Label Comments: TAKE ONE TABLET BY MOUTH TWICE A DAY acetylcysteine [NAC] 600 mg capsule 1,200 mg PO BID Label Comments: Take 2 capsule by mouth twice a day as directed aripiprazole [Abilify] 2 mg Tablet 2 mg PO QAM (DME) needle (disp) 23 gauge 23 gauge x 1 Needle MISCELLANEOUS Rx Instructions: for use with weekly Testosterone injections (DME) Syringe without Needle Syringe MISCELLANEOUS Rx Instructions: for use to administer Testosterone inj. Medical Decision Making 21-year-old female who is transitioning to male, presents to the ER for worsening depression with thoughts of SI, no self-harm today. Using the smart medical clearance form, patient medically cleared. Will obtain COVID and urine for placement purposes. Initiated a CPSO, interim care plan, and have requested a mental health evaluation. Patient agreeable to taking nightly medications. Will give Effexor. Patient reports that Atarax is a good substitute for the typical acetylcysteine. Mental health evaluation completed. Patient will be a voluntary mental health placement for ongoing depression with SI. Case discussed with our hospitalist team to admit the patient to our facility until placement can be found. Dr. Momin agreeable to admit. This documentation was generated using [employer] dictation system, please disregard any oddities of phrase or misspellings. Medical Records Medical records reviewed: Yes I reviewed the patient's medical records. Sign Out No HPI General Mode of arrival: ambulatory . Date/Time Provider Initiated Documentation: 05/06/22 18:32 . Limitations to Documentation: no limitations . Information obtained by: patient . HPI Narrative: This is a 21-year-old female who denies significant past medical history, presenting to the ER for worsening and ongoing depression now associated with SI. She states that there are a multitude of factors causing her symptoms, no specific trigger today. She reports that she has a plan of hanging herself. She denies any self-harm today. Does report attempted suicide in the past, overdosing on her medications. She tells me that she has not been taking her medications for approximately 1-2 weeks. Denies recent illness or trauma. No acute medical concerns or complaints at this time. Related Data Home Medications Medication Instructions Recorded Confirmed venlafaxine 150 mg 150 mg PO DAILY 05/28/18 05/06/22 capsule,extended release 24 hr acetylcysteine 600 mg capsule (NAC) 1,200 mg PO BID 07/25/20 05/06/22 famotidine 20 mg tablet 20 mg PO BID 07/25/20 05/06/22 trazodone 50 mg tablet 50 mg PO HS PRN PRN Sleep 07/25/20 05/06/22 aripiprazole 2 mg tablet (Abilify) 2 mg PO QAM 12/13/21 05/06/22 needle (disp) 23 gauge 23 gauge x 12/13/21 05/06/22 1 syringe (disposable) (Syringe 12/13/21 05/06/22 without Needle) Allergies Allergy/AdvReac Type Severity Reaction Status Date / Time No Known Allergies Allergy Unverified 05/06/22 18:06 General Stated Complaint: PsychEval COLBY: 2 Review of Systems Constitutional Constitutional: Denies fever(s), Denies headache(s) and Denies weakness ENT Ears, Nose, Mouth, and Throat: Denies headache(s) Cardiovascular Cardiovascular: Denies chest pain and Denies dyspnea Respiratory Respiratory: Denies cough and Denies dyspnea Gastrointestinal Gastrointestinal: Denies abdominal pain, Denies nausea and Denies vomiting Genitourinary Genitourinary: Denies dysuria Integumentary/Breasts Skin/Breast: Denies rash Neurologic Neurologic: Denies headache(s) and Denies weakness Psychiatric Psychiatric: Reports depression, Denies homicidal ideation and Reports suicidal ideation PFSH All Active Problems (Updated 05/06/22 @ 20:32 by ALIZE Roberts) Pre-conception counseling (Acute) 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 therapy (Acute) Suicidal ideation (Acute) Major depression (Chronic) Medical clearance for psychiatric admission (Acute) Major depression (Chronic) Discharge planning issues (Acute) Vaginal discharge (Acute) Suicide attempt (Acute) Pyuria (Acute) Anxiety (Acute 05/01/15) Childhood onset emotional disorder (Acute 05/15/12) Dental caries (Acute 08/16/16) Depression (Chronic 05/01/15) Admit to [facility] 02/16 (fluoxetine overdose, cutting), [place] x 2 , [facility] [place], [facility] 07/20, 01/17, [place] 01/17, 05/19 Eczema (Acute 08/27/11) Lactose intolerance (Acute 09/20/14) SUSPECTED Body mass index (BMI) of 5th to 84th percentile for age in childhood (Acute 10/04/14) Routine sports examination for healthy child or adolescent (Acute 03/31/12) Short stature disorder (Acute) endo eval 06/2004-followed by endo-growth hormone started 08/2012 Depression (Acute) Suicidal ideation (Acute) Intentional drug overdose (Acute) Medical History Anxiety Depression Eczema Surgical History No significant past surgical history Family History Mother Depression Father No problems noted. sibling Depression Grandparent Depression Social History Smoking/Tobacco Use Status: Current every day Tobacco Type: cigarettes Smoking risk assessment performed?: Yes Alcohol Intake: current Alcohol Intake frequency: holidays/special occasions only Drug use: Daily Substance use type: marijuana Adopted: No Do you feel safe at home: Yes Do you feel safe in your relationship?: Yes History History 0 Para Hx # Term Pregnancies Multiple births Hx # Pregnancies Ectopic pregnancies AB induced Hx Number of Living Children AB spontaneous Exam Const General: cooperative, healthy appearing, comfortable and no acute distress Orientation: alert, awake and oriented x3 HENMT Head: normal to inspection, normocephalic and atraumatic Face and sinus: normal facial exam Mouth: moist mucous membranes Eyes General: appearance normal, both eyes and all related structures Conjunctivae: conjunctivae normal Neck Neck: normal visual inspection, full ROM, no meningeal signs, trachea midline and supple Resp Effort & Inspection: normal respiratory effort and able to speak in complete sentences Auscultation: clear to auscultation bilaterally Cardio Rate: regular rate Rhythm: regular rhythm GI Palpation: soft and nontender Back/Spine/Pelvis Back: No back tenderness Skin General skin exam: no rashes or lesions noted Neuro General: patient alert, patient awake, patient oriented x3, moves all extremities and no focal motor deficits Cognition: normal cognition Speech: speech normal Gait: normal gait Motor: muscle tone normal throughout Sensory Exam: no sensory deficits noted Extrem General: normal to inspection, full ROM and capillary refill normal Psych Appearance: grossly normal Mental Status: mental status grossly normal Speech and Movement: speech and movement normal Mood: dysthymic mood Affect: sad Attitude: cooperative Thought Process: normal Thought Content: suicidality Insight: fair Judgment: fair Course Vital Signs Vital signs: Vital Signs Temperature 36.5 C 05/06/22 18:03 Pulse 71 05/06/22 18:03 Respiratory Rate 16 05/06/22 18:03 Blood Pressure 120/73 05/06/22 18:03 Pulse Oximetry 100 05/06/22 18:03 Temperature 36.5 C 05/06/22 18:03 Temperature Source Temporal Artery Scan 05/06/22 18:03 Pulse 71 05/06/22 18:03 Respiratory Rate 16 05/06/22 18:03 Respiratory Effort Non-Labored 05/06/22 18:05 Blood Pressure 120/73 05/06/22 18:03 Blood Pressure Position Sitting 05/06/22 18:03 Pulse Oximetry 100 05/06/22 18:03 Oxygen Delivery Method Room Air 05/06/22 18:03 Oxygen Flow Rate 0 05/06/22 18:03 Pain Level 0 05/06/22 18:03
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
--- NOTE | 2022-05-06 20:28 | W.PM.HP.N ---
Date of service: 05/06/22 Time of Service: 20:28 Assessment and Plan Assessment and plan (1) Suicidal ideation: Status: Acute Assessment and plan: Suicidal ideation. Will continue Effexor and prn Atarax as is, along with usual suicide precautions. Further management per psychiatry. Tobacco use: prn nicotine patch 21 mg Transgender: will not resume testosterone at this time Advance directives: Full Code History of Present Illness History of Present Illness Chief Complaint: suicidal ideation Narrative: 21 female transitioning to male, h/o depression. Reports several months of worsening depression, and has stopped psychiatric meds over past several weeks (also stopped testosterone a few months ago thinking she may wish to get ). Denies specific precipitant. Today had thoughts of hanging and presented to ER. In ER was cleared via [employer] program, seen by Mental Health and agreed to voluntary admission pending bed availability. States that she feels safe at present. In ER agreed to resume Effexor and to have a prn Atarax. 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 therapy (Acute) Suicidal ideation (Acute) Major depression (Chronic) Medical clearance for psychiatric admission (Acute) Major depression (Chronic) Discharge planning issues (Acute) Vaginal discharge (Acute) Suicide attempt (Acute) Pyuria (Acute) Anxiety (Acute 05/01/15) Childhood onset emotional disorder (Acute 05/15/12) Dental caries (Acute 08/16/16) Depression (Chronic 05/01/15) Admit to [facility] 02/16 (fluoxetine overdose, cutting), repeat admission x 2 , [facility] [place], [facility] 07/[facility], 01/17, [place] 01/17, 05/19 Eczema (Acute 08/27/11) Lactose intolerance (Acute 09/20/14) SUSPECTED Body mass index (BMI) of 5th to 84th percentile for age in childhood (Acute 10/04/14) Routine sports examination for healthy child or adolescent (Acute 03/31/12) Short stature disorder (Acute) endo eval 06/2004-followed by endo-growth hormone started 08/2012 Depression (Acute) Suicidal ideation (Acute) Intentional drug overdose (Acute) Medical History Anxiety Depression Eczema Surgical History No significant past surgical history Family History Mother Depression Father No problems noted. sibling Depression Grandparent Depression Social History Smoking/Tobacco Use Status: Current every day Tobacco Type: cigarettes Smoking risk assessment performed?: Yes Alcohol Intake: current Alcohol Intake frequency: holidays/special occasions only Drug use: Daily Substance use type: marijuana Adopted: No Do you feel safe at home: Yes Do you feel safe in your relationship?: Yes History History 0 Para Hx # Term Pregnancies Multiple births Hx # Pregnancies Ectopic pregnancies AB induced Hx Number of Living Children AB spontaneous Meds Allergies and Home Medications Allergies Allergy/AdvReac Type Severity Reaction Status Date / Time No Known Allergies Allergy Unverified 05/06/22 18:06 Home Medications Medication Instructions Recorded Confirmed Type venlafaxine 150 mg 150 mg PO DAILY 05/28/18 05/06/22 History capsule,extended release 24 hr acetylcysteine 600 mg capsule (NAC) 1,200 mg PO BID 07/25/20 05/06/22 History famotidine 20 mg tablet 20 mg PO BID 07/25/20 05/06/22 History trazodone 50 mg tablet 50 mg PO HS PRN PRN Sleep 07/25/20 05/06/22 History aripiprazole 2 mg tablet (Abilify) 2 mg PO QAM 12/13/21 05/06/22 History needle (disp) 23 gauge 23 gauge x 12/13/21 05/06/22 History 1 syringe (disposable) (Syringe 12/13/21 05/06/22 History without Needle) Exam Narrative Exam Narrative: 120/73, 71, 36.5, 16, 100 % RA. HEENT atraumatic; neck supple; lungs clear; heart RRR; abdomen soft and NT; extremities w/o edema; neuro Ox3, lucid, flat affect, moves all 4s Results Last Vital Signs Temp 36.5 C 05/06/22 18:03 Pulse 71 05/06/22 18:03 Resp 16 05/06/22 18:03 BP 120/73 05/06/22 18:03 Pulse Ox 100 05/06/22 18:03
[2022-05-06] MEDS: hydrOXYzine HCL 25 MG TAB PO (20:35)
[2022-05-06 20:36] LABS: Source Nasal/Nares
[2022-05-06] MEDS: Venlafaxine 150 MG CAPCR PO (20:37)
[2022-05-06 21:04] LABS: *AMPHETAMINES SCREEN URINE Negative (Negative); *BARBITURATES SCREEN URINE Negative (Negative); *BENZODIAZEPINES SCREEN URINE Negative (Negative); Cannabinoids THC Positive (Negative); Cocaine Screen,Urine Negative (Negative); METHADONE URINE SCREEN Negative (Negative); OPIATES URINE SCREEN Negative (Negative)
[2022-05-06 21:05] LABS: Tricyclic Antidepressants Negative (Negative)
[2022-05-06 21:11] LABS: COVID-19 PCR Negative (Negative)
[2022-05-07] MEDS: Venlafaxine 150 MG CAPCR PO (08:35)
[2022-05-07] MEDS: Famotidine 20 MG TAB PO (08:35)
[2022-05-07 08:48] LABS: Lab Add On Test DONE
[2022-05-07 11:29] LABS: HCG Qual (Urine) Negative
--- NOTE | 2022-05-07 12:25 | CMSP_ITS ---
- If Service Date Differs Date of service: 05/07/22 Time of Service: 12:25 Care Management Safety Plan Status: Voluntary - Reason for Wait Reason for Wait: Inpatient Admission Ivan presented to the ED after making a plan to complete suicide by hanging themselves in the park. Their partner encouraged them to go to the ED instead. Per report, Ivan has had additional stress recently with his brother moving in, and they have been trying to make future plans about having children. They met with TOR Beyer shoe caser this morning, and will meet with her again later this afternoon to discuss the possibility of returning home on a safety plan. CM will continue to follow. Safety plan has been established with patient, and care team, to adhere to patient goals, identify restrictions based on behavioral status, address nutrition, and determine allowed personal belongings, tools for hygiene and personal care. Determine level of activity including ambulation, level of supervision, visitors, and determine privileges based on behaviors and level of engagement by pt. VOLUNTARY FOR INPATIENT PSYCHIATRIC STABILIZATION. Patient is appropriate in all interactions since arriving at [facility]; Pt has demonstrated appropriate coping and communication skills, has articulated his or her needs and concerns and is fully engaged during staff interactions. SAFETY PLAN: 1. Will remain on suicide precautions. In Paper Clothes 2. Will remain in room under direct supervision of one-on-one staff at all times provided by CPSO, CERTIFIED MEDICAL ASSISTANT, FORCE VARIATION EQUIPMENT TENDER operator command support systems. 3. May have paper cups, plates, finger foods as well as a cardboard spoon with which to eat meals. 4. Follow [facility] Management of the Admitted Behavioral Health Patient policy. 5. Shower permitted with supervision and at RN discretion. 6. No personal belongings. 7. Visitors: Per [facility] policy and at RN discretion. 8. Activities: Soft cart items, coloring books, crayons, music tablet, television and remote if available, and other activities at RN discretion. 9. Bathroom privileges: May use bathroom available in room without limitations on Med/Surg. If in the ID, will need to be accompanied by an escort. 10. Phone: May use hospital phone for incoming and outgoing phone calls at RN discretion. 11. Due to VOLUNTARY status, if patient wishes to leave [facility], staff will contact [facility] Crisis Screener ([phone]) and On-Call Management Sme ([phone]) as soon as possible. In the event of elopement, notify [facility] Police ([phone]). Patient is currently voluntarily at [facility] and seeking inpatient admission when a bed becomes available. [facility] Frontline Lather Apprentice will continue seeking placement. Please contact the Anchor Tacker Management Sme ([phone]) and [facility] Lather Apprentice ([phone]) for any needed changes in the Safety Plan. Safety plan has been provided to interdepartmental care team.
--- NOTE | 2022-05-07 12:48 | PDOC.CMPRO ---
- If Service Date Differs Date of service: 05/07/22 Time of Service: 12:48 Care Management Progress Note S/O: Ivan was sitting up in bed when CM met with them. They stated that they are feeling ok today, and their needs are being met here. CM coordinated a zoom meeting with Ivan and Kayleen, his ADDRESSING MACHINE OPERATOR field nurse case manager. They made a plan to discuss creating a safety plan to return home later this afternoon. Ivan met with Kayleen after lunch and together they created a contract for safety in the community. Ivan returned home via private vehicle by his partner. CM will continue to follow. A: Hellen, who prefers to be called Ivan, is a 21 yo female transitioning to male admitted to [facility] on 05/06/22 with SI. P: Ivan will meet with their ADDRESSING MACHINE OPERATOR field nurse case manager later this afternoon to discuss creating a safety plan to return home. They will transport via private vehicle by a friend. They will follow up with their PCP and discharge plan of care. CM will continue to follow.
--- NOTE | 2022-05-07 13:43 | W.PM.DS.N ---
Date of service: 05/07/22 Time of Service: 13:43 DS: Diagnosis Discharge Diagnosis (1) Suicidal ideation: Status: Resolved Discharge Plan Disposition Patient Disposition: Home Condition: Good Discharge Details Reason For Visit: Suicidal Ideation Admit Date/Time: 05/06/22 20:38 Admit Provider: Tonny Momin Attending Provider: Tonny Momin Primary Care Provider: Sudha Jacob Hospital Course Hospital Course: This is a 21 year old female transitioning to male, h/o depression. Reported several months of worsening depression, and has stopped psychiatric meds over past several weeks (also stopped testosterone a few months ago thinking she may wish to get ). Denied specific precipitant. On day of admission, she had thoughts of hanging and presented to the [facility] ED. In ED was cleared via [facility] program, seen by Mental Health and agreed to voluntary admission pending bed availability. Stated she felt safe at present. Effexor was resumed and prn Atarax. She was seen by mental health and a plan was developed. She was discharged to home stable. Discussed with Dr Duff ? Home Meds and New Rx's Prescriptions: Continued venlafaxine 150 mg capsule,extended release 24hr 150 mg PO DAILY trazodone 50 mg tablet 50 mg PO HS PRN PRN (Reason: Sleep) Label Comments: Take 1 tablet at bedtime take one tablet at bedtime if needed for sleep famotidine 20 mg tablet 20 mg PO BID Label Comments: TAKE ONE TABLET BY MOUTH TWICE A DAY acetylcysteine [NAC] 600 mg capsule 1,200 mg PO BID Label Comments: Take 2 capsule by mouth twice a day as directed aripiprazole [Abilify] 2 mg Tablet 2 mg PO QAM (DME) needle (disp) 23 gauge 23 gauge x 1 Needle MISCELLANEOUS Rx Instructions: for use with weekly Testosterone injections (DME) Syringe without Needle Syringe MISCELLANEOUS Rx Instructions: for use to administer Testosterone inj. Discharge Instructions Instructions: Depression (DC), Suicide Prevention (DC) Additional Instructions: Follow up with mental health as planned. Stand Alone Forms: Nursing Discharge Form Referrals: Sudha Jacob [Primary Care Provider] - 05/21/22 9:00 am () Activity:: Activity as Tolerated Equipment/Supplies:: No Equipment Needed Diet:: As Tolerated Discharge Orders Discharge Orders: Discharge Order (Routine); Ordered 05/07/22 Ordered By: Shaila Villa Discharge Data Discharge Date/Time-TO BE ENTERED AT DEPARTURE: 05/07/22 14:15 DS: Summary Time Spent with Patient providing and/or coordinating discharge services: Greater than 30 minutes Status at Discharge Functional status at discharge: independent ambulation Overall status at discharge: patient is back to baseline Mental Status: mental status grossly normal Speech and Movement: speech and movement normal Mood: congruent mood Affect: normal affect Exam Psych Mental Status: mental status grossly normal Speech and Movement: speech and movement normal Mood: congruent mood Affect: normal affect DS: Data Vitals/I&O Vitals and I&O: Vital Signs Temperature 36.5 C 05/06/22 18:03 Temperature Source Temporal Artery Scan 05/06/22 18:03 Pulse 71 05/06/22 18:03 Pulse Rhythm Regular 05/06/22 23:45 Respiratory Rate 16 05/06/22 18:03 Respiratory Effort 05/06/22 23:45 Respiratory Depth Normal 05/06/22 23:45 Respiratory Pattern Normal 05/06/22 23:45 Blood Pressure 120/73 05/06/22 18:03 Blood Pressure Position Sitting 05/06/22 18:03 Pulse Oximetry 100 05/06/22 18:03 Oxygen Delivery Method Room Air 05/06/22 21:09 Oxygen Flow Rate 0 05/06/22 21:09 Pain Level 0 05/06/22 18:03 Intake & Output 05/06/22 05/07/22 05/07/22 23:59 11:59 23:59 Intake Total 120 / 120 110 / 220 110 / 220 Balance 120 / 120 110 / 220 110 / 220 Weight 76.204 kg Intake: Oral 120 / 120 110 / 220 110 / 220 Other: Urine Color Yellow Comment pt voided in ER dept for a urine sample and in room 234 Data Completed and Pending Labs on day of discharge: Labs from last 24 hours 05/07/22 05/06/22 05/06/22 08:38 20:38 20:38 Urine HCG, Qual Negative Urine Opiates Screen Negative Urine Methadone Screen Negative Ur Barbiturates Screen Negative Ur Tricyclics Screen Negative Ur Amphetamines Screen Negative U Benzodiazepines Scrn Negative Urine Cocaine Screen Negative Ur THC Screen Positive A COVID-19 Source SARS-CoV-2 (PCR) Add-On Test Request DONE 05/06/22 20:33 Urine HCG, Qual Urine Opiates Screen Urine Methadone Screen Ur Barbiturates Screen Ur Tricyclics Screen Ur Amphetamines Screen U Benzodiazepines Scrn Urine Cocaine Screen Ur THC Screen COVID-19 Source Nasal/Nares SARS-CoV-2 (PCR) Negative Add-On Test Request PFSH All Active Problems (Updated 05/08/22 @ 00:05 by MIRTA GUTIERREZ) Pre-conception counseling (Acute) 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 therapy (Acute) Major depression (Chronic) Medical clearance for psychiatric admission (Acute) Major depression (Chronic) Discharge planning issues (Acute) Vaginal discharge (Acute) Suicide attempt (Acute) Pyuria (Acute) Anxiety (Acute 05/01/15) Childhood onset emotional disorder (Acute 05/15/12) Dental caries (Acute 08/16/16) Depression (Chronic 05/01/15) Admit to [place] 02/16 (fluoxetine overdose, cutting), repeat admission x 2 , [facility] [place] 05/18, [place] 07/20, 01/17, [place] 01/17, 05/19 Eczema (Acute 08/27/11) Lactose intolerance (Acute 09/20/14) SUSPECTED Body mass index (BMI) of 5th to 84th percentile for age in childhood (Acute 10/04/14) Routine sports examination for healthy child or adolescent (Acute 03/31/12) Short stature disorder (Acute) endo eval 06/2004-followed by endo-growth hormone started 08/2012 Depression (Acute) Suicidal ideation (Acute) Intentional drug overdose (Acute) Medical History Anxiety Depression Eczema Surgical History No significant past surgical history Family History Mother Depression Father No problems noted. sibling Depression Grandparent Depression Social History Smoking/Tobacco Use Status: Current every day Tobacco Type: cigarettes Smoking risk assessment performed?: Yes Alcohol Intake: current Alcohol Intake frequency: holidays/special occasions only Drug use: Daily Substance use type: marijuana Adopted: No Do you feel safe at home: Yes Do you feel safe in your relationship?: Yes History History 0 Para Hx # Term Pregnancies Multiple births Hx # Pregnancies Ectopic pregnancies AB induced Hx Number of Living Children AB spontaneous
== END 2022-05-07 14:15 | disposition home or self-care (01) ==
LOC: ER 20:32 → MS 21:18
PROVIDERS: Family Medicine; Admitting Provider General Practice; Emergency Provider Physician Assistant; PCP Nurse Practitioner Family; Visit Provider General Practice
DX: F32.9 Major depressive disorder, single episode, unspecified (principal); R45.851 Suicidal ideations; F64.8 Other gender identity disorders; Z79.899 Other long term (current) drug therapy; F41.9 Anxiety disorder, unspecified; F17.210 Nicotine dependence, cigarettes, uncomplicated; Z91.51 Personal history of suicidal behavior; Z20.822 Contact with and (suspected) exposure to COVID-19
CPT/HCPCS: 80307; 87635; 99285; 81025; 99217; 99218; G0378

== ENCOUNTER 2022-05-10 14:33 | Outpatient (REF) | payer MEDICARE, MEDICAID, SELFPAY ==
[2022-05-10 19:36] LABS: Iron 88 ug/dL (50-170); Total Iron Binding Capacity 244 ug/dL (250-450); Transferrin Sat 36 % (15-50)
[2022-05-10 19:49] LABS: Ferritin 289 ng/mL (8-252)
== END 2022-05-10 14:34 | disposition home or self-care (01) ==
LOC: NCHCN 14:33
PROVIDERS: PCP Nurse Practitioner Family; Visit Provider Nurse Practitioner Family
DX: Z13.0 Encounter for screening for diseases of the blood and blood-forming organs and certain disorders involving the immune mechanism (principal)
CPT/HCPCS: 82728; 83540; 83550

== ENCOUNTER 2022-05-10 23:58 | Emergency (ER) | payer MEDICARE, MEDICAID, SELFPAY ==
[2022-05-10 23:56] VITALS: BP 124/82; PULSE 77; RESP 16; TEMP 36.8
--- NOTE | 2022-05-11 00:03 | ED.GENADUL_ITS ---
Discharge Plan Disposition Patient Disposition: Home Condition: Good Discharge Details Clinical Impression: Depression Primary Care Provider: Sudha Jacob ED Provider: Bobby Andersen Home Meds and New Rx's Prescriptions: No Action venlafaxine 150 mg capsule,extended release 24hr 150 mg PO DAILY trazodone 50 mg tablet 50 mg PO HS PRN PRN (Reason: Sleep) Label Comments: Take 1 tablet at bedtime take one tablet at bedtime if needed for sleep famotidine 20 mg tablet 20 mg PO BID Label Comments: TAKE ONE TABLET BY MOUTH TWICE A DAY acetylcysteine [NAC] 600 mg capsule 1,200 mg PO BID Label Comments: Take 2 capsule by mouth twice a day as directed gabapentin 100 mg Capsule 100 mg PO TID aripiprazole [Abilify] 2 mg Tablet 2 mg PO QAM (DME) needle (disp) 23 gauge 23 gauge x 1 Needle MISCELLANEOUS Rx Instructions: for use with weekly Testosterone injections (DME) Syringe without Needle Syringe MISCELLANEOUS Rx Instructions: for use to administer Testosterone inj. Discharge Instructions Instructions: Depression (ED) Additional Instructions: Please abide by the safety plan that we have all discussed together. If you notice any worsening of your symptoms, or any new symptoms such as vomiting, diarrhea, fever, chills, shortness of breath, chest pain, numbness, weakness, or fainting , please return immediately to the emergency department for reevaluation. Please follow up with your primary care provider as soon as possible for reassessment and reevaluation. As always, it was a pleasure participating in your medical care today. Referrals: Sudha Jacob [Primary Care Provider] - Medical Decision Making 21-year-old female transitioning to male with a past medical history of anxiety, depression, who presents today for evaluation of depression. For the last 3 weeks the patient has stopped taking any of their medication. And has had a slow gradual worsening depressed state with suicidal ideations. Patient would take additional medications to and that life. Denies any auditory or visual hallucinations. Denies any homicidal ideations. Denies any alcohol, IV drug use, or other medication. Physical exam is unremarkable. Patient stable. Patient will be evaluated by mental health. 1:40 AM Mental health assessed the patient and they feel the patient is comfortable to go home. I discussed this with the patient as well as with the patient's significant other Winter, and the patient does not feel comfortable going home. We had a long discussion and try to get to the bottom of this discomfort. And currently the patient states that they are concerned that if they go home and will be able to take their own medicine and overdose. Asking what the patient feels a solution would be, Ivan comes up with the plan of removing all medication and so Ivan is not a danger to his self. The patient feels that if all medications are removed, there will be no danger, and the patient feels comfortable going home. We will reconvene with [facility] and [facility] to confirm this plan's safety and feasibility. 7 AM Patient agrees with plan. She feels comfortable going home with all medications being taken. I have extensively reviewed the treatment plan and discharge instructions with the patient. I have addressed all patient concerns at this time. The patient was made aware of what symptoms to monitor for that would warrant a return to the emergency department. Discussed the plan with the patient, they demonstrate verbal understanding and agreement with our assessment and plan at this time. The documentation in this chart was dictated using [employer] dictation software. Please excuse any dictation errors. Sign Out No HPI General Date/Time Provider Initiated Documentation: 05/11/22 00:06 . HPI Narrative: 21-year-old female transitioning to male with a past medical history of anxiety, depression, who presents today for evaluation of depression. For the last 3 weeks the patient has stopped taking any of their medication. And has had a slow gradual worsening depressed state with suicidal ideations. Patient would take additional medications to and that life. Denies any auditory or visual hallucinations. Denies any homicidal ideations. Denies any alcohol, IV drug use, or other medication. Related Data Home Medications Medication Instructions Recorded Confirmed venlafaxine 150 mg 150 mg PO DAILY 05/28/18 05/11/22 capsule,extended release 24 hr acetylcysteine 600 mg capsule (NAC) 1,200 mg PO BID 07/25/20 05/11/22 famotidine 20 mg tablet 20 mg PO BID 07/25/20 05/11/22 trazodone 50 mg tablet 50 mg PO HS PRN PRN Sleep 07/25/20 05/11/22 aripiprazole 2 mg tablet (Abilify) 2 mg PO QAM 12/13/21 05/11/22 needle (disp) 23 gauge 23 gauge x 12/13/21 05/06/22 1 syringe (disposable) (Syringe 12/13/21 05/06/22 without Needle) gabapentin 100 mg capsule 100 mg PO TID 05/11/22 05/11/22 Allergies Allergy/AdvReac Type Severity Reaction Status Date / Time No Known Allergies Allergy Unverified 05/11/22 00:09 General COLBY: 2 Review of Systems All systems reviewed & are unremarkable except as noted in HPI and below PFSH All Active Problems (Updated 05/11/22 @ 02:08 by Bobby Andersen DO) Pre-conception counseling (Acute) 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 therapy (Acute) Major depression (Chronic) Medical clearance for psychiatric admission (Acute) Major depression (Chronic) Discharge planning issues (Acute) Vaginal discharge (Acute) Suicide attempt (Acute) Pyuria (Acute) Anxiety (Acute 05/01/15) Childhood onset emotional disorder (Acute 05/15/12) Dental caries (Acute 08/16/16) Depression (Chronic 05/01/15) Admit to [facility] 02/16 (fluoxetine overdose, cutting), repeat admission x 2 , [facility] admission 05/18, [place] 07/20, 01/17, [place] 01/17, 05/19 Eczema (Acute 08/27/11) Lactose intolerance (Acute 09/20/14) SUSPECTED Body mass index (BMI) of 5th to 84th percentile for age in childhood (Acute 10/04/14) Routine sports examination for healthy child or adolescent (Acute 03/31/12) Short stature disorder (Acute) endo eval 06/2004-followed by endo-growth hormone started 08/2012 Depression (Acute) Suicidal ideation (Acute) Intentional drug overdose (Acute) Medical History Anxiety Depression Eczema Surgical History No significant past surgical history Family History Mother Depression Father No problems noted. sibling Depression Grandparent Depression Social History Smoking/Tobacco Use Status: Current every day Tobacco Type: cigarettes Smoking risk assessment performed?: Yes Alcohol Intake: current Alcohol Intake frequency: holidays/special occasions only Drug use: Daily Substance use type: marijuana Adopted: No Do you feel safe at home: Yes Do you feel safe in your relationship?: Yes History History 0 Para Hx # Term Pregnancies Multiple births Hx # Pregnancies Ectopic pregnancies AB induced Hx Number of Living Children AB spontaneous Exam Narrative Exam Narrative: 1.Const: Well-nourished, Well-developed, appearing stated age 2.Eyes: PERRL, no conjunctival injection, and symmetrical lids. 3.ENT: Atraumatic external nose and ears. Moist MM. Neck: Symmetric, trachea midline, No thyromegaly. 4.CVS: +S1/S2, No murmurs or gallops. Peripheral pulses 2+ and equal in all extremities. Brisk capillary refill in all extremities. 5.RESP: Unlabored respiratory effort. Clear to auscultation bilaterally. No wheezes rales or rhonchi 6.GI: Soft, Nontender/Nondistended, No hepatosplenomegaly. No guarding or rebound. 7.MSK: Normocephalic/Atraumatic, Extremities w/o deformity or ttp No cyanosis or clubbing, Normal movement of all extremities 8.Skin: Warm, Dry. No rashes or lesions. 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 Sensation grossly intact, no focal neurologic deficits. 10.Psych: (AAO) x3. Appropriate mood and affect
[2022-05-11 00:18] LABS: Abs Immature Grans 0.02 10^3/uL (0.0-0.06); Absolute Basophil Count 0.07 10^3/uL (0.0-0.2); Absolute Eosinophil Count 0.19 10^3/uL (0.0-0.7); Absolute Lymphocyte Count 2.99 10^3/uL (1.2-3.4); Absolute Monocyte Count 0.67 10^3/uL (0.1-0.8); Absolute Neutrophil Count 5.87 10^3/uL (1.2-6.7); Basophils % 0.7; Eosinophils % 1.9; HGB 13.7 g/dL (11.2-15.7); Immature Grans % 0.2; Lymphocytes % 30.5; MCH 29.1 pg (27.0-33.0); MCHC 34.3 % (32.0-36.0); MCV 85 fL (80-95); MPV 9.3 fL (8.0-11.0); Monocytes % 6.8; Neutrophils % 59.9; Platelet Count 259 10^3/uL (130-400); RDW 11.7 % (11.7-14.6); RDW-SD 36.3 fL; WBC 9.81 10^3/uL (4.4-10.8)
[2022-05-11 00:33] LABS: Salicylate < 2.8 mg/dL (<2.8)
[2022-05-11 00:34] LABS: Acetaminophen < 2 ug/mL (10-30)
[2022-05-11 00:41] LABS: ALT 21 U/L (14-59); AST 13 U/L (15-37); Albumin 4.1 g/dL (3.4-5.0); Alkaline Phosphatase 101 U/L (46-116); Anion Gap 7.2 mmol/L (3-11); BUN 15 mg/dL (7-18); Bilirubin, Total 0.3 mg/dL (0.2-1.0); CO2 29.8 mmol/L (21.0-32.0); CREATININE 0.9 mg/dL (0.55-1.02); Calcium 8.9 mg/dL (8.5-10.1); Chloride 103 mmol/L (98-107); Estimated GFR 92.12 (mL/min/1.73m2); Glucose 113 mg/dL (74-106); Potassium 3.5 mmol/L (3.5-5.1); Sodium 140 mmol/L (136-145); TSH (W/Ref FT4) 3.47 uIU/mL (0.36-3.74); Total Protein 7.7 g/dL (6.4-8.2)
[2022-05-11 07:04] LABS: *AMPHETAMINES SCREEN URINE Negative (Negative); *BARBITURATES SCREEN URINE Negative (Negative); *BENZODIAZEPINES SCREEN URINE Negative (Negative); Cannabinoids THC Positive (Negative); Cocaine Screen,Urine Negative (Negative); METHADONE URINE SCREEN Negative (Negative); OPIATES URINE SCREEN Negative (Negative)
[2022-05-11 07:08] LABS: Tricyclic Antidepressants Negative (Negative)
== END 2022-05-11 07:05 | disposition home or self-care (01) ==
PROVIDERS: Emergency Provider Student in an Organized Health Care Education/Training Program; PCP Nurse Practitioner Family
DX: F32.A Depression, unspecified (principal); Z79.899 Other long term (current) drug therapy
CPT/HCPCS: 80053; 80307; 87635; 99283; 80329; 84443; 85025; 99282

== ENCOUNTER 2022-07-30 22:47 | Emergency (ER) | payer MEDICARE, MEDICAID, SELFPAY ==
[2022-07-30 22:52] VITALS: BP 119/71; PULSE 79; RESP 16; TEMP 37.1; O2SAT 99
--- NOTE | 2022-07-30 23:13 | W.ED.GENAD ---
Discharge Plan Disposition Patient Disposition: Home Condition: Good Discharge Details Clinical Impression: URI (upper respiratory infection) Primary Care Provider: Sudha Jacob ED Provider: Bobby Andersen Home Meds and New Rx's Prescriptions: New benzonatate 100 mg capsule 100 mg PO TID Qty: 30 0RF No Action venlafaxine 150 mg capsule,extended release 24hr 150 mg PO DAILY trazodone 50 mg tablet 50 mg PO HS PRN PRN (Reason: Sleep) Patient Comments: Take 1 tablet at bedtime take one tablet at bedtime if needed for sleep famotidine 20 mg tablet 20 mg PO BID Patient Comments: TAKE ONE TABLET BY MOUTH TWICE A DAY acetylcysteine [NAC] 600 mg capsule 1,200 mg PO BID Patient Comments: Take 2 capsule by mouth twice a day as directed gabapentin 100 mg Capsule 100 mg PO TID aripiprazole [Abilify] 2 mg Tablet 2 mg PO QAM (DME) needle (disp) 23 gauge 23 gauge x 1 Needle MISCELLANEOUS Rx Instructions: for use with weekly Testosterone injections (DME) Syringe without Needle Syringe MISCELLANEOUS Rx Instructions: for use to administer Testosterone inj. Discharge Instructions Instructions: Upper Respiratory Infection (ED) Additional Instructions: At this time your symptoms appear consistent with likely a viral upper respiratory infection. There is no evidence of pneumonia on your ultrasound. Please take the Doe Perlrosmery as directed to help with cough. If you notice that your symptoms continue or worsen this may represent potential onset of bacterial pneumonia. Monitor your symptoms closely. If you notice any worsening of your symptoms, or any new symptoms such as vomiting, diarrhea, fever, chills, shortness of breath, chest pain, numbness, weakness, or fainting , please return immediately to the emergency department for reevaluation. Please follow up with your primary care provider as soon as possible for reassessment and reevaluation. As always, it was a pleasure participating in your medical care today. Referrals: Sudha Jacob [Primary Care Provider] - Medical Decision Making 21-year-old female who identifies by as male and goes by the name of Ivan, who is currently transitioning, with a past medical history of depression, dental caries, eczema, presents today for cough. Patient states that for the last 3 days he has had a mild cough, he states that he was coughing today and it caused an episode of vomiting. He did go to an urgent care earlier today where he was diagnosed with viral upper respiratory infection. COVID test was negative. He came via EMS this evening for a second opinion. No other complaints at this time. No hemoptysis, fever, chest pain or shortness of breath otherwise. No other modifying factors. Physical exam demonstrates a notably well-appearing patient, no hypoxemia tachypnea or tachycardia. Lung sounds are clear. Bedside ultrasound of the lungs demonstrates no evidence of consolidation, B-lines or other abnormalities. I would agree with the outpatient diagnosis of a viral upper respiratory infection. Will give Tessalon Perles to help with cough. Discussed red flags that would represent symptoms consistent with bacterial pneumonia. Patient will monitor home symptoms closely. Discussed red flags for which to return. I have extensively reviewed the treatment plan and discharge instructions with the patient. I have addressed all patient concerns at this time. The patient was made aware of what symptoms to monitor for that would warrant a return to the emergency department. Discussed the plan with the patient, they demonstrate verbal understanding and agreement with our assessment and plan at this time. The documentation in this chart was dictated using [employer] dictation software. Please excuse any dictation errors. HPI General Date/Time Provider Initiated Documentation: 07/30/22 23:12. HPI Narrative: 21-year-old female who identifies by as male and goes by the name of Ivan, who is currently transitioning, with a past medical history of depression, dental caries, eczema, presents today for cough. Patient states that for the last 3 days he has had a mild cough, he states that he was coughing today and it caused an episode of vomiting. He did go to an urgent care earlier today where he was diagnosed with viral upper respiratory infection. COVID test was negative. He came via EMS this evening for a second opinion. No other complaints at this time. No hemoptysis, fever, chest pain or shortness of breath otherwise. No other modifying factors. Related Data Home Medications Medication Instructions Recorded Confirmed venlafaxine 150 mg 150 mg PO DAILY 05/28/18 05/11/22 capsule,extended release 24 hr acetylcysteine 600 mg capsule (NAC) 1,200 mg PO BID 07/25/20 05/11/22 famotidine 20 mg tablet 20 mg PO BID 07/25/20 05/11/22 trazodone 50 mg tablet 50 mg PO HS PRN PRN Sleep 07/25/20 05/11/22 aripiprazole 2 mg tablet (Abilify) 2 mg PO QAM 12/13/21 05/11/22 needle (disp) 23 gauge 23 gauge x 12/13/21 05/06/22 1 syringe (disposable) (Syringe 12/13/21 05/06/22 without Needle) gabapentin 100 mg capsule 100 mg PO TID 05/11/22 05/11/22 benzonatate 100 mg capsule 100 mg PO TID #30 caps 07/30/22 Previous Rx's Medication Instructions Recorded benzonatate 100 mg capsule 100 mg PO TID #30 caps 07/30/22 Allergies Allergy/AdvReac Type Severity Reaction Status Date / Time No Known Allergies Allergy Unverified 05/11/22 00:09 General Stated Complaint: RespSymp COLBY: 4 Review of Systems All systems reviewed & are unremarkable except as noted in HPI and below PFSH All Active Problems URI (upper respiratory infection) (Acute) Pre-conception counseling (Acute) 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 therapy (Acute) Major depression (Chronic) Medical clearance for psychiatric admission (Acute) Major depression (Chronic) Discharge planning issues (Acute) Vaginal discharge (Acute) Suicide attempt (Acute) Pyuria (Acute) Anxiety (Acute 05/01/15) Childhood onset emotional disorder (Acute 05/15/12) Dental caries (Acute 08/16/16) Depression (Chronic 05/01/15) Admit to [place] 02/16 (fluoxetine overdose, cutting), repeat admission x 2 , [facility] admission 05/18, [place] 07/20, 01/17, [place] 01/17, 05/19 Eczema (Acute 08/27/11) Lactose intolerance (Acute 09/20/14) SUSPECTED Body mass index (BMI) of 5th to 84th percentile for age in childhood (Acute 10/04/14) Routine sports examination for healthy child or adolescent (Acute 03/31/12) Short stature disorder (Acute) endo eval 06/2004-followed by endo-growth hormone started 08/2012 Depression (Acute) Suicidal ideation (Acute) Intentional drug overdose (Acute) Medical History Anxiety Depression Eczema Surgical History No significant past surgical history Family History Mother Depression Father No problems noted. sibling Depression Grandparent Depression Social History Smoking/Tobacco Use Status: Current every day Tobacco Type: cigarettes Smoking risk assessment performed?: Yes Alcohol Intake: current Alcohol Intake frequency: holidays/special occasions only Drug use: Daily Substance use type: marijuana Adopted: No Do you feel safe at home: Yes Do you feel safe in your relationship?: Yes History History 0 Para Hx # Term Pregnancies Multiple births Hx # Pregnancies Ectopic pregnancies AB induced Hx Number of Living Children AB spontaneous Exam Narrative Exam Narrative: 1.Const: Well-nourished, Well-developed, appearing stated age 2.Eyes: PERRL, no conjunctival injection, and symmetrical lids. 3.ENT: Atraumatic external nose and ears. Moist MM. Neck: Symmetric, trachea midline, No thyromegaly. 4.CVS: +S1/S2, No murmurs or gallops. Peripheral pulses 2+ and equal in all extremities. Brisk capillary refill in all extremities. 5.RESP: Unlabored respiratory effort. Clear to auscultation bilaterally. No wheezes rales or rhonchi 6.GI: Soft, Nontender/Nondistended, No hepatosplenomegaly. No guarding or rebound. 7.MSK: Normocephalic/Atraumatic, Extremities w/o deformity or ttp No cyanosis or clubbing, Normal movement of all extremities 8.Skin: Warm, Dry. No rashes or lesions. 9.Neuro: burial agent II-XII grossly intact. Sensation grossly intact, no focal neurologic deficits. 10.Psych: (AAO) x3. Appropriate mood and affect Course Vital Signs Vital signs: Vital Signs Temperature 37.1 C 07/30/22 22:52 Pulse 79 07/30/22 22:52 Respiratory Rate 16 07/30/22 22:52 Blood Pressure 119/71 07/30/22 22:52 Pulse Oximetry 99 07/30/22 22:52 Temperature 37.1 C 07/30/22 22:52 Temperature Source Oral 07/30/22 22:52 Pulse 79 07/30/22 22:52 Respiratory Rate 16 07/30/22 22:52 Respiratory Effort Normal, Non-Labored 07/30/22 22:59 Blood Pressure 119/71 07/30/22 22:52 Blood Pressure Position Sitting 07/30/22 22:52 Pulse Oximetry 99 07/30/22 22:52 Oxygen Delivery Method Room Air 07/30/22 22:52 Oxygen Flow Rate 0 07/30/22 22:52 Pain Level 5 07/30/22 22:52
[2022-07-30] MEDS: Benzonatate 100 MG CAP 400 MG PO (23:28)
== END 2022-07-30 23:30 | disposition home or self-care (01) ==
LOC: ER 23:26
PROVIDERS: Emergency Provider Student in an Organized Health Care Education/Training Program; PCP Nurse Practitioner Family
DX: J06.9 Acute upper respiratory infection, unspecified (principal)
CPT/HCPCS: 99283

== ENCOUNTER 2023-02-06 20:47 | Emergency (ER) | payer MEDICARE, MEDICAID, SELFPAY ==
[2023-02-06 20:50] VITALS: BP 133/91; PULSE 73; RESP 16; TEMP 37.1; O2SAT 99
[2023-02-06 21:22] VITALS: BP 129/87; PULSE 57; O2SAT 97
[2023-02-06 21:22] LABS: Abs Immature Grans 0.02 10^3/uL (0.0-0.06); Absolute Basophil Count 0.05 10^3/uL (0.0-0.2); Absolute Eosinophil Count 0.16 10^3/uL (0.0-0.7); Absolute Lymphocyte Count 1.42 10^3/uL (1.2-3.4); Absolute Monocyte Count 0.86 10^3/uL (0.1-0.8); Absolute Neutrophil Count 4.86 10^3/uL (1.2-6.7); Basophils % 0.7; Eosinophils % 2.2; HCT 42.5 % (36.0-46.0); Immature Grans % 0.3; Lymphocytes % 19.3; MCH 29.8 pg (27.0-33.0); MCHC 35.3 % (32.0-36.0); MCV 85 fL (80-95); Monocytes % 11.7; Neutrophils % 65.8; Platelet Count 211 10^3/uL (130-400); RBC 5.03 10^6/uL (3.93-5.22); RDW 11.7 % (11.7-14.6); RDW-SD 35.9 fL; WBC 7.37 10^3/uL (4.4-10.8)
[2023-02-06] MEDS: Ketorolac 15 MG/ML VIAL IVP (21:23)
[2023-02-06] MEDS: Lactated Ringers 1,000 ML 1000 ML IV (21:23)
[2023-02-06 21:42] LABS: ALT 22 U/L (14-59); AST 31 U/L (15-37); Albumin 4.6 g/dL (3.4-5.0); Alkaline Phosphatase 72 U/L (46-116); BUN 6 mg/dL (7-18); Bilirubin, Total 0.6 mg/dL (0.2-1.0); CREATININE 0.8 mg/dL (0.55-1.02); Calcium 9.7 mg/dL (8.5-10.1); Chloride 101 mmol/L (98-107); Estimated GFR 105.45 (mL/min/1.73m2); Glucose 96 mg/dL (74-106); Magnesium 1.8 mg/dL (1.8-2.4); Potassium 3.5 mmol/L (3.5-5.1); Sodium 139 mmol/L (136-145); Total Protein 8.3 g/dL (6.4-8.2)
[2023-02-06 22:32] LABS: Bilirubin Negative (Negative); Blood Negative (Negative); Clarity Clear (Clear); Glucose Negative (Negative); Ketones Negative (Negative); Leukocyte Esterase Negative (Negative); Nitrite Negative (Negative); Specific Gravity 1.015 (1.005-1.025)
[2023-02-06] MEDS: Prochlorperazine 10 MG TAB PO (23:40)
[2023-02-06 23:41] VITALS: BP 124/84; PULSE 57; RESP 16; O2SAT 99
--- NOTE | 2023-02-09 09:41 | W.ED.GENAD ---
Discharge Plan Disposition Patient Disposition: Home Discharge Details Clinical Impression: Nausea vomiting and diarrhea Primary Care Provider: Sudha Jacob ED Provider: Elsa Holland Home Meds and New Rx's Prescriptions: New prochlorperazine maleate [Compazine] 10 mg tablet 10 mg PO Q8H PRNQty: 10 0RF Continued venlafaxine 150 mg capsule,extended release 24hr 150 mg PO DAILY trazodone 50 mg tablet 50 mg PO HS PRN PRN (Reason: Sleep) Patient Comments: Take 1 tablet at bedtime take one tablet at bedtime if needed for sleep famotidine 20 mg tablet 20 mg PO BID Patient Comments: TAKE ONE TABLET BY MOUTH TWICE A DAY acetylcysteine [NAC] 600 mg capsule 1,200 mg PO BID Patient Comments: Take 2 capsule by mouth twice a day as directed gabapentin 100 mg Capsule 100 mg PO TID aripiprazole [Abilify] 2 mg Tablet 2 mg PO QAM (DME) needle (disp) 23 gauge 23 gauge x 1 Needle MISCELLANEOUS Rx Instructions: for use with weekly Testosterone injections (DME) Syringe without Needle Syringe MISCELLANEOUS Rx Instructions: for use to administer Testosterone inj. benzonatate 100 mg capsule 100 mg PO TID Qty: 30 0RF Discharge Instructions Instructions: Acute Nausea and Vomiting (ED) Additional Instructions: Take Compazine as needed for nausea and vomiting Clear liquid diet as tolerated, popsicles With persistent symptoms, please be reevaluated You may take a Zofran ODT followed by Compazine if you are still having nausea Stand Alone Forms: Work Release Discharge Data Discharge Date/Time-TO BE ENTERED AT DEPARTURE: 02/07/23 01:34 Medical Decision Making 22-year-old female presenting with nausea vomiting and diarrhea, seen yesterday and given Zofran presents here for persistent nausea and vomiting Labs noted to evidence of acute abnormality, patient denies , denies any pain complaints, feeling marked improvement and able to tolerate p.o. at time of reassessment and IV fluids Discharge home with Compazine Return precautions reviewed and patient expressed understanding HPI General Date/Time Provider Initiated Documentation: 02/06/23 20:54. HPI Narrative: This 22-year-old female presents with nausea vomiting diarrhea and headache that started yesterday. She was evaluated at urgent care and given Zofran with alleviation of symptoms that time, however they have returned despite taking Zofran so she presents for reassessment. She denies any chance of . She denies any chest pain or shortness of breath. She denies fever. 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 Related Data Home Medications Medication Instructions Recorded Confirmed venlafaxine 150 mg 150 mg PO DAILY 05/28/18 02/06/23 capsule,extended release 24 hr acetylcysteine 600 mg capsule (NAC) 1,200 mg PO BID 07/25/20 02/06/23 famotidine 20 mg tablet 20 mg PO BID 07/25/20 02/06/23 trazodone 50 mg tablet 50 mg PO HS PRN PRN Sleep 07/25/20 02/06/23 aripiprazole 2 mg tablet (Abilify) 2 mg PO QAM 12/13/21 02/06/23 needle (disp) 23 gauge 23 gauge x 12/13/21 05/06/22 1 syringe (disposable) (Syringe 12/13/21 05/06/22 without Needle) gabapentin 100 mg capsule 100 mg PO TID 05/11/22 02/06/23 benzonatate 100 mg capsule 100 mg PO TID #30 caps 07/30/22 02/06/23 prochlorperazine maleate 10 mg 10 mg PO Q8H PRN #10 tabs 02/06/23 tablet (Compazine) Previous Rx's Medication Instructions Recorded benzonatate 100 mg capsule 100 mg PO TID #30 caps 07/30/22 prochlorperazine maleate 10 mg 10 mg PO Q8H PRN #10 tabs 02/06/23 tablet (Compazine) Allergies Allergy/AdvReac Type Severity Reaction Status Date / Time No Known Allergies Allergy Unverified 02/06/23 20:57 General Stated Complaint: Nausea/Vomit/Diar COLBY: 4 PFSH All Active Problems (Updated 02/06/23 @ 23:29 by ALIZE Calloway) Nausea vomiting and diarrhea (Acute) Pre-conception counseling (Acute) 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 therapy (Acute) Major depression (Chronic) Medical clearance for psychiatric admission (Acute) Major depression (Chronic) Discharge planning issues (Acute) Vaginal discharge (Acute) Suicide attempt (Acute) Pyuria (Acute) Anxiety (Acute 05/01/15) Childhood onset emotional disorder (Acute 05/15/12) Dental caries (Acute 08/16/16) Depression (Chronic 05/01/15) Admit to [place] 02/16 (fluoxetine overdose, cutting), repeat admission x 2 , [facility] admission 05/18, [place] 07/20, 01/17, [place] 01/17, 05/19 Eczema (Acute 08/27/11) Lactose intolerance (Acute 09/20/14) SUSPECTED Body mass index (BMI) of 5th to 84th percentile for age in childhood (Acute 10/04/14) Routine sports examination for healthy child or adolescent (Acute 03/31/12) Short stature disorder (Acute) endo eval 06/2004-followed by endo-growth hormone started 08/2012 Depression (Acute) Suicidal ideation (Acute) Intentional drug overdose (Acute) Medical History Anxiety Depression Eczema Surgical History No significant past surgical history Family History Mother Depression Father No problems noted. sibling Depression Grandparent Depression Social History Smoking/Tobacco Use Status: Current every day Tobacco Type: cigarettes Smoking risk assessment performed?: Yes Alcohol Intake: current Alcohol Intake frequency: holidays/special occasions only Drug use: Occasionally Substance use type: marijuana Adopted: No Do you feel safe at home: Yes Do you feel safe in your relationship?: Yes History History 0 Para Hx # Term Pregnancies Multiple births Hx # Pregnancies Ectopic pregnancies AB induced Hx Number of Living Children AB spontaneous Course Vital Signs Vital signs: Vital Signs Temperature 37.1 C 02/06/23 20:50 Pulse 73 02/06/23 20:50 Respiratory Rate 16 02/06/23 20:50 Blood Pressure 133/91 H 02/06/23 20:50 Pulse Oximetry 99 02/06/23 20:50 Temperature 37.1 C 02/06/23 20:50 Temperature Source Oral 02/06/23 20:50 Pulse 57 L 02/06/23 23:41 Respiratory Rate 16 02/06/23 23:41 Respiratory Effort Normal 02/06/23 20:52 Blood Pressure 124/84 02/06/23 23:41 Blood Pressure Mean 102 02/06/23 21:22 Pulse Oximetry 99 02/06/23 23:41 Oxygen Delivery Method Room Air 02/06/23 20:50 Oxygen Flow Rate 0 02/06/23 20:50 Pain Level 4 02/06/23 20:50 Lab/Test Results Lab/Test Results: Laboratory Tests Range/Units 02/06/23 02/06/23 02/06/23 21:20 21:20 22:25 WBC (4.4-10.8) 10^3/uL 7.37 RBC (3.93-5.22) 10^6/uL 5.03 Hgb (11.2-15.7) g/dL 15.0 Hct (36.0-46.0) % 42.5 MCV (80-95) fL 85 MCH (27.0-33.0) pg 29.8 MCHC (32.0-36.0) % 35.3 RDW (11.7-14.6) % 11.7 Plt Count (130-400) 10^3/uL 211 MPV (8.0-11.0) fL 10.0 Immature Gran % 0.3 Neutrophils % 65.8 Lymphocytes % 19.3 Monocytes % 11.7 Eosinophils % 2.2 Basophils % 0.7 Nucleated RBC % (0.0-0.3) % 0.0 Absolute Neutrophils (1.2-6.7) 10^3/uL 4.86 Absolute Lymphocytes (1.2-3.4) 10^3/uL 1.42 Absolute Monocytes (0.1-0.8) 10^3/uL 0.86 H Absolute Eosinophils (0.0-0.7) 10^3/uL 0.16 Absolute Basophils (0.0-0.2) 10^3/uL 0.05 Sodium (136-145) mmol/L 139 Potassium (3.5-5.1) mmol/L 3.5 Chloride (98-107) mmol/L 101 Carbon Dioxide (21.0-32.0) mmol/L 28.0 Anion Gap (3-11) mmol/L 10.0 BUN (7-18) mg/dL 6 L Creatinine (0.55-1.02) mg/dL 0.8 Est GFR (CKD-EPI 2021) (mL/min/1.73m2) 105.45 Glucose (74-106) mg/dL 96 Calcium (8.5-10.1) mg/dL 9.7 Magnesium (1.8-2.4) mg/dL 1.8 Total Bilirubin (0.2-1.0) mg/dL 0.6 AST (15-37) U/L 31 ALT (14-59) U/L 22 Alkaline Phosphatase (46-116) U/L 72 Total Protein (6.4-8.2) g/dL 8.3 H Albumin (3.4-5.0) g/dL 4.6 Urine Color (Yellow) Yellow Urine Clarity (Clear) Clear Urine pH (5-8) 6.0 Ur Specific [place] (1.005-1.025) 1.015 Urine Protein (Negative) mg/dL Negative Urine Ketones (Negative) mg/dL Negative Urine Blood (Negative) Negative Urine Nitrite (Negative) Negative Urine Bilirubin (Negative) Negative Urine Urobilinogen (Up to 0.2) mg/dL 1.0 H Ur Leukocyte Esterase (Negative) Negative Urine Glucose (Negative) mg/dL Negative
== END 2023-02-07 01:34 | disposition home or self-care (01) ==
PROVIDERS: Emergency Provider Physician Assistant; PCP Nurse Practitioner Family
DX: R11.2 Nausea with vomiting, unspecified (principal); R19.7 Diarrhea, unspecified; R51.9 Headache, unspecified
CPT/HCPCS: 80053; 81025; 96361; 96374; 99284; 81003; 83735; 85025; J1885

== ENCOUNTER 2023-09-18 16:42 | Outpatient (REF) | payer MEDICARE, SELFPAY ==
--- NOTE | 2023-09-18 11:30 | PAPFT_PTH ---
PATIENT: Hellen Diaz LOC: [facility] U#:[id number] AGE/SX: 22/F ROOM: RE09/18/[address]: ERIKA LEIGH : 2000 BED: DIS: 09/18/2023 SPEC #: [id number] RECD: 09/18/23 17:38 STATUS: FEDERICOLisseth REQ #: [id number] TE: 09/18/23 11:[address]: Erika Leigh DEPT: [facility] Cytology RECD BY: Elsa Newman ENTERED: 09/18/23 17:38 SP TYPE: PAPFT OTHR DR: Unknown,Unknown Tissues: 1 - CX/ENDOCX FOR PAP SMEARS Procedures: PAP THIN PREP/UVM Screening Comments: [id number]
== END 2023-09-18 16:43 | disposition home or self-care (01) ==
LOC: NCHCN 16:42
PROVIDERS: Visit Provider Nurse Practitioner Family
DX: Z12.4 Encounter for screening for malignant neoplasm of cervix (principal)
CPT/HCPCS: 88142

== ENCOUNTER 2024-12-26 11:48 | Emergency (ER) | payer MEDICARE, SELFPAY ==
[2024-12-26 12:17] VITALS: BP 127/79; PULSE 73; RESP 16; TEMP 36.4; O2SAT 98
--- NOTE | 2024-12-26 13:33 | W.ED.GENAD ---
Discharge Plan Disposition Patient Disposition: Home Condition: Stable Discharge Details Clinical Impression: Open wound of lip due to dog bite Primary Care Provider: Unknown,Unknown ED Provider: Alyssia Yuan Home Meds and New Rx's Prescriptions: New amoxicillin-pot clavulanate 875-125 mg tablet 1 tab PO BID 10 Days Qty: 20 0RF Rx Instructions: Take 1 tablet by mouth twice daily for the next 10 days Continued venlafaxine 150 mg capsule,extended release 24hr 150 mg PO DAILY trazodone 50 mg tablet 50 mg PO HS PRN PRN (Reason: Sleep) Patient Comments: Take 1 tablet at bedtime take one tablet at bedtime if needed for sleep famotidine 20 mg tablet 20 mg PO BID Patient Comments: TAKE ONE TABLET BY MOUTH TWICE A DAY acetylcysteine [NAC] 600 mg capsule 1,200 mg PO BID Patient Comments: Take 2 capsule by mouth twice a day as directed gabapentin 100 mg Capsule 100 mg PO TID aripiprazole [Abilify] 2 mg Tablet 2 mg PO QAM (DME) needle (disp) 23 gauge 23 gauge x 1 Needle MISCELLANEOUS Rx Instructions: for use with weekly Testosterone injections (DME) Syringe without Needle Syringe MISCELLANEOUS Rx Instructions: for use to administer Testosterone inj. benzonatate 100 mg capsule 100 mg PO TID Qty: 30 0RF prochlorperazine maleate [Compazine] 10 mg tablet 10 mg PO Q8H PRNQty: 10 0RF escitalopram oxalate 10 mg tablet 10 mg PO DAILY Patient Comments: TAKE ONE TABLET BY MOUTH EVERY MORNING dextroamphetamine-amphetamine 20 mg capsule,extended release 24hr 25 mg PO DAILY Patient Comments: TAKE ONE CAPSULE BY MOUTH EVERY DAY FOR 28 DAYS FOR ADHD Discharge Instructions Instructions: Mouth and dental injuries in adults, Animal Bites ED Additional Instructions: Please rinse your mouth out with [id number] oral mouthwash like ACT or similar. Rinse your mouth out after eating or drinking anything. Practice good oral hygiene. Please take the antibiotic twice daily for the next 10 days with yogurt or a probiotic as directed. You are given the first dose here in the emergency department and 2 tablets to go. Your last tetanus vaccination was in 2019. Dog bites get infected very easily. Please return to the ER be seen by your primary care provider or urgent care if any worsening redness, swelling around the lip area, significant drainage, fever body aches or concerns. Referrals: Primary Care Provider [Outside] - 1 week [facility] [REPORT RECIPIENT, Unknown] - 1 week Referral Note: ER follow up Dog bite if worsening Discharge Data Discharge Date/Time-TO BE ENTERED AT DEPARTURE: 12/26/24 13:47 HPI General Mode of arrival: ambulatory. Date/Time Provider Initiated Documentation: 12/26/24 13:17. Limitations to Documentation: no limitations. Information obtained by: patient, RN notes reviewed and old records reviewed. HPI Narrative: 24-year-old transgendered female transitioning to male presents to the ER with chief complaint of dog bite to left lower lip. This occurred last night. Patient reports that the dog was excited to see the patient and jumped up a bit the patient on bottom lip. Last tetanus vaccination was given approximately 5 years ago in 2019. The dog is up-to-date on vaccinations as far as patient is aware. On exam, there is a puncture wound noted to the outer and inner lip. No significant drainage surrounding erythema or swelling noted at this time. Patient does have poor dentition. Discussed home care including rinsing mouth out 3 times daily, antibiotics and follow-up care and strict return instructions verbalized understanding. Related Data Home Medications ?Medication ?Instructions ?Recorded ?Confirmed venlafaxine 150 mg 150 mg PO DAILY 05/28/18 12/26/24 capsule,extended release 24 hr acetylcysteine 600 mg capsule (NAC) 1,200 mg PO BID 07/25/20 12/26/24 famotidine 20 mg tablet 20 mg PO BID 07/25/20 12/26/24 trazodone 50 mg tablet 50 mg PO HS PRN PRN Sleep 07/25/20 12/26/24 aripiprazole 2 mg tablet (Abilify) 2 mg PO QAM 12/13/21 12/26/24 needle (disp) 23 gauge 23 gauge x 12/13/21 12/26/24 1 syringe (disposable) (Syringe 12/13/21 12/26/24 without Needle) gabapentin 100 mg capsule 100 mg PO TID 05/11/22 12/26/24 benzonatate 100 mg capsule 100 mg PO TID #30 caps 07/30/22 12/26/24 prochlorperazine maleate 10 mg 10 mg PO Q8H PRN #10 tabs 02/06/23 12/26/24 tablet (Compazine) amoxicillin 875 mg-potassium 1 tab PO BID Dog bite 10 days #20 12/26/24 clavulanate 125 mg tablet tabs dextroamphetamine-amphetamine ER 25 mg PO DAILY 12/26/24 12/26/24 20 mg 24hr capsule,extend release escitalopram oxalate 10 mg tablet 10 mg PO DAILY 12/26/24 12/26/24 Previous Rx's ?Medication ?Instructions ?Recorded benzonatate 100 mg capsule 100 mg PO TID #30 caps 07/30/22 prochlorperazine maleate 10 mg 10 mg PO Q8H PRN #10 tabs 02/06/23 tablet (Compazine) amoxicillin 875 mg-potassium 1 tab PO BID Dog bite 10 days #20 12/26/24 clavulanate 125 mg tablet tabs Allergies Allergy/AdvReac Type Severity Reaction Status Date / Time No Known Allergies Allergy Unverified 12/26/24 12:19 General Stated Complaint: AnimalBite COLBY: 4 Review of Systems ENT Ears, Nose, Mouth, and Throat: Reports as per HPI, Denies epistaxis, Denies throat swelling and Denies tongue swelling Allergic/Immunologic Allergic/Immunologic: Denies throat swelling and Denies tongue swelling Exam [facility] Nose image:  1. Puncture wound with surrounding ecchymosis bleeding controlled. Face and sinus: laceration left lower lip irregular, contaminated, involving subcutaneous tissue, involving muscle tissue, with motor nerve function intact and with sensation intact; not actively bleeding Mouth/tongue images:  1. Inner lip puncture wound noted small. Teeth and gingiva: caries and poor dentition Course Vital Signs Vital signs: Vital Signs Temperature 36.4 C L 12/26/24 12:17 Pulse 73 12/26/24 12:17 Respiratory Rate 16 12/26/24 12:17 Blood Pressure 127/79 12/26/24 12:17 Pulse Oximetry 98 12/26/24 12:17 Temperature 36.4 C L 12/26/24 12:17 Temperature Source Oral 12/26/24 12:17 Pulse 73 12/26/24 12:17 Respiratory Rate 16 12/26/24 12:17 Blood Pressure 127/79 12/26/24 12:17 Pulse Oximetry 98 12/26/24 12:17 Oxygen Delivery Method Room Air 12/26/24 12:17 Oxygen Flow Rate 0 12/26/24 12:17 Pain Level 1 12/26/24 12:17 Medical Decision Making 24-year-old transgendered female transitioning to male presents to the ER with chief complaint of dog bite to left lower lip. This occurred last night. Patient reports that the dog was excited to see the patient and jumped up a bit the patient on bottom lip. Last tetanus vaccination was given approximately 5 years ago in 2019. The dog is up-to-date on vaccinations as far as patient is aware. There is a puncture wound noted to the outer and inner lip. No significant drainage surrounding erythema or swelling noted at this time. Patient does have poor dentition. Discussed home care including rinsing mouth out 3 times daily, antibiotics and follow-up care and strict return instructions verbalized understanding. Given Augmentin twice daily for the next 10 days. This text was generated using [employer]ekanto[employer] system, please disregard any oddities of phrase or misspellings. PFSH All Active Problems (Updated 12/26/24 @ 13:37 by Alyssia Yuan NP) Open wound of lip due to dog bite (Acute) Pre-conception counseling (Acute) 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 therapy (Acute) Major depression (Chronic) Medical clearance for psychiatric admission (Acute) Major depression (Chronic) Discharge planning issues (Acute) Vaginal discharge (Acute) Suicide attempt (Acute) Pyuria (Acute) Anxiety (Acute 05/01/15) Childhood onset emotional disorder (Acute 05/15/12) Dental caries (Acute 08/16/16) Depression (Chronic 05/01/15) Admit to [place] 02/16 (fluoxetine overdose, cutting), repeat admission x 2 , [facility] admission 05/18, [place] 07/20, 01/17, [place] 01/17, 05/19 Eczema (Acute 08/27/11) Lactose intolerance (Acute 09/20/14) SUSPECTED Body mass index (BMI) of 5th to 84th percentile for age in childhood (Acute 10/04/14) Routine sports examination for healthy child or adolescent (Acute 03/31/12) Short stature disorder (Acute) endo eval 06/2004-followed by endo-growth hormone started 08/2012 Depression (Acute) Suicidal ideation (Acute) Intentional drug overdose (Acute) Medical History Anxiety Depression Eczema Surgical History No significant past surgical history Family History Mother Depression Father No problems noted. sibling Depression Grandparent Depression Social History Smoking/Tobacco Use Status: Current every day Tobacco Type: cigarettes Smoking risk assessment performed?: Yes Alcohol Intake: current Alcohol Intake frequency: holidays/special occasions only Drug use: Occasionally Substance use type: marijuana Adopted: No Do you feel safe at home: Yes Do you feel safe in your relationship?: Yes History History 0 Para Hx # Term Pregnancies Multiple births Hx # Pregnancies Ectopic pregnancies AB induced Hx Number of Living Children AB spontaneous
[2024-12-26] MEDS: Amoxicillin 875/Clav. 125 TAB PO (13:42)
[2024-12-26] MEDS: Amox. 875/Clav. 125, 2 TABS/BTL 1 TAB PO (13:46)
[2024-12-26 13:49] VITALS: BP 127/79; PULSE 73; RESP 16; TEMP 36.4; O2SAT 98
--- NOTE | 2024-12-26 13:52 | NUR.NOTE ---
Faxed Dog Bite form to Sam Calles the Health Officer for [facility]
== END 2024-12-26 13:47 | disposition home or self-care (01) ==
PROVIDERS: Emergency Provider Registered Nurse Emergency
DX: S01.551A Open bite of lip, initial encounter (principal); W54.0XXA Bitten by dog, initial encounter
CPT/HCPCS: 99283 ×2